=== PATIENT | male | born 1965 | race Hispanic/Latino ===

== ENCOUNTER 2018-07-17 14:37 | Emergency (ER) | payer BC ==
[2018-07-17 15:23] LABS: Absolute Lymphocytes (CBC) 1.3 K/uL (0.7-4.9); Absolute Monocytes 0.5 K/uL (0.1-1.3); Absolute Neutrophil 8.3 K/uL (1.8-8.0); Basophils % 0.8 % (0-1.3); Hematocrit 46.3 % (39.6-49.0); Lymphocytes % 13.2 % (15.3-44.8); MPV 8.2 fL (7.6-11.3); Monocytes % 4.5 % (3.3-12.3); RBC Red Blood Cell Count 5.25 M/uL (4.33-5.43)
[2018-07-17 15:40] LABS: Albumin 3.9 g/dL (3.4-5.0); Bilirubin Direct 0.1 mg/dL (0-0.2); Bilirubin Total 0.5 mg/dL (0.2-1.0); Potassium 3.6 mmol/L (3.5-5.1); Protein, Total 7.5 g/dL (6.4-8.2)
[2018-07-17] MEDS ORDERED: MORPHINE 4 MG/ML SYR ONE (15:53)
[2018-07-17] MEDS ORDERED: ONDANSETRON 4 MG/2 ML VIAL ONE (15:54)
[2018-07-17] MEDS ORDERED: DIAZEPAM 10 MG/2 ML INJ SYRINGE ONE (15:54)
--- NOTE | 2018-07-17 17:26 | ER ---
Nurse's Notes [facility] Name: Darrell Wiseman Age: 52 yrs Sex: Male : 1965 Arrival Date: 07/17/2018 Time: 14:41 Bed 30 Private MD: Diagnosis: Abdominal and pelvic pain;Hyperglycemia, unspecified Presentation: 07/17 14:51 Presenting complaint: Pt's states "we just left [place] ER and they did a CT scan aa5 but he got mad at the nurse and we left without the results". Pt c/o abd pain and low back pain that began Friday. pt also reports N/V/D. Transition of care: patient was not received from another setting of care. Onset of symptoms was June 2018. Risk Assessment: Do you want to hurt yourself or someone else? Patient reports no desire to harm self or others. Care prior to arrival: None. 14:51 Method Of Arrival: Ambulatory aa5 14:51 Acuity: ANGLE 3 aa5 16:15 Initial Sepsis Screen: Does the patient meet any 2 criteria? No. Patient's initial mg2 sepsis screen is negative. Does the patient have a suspected source of infection? No. Patient's initial sepsis screen is negative. Triage Assessment: 15:30 General: Behavior is agitated, restless. mg2 Historical: - Allergies: 14:52 No Known Allergies; aa5 - PMHx: 14:52 Chronic Pancreatitis; aa5 - PSHx: 14:52 None; aa5 - Immunization history:: Immunization history: Flu vaccine is not up to date. - Social history:: Smoking status: Patient uses tobacco products, smokes one-half pack cigarettes per day. - Ebola Screening: : No symptoms or risks identified at this time. Screenin:14 Abuse screen: Denies threats or abuse. Denies injuries from another. Nutritional mg2 screening: No deficits noted. Tuberculosis screening: No symptoms or risk factors identified. Fall Risk IV access (20 points). Assessment: 15:17 Reassessment: Request for Medical Record faxed to [facility]/ Phyllis. 15:30 General: Appears uncomfortable. Pain: Complains of pain in abdomen Pain does not mg2 radiate. Pain currently is 10 out of 10 on a pain scale. Quality of pain is described as aching, Pain began gradually, 2-3 days ago. Is intermittent. Neuro: Level of Consciousness is awake, alert, obeys commands, Oriented to person, place, time, situation. Cardiovascular: Capillary refill < 3 seconds Patient's skin is warm and dry. Respiratory: Airway is patent Respiratory effort is even, unlabored, Respiratory pattern is regular, symmetrical. GI: Bowel sounds present X 4 quads. Abd is soft and non tender. : No signs and/or symptoms were reported regarding the genitourinary system. EENT: No signs and/or symptoms were reported regarding the EENT system. Derm: Skin is intact, is healthy with good turgor, Skin is pink, warm \\T\\ dry. normal. Musculoskeletal: Circulation, motion, and sensation intact. Capillary refill < 3 seconds. 16:15 Reassessment: patient is sleeping. mg2 17:44 Reassessment: Patient denies pain at this time. Patient states feeling better. mg2 Vital Signs: 14:53 Pulse 106; Resp 20 S; Temp 98.5(O); Pulse Ox 97% on R/A; Weight 117.93 kg (R); Height 5 aa5 ft. 11 in. (180.34 cm) (R); Pain 10/10; 15:54 BP 136 / 79; Pulse 88; Resp 18; Pulse Ox 97% on 4 lpm NC; Pain 0/10; mg2 17:44 BP 115 / 78; Pulse 80; Resp 18; Pulse Ox 100% on R/A; Pain 0/10; mg2 14:53 Body Mass Index 36.26 (117.93 kg, 180.34 cm) aa5 14:53 Unable to obtain BP at this time, pt restless. aa5 ED Course: 14:41 Patient arrived in ED. as 14:51 Arm band placed on. aa5 14:52 Triage completed. aa5 14:55 César Ayala MD is Attending Physician. kdr 14:57 Raudel Flores RN is Primary Nurse. mg2 15:00 Initial lab(s) drawn, by me, sent to lab. Inserted saline lock: 20 gauge in right jp3 antecubital area, using aseptic technique. Blood collected. 15:10 Bed in low position. Call light in reach. Side rails up X 1. Pulse ox on. NIBP on. jp3 15:10 Basic Metabolic Panel Sent. jp3 15:10 CBC with Diff Sent. jp3 15:10 Creatinine for Radiology Sent. jp3 15:10 Hepatic Function Sent. jp3 15:10 Lipase Sent. jp3 16:15 No provider procedures requiring assistance completed. mg2 17:44 IV discontinued, intact, bleeding controlled, No redness/swelling at site. Pressure mg2 dressing applied. Administered Medications: 15:53 Drug: morphine 4 mg Route: IVP; Site: right antecubital; mg2 17:07 Follow up: Response: No adverse reaction; Marked relief of symptoms mg2 15:53 Drug: Zofran 4 mg Route: IVP; Site: right antecubital; mg2 17:07 Follow up: Response: No adverse reaction; Marked relief of symptoms mg2 15:53 Drug: Valium 5 mg Route: IVP; Site: right antecubital; mg2 17:07 Follow up: Response: No adverse reaction; Marked relief of symptoms mg2 Outcome: 17:25 Discharge ordered by . kdr 17:45 Discharged to home via wheelchair. mg2 17:45 Condition: stable 17:45 Discharge instructions given to patient, family, Instructed on discharge instructions, follow up and referral plans. medication usage, Demonstrated understanding of instructions, follow-up care, medications, Prescriptions given X 5 17:46 Patient left the ED. mg2 Signatures: César Ayala MD MD kdr Martinez, Amelia as Calderon, Audri RN RN aa5 Abigail Franco RN RN ss Raudel Flores RN RN mg2 Reagan Aguirre jp3
--- NOTE | 2018-07-17 17:26 | EDPHYS ---
Physician Documentation [facility] Name: Darrell Wiseman Age: 52 yrs Sex: Male : 1965 Arrival Date: 07/17/2018 Time: 14:41 Bed 30 Private MD: ED Physician César Ayala HPI: 07/17 17:28 This 52 yrs old Male presents to ER via Ambulatory with complaints of kdr Abdominal Pain, Back Pain. 17:28 This 52 yrs old Male presents to ER via Ambulatory with complaints of kdr Abdominal Pain, Back Pain. 17:28 The patient presents with abdominal pain Left flank. Onset: The symptoms/episode kdr began/occurred this morning. The symptoms do not radiate. Associated signs and symptoms: none. The symptoms are described as burning, constant, vague, Unrelenting. Modifying factors: The symptoms are alleviated by nothing, the symptoms are aggravated by nothing. Severity of pain: At its worst the pain was incapacitating in the emergency department the pain is unchanged. The patient has experienced similar episodes in the past, a few times. The patient has not recently seen a physician. Historical: - Allergies: 14:52 No Known Allergies; aa5 - PMHx: 14:52 Chronic Pancreatitis; aa5 - PSHx: 14:52 None; aa5 - Immunization history:: Immunization history: Flu vaccine is not up to date. - Social history:: Smoking status: Patient uses tobacco products, smokes one-half pack cigarettes per day. - Ebola Screening: : No symptoms or risks identified at this time. ROS: 17:28 Constitutional: Negative for fever, chills, and weight loss, Eyes: Negative for injury, kdr pain, redness, and discharge, Neck: Negative for injury, pain, and swelling, Cardiovascular: Negative for chest pain, palpitations, and edema, Respiratory: Negative for shortness of breath, cough, wheezing, and pleuritic chest pain, Back: Negative for injury and pain, : Negative for injury, bleeding, discharge, and swelling, MS/Extremity: Negative for injury and deformity, Skin: Negative for injury, rash, and discoloration, Neuro: Negative for headache, weakness, numbness, tingling, and seizure activity. Psych: Negative for depression, anxiety, suicide ideation, homicidal ideation, and hallucinations, Allergy/Immunology: Negative for hives, rash, and allergies, Endocrine: Negative for neck swelling, polydipsia, polyuria, polyphagia, and marked weight changes, Hematologic/Lymphatic: Negative for swollen nodes, abnormal bleeding, and unusual bruising. 17:28 Abdomen/GI: Positive for abdominal pain, nausea and vomiting, Negative for diarrhea, constipation, abdominal cramps, abdominal distension, anorexia, dysphagia, hematemesis, black/tarry stool, rectal pain, rectal bleeding. Exam: 17:28 Constitutional: This is a well developed, well nourished patient who is awake, alert, kdr and in severe distress. Writhing in bed Head/Face: Normocephalic, atraumatic. Eyes: Pupils equal round and reactive to light, extra-ocular motions intact. Lids and lashes normal. Conjunctiva and sclera are non-icteric and not injected. Cornea within normal limits. Periorbital areas with no swelling, redness, or edema. Neck: Trachea midline, no thyromegaly or masses palpated, and no cervical lymphadenopathy. Supple, full range of motion without nuchal rigidity, or vertebral point tenderness. No Meningismus. Chest/axilla: Normal chest wall appearance and motion. Nontender with no deformity. No lesions are appreciated. Cardiovascular: Regular rate and rhythm with a normal S1 and S2. No gallops, murmurs, or rubs. Normal PMI, no JVD. No pulse deficits. Respiratory: Lungs have equal breath sounds bilaterally, clear to auscultation and percussion. No rales, rhonchi or wheezes noted. No increased work of breathing, no retractions or nasal flaring. Back: No spinal tenderness. No costovertebral tenderness. Full range of motion. Skin: Warm, dry with normal turgor. Normal color with no rashes, no lesions, and no evidence of cellulitis. MS/ Extremity: Pulses equal, no cyanosis. Neurovascular intact. Full, normal range of motion. Neuro: Awake and alert, GCS 15, oriented to person, place, time, and situation. Cranial nerves II-XII grossly intact. Motor strength 5/5 in all extremities. Sensory grossly intact. Cerebellar exam normal. Normal gait. Psych: Awake, alert, with orientation to person, place and time. Behavior, mood, and affect are within normal limits. 17:28 Abdomen/GI: Inspection: obese Bowel sounds: active, Palpation: soft, mild abdominal tenderness, in all quadrants. Vital Signs: 14:53 Pulse 106; Resp 20 S; Temp 98.5(O); Pulse Ox 97% on R/A; Weight 117.93 kg (R); Height 5 aa5 ft. 11 in. (180.34 cm) (R); Pain 10/10; 15:54 BP 136 / 79; Pulse 88; Resp 18; Pulse Ox 97% on 4 lpm NC; Pain 0/10; mg2 17:44 BP 115 / 78; Pulse 80; Resp 18; Pulse Ox 100% on R/A; Pain 0/10; mg2 14:53 Body Mass Index 36.26 (117.93 kg, 180.34 cm) aa5 14:53 Unable to obtain BP at this time, pt restless. aa5 MDM: 17:25 Patient medically screened. kdr 17:28 Data reviewed: vital signs, nurses notes. Counseling: I had a detailed discussion with kdr the patient and/or guardian regarding: the historical points, exam findings, and any diagnostic results supporting the discharge/admit diagnosis, lab results, radiology results, the need for outpatient follow up. ED course: The patient felt much better with the interventions given,. I reviewed the labs obtained from [facility] with the patient and his spouse.. ED course: They were happy with the care provided and the plan for discharge and follow-uo. 07/17 14:55 Order name: Basic Metabolic Panel [facility] 07/17 14:55 Order name: CBC with Diff [facility] 07/17 14:55 Order name: Creatinine for Radiology [facility] 07/17 14:55 Order name: Hepatic Function [facility] 07/17 14:55 Order name: Lipase [facility] 07/17 15:24 Order name: CBC with Automated Diff; Complete Time: 15:39 [facility] 07/17 14:55 Order name: IV Saline Lock; Complete Time: 15:11 [facility] 07/17 15:38 Order name: Creatinine (Radiology Only); Complete Time: 15:39 [facility] 07/17 15:40 Order name: Basic Metabolic Panel [facility] 07/17 15:40 Order name: Liver (Hepatic) Function [facility] 07/17 15:41 Order name: Lipase [facility] 07/17 14:55 Order name: Labs collected and sent; Complete Time: 15:11 [facility] Administered Medications: 15:53 Drug: morphine 4 mg Route: IVP; Site: right antecubital; mg2 17:07 Follow up: Response: No adverse reaction; Marked relief of symptoms mg2 15:53 Drug: Zofran 4 mg Route: IVP; Site: right antecubital; mg2 17:07 Follow up: Response: No adverse reaction; Marked relief of symptoms mg2 15:53 Drug: Valium 5 mg Route: IVP; Site: right antecubital; mg2 17:07 Follow up: Response: No adverse reaction; Marked relief of symptoms mg2 Disposition: 07/17/18 17:25 Discharged to Home. Impression: Abdominal and pelvic pain, Hyperglycemia, unspecified. - Condition is Stable. - Discharge Instructions: Hyperglycemia, Abdominal Pain, Adult, [id number]. - Prescriptions for Bentyl 20 mg Oral Tablet - take 1 tablet by ORAL route every 6 hours As needed; 20 tablet. Pepcid 20 mg Oral Tablet - take 1 tablet by ORAL route every 12 hours for 5 days; 10 tablet. Valium 5 mg Oral Tablet - take 1 tablet by ORAL route every 8 hours As needed; 6 tablet. Zofran 4 mg Oral Tablet - take 1 tablet by ORAL route every 12 hours As needed; 6 tablet. Tramadol 50 mg Oral Tablet - take 1 tablet by ORAL route every 8 hours as needed; 12 tablet. - Medication Reconciliation Form, Thank You Letter, Antibiotic Education, Prescription Opioid Use form. - Follow up: Private Physician; When: 2 - 3 days; Reason: If symptoms return, Further diagnostic work-up, Recheck today's complaints, Continuance of care, Re-evaluation by your physician. - Problem is new. - Symptoms have improved. Signatures: Dispatcher [employer] EDME César Ayala MD MD [facility] Isabel Soto, CELINA RN aa5 Raudel Flores RN RN mg2 Corrections: (The following items were deleted from the chart) 17:46 17:25 07/17/2018 17:25 Discharged to Home. Impression: Abdominal and pelvic pain; mg2 Hyperglycemia, unspecified. Condition is Stable. Forms are Medication Reconciliation Form, Thank You Letter, Antibiotic Education, Prescription Opioid Use. Follow up: Private Physician; When: 2 - 3 days; Reason: If symptoms return, Further diagnostic work-up, Recheck today's complaints, Continuance of care, Re-evaluation by your physician. Problem is new. Symptoms have improved. kdr
[2018-07-17 18:48] VITALS: TEMP 98.5
[2018-07-17 18:51] VITALS: BP 115/78; O2SAT 100
== END 2018-07-17 17:46 | disposition home or self-care (01) ==
LOC: ER 14:37
DX: R73.9 Hyperglycemia, unspecified (principal); F17.210 Nicotine dependence, cigarettes, uncomplicated
CPT/HCPCS: 36415; 80048; 80076; 83690; 85025; 96374; 96375; 99284; J2405; J3360

== ENCOUNTER 2018-07-19 07:56 | Observation (INO) | payer BC ==
--- OUTSIDE RECORDS SUMMARY | 2018-07-19 07:58 | XMS REPORT ---
:1965 [facility] Address [address] [place]. [address] [place] [id number] Care Team Providers Name Role Phone Unavailable Unavailable Unavailable Problems This patient has no known problems. Allergies, Adverse Reactions, Alerts This patient has no known allergies or adverse reactions. Medications This patient has no known medications.
[2018-07-19 08:22] LABS: Absolute Lymphocytes (CBC) 1.4 K/uL (0.7-4.9); Absolute Monocytes 0.6 K/uL (0.1-1.3); Absolute Neutrophil 8.3 K/uL (1.8-8.0); Basophils % 0.8 % (0-1.3); Eosinophils % 0.2 % (0-4.4); Hematocrit 47.4 % (39.6-49.0); Lymphocytes % 13.6 % (15.3-44.8); MPV 8.3 fL (7.6-11.3); Monocytes % 5.4 % (3.3-12.3); RBC Red Blood Cell Count 5.35 M/uL (4.33-5.43)
[2018-07-19] MEDS ORDERED: MORPHINE 4 MG/ML SYR ONE ×3 (08:26→12:32)
[2018-07-19] MEDS ORDERED: ONDANSETRON 4 MG/2 ML VIAL ONE (08:26)
[2018-07-19] MEDS ORDERED: NA CHLORIDE 0.9% 1,000 ML ONE (08:26)
[2018-07-19 08:40] LABS: Albumin 3.9 g/dL (3.4-5.0); Bilirubin Direct 0.1 mg/dL (0-0.2); Bilirubin Total 0.6 mg/dL (0.2-1.0); Potassium 3.5 mmol/L (3.5-5.1); Protein, Total 7.6 g/dL (6.4-8.2)
[2018-07-19] MEDS ORDERED: KETOROLAC 30 MG/ML INJ ONE (09:17)
--- NOTE | 2018-07-19 09:44 | RAD REPORT ---
EXAM DESCRIPTION: CT - Abdomen Pelvis W Contrast - 07/19/2018 9:19 am CLINICAL HISTORY: Abdominal pain COMPARISON: none. TECHNIQUE: Computed axial tomography of the abdomen pelvis was obtained. 100 cc Isovue-300 was admin istered intravenously. Oral contrast was not requested which limits evaluation of bowel. All CT scans are performed using dose optimization technique as appropriate and may include automated exposure control or mA/KV adjustment according to patient size. FINDINGS: Some images degraded by patient motion artifact Fatty liver. Increased density within the gallbladder probably indicates vicarious excretion of contr ast Spleen, pancreas, adrenal and kidneys appear unremarkable. There is no evidence of diverticulitis. An abnormal appendix is not seen A small umbilical hernia IMPRESSION: No acute abnormality is displayed.
--- NOTE | 2018-07-19 10:07 | ER ---
Nurse's Notes [facility] Name: Darrell Wiseman Age: 52 yrs Sex: Male : 1965 Arrival Date: 07/19/2018 Time: 07:57 Bed 13 Private MD: None, None Diagnosis: Generalized abdominal pain-intractable Presentation: 07/19 08:05 Presenting complaint: Patient states: abdominal pain started fri, getting worse. was ch seen Friday at [facility], and Friday here and discharged. still having pain. Transition of care: patient was not received from another setting of care. Onset of symptoms was July 15, 2018. Risk Assessment: Do you want to hurt yourself or someone else? Patient reports no desire to harm self or others. Initial Sepsis Screen: Does the patient meet any 2 criteria? No. Patient's initial sepsis screen is negative. Does the patient have a suspected source of infection? No. Patient's initial sepsis screen is negative. Care prior to arrival: None. 08:05 Method Of Arrival: Ambulatory 08:05 Acuity: ANGLE 3 ch Triage Assessment: 08:08 General: Appears in no apparent distress. uncomfortable, Behavior is agitated, ch restless. Pain: Complains of pain in epigastric area, right upper quadrant and left upper quadrant. GI: Reports upper abdominal pain, nausea, vomiting. Historical: - Allergies: 08:08 No Known Allergies; ch - Home Meds: 08:08 Diazepam Oral [Active]; tramadol Oral [Active]; Zofran Oral [Active]; Dicyclomine Oral ch [Active]; Famotidine Oral [Active]; - PMHx: 08:08 Chronic Pancreatitis; "pin point hole in stomach"; ch - PSHx: 08:08 None; ch - Immunization history:: Adult Immunizations up to date. - Social history:: Smoking status: Patient uses tobacco products. - Ebola Screening: : Patient negative for fever greater than or equal to 101.5 degrees Fahrenheit, and additional compatible Ebola Virus Disease symptoms Patient denies exposure to infectious person Patient denies travel to an Ebola-affected area in the 21 days before illness onset No symptoms or risks identified at this time. Screenin:09 Abuse screen: Denies threats or abuse. Denies injuries from another. Nutritional ch screening: No deficits noted. Tuberculosis screening: No symptoms or risk factors identified. Fall Risk. Assessment: 08:05 General: Appears uncomfortable, Behavior is cooperative, restless, Denies fever. Pain: rb1 Complains of pain in abdomen Pain currently is 10 out of 10 on a pain scale. Pain began Friday. Neuro: Level of Consciousness is awake, alert, obeys commands, Oriented to person, place, time, situation. Cardiovascular: Capillary refill < 3 seconds is brisk in bilateral fingers. Respiratory: Airway is patent Respiratory effort is even, unlabored, Respiratory pattern is regular, symmetrical. GI: Bowel sounds present X 4 quads. Abdomen is tender to palpation X 4 quads. Reports diarrhea, nausea, vomiting. : No signs and/or symptoms were reported regarding the genitourinary system. Derm: Skin is dry, Skin is normal, Skin temperature is warm. 08:09 Reassessment: Patient appears in no apparent distress at this time. ch 08:25 Reassessment: Patient and/or family updated on plan of care and expected duration. Pain rb1 level reassessed. Patient is alert, oriented x 3, equal unlabored respirations, skin warm/dry/pink. Pain 03/04. 09:30 Reassessment: Patient appears in no apparent distress at this time. No changes from rb1 previously documented assessment. 10:30 Reassessment: Patient appears in no apparent distress at this time. Patient and/or rb1 family updated on plan of care and expected duration. Pain level reassessed. Patient is alert, oriented x 3, equal unlabored respirations, skin warm/dry/pink. is at bedside. 11:30 Reassessment: Patient appears in no apparent distress at this time. No changes from rb1 previously documented assessment. Pt. reports that none of the medication we have given him has worked. Arlen, provider, was notified. No orders received at this time. 12:30 Reassessment: Patient appears in no apparent distress at this time. Patient and/or rb1 family updated on plan of care and expected duration. Pain level reassessed. Patient is alert, oriented x 3, equal unlabored respirations, skin warm/dry/pink. 12:55 Reassessment: Tried to call report but there was no answer. rb1 13:00 Reassessment: Dr. Jorge is at bedside. rb1 13:02 Reassessment: Called to give report but the nurse told me that she would call me back rb1 because she was giving medications. I gave the nurse my direct extension to call for report. 13:30 Reassessment: Gave report to CELINA Lux. Information from [facility] was given. Informed that a rb1 Lactate was sent and should watch for the results. All questions asked and answered. 13:30 Reassessment: Patient appears in no apparent distress at this time. Patient and/or rb1 family updated on plan of care and expected duration. Pain level reassessed. Patient is alert, oriented x 3, equal unlabored respirations, skin warm/dry/pink. Waiting for someone to be available to take the pt. to the floor. 14:00 Reassessment: Patient appears in no apparent distress at this time. No changes from rb1 previously documented assessment. at bedside. Waiting for someone to transport the pt. to the floor. Vital Signs: 08:08 BP 157 / 97; Pulse 94; Resp 16; Temp 97.2; Pulse Ox 98% on R/A; Pain 10/10; ch 09:00 BP 169 / 136; Pulse 78; Resp 19; Pulse Ox 96% on R/A; rb1 10:00 BP 160 / 91; Pulse 80; Resp 20; Pulse Ox 96% ; rb1 10:14 Weight 116.57 kg (M); Height 5 ft. 11 in. (180.34 cm) (R); rb1 10:30 BP 148 / 94; Pulse 94; Resp 19; Pulse Ox 97% on R/A; Pain 10/10; rb1 10:32 Weight 116 kg (M); hb 11:30 BP 120 / 75; Pulse 82; Resp 17; Pulse Ox 97% on R/A; rb1 12:15 BP 114 / 88; Pulse 80; Resp 18; Pulse Ox 97% on R/A; Pain 10/10; rb1 13:15 BP 131 / 83; Pulse 82; Resp 17; Pulse Ox 96% on R/A; Pain 10/10; rb1 10:32 Body Mass Index 35.67 (116.00 kg, 180.34 cm) hb 09:00 pt. will not lay still during vital signs. rb1 ED Course: 07:57 Patient arrived in ED. mr 07:57 None, None is Private Physician. mr 07:58 Macarena Tejada, RN is Primary Nurse. rb1 07:58 Arlen Pang FNP-C [facility]. kb 07:58 Jacques Das MD is Attending Physician. kb 08:06 Triage completed. ch 08:08 Arm band placed on left wrist. Patient placed in an exam room, on a stretcher, on pulse ch oximetry. 08:09 Patient has correct armband on for positive identification. Bed in low position. Call light in reach. Side rails up X2. Adult w/ patient. 08:09 No provider procedures requiring assistance completed. ch 08:15 Pulse ox on. NIBP on. Warm blanket given. rb1 08:15 Inserted saline lock: 18 gauge in right forearm, using aseptic technique. ,using rb1 aseptic technique. IV inserted by CELINA Cox. Blood collected. 09:[address] kw1 09:17 CT completed. Patient moved back from CT. kw1 10:06 Kathia Jorge MD is Hospitalizing Provider. kb 14:12 Patient admitted, IV remains in place. rb1 Administered Medications: 08:19 Drug: morphine 4 mg Route: IVP; Site: right forearm; rb1 08:40 Follow up: Response: No adverse reaction; Pain is unchanged, physician notified rb1 08:19 Drug: Zofran 4 mg Route: IVP; Site: right forearm; rb1 08:40 Follow up: Response: No adverse reaction; Nausea is decreased rb1 08:19 Drug: NS 0.9% 1000 ml Route: IV; Rate: 1000 ml; Site: right forearm; rb1 08:42 Drug: morphine 4 mg Route: IVP; Site: right forearm; rb1 09:00 Follow up: Response: No adverse reaction; Pain is unchanged, physician notified rb1 09:06 Drug: TORadol 30 mg Route: IVP; Site: right forearm; rb1 09:30 Follow up: Response: No adverse reaction; Pain is unchanged, physician notified rb1 10:35 Drug: Ketamine 0.1 mg/kg {Note: Dosage was double checked by CN. Ellen} Route: IVP; rb1 Site: right forearm; 11:00 Follow up: Response: No adverse reaction rb1 12:22 Drug: morphine 4 mg Route: IVP; Site: right forearm; rb1 12:40 Follow up: Response: No adverse reaction; Pain is unchanged, physician notified rb1 Outcome: 10:06 Decision to Hospitalize by Provider. kb 14:12 Patient left the ED. rb1 14:12 Admitted to Med/surg accompanied by tech, family with patient, via stretcher, room 230, rb1 with chart, Report called to CELINA Lux 14:12 Condition: stable 14:12 Instructed on the need for admit. Signatures: Arlen Pang, PATTERN CHANGER-C PATTERN CHANGER-Ckb Brooke Arias RN RN Juli Romero mr Macarena Tejada RN RN rb1 Ellen Magdaleno RN RN Poppy Colindres [facility] Corrections: (The following items were deleted from the chart) 10:44 10:14 74.39 kg Reported; Height 5 ft. 11 in. Reported; BMI: 22.8; rb1 rb1
--- NOTE | 2018-07-19 10:07 | EDPHYS ---
Physician Documentation [facility] Name: Darrell Wiseman Age: 52 yrs Sex: Male : 1965 Arrival Date: 07/19/2018 Time: 07:57 Bed 13 Private MD: None, None ED Physician Jacques Das HPI: 07/19 08:07 This 52 yrs old Male presents to ER via Ambulatory with complaints of kb Abdominal Pain. 08:07 The patient presents with abdominal pain that is diffuse. Onset: The symptoms/episode kb began/occurred 5 day(s) ago. The symptoms do not radiate. Associated signs and symptoms: Pertinent positives: nausea, vomiting, and diarrhea, Pertinent negatives: anorexia, blood in stools, chest pain, constipation, dysuria, fever, headache, hematuria, palpitations, shortness of breath, testicular pain, vomiting blood. The symptoms are described as constant. Modifying factors: The symptoms are alleviated by nothing, the symptoms are aggravated by nothing. Severity of pain: At its worst the pain was moderate in the emergency department the pain is unchanged. The patient has experienced similar episodes in the past. The patient has been recently seen by a physician: the ER physician, out of Town, with similar presenting complaints, The patient has been recently seen at the [facility] Emergency Department, this week. Pt rolling around stretcher due to pain. . Historical: - Allergies: 08:08 No Known Allergies; ch - Home Meds: 08:08 Diazepam Oral [Active]; tramadol Oral [Active]; Zofran Oral [Active]; Dicyclomine Oral ch [Active]; Famotidine Oral [Active]; - PMHx: 08:08 Chronic Pancreatitis; "pin point hole in stomach"; ch - PSHx: 08:08 None; ch - Immunization history:: Adult Immunizations up to date. - Social history:: Smoking status: Patient uses tobacco products. - Ebola Screening: : Patient negative for fever greater than or equal to 101.5 degrees Fahrenheit, and additional compatible Ebola Virus Disease symptoms Patient denies exposure to infectious person Patient denies travel to an Ebola-affected area in the 21 days before illness onset No symptoms or risks identified at this time. ROS: 08:06 Constitutional: Negative for fever, chills, and weight loss, ENT: Negative for injury, kb pain, and discharge, Neck: Negative for injury, pain, and swelling, Cardiovascular: Negative for chest pain, palpitations, and edema, Respiratory: Negative for shortness of breath, cough, wheezing, and pleuritic chest pain, Back: Negative for injury and pain, : Negative for injury, bleeding, discharge, and swelling, MS/Extremity: Negative for injury and deformity, Skin: Negative for injury, rash, and discoloration, Neuro: Negative for headache, weakness, numbness, tingling, and seizure. 08:06 Abdomen/GI: Positive for abdominal pain, nausea, vomiting, and diarrhea, Negative for constipation, abdominal cramps, abdominal distension, anorexia. Exam: 08:06 Head/Face: Normocephalic, atraumatic. Chest/axilla: Normal chest wall appearance and kb motion. Nontender with no deformity. No lesions are appreciated. Cardiovascular: Regular rate and rhythm with a normal S1 and S2. No gallops, murmurs, or rubs. Normal PMI, no JVD. No pulse deficits. Respiratory: Lungs have equal breath sounds bilaterally, clear to auscultation and percussion. No rales, rhonchi or wheezes noted. No increased work of breathing, no retractions or nasal flaring. Back: No spinal tenderness. No costovertebral tenderness. Full range of motion. Skin: Warm, dry with normal turgor. Normal color with no rashes, no lesions, and no evidence of cellulitis. MS/ Extremity: Pulses equal, no cyanosis. Neurovascular intact. Full, normal range of motion. Neuro: Awake and alert, GCS 15, oriented to person, place, time, and situation. Cranial nerves II-XII grossly intact. Motor strength 5/5 in all extremities. Sensory grossly intact. Cerebellar exam normal. Normal gait. 08:06 Abdomen/GI: Inspection: obese Bowel sounds: normal, in all quadrants, Palpation: soft, in all quadrants, mild abdominal tenderness, in all quadrants. 08:07 Constitutional: The patient appears alert, awake, uncomfortable. Vital Signs: 08:08 BP 157 / 97; Pulse 94; Resp 16; Temp 97.2; Pulse Ox 98% on R/A; Pain 10/10; ch 09:00 BP 169 / 136; Pulse 78; Resp 19; Pulse Ox 96% on R/A; rb1 10:00 BP 160 / 91; Pulse 80; Resp 20; Pulse Ox 96% ; rb1 10:14 Weight 116.57 kg (M); Height 5 ft. 11 in. (180.34 cm) (R); rb1 10:30 BP 148 / 94; Pulse 94; Resp 19; Pulse Ox 97% on R/A; Pain 10/10; rb1 10:32 Weight 116 kg (M); hb 11:30 BP 120 / 75; Pulse 82; Resp 17; Pulse Ox 97% on R/A; rb1 12:15 BP 114 / 88; Pulse 80; Resp 18; Pulse Ox 97% on R/A; Pain 10/10; rb1 13:15 BP 131 / 83; Pulse 82; Resp 17; Pulse Ox 96% on R/A; Pain 10/10; rb1 10:32 Body Mass Index 35.67 (116.00 kg, 180.34 cm) hb 09:00 pt. will not lay still during vital signs. rb1 MDM: 07:58 Patient medically screened. kb 08:06 Data reviewed: vital signs, nurses notes. Data interpreted: Pulse oximetry: on room air kb is 98 %. Interpretation: normal. 10:02 Counseling: I had a detailed discussion with the patient and/or guardian regarding: the kb historical points, exam findings, and any diagnostic results supporting the discharge/admit diagnosis, lab results, radiology results, the need for further work-up and treatment in the hospital. Physician consultation: Kahtia Jorge MD was called at 10:02. 10:05 Physician consultation: Kathia Jorge MD was contacted at 10:05, regarding admission, to the medical/surgical unit. patient's condition, and will see patient in ED, shortly. 07/19 08:05 Order name: Basic Metabolic Panel 07/19 08:05 Order name: CBC with Diff 07/19 08:05 Order name: Hepatic Function 07/19 08:05 Order name: Lipase 07/19 08:26 Order name: CBC with Automated Diff; Complete Time: 08:26 EDMS 07/19 08:41 Order name: Basic Metabolic Panel; Complete Time: 08:43 EDMS 07/19 08:41 Order name: Liver (Hepatic) Function; Complete Time: 08:43 EDMS 07/19 08:41 Order name: Lipase; Complete Time: 08:43 EDMS 07/19 08:44 Order name: CT Abd/Pelvis - W/Contrast kb 07/19 09:45 Order name: CT EDMS 07/19 10:05 Order name: UDS; Complete Time: 13:08 kb 07/19 12:34 Order name: Urine Dipstick--Ancillary (enter results) ms 07/19 13:18 Order name: Lactate kb 07/19 14:00 Order name: Urine Dipstick-Ancillary; Complete Time: 14:02 EDMS 07/19 08:05 Order name: IV Saline Lock; Complete Time: 08:22 kb 07/19 08:05 Order name: Labs collected and sent; Complete Time: 08:22 kb Administered Medications: 08:19 Drug: morphine 4 mg Route: IVP; Site: right forearm; rb1 08:40 Follow up: Response: No adverse reaction; Pain is unchanged, physician notified rb1 08:19 Drug: Zofran 4 mg Route: IVP; Site: right forearm; rb1 08:40 Follow up: Response: No adverse reaction; Nausea is decreased rb1 08:19 Drug: NS 0.9% 1000 ml Route: IV; Rate: 1000 ml; Site: right forearm; rb1 08:42 Drug: morphine 4 mg Route: IVP; Site: right forearm; rb1 09:00 Follow up: Response: No adverse reaction; Pain is unchanged, physician notified rb1 09:06 Drug: TORadol 30 mg Route: IVP; Site: right forearm; rb1 09:30 Follow up: Response: No adverse reaction; Pain is unchanged, physician notified rb1 10:35 Drug: Ketamine 0.1 mg/kg {Note: Dosage was double checked by CN. Ellen} Route: IVP; rb1 Site: right forearm; 11:00 Follow up: Response: No adverse reaction rb1 12:22 Drug: morphine 4 mg Route: IVP; Site: right forearm; rb1 12:40 Follow up: Response: No adverse reaction; Pain is unchanged, physician notified rb1 Disposition: 07/20 07:53 Co-signature as Attending Physician, Jacques Das MD I agree with the assessment and roland plan of care. Disposition: 07/19/18 10:06 Hospitalization ordered by Kathia Jorge for Observation. Preliminary diagnosis is Generalized abdominal pain - intractable. - Bed requested for Telemetry/MedSurg (observation). - Status is Observation. rb1 - Condition is Stable. - Problem is new. - Symptoms are unchanged. UTI on Admission? No Signatures: Dispatcher [employer] EDMS Arlen Pang, Brooke Caballero, CELINA RN Jacques Ndiaye MD MD cha Solis, Maria ms Barber, CELINA Fiore RN rb1 Corrections: (The following items were deleted from the chart) 07/19 08:07 08:06 Constitutional: Negative for fever, chills, and weight loss, ENT: Negative for kb injury, pain, and discharge, Neck: Negative for injury, pain, and swelling, Cardiovascular: Negative for chest pain, palpitations, and edema, Respiratory: Negative for shortness of breath, cough, wheezing, and pleuritic chest pain, Back: Negative for injury and pain, : Negative for injury, bleeding, discharge, and swelling, MS/Extremity: Negative for injury and deformity, Skin: Negative for injury, rash, and discoloration, Neuro: Negative for headache, weakness, numbness, tingling, and seizure, kb 08:07 08:06 Constitutional: This is a well developed, well nourished patient who is awake, kb alert, and in no acute distress. Head/Face: Normocephalic, atraumatic. Chest/axilla: Normal chest wall appearance and motion. Nontender with no deformity. No lesions are appreciated. Cardiovascular: Regular rate and rhythm with a normal S1 and S2. No gallops, murmurs, or rubs. Normal PMI, no JVD. No pulse deficits. Respiratory: Lungs have equal breath sounds bilaterally, clear to auscultation and percussion. No rales, rhonchi or wheezes noted. No increased work of breathing, no retractions or nasal flaring. Back: No spinal tenderness. No costovertebral tenderness. Full range of motion. Skin: Warm, dry with normal turgor. Normal color with no rashes, no lesions, and no evidence of cellulitis. MS/ Extremity: Pulses equal, no cyanosis. Neurovascular intact. Full, normal range of motion. Neuro: Awake and alert, GCS 15, oriented to person, place, time, and situation. Cranial nerves II-XII grossly intact. Motor strength 5/5 in all extremities. Sensory grossly intact. Cerebellar exam normal. Normal gait. kb 12:31 10:06 Hospitalization Ordered by Kathia Jorge MD for Observation. Preliminary diagnosis ms is Generalized abdominal pain - intractable. Bed requested for Telemetry/MedSurg (observation). Status is Observation. Condition is Stable. Problem is new. Symptoms are unchanged. UTI on Admission? No. kb 14:12 12:31 07/19/2018 10:06 Hospitalization Ordered by Kathia Jorge MD for Observation. rb1 Preliminary diagnosis is Generalized abdominal pain - intractable. Bed requested for Telemetry/MedSurg (observation). Status is Observation. Condition is Stable. Problem is new. Symptoms are unchanged. UTI on Admission? No. ms
[2018-07-19] MEDS ORDERED: KETAMINE HCL 500 MG/5 ML VIAL ONE (10:32)
[2018-07-19 13:07] LABS: Barbiturates NEGATIVE (NEGATIVE); Benzodiazepines POSITIVE (NEGATIVE); Cocaine NEGATIVE (NEGATIVE); METHAMPHETAM NEGATIVE (NEGATIVE); Methadone NEGATIVE (NEGATIVE); Opiates POSITIVE (NEGATIVE); Phencyclidine NEGATIVE (NEGATIVE); THC Cannibis POSITIVE (NEGATIVE)
[2018-07-19 14:00] LABS: Urine Blood TRACE (NEG); Urine Glucose NEGATIVE (NEG); Urine Protein NEGATIVE (NEG); Urine Specific Gravity 1.015 (1.005-1.030)
[2018-07-19] MEDS ORDERED: ACETAMINOPHEN 650MG/RECT SUPP PR PRN (14:20)
[2018-07-19] MEDS: D5.45NS W/KCL 20MEQ 1,000 ML IV SCH ×2 (14:48→21:57)
[2018-07-19] MEDS: MORPHINE 2 MG/ML SYR IV PRN ×2 (15:02→20:09)
[2018-07-19 15:31] VITALS: BMI 35.5
[2018-07-19] MEDS: FAMOTIDINE 20 MG TAB PO SCH (19:26)
[2018-07-19] MEDS ORDERED: KCL 20 MEQ/100 mL IVPB 20 MEQ/100 ML BAG IV SCH (20:00)
[2018-07-19] MEDS: DICYCLOMINE HCL 10 MG CAP PO PRN (21:27)
[2018-07-19] MEDS: DIAZEPAM 5 MG TABLET PO PRN (21:55)
--- NOTE | 2018-07-20 02:02 | HP ---
Date of Admission: 07/19/2018 Chief Complaint: Intractable abdominal pain. Primary Care Physician: None. History Of Present Illness: The patient is a 52-year-old male with past medical history of chronic p ancreatitis, unclear abnormality stated as pinpoint hole in the stomach, who was previously been work ed up by Dr. Viveros several years ago, comes in with multiple visits to the ER here as well as [facility] , recently left AMA and came to our facility with intractable abdominal pain which began 5 days prior to admission, nonradiating; associated with nausea, vomiting, diarrhea. No blood in the stool. No fever. No chest pain or shortness of breath. No hematemesis. The patient's symptoms are constant, moderate, progressively worsening. The patient therefore came into the ER for further evaluation. H is workup revealed normal WBC count. Lipase level was normal. Tox screen was positive for benzodiaz epines, opiates and cannabinoids. CT scan of the abdomen and pelvis showed no acute abnormality. Th e patient was then referred for admission for intractable pain. Past Medical History: Chronic pancreatitis. Surgical History: None. Allergies: NO KNOWN DRUG ALLERGIES. Medications: List reviewed. Family History: Father has diabetes. Social History: The patient is . Smokes cigarettes half a pack per day for the past 20 years . Denies alcohol use. Does report using marijuana. Review of Systems: Eleven-point system reviewed, negative except as per HPI. Physical Examination: Vital Signs: Blood pressure 157/97, pulse 94, respirations 16, temperature 97.2, O2 98% on room air. General: Awake, alert, oriented x3, in moderate distress, ill-appearing male, obese. BMI greater th an 30. CV: S1, S2. Regular rate and rhythm. Peripheral pulses present. Respiratory: Moving air well bilaterally. No wheezing or stridor. No use of accessory muscles. HEENT: Normocephalic, atraumatic. PERRLA. EOMI. Dry mucous membranes. Oropharynx is clear. Poor dentition. Conjunctivae anicteric. Neck: Supple. No JVD. Trachea midline. Extremities: No clubbing, cyanosis, or edema. No calf tenderness. Neuro: Cranial nerves 2 through 12 intact. Grossly no focal neurological deficit. Speech is normal . Skin: No rashes. Normal skin turgor. Acute changes from skin graft on his left lower extremity. Psych: Mood is anxious. Affect is congruent with mood. Insight and judgment are poor. Labs: UDS is positive for opiates, benzodiazepines and THC. Urine is negative. Sodium 141, potassi um 3.5, chloride 108, CO2 25, BUN 9, creatinine 1.29, glucose 108, lactate 1.2, calcium 8.6. WBC 10. 3, H and H 16 and 47.4, platelets 287, neutrophils 80%. CT scan of the abdomen and pelvis shows no a cute abnormality. Does show fatty liver disease. Assessment: A 52-year-old male with: 1.Intractable generalized abdominal pain, unclear etiology, possible ischemic bowel syndrome. The p justin is a smoker. The patient did have some diarrhea. No bright red blood. Did state that the st ool was melenic. Consider GI consultation. Continue pain medications, n.p.o. Continue IV fluids. 2.Obesity. BMI greater than 30. 3.Nicotine dependence with cigarette smoking continuous. 4.Marijuana abuse. Counseled. 5.Fatty liver disease. Plan: Admit the patient to [facility] as observation. MADHURI Voice ID: [id number]
[2018-07-20] MEDS: MORPHINE 2 MG/ML SYR IV PRN ×3 (05:45→20:16)
[2018-07-20 06:20] LABS: Absolute Lymphocytes (CBC) 1.6 K/uL (0.7-4.9); Absolute Monocytes 0.6 K/uL (0.1-1.3); Absolute Neutrophil 5.2 K/uL (1.8-8.0); Basophils % 0.8 % (0-1.3); Eosinophils % 0.8 % (0-4.4); Hematocrit 42.3 % (39.6-49.0); MPV 8.4 fL (7.6-11.3); RBC Red Blood Cell Count 4.73 M/uL (4.33-5.43)
[2018-07-20 06:31] LABS: Albumin 3.3 g/dL (3.4-5.0); Bilirubin Total 0.6 mg/dL (0.2-1.0); Magnesium 2.3 mg/dL (1.8-2.4); Potassium 3.5 mmol/L (3.5-5.1); Protein, Total 6.5 g/dL (6.4-8.2)
[2018-07-20] MEDS: DIAZEPAM 5 MG TABLET PO PRN (06:56)
[2018-07-20] MEDS: FAMOTIDINE 20 MG TAB PO SCH ×2 (08:30→20:16)
[2018-07-20] MEDS: DICYCLOMINE HCL 10 MG CAP PO PRN (08:31)
[2018-07-20] MEDS: TRAMADOL HCL 50 MG TAB PO PRN (10:18)
[2018-07-20] MEDS: D5.45NS W/KCL 20MEQ 1,000 ML IV SCH ×3 (10:27→20:15)
[2018-07-20] MEDS: METRONIDAZOLE 500mg IVPB 500 MG/100 ML BAG IV SCH ×2 (12:05→16:57)
[2018-07-20] MEDS: CIPROFLOXACIN 400mg IV 400 MG/200 ML BAG IV SCH ×2 (12:06→20:16)
--- NOTE | 2018-07-20 17:44 | PN ---
Date of Progress Note: 07/20/2018 Subjective: Patient was seen and examined. Chart reviewed and case discussed with RN as well as Dr. Bueno. The patient is still seeming to have intractable abdominal pain. States he is hungry and wants to eat. at the bedside. Case was also discussed with Dr. Evans and CT scan imaging was reviewed with him. Medications: List reviewed. Physical Examination: Vital Signs: Temperature 97.5, heart rate 62, blood pressure 140/83, respirations 18, O2 98% on room air. General: Awake, alert, oriented x3. Morbidly obese male, seems to be in apparent pain. CV: S1, S2. Regular rate and rhythm. Peripheral pulses present. Respiratory: Moving air well bilaterally. No wheezing or stridor. Gastrointestinal: Abdomen is soft, not distended. Pain out of proportion to exam. Bowel sounds positive. Extremities: No clubbing, cyanosis, or edema. Neurologic: Nonfocal. Laboratory Data: Sodium 144, potassium 3.5, chloride 110, CO2 26, BUN 10, creatinine 1.03, glucose 109, calcium 7.8, magnesium 2.3. WBC 7.5, H and H 14.1 , 42.3, platelets 228, neutrophils 69%. Assessment And Plan: A 52-year-old male with, 1. Intractable abdominal pain, generalized, unclear etiology. I did discuss imaging studies with Dr. Evans. CT scan with the contrast did show acute arterial phase doubt ischemic bowel disease. The patient has not had any diarrhea. No bloody stool. Did report some melena at home, however, has not had any further stools. GI unavailable for consultation. We will continue with pain medications. Keep n.p.o. continue with IV fluids. General surgery consultation has been obtained. 2. Obesity, BMI greater than 30. Counseled. 3. Nicotine dependence with cigarette smoking, continuous. 4. Marijuana abuse, counseled. 5. Fatty liver disease. Plan: We will continue to monitor. There is a possibility that the patient has drug-seeking behavior as he has had multiple visits to the ER and left AMA from [facility] as well when he did not receive pain medications. /DENIS Voice ID: [id number] Report ID: [id number] HERLINDA
--- NOTE | 2018-07-20 19:29 | CON ---
Date of Consultation: 07/20/2018 Brief History Of Present Illness: The patient is a 52-year-old male, who presents with hist ory of chronic pancreatitis, who presents with worsening abdominal pain beginning 4-5 days ago. It g ot progressively worse over the past few days, associated with intractable nausea and vomiting and wa veronica diarrhea, which he states had a dark color at times. He states he has been under the care of Dr Mil Viveros several years ago and had an EGD many years ago and upwards of 10 years ago in which he noted a "pinpoint hole in his stomach, but did not have any surgical intervention at that time. He has had multiple ER visits here as well as [facility] and recently left by report AMA from [facility] our facili ty with the above-stated complaints of abdominal pain and intractable vomiting. He has had no fever, no chest pain, no shortness of breath, no hematemesis. His pain was constant, but it had a crescend o decrescendo type character. It was described as a grippy type gas pain primarily. Past Medical History: Significant for chronic pancreatitis. Past Surgical History: He has had skin grafts. Allergies: NO KNOWN DRUG ALLERGIES. Medications: Included Bentyl, Pepcid, Zofran, Ultram, and Valium. Family History: Father has diabetes. Social History: He is . Smokes half a pack cigarettes per day for 20 years. Denies alcohol. He does report using marijuana on occasion. Review of Systems: A 10-point review of systems negative other than HPI. Physical Examination: Vital Signs: At time of my examination, his BMI is 35.6, blood pressure 140/83, pulse is 60, respira tory rate 18, temperature 97.5. General: He is awake, alert, and oriented. Psychiatric: He is appropriate and conversive. HEENT: Normocephalic. His sclerae are anicteric. Mucous membranes moist. Oropharynx is clear. Neck: Supple. No JVD. Chest: Normal expansion and excursion. Cardiovascular: Regular rate and rhythm. Pulmonary: Clear to auscultation bilaterally. Abdomen: Soft, nontender, nondistended. No rebound. No guarding. No peritoneal signs. No hernias appreciated. Extremities: No clubbing, cyanosis, or edema. He has well-healed scars on bilateral ankle areas fro m obvious skin grafts or segundo. Otherwise remainder of physical examination is essentially normal. Laboratory Data: White blood cell count at the time of my exam is 7.5, hemoglobin is 14.1, hematocri t 42.3, platelet count is 228. His neutrophils are normal at 69%. Sodium 144, potassium 3.5, chlori de 110, carbon dioxide 26, BUN 10, creatinine 1.03, glucose is 109, lactic acid 1.2. AST is 45, ALT 41, alkaline phosphatase is 103. Lipase was 384 on admission. UA was essentially negative. Toxoid screen was positive for opioids, benzodiazepines, and THC. CT scan for the abdomen pelvis was offici ally read as negative acute abnormalities. Visceral arteries enhance normally on the arterial phase without evidence of significant flow abnormalities. No evidence of diverticulitis. Abnormal appendi x is not seen. Spleen, pancreas, and adrenal and kidneys appear normal. Fatty liver, increased dens ity within the gallbladder probably indicates vicarious excretion of contrast. Assessment And Plan: This is a 52-year-old male, who comes in with abdominal pain out of proportion to physical exam. There is no evidence of ischemic bowel or ischemic changes to his bowel, however. 1.I recommend continued IV fluid hydration. 2.Pain management. 3.Serial abdominal exams. 4.Stool guaiac. 5.Continue prophylactic antibiotic Kendy Bowman per Dr. Jorge. 6.I will follow along with you. Thank you for this interesting consult. JAGJIT/DENIS Voice ID: [id number] Report ID: [id number]
[2018-07-21] MEDS: METRONIDAZOLE 500mg IVPB 500 MG/100 ML BAG IV SCH ×3 (00:08→17:24)
[2018-07-21] MEDS: D5.45NS W/KCL 20MEQ 1,000 ML IV SCH ×3 (03:15→21:49)
[2018-07-21] MEDS: MORPHINE 2 MG/ML SYR IV PRN (04:36)
[2018-07-21] MEDS: DICYCLOMINE HCL 10 MG CAP PO PRN ×3 (05:53→22:02)
[2018-07-21] MEDS: ONDANSETRON 4 MG/2 ML VIAL IV PRN (06:16)
[2018-07-21 06:21] LABS: Potassium 3.4 mmol/L (3.5-5.1)
[2018-07-21] MEDS: TRAMADOL HCL 50 MG TAB PO PRN ×2 (08:03→17:28)
[2018-07-21] MEDS: FAMOTIDINE 20 MG TAB PO SCH ×2 (08:04→21:44)
[2018-07-21] MEDS: CIPROFLOXACIN 400mg IV 400 MG/200 ML BAG IV SCH ×2 (08:04→21:44)
--- NOTE | 2018-07-21 08:24 | P.PN ---
Subjective Date of Service: 07/21/18 Subjective: No new changes (Patient states pain is similar to yesterday, was able to sleep most of day, no BM, + nausea, + spit up, no emesis) Physical Examination - Vital Signs Temperature: 97.8 F Blood Pressure: 138/88 Pulse: 59 Respirations: 18 Pulse Ox (%): 98 - Physical Exam General: Alert, In no apparent distress, Mild distress HEENT: Atraumatic, Mucous membr. moist/pink Respiratory: Clear to auscultation bilaterally Gastrointestinal: Soft and benign, Non-distended, No ascites, No tenderness, No masses, No rebound, No guarding Neurological: Normal speech Assessment And Plan - Current Problems (Diagnosis) (1) Abdominal pain Current Visit: Yes Status: Acute Plan: -CBC, LFT, Lipase, CRP - upper GI with small bowel follow through - serial exams - obtain records from office - continue medical management Qualifiers: Abdominal location: generalized Qualified Code(s): R10.84 - Generalized abdominal pain
[2018-07-21 09:17] LABS: Absolute Lymphocytes (CBC) 1.2 K/uL (0.7-4.9); Absolute Monocytes 0.5 K/uL (0.1-1.3); Absolute Neutrophil 6.5 K/uL (1.8-8.0); Basophils % 0.7 % (0-1.3); Eosinophils % 0.5 % (0-4.4); Hematocrit 45.7 % (39.6-49.0); Lymphocytes % 14.5 % (15.3-44.8); MPV 8.2 fL (7.6-11.3); Monocytes % 5.8 % (3.3-12.3); RBC Red Blood Cell Count 5.16 M/uL (4.33-5.43)
[2018-07-21 09:24] LABS: Albumin 3.9 g/dL (3.4-5.0); Bilirubin Direct 0.2 mg/dL (0-0.2); Bilirubin Total 0.9 mg/dL (0.2-1.0); C-Reactive Protein 8.91 mg/L (<3.00); Protein, Total 7.5 g/dL (6.4-8.2)
[2018-07-21] MEDS: DOCUSATE NA 100 MG CAP PO SCH ×2 (10:41→21:00)
--- NOTE | 2018-07-21 15:14 | RAD REPORT ---
EXAM DESCRIPTION: RAD - Upper GI W/KUB - 07/21/2018 2:53 pm CLINICAL HISTORY: Abdominal pain COMPARISON: None FINDINGS: Fluoroscopy time 56 seconds. Sixteen fluoroscopic spot images obtained The esophagus and stomach appear unremarkable. Gastroesophageal reflux extends to the distal esophagus. Mucosal folds of the proximal duodenum appear thickened IMPRESSION: Mild gastroesophageal reflux Thickening of the mucosal folds of the proximal duodenum may indicate inflammation
--- NOTE | 2018-07-21 17:30 | P.PN ---
Subjective Date of Service: 07/21/18 Chief Complaint: Abdominal pain Patient seen and examined at bedside. at bedside. Chart reviewed and case discussed with nursing staff. Patient complaining of generalized abdominal pain. He is writhing in bed, states he has a lot of pain, unable to sit lay still. Last bowel movement prior to coming to the hospital. Review of Systems 10-point ROS is otherwise unremarkable Physical Examination - Vital Signs Temperature: 97.6 F Blood Pressure: 161/92 Pulse: 70 Respirations: 18 Pulse Ox (%): 97 - Physical Exam General: Alert, Oriented x3, Moderate distress HEENT: Atraumatic, PERRLA, EOMI Neck: Supple, JVD not distended Respiratory: Clear to auscultation bilaterally, Normal air movement Cardiovascular: Regular rate/rhythm, Normal S1 S2 Gastrointestinal: Normal bowel sounds, Soft and benign, Non-distended, No tenderness, Other (Very mild tenderness on very deep/hard palpation of the abdomen.) Musculoskeletal: No tenderness Integumentary: No rashes Neurological: Normal speech, Normal tone, Normal affect Lymphatics: No axilla or inguinal lymphadenopathy Assessment And Plan - Plan This is a 52-year-old male with: Intractable abdominal pain, generalized, unclear etiology. CT scan with the contrast did show acute arterial phase and there is very minimal possibility of ischemic bowel disease. Though patient has had no diarrhea, lactic acid remains normal, no bloody stool. Abdominal exam is fairly unremarkable at this time. The patient has not had any diarrhea. No bloody stool. GI unavailable for consultation. We will try to avoid IV pain medications, discussed with patient's this can also cause constipation, worsening abdominal pain. Keep n.p.o. continue with IV fluids. General surgery consultation, recommendations appreciated. Obesity, BMI greater than 30. Counseled. Nicotine dependence with cigarette smoking, continuous. Marijuana abuse, counseled. Fatty liver disease. DVT prophylaxis: None GI prophylaxis: Protonix Diet: NPO Disposition: We will continue to monitor. There is a possibility that the patient has drug-seeking behavior as he has had multiple visits to the ER and left AMA from [facility] as well when he did not receive pain medications.
[2018-07-22] MEDS: METRONIDAZOLE 500mg IVPB 500 MG/100 ML BAG IV SCH ×2 (01:05→10:39)
[2018-07-22] MEDS: TRAMADOL HCL 50 MG TAB PO PRN ×2 (05:14→17:18)
[2018-07-22] MEDS: ONDANSETRON 4 MG/2 ML VIAL IV PRN (05:14)
[2018-07-22] MEDS: D5.45NS W/KCL 20MEQ 1,000 ML IV SCH ×3 (05:17→21:19)
[2018-07-22 06:32] LABS: Potassium 3.4 mmol/L (3.5-5.1)
[2018-07-22] MEDS: FAMOTIDINE 20 MG TAB PO SCH (09:00)
[2018-07-22] MEDS: DOCUSATE NA 100 MG CAP PO SCH ×2 (09:00→21:00)
[2018-07-22] MEDS: CIPROFLOXACIN 400mg IV 400 MG/200 ML BAG IV SCH (10:39)
[2018-07-22] MEDS ORDERED: Ringers Lactate 1,000 ML IV ONE (11:25)
[2018-07-22] MEDS ORDERED: PROPOFOL 200 MG/20 ML VIAL IV ONE (12:36)
[2018-07-22] MEDS ORDERED: LIDOCAINE 1% MPF 5 ML VIAL ONE (12:36)
[2018-07-22] MEDS ORDERED: MIDAZOLAM HCL 2 MG/2 ML INJ ONE (12:36)
--- NOTE | 2018-07-22 12:50 | ENDO RPT ---
[address], [address] EGD PROCEDURE REPORT EXAM DATE: 07/22/2018 PATIENT NAME: Darrell Wiseman MR#: [id number] BIRTHDATE: 1965 ATTENDING: Tommy Bueno DR STATUS: inpatient - [facility] RATINGS ANALYST: Naomy Laureano RN, Andrez Gallego, and Carline Gallego INDICATIONS: The patient is a 52 yr old Male here for an EGD due to abdominal pain PROCEDURE PERFORMED: EGD with biopsy for H. pylori MEDICATIONS: Per Anesthesia. TOPICAL ANESTHETIC: none CONSENT: The patient understands the risks and benefits of the procedure and understands that these risks include, but are not limited to: sedation, allergic reaction, infection, perforation and/or bleeding. Alternative means of evaluation and treatment include, among others: physical exam, x-rays, and/or surgical intervention. The patient elects to proceed with this endoscopic procedure. DESCRIPTION OF PROCEDURE: During intra-op preparation period all mechanical medical equipment was checked for proper function. Hand hygiene and appropriate measures for infection prevention was taken. Procedure, possible complications, and alternatives including but not limited to the possibility of bleeding, perforation, tear, infection, sepsis, need for surgery, need for blood transfusion, and anesthesia related complications were explained to the patient. After the risks, benefits and alternatives of the procedure were thoroughly explained, Informed consent was verified, confirmed and timeout was successfully executed by the treatment team. The patient was placed in the left lateral position. The patient was anesthetized with topical anesthesia. Through the anesthetized oropharyngeal area, the scope was passed without any difficulty. The EG-[id number] ([id number]) endoscope was introduced through the mouth and advanced to the second portion of the duodenum. Retroflexed views revealed no abnormalities. The gastroscope was then slowly withdrawn and removed. Duodenitis was found in the first portion of the duodenum. Multiple biopsies were obtained and sent to pathology from flat polyps of the duodenal bulb and 1st portion of duodenum. There were multiple polyps of varying size, adenomatous in appearance, biopsies were taken from these edematous erosive erythematous firm hyperemic large nodular polyps. Monopolar cautery was performed. Multiple biopsies were obtained and sent to pathology. A biopsy for H. pylori was taken. ADVERSE EVENTS: There were no complications. IMPRESSIONS: 1. Duodenitis was found in the first portion of the duodenum 2. A pedunculated polyp was found in the bulb and descending duodenum RECOMMENDATIONS: 1. acid suppression therapy 2. anti-reflux regimen 3. await biopsy results 4. follow-up: office 2 week(s) 5. follow-up: GI clinic 5 day(s) 6. avoid NSAIDS 7. follow-up of helicobacter pylori status, treat if indicated 8. Will Refer to [employer] Associate - Dr. Viveros 9. Begin H.Pylori Treatment REPEAT EXAM: Return in 1 month(s) for Colonoscopy. Tommy Bueno DR eSigned: Tommy Bueno DR 07/22/2018 12:49 PM cc: CPT CODES: ICD9 CODES: PATIENT NAME: Darrell Wiseman MR#: [id number]
[2018-07-22] MEDS: PANTOPRAZOLE 40MG TABLET PO SCH (17:16)
--- NOTE | 2018-07-22 17:49 | P.PN ---
Subjective Date of Service: 07/22/18 Chief Complaint: Abdominal pain Subjective: Improving Patient seen and examined at bedside. at bedside. Chart reviewed and case discussed with nursing staff. Patient improved. He states that he has walked around and is feeling much better. Review of Systems 10-point ROS is otherwise unremarkable Physical Examination - Vital Signs Temperature: 98.6 F Blood Pressure: 181/100 Pulse: 66 Respirations: 20 Pulse Ox (%): 97 - Physical Exam General: Alert, In no apparent distress, Oriented x3 HEENT: Atraumatic, PERRLA, EOMI Neck: Supple, JVD not distended Respiratory: Clear to auscultation bilaterally, Normal air movement Cardiovascular: Regular rate/rhythm, Normal S1 S2 Gastrointestinal: Normal bowel sounds, No tenderness Musculoskeletal: No tenderness Integumentary: No rashes Neurological: Normal speech, Normal tone, Normal affect Lymphatics: No axilla or inguinal lymphadenopathy Assessment And Plan - Plan This is a 52-year-old male with: Intractable abdominal pain, generalized, unclear etiology. CT scan with the contrast did show acute arterial phase and there is very minimal possibility of ischemic bowel disease. Though patient has had no diarrhea, lactic acid remains normal, no bloody stool. Abdominal exam is fairly unremarkable at this time. The patient has not had any diarrhea. No bloody stool. GI unavailable for consultation. We will try to avoid IV pain medications, discussed with patient's this can also cause constipation, worsening abdominal pain. Patient is now status post EGD. Found to have a large area of duodenitis, large duodenal ulcers. Biopsy taken, sent to lab/pathology. Per General Surgery, will start patient on acid suppression as well as the H. pylori treatment while biopsies are pending. Obesity, BMI greater than 30. Counseled. Nicotine dependence with cigarette smoking, continuous. Marijuana abuse, counseled. Fatty liver disease. DVT prophylaxis: None GI prophylaxis: Protonix Diet: Clear liquid diet Disposition: We will see how medications help patient. Likely discharge home in the next month for 48 hr. He will need outpatient GI followup for possible colonoscopy in the near future.
[2018-07-22] MEDS: CLARITHROMYCIN 500 MG TABLET PO SCH (21:00)
[2018-07-22] MEDS: AMOX/K CLAV 500 MG TAB PO SCH (21:19)
[2018-07-23] MEDS: D5.45NS W/KCL 20MEQ 1,000 ML IV SCH (05:19)
[2018-07-23 05:35] LABS: Absolute Lymphocytes (CBC) 1.9 K/uL (0.7-4.9); Absolute Monocytes 0.6 K/uL (0.1-1.3); Absolute Neutrophil 4.1 K/uL (1.8-8.0); Basophils % 0.7 % (0-1.3); Hematocrit 44.2 % (39.6-49.0); Lymphocytes % 27.3 % (15.3-44.8); MPV 8.5 fL (7.6-11.3); Monocytes % 8.9 % (3.3-12.3)
[2018-07-23 05:47] LABS: Potassium 3.7 mmol/L (3.5-5.1)
[2018-07-23] MEDS: PANTOPRAZOLE 40MG TABLET PO SCH (08:03)
[2018-07-23] MEDS: AMOX/K CLAV 500 MG TAB PO SCH (08:03)
[2018-07-23] MEDS: POTASSIUM 25 MEQ EFFERV TAB PO ONE ×2 (08:04→09:00)
[2018-07-23] MEDS: TRAMADOL HCL 50 MG TAB PO PRN (08:04)
[2018-07-23] MEDS: DOCUSATE NA 100 MG CAP PO SCH (08:04)
[2018-07-23] MEDS: CLARITHROMYCIN 500 MG TABLET PO SCH (10:12)
[2018-07-23 10:36] VITALS: BP 171/84; TEMP 97.5
[2018-07-23 11:05] VITALS: O2SAT 97
--- NOTE | 2018-07-23 18:14 | P.SSS ---
Patient History Date of Service: 07/23/18 Reason for admission: Abdominal pain History of Present Illness: : The patient is a 52-year-old male with past medical history of chronic pancreatitis, unclear abnormality stated as pinpoint hole in the stomach, who was previously been worked up by Dr. Viveros several years ago, comes in with multiple visits to the ER here as well as [facility], recently left AMA and came to our facility with intractable abdominal pain which began 5 days prior to admission, nonradiating; associated with nausea, vomiting, diarrhea. No blood in the stool. No fever. No chest pain or shortness of breath. No hematemesis. The patient's symptoms are constant, moderate, progressively worsening. The patient therefore came into the ER for further evaluation. His workup revealed normal WBC count. Lipase level was normal. Tox screen was positive for benzodiazepines, opiates and cannabinoids. CT scan of the abdomen and pelvis showed no acute abnormality. The patient was then referred for admission for intractable pain. Allergies No Known Allergies Allergy (Verified 07/19/18 14:32) Home Medications: Dicyclomine [Bentyl*] 20 mg PO Q6H PRN 07/19/18 Famotidine [Pepcid*] 20 mg PO Q12H 07/19/18 Ondansetron HCl [Zofran] 4 mg PO Q12H PRN 07/19/18 diazePAM [Valium*] 5 mg PO Q8H PRN 07/19/18 Amox/Clavulanate [Augmentin 500-125 mg Tab*] 500 mg PO BID #28 tab 07/23/18 Clarithromycin [Biaxin] 500 mg PO BID #28 tablet 07/23/18 Pantoprazole [Protonix Tab*] 40 mg PO BIDAC #28 tab 07/23/18 Tramadol HCl [Ultram] 50 mg PO Q8H PRN #15 tablet 07/23/18 - Past Medical/Surgical History Has patient received pneumonia vaccine in the past: No Diabetic: No -: gastro enteritis -: dental implant -: skin graft on BLE - Family History Father -: Hypertension, Diabetes Brother -: Hypertension - Social History Smoking Status: Former smoker Alcohol use: No CD- Drugs: Yes Caffeine use: Yes Place of Residence: Home Review of Systems 10-point ROS is otherwise unremarkable Physical Examination - Vital Signs Temperature: 97.5 F Blood Pressure: 171/84 Pulse: 65 Respirations: 20 Pulse Ox (%): 97 - Physical Exam General: Alert, In no apparent distress, Oriented x3 HEENT: Atraumatic, PERRLA, Mucous membr. moist/pink, EOMI, Sclerae nonicteric Neck: Supple, 2+ carotid pulse no bruit, No LAD, Without JVD or thyroid abnormality Respiratory: Clear to auscultation bilaterally, Normal air movement Cardiovascular: Regular rate/rhythm, Normal S1 S2 Gastrointestinal: Normal bowel sounds, Tenderness Musculoskeletal: No tenderness Integumentary: No rashes Neurological: Normal gait, Normal speech, Normal strength at 5/5 x4 extr, Normal tone, Normal affect Lymphatics: No axilla or inguinal lymphadenopathy Treatment Summary: Intractable abdominal pain, generalized, unclear etiology. CT scan with the contrast did show acute arterial phase and there is very minimal possibility of ischemic bowel disease. Though patient has had no diarrhea, lactic acid remains normal, no bloody stool. Abdominal exam remained fairly unremarkable. The patient has not had any diarrhea. No bloody stool. GI was unavailable for consultation. Dr. Bueno, general surgery consulted for the school. EGD done, Found to have a large area of duodenitis, large duodenal ulcers. Biopsy taken, sent to lab/pathology. Per General Surgery, patient started on acid suppression as well as the H. pylori treatment while biopsies were pending. Patient was then referred for outpatient gastroenterology follow up. Our social work called Dr. Viveros's office to use help scheduled appointment. Patient received an appointment for today at 12:30 p.m.. Patient was discharged with instructions to follow up with today. He was also instructed to follow up with Dr. Bueno next week. Nicotine dependence with cigarette smoking, continuous. Counseled on cessation Marijuana abuse, counseled. Otherwise, patient remained stable throughout the stay. He was tolerating a full liquid diet prior to discharge. His pain was better controlled and he was hemodynamically stable. - Disposition Discharge Date: 07/23/18 Disposition: ROUTINE DISCHARGE Condition: FAIR Consultations: General surgery Dr. Bueno Patient Discharge Instructions: Please follow up with Dr. Viveros - appointment scheduled for 12:30 pm today. Please follow up with Dr. Bueno in 2-3 days. Please call his office to schedule fasting studies. Diet: soft, bland as tolerated Activity: Ad lourdes Time Spent Managing Pts Care (In Minutes): 55
== END 2018-07-23 11:27 | disposition home or self-care (01) ==
LOC: ER 07:56 → ERHOLD 11:16 → 2ND 13:36
PROVIDERS: ADMIT Nurse Practitioner; ATTEND Family Medicine
PROC: 0DB98ZX Excision of Duodenum, Via Natural or Artificial Opening Endoscopic, Diagnostic (ICD-10-PCS; principal; 2018-07-22 12:30)
DX: K29.80 Duodenitis without bleeding (principal); K26.9 Duodenal ulcer, unspecified as acute or chronic, without hemorrhage or perforation; E66.9 Obesity, unspecified; Z68.35 Body mass index [BMI] 35.0-35.9, adult; F17.210 Nicotine dependence, cigarettes, uncomplicated; F12.10 Cannabis abuse, uncomplicated; K76.0 Fatty (change of) liver, not elsewhere classified; K86.1 Other chronic pancreatitis
CPT/HCPCS: 36415; 74177; 74241; 80048; 80053; 80076; 80307; 81003; 82274; 83605; 83690; 83735; 85025; 86140; 88305; 88312; 94760; G0378; J0744; J2250; J2270; J2405; J2704; J7030; Q9967

== ENCOUNTER 2019-02-23 17:12 | Emergency (ER) | payer BC ==
[2019-02-23] MEDS ORDERED: ONDANSETRON 4 MG/2 ML VIAL ONE (17:31)
[2019-02-23] MEDS ORDERED: MORPHINE 4 MG/ML SYR ONE (17:31)
[2019-02-23] MEDS ORDERED: NA CHLORIDE 0.9% 1,000 ML ONE (17:31)
[2019-02-23] MEDS ORDERED: KETOROLAC 30 MG/ML INJ ONE (17:31)
[2019-02-23 17:43] LABS: Absolute Lymphocytes (CBC) 1.1 K/uL (0.7-4.9); Basophils % 0.4 % (0-1.3); Lymphocytes % 10.1 % (15.3-44.8); MPV 8.6 fL (7.6-11.3); RBC Red Blood Cell Count 5.37 M/uL (4.33-5.43)
[2019-02-23 17:58] LABS: Albumin 4.1 g/dL (3.4-5.0); Bilirubin Direct 0.2 mg/dL (0-0.2); Bilirubin Total 0.7 mg/dL (0.2-1.0); Potassium 3.8 mmol/L (3.5-5.1); Protein, Total 8.2 g/dL (6.4-8.2)
[2019-02-23] MEDS ORDERED: HYDROMORPHONE HCL 1 MG/ML INJ ONE ×2 (17:59→19:52)
--- NOTE | 2019-02-23 18:20 | RAD REPORT ---
EXAM DESCRIPTION: CT - Abdomen Pelvis Wo Contrast - 02/23/2019 6:02 pm CLINICAL HISTORY: Abdominal pain vomiting COMPARISON: Jun 2018 TECHNIQUE: Computed axial tomography of the abdomen and pelvis was obtained. IV and oral contrast we re not requested. All CT scans are performed using dose optimization technique as appropriate and may include automated exposure control or mA/KV adjustment according to patient size. FINDINGS: The evaluation of solid organs, vessels and bowel is limited secondary to the lack of con trast administration. Fatty liver Spleen, pancreas, adrenals and kidneys appear grossly normal. The appendix is normal. Diverticulosis without evidence of diverticulitis. Small umbilical hernia IMPRESSION: No acute abnormality is displayed.
[2019-02-23] MEDS ORDERED: FAMOTIDINE 20 MG/2 ML VIAL IV ONE (18:35)
--- NOTE | 2019-02-23 20:06 | ER ---
Nurse's Notes [facility] Name: Darrell Wiseman Age: 53 yrs Sex: Male : 1965 Arrival Date: 02/23/2019 Time: 17:13 Bed 8 Private MD: Dora Viveros M Diagnosis: Pain localized to upper abdomen Presentation: 02/23 17:17 Presenting complaint: Patient states: Vomiting, back pain, abdominal pain that started aj1 today. Denies fever. Transition of care: patient was not received from another setting of care. Onset of symptoms was February 23, 2019. Risk Assessment: Do you want to hurt yourself or someone else? Patient reports no desire to harm self or others. Care prior to arrival: None. 17:17 Method Of Arrival: Ambulatory aj1 17:17 Acuity: ANGLE 3 aj1 17:24 Initial Sepsis Screen: Does the patient meet any 2 criteria? RR > 20 per min. HR > 90 tw2 bpm. Yes. 19:08 Initial Sepsis Screen: Does the patient have a suspected source of infection? No. tw2 Patient's initial sepsis screen is negative. Triage Assessment: 17:18 General: Appears uncomfortable, Behavior is anxious, restless. Pain: Complains of pain aj1 in back and abdomen Pain currently is 10 out of 10 on a pain scale. Neuro: Level of Consciousness is awake, alert, obeys commands. Cardiovascular: Patient's skin is warm and dry. Respiratory: Airway is patent Respiratory effort is even, unlabored, Respiratory pattern is regular, agonal. GI: Reports vomiting. Historical: - Allergies: 17:18 No Known Allergies; aj1 - PMHx: 17:18 "pin point hole in stomach"; Chronic Pancreatitis; aj1 - Immunization history:: Adult Immunizations up to date. - Social history:: Smoking status: Patient uses tobacco products, smokes one pack cigarettes per day. - Ebola Screening: : Patient denies travel to an Ebola-affected area in the 21 days before illness onset. Screenin:23 Abuse screen: Denies threats or abuse. Nutritional screening: No deficits noted. tw2 Tuberculosis screening: No symptoms or risk factors identified. Fall Risk None identified. Assessment: 17:32 General: Appears uncomfortable, obese, Behavior is anxious, restless. Pain: Complains tw2 of pain in abdomen. Neuro: Level of Consciousness is awake, alert, obeys commands, Oriented to person, place, time, situation. Cardiovascular: Heart tones S1 S2 Patient's skin is warm and dry. Respiratory: Airway is patent Respiratory effort is even, unlabored, Respiratory pattern is regular, symmetrical, Breath sounds are clear bilaterally. GI: Bowel sounds present X 4 quads. Abd is soft X 4 quads Reports lower abdominal pain, upper abdominal pain, nausea, vomiting. : No signs and/or symptoms were reported regarding the genitourinary system. EENT: No signs and/or symptoms were reported regarding the EENT system. Derm: No signs and/or symptoms reported regarding the dermatologic system. Musculoskeletal: Range of motion: intact in all extremities. 18:29 Reassessment: No changes from previously documented assessment. Patient and/or family tw2 updated on plan of care and expected duration. Pain level reassessed. Patient is alert, oriented x 3, equal unlabored respirations, skin warm/dry/pink. 19:46 General: Appears in no apparent distress. uncomfortable, obese, Behavior is agitated, ak1 restless, pt denies pain, c/o being uncomfortable. pt restless on the stretcher. Dr. Walden notified with medication orders given. . 20:16 Reassessment: pt stated he was feeling much better. pt denied any pain, denied and N/V. ak1 Vital Signs: 17:18 BP 129 / 90; Pulse 104; Resp 24; Pulse Ox 97% ; Weight 117.93 kg (R); Height 5 ft. 10 aj1 in. (177.80 cm) (R); Pain 10/10; 17:33 BP 136 / 103; Pulse 99; Resp 24; Pulse Ox 96% ; tw2 18:28 BP 148 / 108; Pulse 87; Resp 17; Pulse Ox 97% on R/A; tw2 18:36 BP 150 / 99; Pulse 76; Resp 17; Pulse Ox 97% on R/A; tw2 20:17 BP 117 / 83; Pulse 68; Resp 16; Temp 97.8; Pulse Ox 97% on R/A; ak1 17:18 Body Mass Index 37.31 (117.93 kg, 177.80 cm) aj1 17:33 pt writhing in pain at this time, provider notified. tw2 ED Course: 17:13 Patient arrived in ED. rg4 17:14 Dora Viveros MD is Private Physician. rg4 17:17 Triage completed. aj1 17:18 Arm band placed on Patient placed in an exam room. aj1 17:20 Bed in low position. Call light in reach. Side rails up X2. chief operator synthesis on. Pulse tw2 ox on. NIBP on. 17:25 Edwardo Walden MD is Attending Physician. gs 17:32 Inserted saline lock: 20 gauge in right antecubital area, using aseptic technique. tw2 Blood collected. 17:44 Sanjuana Yeh RN is Primary Nurse. tw2 18:02 CT completed. Patient tolerated procedure well. Patient moved to CT. Patient moved back nj from CT. 18:03 CT Abd/Pelvis - Without Contrast In Process Unspecified. EDMS 19:07 Report given to CELINA Cox and TaniaRN - pending completion of 1L NS and provider tw2 consultation. 19:14 Primary Nurse role handed off by Sanjuana Yeh RN tw2 19:32 Tania Mart RN is Primary Nurse. ak1 19:47 No provider procedures requiring assistance completed. ak1 20:05 Dora Viveros MD is Referral Physician. gs 20:11 IV discontinued, intact, bleeding controlled, No redness/swelling at site. Pressure ak1 dressing applied. Administered Medications: 17:52 Drug: Dilaudid 1 mg Route: IVP; Site: right antecubital; sg 18:30 Follow up: Response: No adverse reaction; Pain is unchanged, physician notified; RASS: tw2 Restless (+1) 17:52 Drug: Zofran 4 mg Route: IVP; Site: right antecubital; tw2 18:30 Follow up: Response: No adverse reaction tw2 17:52 Drug: NS 0.9% 1000 ml Route: IV; Rate: 1 bolus; Site: right antecubital; sg 20:08 Follow up: IV Status: Completed infusion; IV Intake: 1000ml ak1 18:35 Drug: Pepcid 20 mg Route: IVP; Site: right antecubital; tw2 19:03 Follow up: Response: No adverse reaction tw2 19:55 Drug: Dilaudid 1 mg {Note: RASS 0.} Route: IM; Site: left gluteus; ak1 20:08 Follow up: Response: No adverse reaction; Pain is decreased; RASS: Alert and Calm (0) ak1 Intake: 20:08 IV: 1000ml; Total: 1000ml. ak1 Outcome: 20:05 Discharge ordered by . 20:09 Discharged to home via wheelchair, with family. ak1 20:09 Condition: good 20:09 Discharge instructions given to patient, family, Instructed on discharge instructions, follow up and referral plans. no drinking with medication, no driving heavy equipment, medication usage, Demonstrated understanding of instructions, follow-up care, medications, Prescriptions given X 1. 20:17 Patient left the ED. ak1 Signatures: Dispatcher [employer] EDMS Priscila Echavarria RN RN aj1 Jaylen Perry RN Tania Nicole RN RN ak1 Sanjuana Yeh RN RN tw2 Nasrin Bowie4 Vikas Garcia Gregory, MD MD gs
--- NOTE | 2019-02-23 20:06 | EDPHYS ---
Physician Documentation [facility] Name: Darrell Wiseman Age: 53 yrs Sex: Male : 1965 Arrival Date: 02/23/2019 Time: 17:13 Bed 8 Private MD: Dora Viveros M ED Physician Edwardo Walden HPI: 02/23 19:58 This 53 yrs old Male presents to ER via Ambulatory with complaints of gs Abdominal Pain. 19:58 The patient presents with pain that is acute. gs 20:00 The patient presents with abdominal pain in the upper abdomen. Onset: The gs symptoms/episode began/occurred yesterday. The symptoms do not radiate. Associated signs and symptoms: Pertinent positives: nausea and vomiting. The symptoms are described as burning, sharp. Modifying factors: The symptoms are alleviated by nothing, the symptoms are aggravated by food. Severity of pain: At its worst the pain was severe in the emergency department the pain is unchanged. The patient has experienced similar episodes in the past, a few times. Historical: - Allergies: 17:18 No Known Allergies; aj1 - PMHx: 17:18 "pin point hole in stomach"; Chronic Pancreatitis; aj1 - Immunization history:: Adult Immunizations up to date. - Social history:: Smoking status: Patient uses tobacco products, smokes one pack cigarettes per day. - Ebola Screening: : Patient denies travel to an Ebola-affected area in the 21 days before illness onset. ROS: 20:00 All other systems are negative. gs Exam: 20:00 Head/Face: Normocephalic, atraumatic. Eyes: Pupils equal round and reactive to light, gs extra-ocular motions intact. Lids and lashes normal. Conjunctiva and sclera are non-icteric and not injected. Cornea within normal limits. Periorbital areas with no swelling, redness, or edema. ENT: Nares patent. No nasal discharge, no septal abnormalities noted. Tympanic membranes are normal and external auditory canals are clear. Oropharynx with no redness, swelling, or masses, exudates, or evidence of obstruction, uvula midline. Mucous membranes moist. Neck: Trachea midline, no thyromegaly or masses palpated, and no cervical lymphadenopathy. Supple, full range of motion without nuchal rigidity, or vertebral point tenderness. No Meningismus. Chest/axilla: Normal chest wall appearance and motion. Nontender with no deformity. No lesions are appreciated. Cardiovascular: Regular rate and rhythm with a normal S1 and S2. No gallops, murmurs, or rubs. Normal PMI, no JVD. No pulse deficits. Respiratory: Lungs have equal breath sounds bilaterally, clear to auscultation and percussion. No rales, rhonchi or wheezes noted. No increased work of breathing, no retractions or nasal flaring. Back: No spinal tenderness. No costovertebral tenderness. Full range of motion. Skin: Warm, dry with normal turgor. Normal color with no rashes, no lesions, and no evidence of cellulitis. MS/ Extremity: Pulses equal, no cyanosis. Neurovascular intact. Full, normal range of motion. Neuro: Awake and alert, GCS 15, oriented to person, place, time, and situation. Cranial nerves II-XII grossly intact. Motor strength 5/5 in all extremities. Sensory grossly intact. Cerebellar exam normal. Normal gait. 20:00 Constitutional: The patient appears alert, awake, uncomfortable. 20:00 ECG was reviewed by the Attending Physician. 20:00 Abdomen/GI: Palpation: mild abdominal tenderness, in all quadrants, rebound tenderness, is not appreciated. Vital Signs: 17:18 BP 129 / 90; Pulse 104; Resp 24; Pulse Ox 97% ; Weight 117.93 kg (R); Height 5 ft. 10 aj1 in. (177.80 cm) (R); Pain 10/10; 17:33 BP 136 / 103; Pulse 99; Resp 24; Pulse Ox 96% ; tw2 18:28 BP 148 / 108; Pulse 87; Resp 17; Pulse Ox 97% on R/A; tw2 18:36 BP 150 / 99; Pulse 76; Resp 17; Pulse Ox 97% on R/A; tw2 20:17 BP 117 / 83; Pulse 68; Resp 16; Temp 97.8; Pulse Ox 97% on R/A; ak1 17:18 Body Mass Index 37.31 (117.93 kg, 177.80 cm) aj1 17:33 pt writhing in pain at this time, provider notified. tw2 MDM: 17:30 Patient medically screened. gs 20:00 Differential diagnosis: acute coronary syndrome, non-specific abd pain, pancreatitis, gs Peptic Ulcer Disease. Data reviewed: vital signs, nurses notes, lab test result(s), EKG, radiologic studies. Counseling: I had a detailed discussion with the patient and/or guardian regarding: the historical points, exam findings, and any diagnostic results supporting the discharge/admit diagnosis, lab results, radiology results, the need for outpatient follow up. Response to treatment: the patient's symptoms have markedly improved after treatment, the patient's condition has returned to base line, and as a result, I will discharge patient. 20:05 Counseling: I had a detailed discussion with the patient and/or guardian regarding: the gs presence of at least one elevated blood pressure reading (>120/80) during this emergency department visit. Special discussion: I have referred the patient to see his PCP for further evaluation of high blood pressure. 02/23 17:25 Order name: Basic Metabolic Panel; Complete Time: 18:10 gs 02/23 17:25 Order name: CBC with Diff; Complete Time: 17:48 gs 02/23 17:25 Order name: Hepatic Function; Complete Time: 18:10 gs 02/23 17:25 Order name: Lipase; Complete Time: 18:10 gs 02/23 17:48 Order name: CT Abd/Pelvis - Without Contrast; Complete Time: 18:29 gs 02/23 17:25 Order name: IV Saline Lock; Complete Time: 17:37 gs 02/23 17:25 Order name: Labs collected and sent; Complete Time: 17:37 gs EC:00 Rate is 69 beats/min. Rhythm is regular. [place] interval is normal. QRS interval is gs prolonged. T waves are Normal. No ST changes noted. Clinical impression: Abnormal EKG without significant change. Interpreted by me. Administered Medications: 17:52 Drug: Dilaudid 1 mg Route: IVP; Site: right antecubital; sg 18:30 Follow up: Response: No adverse reaction; Pain is unchanged, physician notified; RASS: tw2 Restless (+1) 17:52 Drug: Zofran 4 mg Route: IVP; Site: right antecubital; tw2 18:30 Follow up: Response: No adverse reaction tw2 17:52 Drug: NS 0.9% 1000 ml Route: IV; Rate: 1 bolus; Site: right antecubital; sg 20:08 Follow up: IV Status: Completed infusion; IV Intake: 1000ml ak1 18:35 Drug: Pepcid 20 mg Route: IVP; Site: right antecubital; tw2 19:03 Follow up: Response: No adverse reaction tw2 19:55 Drug: Dilaudid 1 mg {Note: RASS 0.} Route: IM; Site: left gluteus; ak1 20:08 Follow up: Response: No adverse reaction; Pain is decreased; RASS: Alert and Calm (0) ak1 Disposition: 02/23/19 20:05 Discharged to Home. Impression: Pain localized to upper abdomen. - Condition is Stable. - Discharge Instructions: Abdominal Pain, Adult, Managing Your Hypertension. - Prescriptions for Pepcid 20 mg Oral Tablet - take 1 tablet by ORAL route every 12 hours for 10 days; 60 tablet. - Work release form, Medication Reconciliation Form, Thank You Letter, Antibiotic Education, Prescription Opioid Use form. - Follow up: Private Physician; When: 2 - 3 days; Reason: Re-evaluation by your physician. Follow up: Dora Viveros MD; When: 2 - 3 days; Reason: Re-evaluation by your physician. Signatures: Dispatcher [employer] EDMS Priscila Echavarria RN RN aj1 Jaylen Perry RN RN sg Tania Mart RN RN ak1 Sanjuana Yeh RN RN tw2 Edwardo aWlden MD MD Corrections: (The following items were deleted from the chart) 20:17 20:05 02/23/2019 20:05 Discharged to Home. Impression: Pain localized to upper abdomen. ak1 Condition is Stable. Forms are Work release form, Medication Reconciliation Form, Thank You Letter, Antibiotic Education, Prescription Opioid Use. Follow up: Private Physician; When: 2 - 3 days; Reason: Re-evaluation by your physician. Follow up: Dora Viveros; When: 2 - 3 days; Reason: Re-evaluation by your physician.
[2019-02-23 21:43] VITALS: O2SAT 97
[2019-02-23 21:46] VITALS: BP 117/83; TEMP 97.8
--- NOTE | 2019-02-24 11:39 | EKG ---
Test Date: 2019-02-23 Test Time: 18:42:26 Sample Carrier: RAFAEL MEASUREMENT RESULTS: Intervals: Rate: 69 NH: 164 QRSD: 112 QT: 418 QTc: 447 [place]: P: 44 NH: 164 QRS: -67 T: 10 INTERPRETIVE STATEMENTS: Normal sinus rhythm Left axis deviation Abnormal ECG No previous ECG available for comparison Electronically Signed On 02-24-19 11:38:27 CDT by Rich Salinas
== END 2019-02-23 20:17 | disposition home or self-care (01) ==
LOC: ER 17:12
DX: R10.10 Upper abdominal pain, unspecified (principal); F17.210 Nicotine dependence, cigarettes, uncomplicated
CPT/HCPCS: 96361; 93005; 85025; 80048; 36415; 80076; 83690; 74176; 96375; 96372; 96374; 99285; J1170 ×2; J7030; J2405

== ENCOUNTER 2019-03-01 11:16 | Emergency (ER) | payer BC ==
[2019-03-01] MEDS ORDERED: HYDROMORPHONE HCL 1 MG/ML INJ ONE (12:11)
[2019-03-01] MEDS ORDERED: ONDANSETRON 4 MG/2 ML VIAL ONE (12:11)
[2019-03-01 12:13] LABS: Absolute Lymphocytes (CBC) 0.7 K/uL (0.7-4.9); Basophils % 0.5 % (0-1.3); Hematocrit 42.8 % (39.6-49.0); Lymphocytes % 7.8 % (15.3-44.8); MPV 8.2 fL (7.6-11.3); RBC Red Blood Cell Count 4.83 M/uL (4.33-5.43)
[2019-03-01 12:24] LABS: Albumin 3.8 g/dL (3.4-5.0); Bilirubin Direct 0.1 mg/dL (0-0.2); Bilirubin Total 0.4 mg/dL (0.2-1.0); Potassium 3.6 mmol/L (3.5-5.1)
--- NOTE | 2019-03-01 13:00 | RAD REPORT ---
EXAM DESCRIPTION: CTAbdomen Pelvis W Contrast - 03/01/2019 12:51 pm CLINICAL HISTORY: Abdominal pain. ABD PAIN COMPARISON: <Comparisons> TECHNIQUE: Biphasic CT imaging of the abdomen and pelvis was performed with 100 ml non-ionic IV cont rast. All CT scans are performed using dose optimization technique as appropriate and may include automated exposure control or mA/KV adjustment according to patient size. FINDINGS: The lung bases are clear. The liver demonstrates mild fatty infiltration. The spleen, pancreas, adrenal glands and kidneys are within normal limits. No bowel obstruction, free air, free fluid or abscess. Sigmoid diverticulosis without diverticulitis. The appendix is normal. No evidence of significant lymphadenopathy. No suspicious bony findings. IMPRESSION: No acute intra-abdominal or pelvic finding.
[2019-03-01 13:34] LABS: Blood Morphology Comment NOT SEEN (NOT SEEN); Platelet Estimate ADEQ; Urine White Blood Cell Casts OK
--- NOTE | 2019-03-01 13:37 | EDPHYS ---
Physician Documentation [facility] Name: Darrell Wiseman Age: 53 yrs Sex: Male : 1965 Arrival Date: 03/01/2019 Time: 11:19 Bed 14 Private MD: ED Physician César Ayala HPI: 03/01 12:49 This 53 yrs old Male presents to ER via Wheelchair with complaints of jr8 Abdominal Pain, Back Pain, Vomiting. 12:49 The patient presents with abdominal pain in the epigastric area. Onset: The jr8 symptoms/episode began/occurred this morning. The symptoms do not radiate. Associated signs and symptoms: Pertinent positives: nausea, vomiting, and diarrhea. The symptoms are described as sharp. Pt reports he had an EGD recently and tried to eat solid foods for the first time yesterday. Has had epigastric pain since then with vomiting. Historical: - Allergies: 11:25 No Known Allergies; sv - PMHx: 11:25 "pin point hole in stomach"; Chronic Pancreatitis; sv - Immunization history:: Adult Immunizations up to date. - Social history:: Smoking status: Patient/guardian denies using tobacco. - Ebola Screening: : No symptoms or risks identified at this time. ROS: 12:50 Constitutional: Negative for fever, chills, and weight loss, Eyes: Negative for injury, jr8 pain, redness, and discharge, ENT: Negative for injury, pain, and discharge, Neck: Negative for injury, pain, and swelling, Cardiovascular: Negative for chest pain, palpitations, and edema, Respiratory: Negative for shortness of breath, cough, wheezing, and pleuritic chest pain. 12:50 Abdomen/GI: Negative for abdominal pain, nausea, vomiting, diarrhea, and constipation, MS/Extremity: Negative for injury and deformity, Skin: Negative for injury, rash, and discoloration, Neuro: Negative for headache, weakness, numbness, tingling, and seizure. 12:50 Abdomen/GI: Positive for abdominal pain, nausea and vomiting. Exam: 12:50 Constitutional: This is a well developed, well nourished patient who is awake, alert, jr8 and in no acute distress. Head/Face: Normocephalic, atraumatic. Eyes: Pupils equal round and reactive to light, extra-ocular motions intact. Lids and lashes normal. Conjunctiva and sclera are non-icteric and not injected. Cornea within normal limits. Periorbital areas with no swelling, redness, or edema. ENT: Nares patent. No nasal discharge, no septal abnormalities noted. Tympanic membranes are normal and external auditory canals are clear. Oropharynx with no redness, swelling, or masses, exudates, or evidence of obstruction, uvula midline. Mucous membranes moist. Neck: Trachea midline, no thyromegaly or masses palpated, and no cervical lymphadenopathy. Supple, full range of motion without nuchal rigidity, or vertebral point tenderness. No Meningismus. Chest/axilla: Normal chest wall appearance and motion. Nontender with no deformity. No lesions are appreciated. Cardiovascular: Regular rate and rhythm with a normal S1 and S2. No gallops, murmurs, or rubs. Normal PMI, no JVD. No pulse deficits. Respiratory: Lungs have equal breath sounds bilaterally, clear to auscultation and percussion. No rales, rhonchi or wheezes noted. No increased work of breathing, no retractions or nasal flaring. Back: No spinal tenderness. No costovertebral tenderness. Full range of motion. Skin: Warm, dry with normal turgor. Normal color with no rashes, no lesions, and no evidence of cellulitis. 12:50 Abdomen/GI: Inspection: abdomen appears normal, obese Bowel sounds: normal, in all quadrants, Palpation: soft, in all quadrants, mild abdominal tenderness, in all quadrants, Indicators: McBurney's point is not tender, Gutierrez's sign is negative, Rovsing's sign is negative, Obturator sign is negative, Psoas sign is negative. Vital Signs: 11:24 BP 159 / 111; Pulse 89; Resp 26; Pulse Ox 100% ; sv 11:41 BP 124 / 96 LA (auto/lg); Pulse 66; Resp 18; Temp 97.6(TE); Pulse Ox 100% on R/A; Pain jp3 10/10; 13:00 BP 108 / 65; Pulse 55; Resp 17; Pulse Ox 95% ; bp 14:01 BP 105 / 69; Pulse 59; Resp 16; Temp 98; Pulse Ox 99% ; bp MDM: 11:40 Patient medically screened. 8 13:34 Data reviewed: vital signs, nurses notes, lab test result(s), radiologic studies, and jr8 as a result, I will discharge patient. Data interpreted: Pulse oximetry: on room air is 100 %. Interpretation: normal. 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 ED course: Pt pain is completely relieved, discussed returning to clear liquid diet for 48 hours and following up with GI, return precautions given. 03/01 11:40 Order name: Basic Metabolic Panel; Complete Time: 12:25 jr8 03/01 11:40 Order name: CBC with Diff; Complete Time: 13:46 jr8 03/01 11:40 Order name: Creatinine for Radiology; Complete Time: 12:24 jr8 03/01 11:40 Order name: Hepatic Function; Complete Time: 12:25 jr8 03/01 11:40 Order name: Lipase; Complete Time: 12:25 jr8 03/01 13:35 Order name: CBC Smear Scan; Complete Time: 13:46 EDMS 03/01 11:40 Order name: IV Saline Lock; Complete Time: 11:56 jr8 03/01 11:40 Order name: Labs collected and sent; Complete Time: 11:56 jr8 03/01 12:25 Order name: CT Abd/Pelvis - IV Contrast Only; Complete Time: 13:04 jr8 Administered Medications: 12:14 Drug: Dilaudid 1 mg Route: IVP; Site: right antecubital; bp 14:12 Follow up: Response: Pain is decreased bp 12:14 Drug: Zofran 4 mg Route: IVP; Site: right antecubital; bp 14:12 Follow up: Response: Pain is decreased bp Disposition: 16:22 Co-signature as Attending Physician, César Ayala MD I agree with the assessment and kdr plan of care. Disposition: 03/01/19 13:37 Discharged to Home. Impression: Other abdominal pain. - Condition is Stable. - Discharge Instructions: Abdominal Pain, Adult. - Medication Reconciliation Form, Thank You Letter form. - Follow up: Dora Viveros MD; When: 2 - 3 days; Reason: Recheck today's complaints, Re-evaluation by your physician. - Problem is new. - Symptoms are resolved. Signatures: Dispatcher [employer] Kika Flores, RN RN César Ayala MD MD [facility] Shayne Gomez PA PA jr8 Frederick Acevedo, RN RN bp Corrections: (The following items were deleted from the chart) 14:12 13:37 03/01/2019 13:37 Discharged to Home. Impression: Other abdominal pain. Condition bp is Stable. Forms are Medication Reconciliation Form, Thank You Letter, Antibiotic Education, Prescription Opioid Use. Follow up: Dora Viveros; When: 2 - 3 days; Reason: Recheck today's complaints, Re-evaluation by your physician. Problem is new. Symptoms are resolved. jr8
--- NOTE | 2019-03-01 13:37 | ER ---
Nurse's Notes [facility] Name: Darrell Wiseman Age: 53 yrs Sex: Male : 1965 Arrival Date: 03/01/2019 Time: 11:19 Bed 14 Private MD: Diagnosis: Other abdominal pain Presentation: 03/01 11:24 Presenting complaint: states: was seen here last week and d/c home with gastritis, sv had an EGD done Friday by Dr Viveros and was fine after with clear liquids, yesterday ate solid food and has been having abd pain and back pain. Transition of care: patient was not received from another setting of care. Onset of symptoms was February 28, 2019. Risk Assessment: Do you want to hurt yourself or someone else? Patient reports no desire to harm self or others. Care prior to arrival: None. 11:24 Method Of Arrival: Wheelchair sv 11:24 Acuity: ANGLE 2 sv 11:24 Initial Sepsis Screen: Does the patient meet any 2 criteria? RR > 20 per min. No. sv Patient's initial sepsis screen is negative. Does the patient have a suspected source of infection? Yes: Acute abdominal pain. Triage Assessment: 11:24 General: Appears uncomfortable, Behavior is cooperative, restless. Pain: Complains of sv pain in abdomen Pain currently is 10 out of 10 on a pain scale. Neuro: Level of Consciousness is awake, alert, obeys commands. GI: Reports upper abdominal pain. Historical: - Allergies: 11:25 No Known Allergies; sv - PMHx: 11:25 "pin point hole in stomach"; Chronic Pancreatitis; sv - Immunization history:: Adult Immunizations up to date. - Social history:: Smoking status: Patient/guardian denies using tobacco. - Ebola Screening: : No symptoms or risks identified at this time. Screenin:00 Abuse screen: Denies threats or abuse. Denies injuries from another. Nutritional bp screening: No deficits noted. Tuberculosis screening: No symptoms or risk factors identified. Fall Risk None identified. Assessment: 11:24 General: SEE TRIAGE NOTE. bp 12:44 Reassessment: PT TO CT. bp 12:44 Reassessment: Patient and/or family updated on plan of care and expected duration. Pain bp level reassessed. 14:09 Reassessment: PT D/C HOME AMBULATORY WITH FAMILY, DX WITH NONSPECIFIC ABDOMINAL PAIN. bp 14:11 GI: Bowel sounds present X 4 quads. Abd is soft X 4 quads. bp Vital Signs: 11:24 BP 159 / 111; Pulse 89; Resp 26; Pulse Ox 100% ; sv 11:41 BP 124 / 96 LA (auto/lg); Pulse 66; Resp 18; Temp 97.6(TE); Pulse Ox 100% on R/A; Pain jp3 10/10; 13:00 BP 108 / 65; Pulse 55; Resp 17; Pulse Ox 95% ; bp 14:01 BP 105 / 69; Pulse 59; Resp 16; Temp 98; Pulse Ox 99% ; bp ED Course: 11:19 Patient arrived in ED. mr 11:25 Triage completed. sv 11:25 Arm band placed on. sv 11:37 Frederick Acevedo, RN is Primary Nurse. bp 11:39 Shayne Gomez PA is PHCP. jr8 11:39 César Ayala MD is Attending Physician. jr8 11:41 Bed in low position. Call light in reach. Side rails up X 1. Warm blanket given. Pillow jp3 given. Verbal reassurance given. Pulse ox on. NIBP on. 11:42 Patient maintains SpO2 saturation greater than 95% on room air. jp3 11:52 Initial lab(s) drawn, by me, sent to lab. Inserted saline lock: 20 gauge in right jp3 antecubital area, using aseptic technique. Blood collected. 11:56 Basic Metabolic Panel Sent. jp3 11:56 CBC with Diff Sent. jp3 11:56 Creatinine for Radiology Sent. jp3 11:56 Hepatic Function Sent. jp3 11:56 Lipase Sent. jp3 12:51 CT Abd/Pelvis - IV Contrast Only In Process Unspecified. EDMS 13:36 Dora Viveros MD is Referral Physician. jr8 14:10 No provider procedures requiring assistance completed. IV discontinued, intact, bp bleeding controlled, No redness/swelling at site. Pressure dressing applied. Administered Medications: 12:14 Drug: Dilaudid 1 mg Route: IVP; Site: right antecubital; bp 14:12 Follow up: Response: Pain is decreased bp 12:14 Drug: Zofran 4 mg Route: IVP; Site: right antecubital; bp 14:12 Follow up: Response: Pain is decreased bp Outcome: 13:37 Discharge ordered by MD. archer 14:10 Discharged to home ambulatory, with family. bp 14:10 Condition: stable 14:10 Discharge instructions given to patient, Instructed on discharge instructions, follow up and referral plans. Demonstrated understanding of instructions, follow-up care. 14:12 Patient left the ED. bp Signatures: Dispatcher [employer] EDMS Kika Albright RN RN Juli Romero mr Shayne Gomez PA PA jr8 Peltier, Brian, Reagan Geller RN, jp3
[2019-03-01 14:26] VITALS: BP 105/69; TEMP 98; O2SAT 99
== END 2019-03-01 14:12 | disposition home or self-care (01) ==
LOC: ER 11:16
DX: R10.9 Unspecified abdominal pain (principal)
CPT/HCPCS: 85025; 80048; 36415; 80076; 83690; 74177; 96375; 96374; 99284; Q9967; J1170; J2405

== ENCOUNTER 2019-04-08 10:28 | Emergency (ER) | payer BC ==
--- OUTSIDE RECORDS SUMMARY | 2019-04-08 10:30 | XMS REPORT ---
:1965 [facility] Address [address] [place] [id number] Care Team Providers Name Role Phone Unavailable Unavailable Unavailable Problems This patient has no known problems. Allergies, Adverse Reactions, Alerts This patient has no known allergies or adverse reactions. Medications This patient has no known medications.
[2019-04-08] MEDS ORDERED: MAGNE/ALUM HYDROXD 30 ML UCUP ONE (10:36)
[2019-04-08] MEDS ORDERED: FAMOTIDINE 20 MG/2 ML VIAL IV ONE (10:37)
[2019-04-08] MEDS ORDERED: LIDOCAINE VISCOUS 2% SOLN 15 ML UDC ONE (10:37)
[2019-04-08] MEDS ORDERED: ONDANSETRON 4 MG/2 ML VIAL ONE (10:37)
[2019-04-08] MEDS ORDERED: HYDROMORPHONE HCL 1 MG/ML INJ ONE (10:37)
[2019-04-08] MEDS ORDERED: NA CHLORIDE 0.9% 1,000 ML ONE (10:37)
[2019-04-08 10:56] LABS: Absolute Lymphocytes (CBC) 0.9 K/uL (0.7-4.9); Basophils % 0.6 % (0-1.3); Hematocrit 46.1 % (39.6-49.0); Lymphocytes % 7.5 % (15.3-44.8); MPV 8.3 fL (7.6-11.3); RBC Red Blood Cell Count 5.25 M/uL (4.33-5.43)
[2019-04-08 11:18] LABS: Albumin 4.1 g/dL (3.4-5.0); Bilirubin Direct 0.1 mg/dL (0-0.2); Bilirubin Total 0.5 mg/dL (0.2-1.0); Potassium 3.7 mmol/L (3.5-5.1); Protein, Total 7.9 g/dL (6.4-8.2)
[2019-04-08] MEDS ORDERED: MORPHINE 4 MG/ML SYR ONE (12:20)
[2019-04-08] MEDS ORDERED: PROMETHAZINE 25 MG/ML VIAL ONE (12:20)
[2019-04-08 12:50] LABS: Blood Morphology Comment NOT SEEN (NOT SEEN); Platelet Estimate ADEQ; Urine White Blood Cell Casts OK
--- NOTE | 2019-04-08 13:11 | RAD REPORT ---
EXAM DESCRIPTION: CT - Abdomen Pelvis W Contrast - 04/08/2019 12:59 pm CLINICAL HISTORY: Abdominal pain COMPARISON: February 2019 TECHNIQUE: Computed axial tomography of the abdomen pelvis was obtained. 100 cc Isovue-300 was admin istered intravenously. Oral contrast was not requested which limits evaluation of bowel. All CT scans are performed using dose optimization technique as appropriate and may include automated exposure control or mA/KV adjustment according to patient size. FINDINGS: Fatty liver Spleen, pancreas, adrenal and kidneys appear unremarkable. There is no evidence of diverticulitis. Normal appendix Small umbilical hernia IMPRESSION: No acute abnormality is displayed.
--- NOTE | 2019-04-08 13:35 | EDPHYS ---
Physician Documentation [facility] Name: Darrell Wiseman Age: 53 yrs Sex: Male : 1965 Arrival Date: 04/08/2019 Time: 10:30 Bed 7 Private MD: Dora Viveros M ED Physician César Ayala HPI: 04/08 11:29 This 53 yrs old Male presents to ER via Ambulatory with complaints of pm1 Abdominal Pain. 11:29 The patient presents with abdominal pain in the upper abdomen. Onset: The pm1 symptoms/episode began/occurred this morning. The symptoms do not radiate. Associated signs and symptoms: none. The symptoms are described as burning, constant. Modifying factors: The symptoms are alleviated by nothing, the symptoms are aggravated by Lemon pound cake. The patient has experienced similar episodes in the past, several times. Patient with history of esophagitis and stomach ulcers. Patient has had issues with lemon pound cake in the past, causing abdominal pain. Has issues with citrus type food. Historical: - Allergies: 10:48 No Known Allergies; sv - PMHx: 10:34 Chronic Pancreatitis; PUD; ss - Immunization history:: Adult Immunizations up to date. - Social history:: Smoking status: Patient/guardian denies using tobacco. - Ebola Screening: : No symptoms or risks identified at this time. ROS: 11:29 Constitutional: Negative for fever, chills, and weight loss, Eyes: Negative for injury, pm1 pain, redness, and discharge, ENT: Negative for injury, pain, and discharge, Neck: Negative for injury, pain, and swelling, Cardiovascular: Negative for chest pain, palpitations, and edema, Respiratory: Negative for shortness of breath, cough, wheezing, and pleuritic chest pain. 11:29 Back: Negative for injury and pain, : Negative for injury, bleeding, discharge, and swelling, MS/Extremity: Negative for injury and deformity, Skin: Negative for injury, rash, and discoloration, Neuro: Negative for headache, weakness, numbness, tingling, and seizure. 11:29 Abdomen/GI: Positive for abdominal pain, Negative for nausea, vomiting, and diarrhea, constipation. Exam: 11:29 Constitutional: This is a well developed, well nourished patient who is awake, alert, pm1 and in no acute distress. Head/Face: Normocephalic, atraumatic. Neck: Trachea midline, no thyromegaly or masses palpated, and no cervical lymphadenopathy. Supple, full range of motion without nuchal rigidity, or vertebral point tenderness. No Meningismus. Chest/axilla: Normal chest wall appearance and motion. Nontender with no deformity. No lesions are appreciated. Cardiovascular: Regular rate and rhythm with a normal S1 and S2. No gallops, murmurs, or rubs. Normal PMI, no JVD. No pulse deficits. Respiratory: Lungs have equal breath sounds bilaterally, clear to auscultation and percussion. No rales, rhonchi or wheezes noted. No increased work of breathing, no retractions or nasal flaring. 11:29 Back: No spinal tenderness. No costovertebral tenderness. Full range of motion. Skin: Warm, dry with normal turgor. Normal color with no rashes, no lesions, and no evidence of cellulitis. MS/ Extremity: Pulses equal, no cyanosis. Neurovascular intact. Full, normal range of motion. 11:29 Abdomen/GI: Inspection: obese Bowel sounds: normal, Palpation: soft, mild abdominal tenderness, in the epigastric area, mass, is not appreciated, rebound tenderness, is not appreciated. 11:29 Neuro: Orientation: is normal, Motor: is normal, moves all fours, Sensation: is normal, no obvious gross deficits. Vital Signs: 10:36 BP 144 / 97; Pulse 84; Resp 20; Temp 98.2; Pulse Ox 100% ; Pain 10/10; hb 12:37 BP 146 / 68; Pulse 65; Resp 18; Pulse Ox 95% on R/A; hb 12:43 Pulse Ox 93% on R/A; sv 13:11 BP 111 / 83; Pulse 85; Resp 16; Pulse Ox 97% on 2 lpm NC; sv 12:43 Pt placed on O2 \T\ 2L per NC, O2 sat up to 97%. sv MDM: 10:31 Patient medically screened. pm1 13:33 Data reviewed: vital signs. Data interpreted: Pulse oximetry: on room air is 97 %. pm1 Interpretation: normal. Counseling: I had a detailed discussion with the patient and/or guardian regarding: the historical points, exam findings, and any diagnostic results supporting the discharge/admit diagnosis, lab results, radiology results, the need for outpatient follow up, for definitive care, a claim administrator, to return to the emergency department if symptoms worsen or persist or if there are any questions or concerns that arise at home. 14:08 ED course: Has EGD scheduled on Friday next week. pm1 04/08 10:38 Order name: Basic Metabolic Panel; Complete Time: 11:28 pm1 04/08 10:38 Order name: CBC with Diff; Complete Time: 13:11 pm1 04/08 10:38 Order name: Creatinine for Radiology; Complete Time: 11:28 pm1 04/08 10:38 Order name: Hepatic Function; Complete Time: 11:28 pm1 04/08 10:38 Order name: Lipase; Complete Time: 11:28 pm1 04/08 12:51 Order name: CBC Smear Scan; Complete Time: 13:11 EDMS 04/08 10:38 Order name: CT Abd/Pelvis - IV Contrast Only; Complete Time: 13:33 pm1 04/08 10:38 Order name: IV Saline Lock; Complete Time: 10:47 pm1 04/08 10:38 Order name: Labs collected and sent; Complete Time: 10:47 pm1 Administered Medications: 10:40 Drug: Zofran 4 mg Route: IVP; Site: right antecubital; sv 11:30 Follow up: Response: No adverse reaction; No change in condition sv 10:40 Drug: NS 0.9% 1000 ml Route: IV; Rate: 1000 ml; Site: right antecubital; sv 12:00 Follow up: Response: No adverse reaction; IV Status: Completed infusion; IV Intake: sv 1000ml 10:42 Drug: Pepcid 20 mg Route: IVP; Site: right antecubital; sv 11:30 Follow up: Response: No adverse reaction; No change in condition sv 10:44 Drug: Dilaudid 1 mg Route: IVP; Site: right antecubital; sv 11:30 Follow up: Response: No adverse reaction; No change in condition sv 11:05 Drug: GI Cocktail without - (Maalox Suspension 30 ml, Lidocaine Liquid 2 % 15 sv ml) Route: PO; 11:30 Follow up: Response: No adverse reaction sv 12:23 Drug: Phenergan 12.5 mg Route: IVP; Site: right antecubital; sv 13:02 Follow up: Response: No adverse reaction hb 12:25 Drug: morphine 4 mg {Note: RASS3.} Route: IVP; Site: right antecubital; sv 13:02 Follow up: Response: No adverse reaction hb Disposition: 04/09 07:28 Co-signature as Attending Physician, César Ayala MD I agree with the assessment and kdr plan of care. Disposition: 04/08/19 13:34 Discharged to Home. Impression: Unspecified abdominal pain. - Condition is Stable. - Discharge Instructions: Abdominal Pain, Adult. - Prescriptions for Tylenol- Codeine #3 300-30 mg Oral Tablet - take 2 tablets by ORAL route every 6 hours As needed; 20 tablet. - Medication Reconciliation Form, Thank You Letter, Antibiotic Education, Prescription Opioid Use form. - Follow up: Emergency Department; When: As needed; Reason: Worsening of condition. Follow up: Dora Viveros MD; When: 2 - 3 days; Reason: Recheck today's complaints, Continuance of care, Re-evaluation by your physician. - Problem is new. - Symptoms have improved. Signatures: Dispatcher [employer] Kika Flores RN RN César Bond MD MD [facility] Abigail Franco RN RN ss Sandeep Reddy NP ENVIRONMENTAL ISSUES INSTRUCTOR pm1 Ellen Magdaleno RN RN Corrections: (The following items were deleted from the chart) 04/08 14:36 13:34 04/08/2019 13:34 Discharged to Home. Impression: Unspecified abdominal pain. hb Condition is Stable. Forms are Medication Reconciliation Form, Thank You Letter, Antibiotic Education, Prescription Opioid Use. Follow up: Emergency Department; When: As needed; Reason: Worsening of condition. Follow up: Dora Viveros; When: 2 - 3 days; Reason: Recheck today's complaints, Continuance of care, Re-evaluation by your physician. Problem is new. Symptoms have improved. pm1
--- NOTE | 2019-04-08 13:35 | ER ---
Nurse's Notes [facility] Name: Darrell Wiseman Age: 53 yrs Sex: Male : 1965 Arrival Date: 04/08/2019 Time: 10:30 Bed 7 Private MD: Dora Viveros M Diagnosis: Unspecified abdominal pain Presentation: 04/08 10:33 Presenting complaint: Patient states: severe abd pain and nausea that began last night. ss reports that when patient eats something that doesn't agree with his stomach, this is what happens. Hx of PUD, pancreatitis. Transition of care: patient was not received from another setting of care. Onset of symptoms was April 07, 2019. Risk Assessment: Do you want to hurt yourself or someone else? Patient reports no desire to harm self or others. Initial Sepsis Screen: Does the patient have a suspected source of infection? No. Patient's initial sepsis screen is negative. Care prior to arrival: None. 10:33 Acuity: ANGLE 2 ss 10:33 Method Of Arrival: Ambulatory ss 10:49 Initial Sepsis Screen: Does the patient meet any 2 criteria? No. Patient's initial sv sepsis screen is negative. Historical: - Allergies: 10:48 No Known Allergies; sv - PMHx: 10:34 Chronic Pancreatitis; PUD; ss - Immunization history:: Adult Immunizations up to date. - Social history:: Smoking status: Patient/guardian denies using tobacco. - Ebola Screening: : No symptoms or risks identified at this time. Screenin:31 Abuse screen: Denies threats or abuse. Denies injuries from another. Nutritional hb screening: No deficits noted. Tuberculosis screening: No symptoms or risk factors identified. Fall Risk None identified. Assessment: 10:30 General: Appears distressed, uncomfortable, Behavior is cooperative, restless. Pain: sv Complains of pain in epigastric area, right upper quadrant and left upper quadrant Pain currently is 10 out of 10 on a pain scale. Pain began this morning Is continuous, Noted to be grimacing, guarding, moaning, restless, Also complains of nausea. Neuro: Level of Consciousness is awake, alert, obeys commands, Oriented to person, place, time, situation, Gait is steady. Respiratory: Respiratory effort is even, unlabored, Respiratory pattern is regular, symmetrical. GI: Abdomen is round Abd is soft and non tender X 4 quads. Reports upper abdominal pain, nausea. Derm: Skin is clammy, Skin is normal. 12:00 Reassessment: Patient appears in no apparent distress at this time. Patient and/or hb family updated on plan of care and expected duration. Pain level reassessed. Patient is alert, oriented x 3, equal unlabored respirations, skin warm/dry/pink. 13:00 Reassessment: Patient appears in no apparent distress at this time. Patient and/or hb family updated on plan of care and expected duration. Pain level reassessed. Patient is alert, oriented x 3, equal unlabored respirations, skin warm/dry/pink. 13:50 Reassessment: Waiting for Sandeep SOTO to speak with pt regarding discharge diagnosis. sv 14:20 Reassessment:. hb 14:30 Reassessment: Patient appears in no apparent distress at this time. Patient and/or hb family updated on plan of care and expected duration. Pain level reassessed. Patient is alert, oriented x 3, equal unlabored respirations, skin warm/dry/pink. Vital Signs: 10:36 BP 144 / 97; Pulse 84; Resp 20; Temp 98.2; Pulse Ox 100% ; Pain 10/10; hb 12:37 BP 146 / 68; Pulse 65; Resp 18; Pulse Ox 95% on R/A; hb 12:43 Pulse Ox 93% on R/A; sv 13:11 BP 111 / 83; Pulse 85; Resp 16; Pulse Ox 97% on 2 lpm NC; sv 12:43 Pt placed on O2 \T\ 2L per NC, O2 sat up to 97%. sv ED Course: 10:30 Patient arrived in ED. rg4 10:30 Dora Viveros MD is Private Physician. rg4 10:31 Sandeep Reddy NP is PHCP. pm1 10:31 César Ayala MD is Attending Physician. pm1 10:31 Arm band placed on. hb 10:34 Triage completed. ss 10:36 Ellen Magdaleno, CELINA is Primary Nurse. hb 10:36 Patient has correct armband on for positive identification. Placed in gown. Bed in low hb position. Call light in reach. Side rails up X 1. 10:36 Inserted saline lock: 20 gauge in right antecubital area, using aseptic technique. hb Blood collected. 10:43 Warm blanket given. Pulse ox on. NIBP on. mh5 11:05 Awaiting lab results, Awaiting CT Scan. sv 12:30 Radiology exam delayed due to delay, pt unstable for exam. will call when ready. jj2 12:59 CT Abd/Pelvis - IV Contrast Only In Process Unspecified. EDMS 13:34 Dora Viveros MD is Referral Physician. pm1 14:36 No provider procedures requiring assistance completed. IV discontinued, intact, hb bleeding controlled, No redness/swelling at site. Pressure dressing applied. Administered Medications: 10:40 Drug: Zofran 4 mg Route: IVP; Site: right antecubital; sv 11:30 Follow up: Response: No adverse reaction; No change in condition sv 10:40 Drug: NS 0.9% 1000 ml Route: IV; Rate: 1000 ml; Site: right antecubital; sv 12:00 Follow up: Response: No adverse reaction; IV Status: Completed infusion; IV Intake: sv 1000ml 10:42 Drug: Pepcid 20 mg Route: IVP; Site: right antecubital; sv 11:30 Follow up: Response: No adverse reaction; No change in condition sv 10:44 Drug: Dilaudid 1 mg Route: IVP; Site: right antecubital; sv 11:30 Follow up: Response: No adverse reaction; No change in condition sv 11:05 Drug: GI Cocktail without - (Maalox Suspension 30 ml, Lidocaine Liquid 2 % 15 sv ml) Route: PO; 11:30 Follow up: Response: No adverse reaction sv 12:23 Drug: Phenergan 12.5 mg Route: IVP; Site: right antecubital; sv 13:02 Follow up: Response: No adverse reaction hb 12:25 Drug: morphine 4 mg {Note: RASS3.} Route: IVP; Site: right antecubital; sv 13:02 Follow up: Response: No adverse reaction hb Intake: 12:00 IV: 1000ml; Total: 1000ml. sv Outcome: 13:34 Discharge ordered by . pm1 14:36 Discharged to home ambulatory, with significant other. hb 14:36 Condition: stable 14:36 Discharge instructions given to patient, significant other, Instructed on discharge instructions, follow up and referral plans. medication usage, Demonstrated understanding of instructions, follow-up care, medications, Prescriptions given X 1. 14:36 Patient left the ED. hb Signatures: Dispatcher [employer] Kika Flores, Moreno Boles RN jj2 Abigail Franco RN RN ss Sandeep Reddy, GOLF COURSE DESIGNER GOLF COURSE DESIGNER pm1 Ellen Magdaleno RN RN hb Garcia, Rubi [address] [facility]
[2019-04-08 16:14] VITALS: TEMP 98.2
[2019-04-08 16:17] VITALS: BP 111/83; O2SAT 97
== END 2019-04-08 14:36 | disposition home or self-care (01) ==
LOC: ER 10:28
DX: R10.10 Upper abdominal pain, unspecified (principal)
CPT/HCPCS: 96361; 85025; 80048; 36415; 80076; 83690; 74177; 96375; 96374; 99284; Q9967; J2550; J1170; J7030; J2405

== ENCOUNTER 2019-04-10 11:14 | Emergency (ER) | payer BC ==
--- OUTSIDE RECORDS SUMMARY | 2019-04-10 11:17 | XMS REPORT ---
:1965 [facility] [address] [place] [id number] Care Team Providers Name Role Phone Unavailable Unavailable Unavailable Problems This patient has no known problems. Allergies, Adverse Reactions, Alerts This patient has no known allergies or adverse reactions. Medications This patient has no known medications.
[2019-04-10] MEDS ORDERED: MAGNE/ALUM HYDROXD 30 ML UCUP ONE (11:47)
[2019-04-10] MEDS ORDERED: NA CHLORIDE 0.9% 1,000 ML ONE (11:48)
[2019-04-10] MEDS ORDERED: LIDOCAINE VISCOUS 2% SOLN 15 ML UDC ONE (11:48)
[2019-04-10] MEDS ORDERED: ONDANSETRON 4 MG/2 ML VIAL ONE (11:48)
[2019-04-10] MEDS ORDERED: FAMOTIDINE 20 MG/2 ML VIAL IV ONE (11:48)
[2019-04-10] MEDS ORDERED: MORPHINE 4 MG/ML SYR ONE ×2 (11:48→12:18)
[2019-04-10 12:13] LABS: Absolute Lymphocytes (CBC) 0.9 K/uL (0.7-4.9); Basophils % 0.4 % (0-1.3); Hematocrit 44.8 % (39.6-49.0); Lymphocytes % 8.2 % (15.3-44.8); MPV 8.3 fL (7.6-11.3); RBC Red Blood Cell Count 5.11 M/uL (4.33-5.43)
[2019-04-10 12:22] LABS: Bilirubin Direct 0.2 mg/dL (0-0.2); Bilirubin Total 0.7 mg/dL (0.2-1.0); Potassium 3.5 mmol/L (3.5-5.1); Protein, Total 7.6 g/dL (6.4-8.2)
[2019-04-10 12:33] LABS: Blood Morphology Comment NOT SEEN (NOT SEEN); Platelet Estimate ADEQ
[2019-04-10] MEDS ORDERED: DIAZEPAM 5 MG TABLET ONE (12:54)
--- NOTE | 2019-04-10 13:29 | RAD REPORT ---
EXAM DESCRIPTION: RAD - Abdomen Acute Series - 04/10/2019 1:21 pm CLINICAL HISTORY: Epigastric abdominal pain COMPARISON: Recent CT exam 04/08/2019 FINDINGS: Lungs are clear. Heart size and vessels are normal. No pleural effusion, pneumothorax or o ther acute cardiopulmonary process seen. Bowel gas pattern is nonspecific. No bowel obstruction, free air or other acute findings. No suspicio us calcifications. No other suspicious for significant findings. IMPRESSION: Negative acute abdomen series.
--- NOTE | 2019-04-10 14:07 | ER ---
Nurse's Notes [facility] Name: Darrell Wiseman Age: 53 yrs Sex: Male : 1965 Arrival Date: 04/10/2019 Time: 11:18 Bed 17 Private MD: Dora Viveros M Diagnosis: Unspecified abdominal pain Presentation: 04/10 11:31 Presenting complaint: states: Abd pain and vomiting since this morning. Pt was aj1 seen in this ER for the same complaint 2 days ago. Reports that he had a CT scan but it was normal. Pt reports that he is suppose to have an appointment with Dr. Greenwood for an endoscopy on 04/19/19. Pt reports history of ulcers, appears restless, agitated. Transition of care: patient was not received from another setting of care. Onset of symptoms was April 10, 2019. Risk Assessment: Do you want to hurt yourself or someone else? Patient reports no desire to harm self or others. Initial Sepsis Screen: Does the patient meet any 2 criteria? No. Patient's initial sepsis screen is negative. Does the patient have a suspected source of infection? Yes: Acute abdominal pain. Care prior to arrival: None. 11:31 Method Of Arrival: Wheelchair aj1 11:31 Acuity: ANGLE 3 aj1 Triage Assessment: 11:33 General: Appears uncomfortable, Behavior is agitated, restless. Pain: Complains of pain aj1 in abdomen Pain currently is 10 out of 10 on a pain scale. Neuro: Level of Consciousness is awake, alert, obeys commands. Cardiovascular: Patient's skin is warm and dry. Respiratory: Airway is patent Respiratory effort is even, unlabored, Respiratory pattern is regular, symmetrical. Musculoskeletal: Circulation, motion, and sensation intact. Historical: - Allergies: 11:33 No Known Allergies; aj1 - PMHx: 11:33 "pin point hole in stomach"; Chronic Pancreatitis; PUD; aj1 - Immunization history:: Adult Immunizations up to date. - Social history:: Smoking status: Patient/guardian denies using tobacco. - Ebola Screening: : Patient denies travel to an Ebola-affected area in the 21 days before illness onset. Screenin:30 Abuse screen: Denies threats or abuse. Nutritional screening: Has had N/V for 3 or more rb1 days. Tuberculosis screening: No symptoms or risk factors identified. Fall Risk None identified. Assessment: 11:30 General: Appears uncomfortable, Behavior is anxious, restless, Denies fever. Pain: rb1 Complains of pain in abdomen Pain radiates to back Pain currently is 10 out of 10 on a pain scale. Pain began . Neuro: Level of Consciousness is awake, alert, obeys commands, Oriented to person, place, time, situation. Cardiovascular: Capillary refill < 3 seconds is brisk in bilateral fingers. Respiratory: Airway is patent Respiratory effort is even, unlabored, Respiratory pattern is regular, symmetrical. GI: Reports nausea, vomiting, since . : No signs and/or symptoms were reported regarding the genitourinary system. Derm: Skin is pink, warm \\T\\ dry. Musculoskeletal: Range of motion: intact in all extremities. 12:16 Reassessment: Patient appears in no apparent distress at this time. Patient and/or rb1 family updated on plan of care and expected duration. Pain level reassessed. Patient is alert, oriented x 3, equal unlabored respirations, skin warm/dry/pink. Pain 10/10. Provider notified. 13:15 Reassessment: Patient appears in no apparent distress at this time. No changes from rb1 previously documented assessment. 14:14 Reassessment: Patient appears in no apparent distress at this time. Patient and/or rb1 family updated on plan of care and expected duration. Pain level reassessed. Patient is alert, oriented x 3, equal unlabored respirations, skin warm/dry/pink. at the bedside. Vital Signs: 11:33 BP 142 / 90; Pulse 90; Resp 18; Temp 97.1; Pulse Ox 97% on R/A; Weight 109.32 kg (R); aj1 Height 5 ft. 11 in. (180.34 cm) (R); Pain 10/10; 12:20 BP 158 / 100; Pulse 68; Resp 20; Pulse Ox 99% on R/A; Pain 10/10; rb1 13:20 BP 154 / 95; Pulse 61; Resp 19; Pulse Ox 98% on R/A; rb1 14:20 BP 136 / 72; Pulse 64; Resp 18; Pulse Ox 98% on R/A; Pain 6/10; rb1 11:33 Body Mass Index 33.61 (109.32 kg, 180.34 cm) aj1 ED Course: 11:18 Patient arrived in ED. ds1 11:18 Dora iVveros MD is Private Physician. ds1 11:26 [facility] Red[facility]. pm1 11:26 Jacques Das MD is Attending Physician. pm1 11:30 Patient has correct armband on for positive identification. Bed in low position. Call rb1 light in reach. Side rails up X 1. Pulse ox on. NIBP on. 11:33 Triage completed. aj1 11:33 Arm band placed on Patient placed in an exam room. aj1 11:42 Jimmie Webb, CELINA is Primary Nurse. ae4 11:53 Inserted saline lock: 22 gauge in right antecubital area, using aseptic technique. rb1 Blood collected. 13:20 X-ray completed. Patient tolerated procedure well. Patient moved to radiology via jf wheelchair. Patient moved back from radiology. 13:22 Abdomen Acute Series XRAY In Process Unspecified. EDMS 14:06 Dora Viveros MD is Referral Physician. pm1 14:46 No provider procedures requiring assistance completed. rb1 14:46 IV discontinued, intact, bleeding controlled, No redness/swelling at site. Pressure rb1 dressing applied. Administered Medications: 11:50 Drug: Zofran 4 mg Route: IVP; Site: right antecubital; ae4 12:10 Follow up: Response: No adverse reaction; Nausea is decreased rb1 11:50 Drug: NS 0.9% 1000 ml Route: IV; Rate: 1000 ml; Site: right antecubital; ae4 12:58 Follow up: IV Status: Completed infusion rb1 11:54 Drug: morphine 4 mg Route: IVP; Site: right antecubital; ae4 12:10 Follow up: Response: No adverse reaction; Pain is unchanged, physician notified rb1 11:56 Drug: Pepcid 20 mg Route: IVP; Site: right antecubital; ae4 12:30 Follow up: Response: No adverse reaction rb1 11:58 Drug: GI Cocktail without - (Maalox Suspension 30 ml, Lidocaine Liquid 2 % 15 ae4 ml) Route: PO; 12:30 Follow up: Response: No adverse reaction; Pain is unchanged, physician notified rb1 12:20 Drug: morphine 4 mg Route: IVP; Site: right antecubital; rb1 12:53 Follow up: Response: No adverse reaction; Pain is unchanged, physician notified rb1 12:57 Drug: Valium 5 mg Route: PO; rb1 13:30 Follow up: Response: No adverse reaction rb1 Outcome: 14:06 Discharge ordered by MD. pm1 14:46 Discharged to home ambulatory, with family. rb1 14:46 Condition: stable 14:46 Discharge instructions given to patient, Instructed on discharge instructions, follow up and referral plans. medication usage, Demonstrated understanding of instructions, follow-up care, medications, Prescriptions given X 1. 14:52 Patient left the ED. rb1 Signatures: Dispatcher [employer] EDMS Priscila Echavarria RN RN aj1 Nany Lopes ds1 Macarena Tejada RN RN rb1 Sandeep Reddy NP PRIVATE BRANCH EXCHANGE INSTALLER pm1 Moreno Dimas Andrea, RN RN ae4
--- NOTE | 2019-04-10 14:07 | EDPHYS ---
Physician Documentation [facility] Name: Darrell Wiseman Age: 53 yrs Sex: Male : 1965 Arrival Date: 04/10/2019 Time: 11:18 Bed 17 Private MD: Dora Viveros M ED Physician Jacques Das HPI: 04/10 13:10 This 53 yrs old Male presents to ER via Wheelchair with complaints of pm1 Abdominal Pain, Vomiting. 14:36 The patient presents with abdominal pain in the epigastric area. Onset: The pm1 symptoms/episode began/occurred this morning. 14:36 The symptoms do not radiate. Associated signs and symptoms: Pertinent positives: pm1 nausea, vomiting, and diarrhea, Pertinent negatives: chest pain, diarrhea, dysuria, fever, headache, shortness of breath. The symptoms are described as achy, burning. Modifying factors: The symptoms are alleviated by nothing, the symptoms are aggravated by food. Severity of pain: in the emergency department the pain is actually worse. The patient has experienced similar episodes in the past, multiple times, history of PUD. The patient has been recently seen at the [facility], this week, for similar complaints labs were performed, CT scan was performed, was given a prescription for pain medications. Historical: - Allergies: 11:33 No Known Allergies; aj1 - PMHx: 11:33 "pin point hole in stomach"; Chronic Pancreatitis; PUD; aj1 - Immunization history:: Adult Immunizations up to date. - Social history:: Smoking status: Patient/guardian denies using tobacco. - Ebola Screening: : Patient denies travel to an Ebola-affected area in the 21 days before illness onset. ROS: 14:36 Constitutional: Negative for fever, chills, and weight loss, Eyes: Negative for injury, pm1 pain, redness, and discharge, ENT: Negative for injury, pain, and discharge, Neck: Negative for injury, pain, and swelling, Cardiovascular: Negative for chest pain, palpitations, and edema, Respiratory: Negative for shortness of breath, cough, wheezing, and pleuritic chest pain. 14:36 Back: Negative for injury and pain, : Negative for injury, bleeding, discharge, and swelling, MS/Extremity: Negative for injury and deformity, Skin: Negative for injury, rash, and discoloration, Neuro: Negative for headache, weakness, numbness, tingling, and seizure. 14:36 Abdomen/GI: Positive for abdominal pain, nausea, vomiting, and diarrhea, Negative for constipation, black/tarry stool, rectal pain, rectal bleeding. 14:36 Psych: Positive for anxiety. Exam: 14:36 Constitutional: This is a well developed, well nourished patient who is awake, alert, pm1 and in no acute distress. Head/Face: Normocephalic, atraumatic. Eyes: Pupils equal round and reactive to light, extra-ocular motions intact. Lids and lashes normal. Conjunctiva and sclera are non-icteric and not injected. Cornea within normal limits. Periorbital areas with no swelling, redness, or edema. ENT: Nares patent. No nasal discharge, no septal abnormalities noted. Tympanic membranes are normal and external auditory canals are clear. Oropharynx with no redness, swelling, or masses, exudates, or evidence of obstruction, uvula midline. Mucous membranes moist. Neck: Trachea midline, no thyromegaly or masses palpated, and no cervical lymphadenopathy. Supple, full range of motion without nuchal rigidity, or vertebral point tenderness. No Meningismus. Chest/axilla: Normal chest wall appearance and motion. Nontender with no deformity. No lesions are appreciated. Cardiovascular: Regular rate and rhythm with a normal S1 and S2. No gallops, murmurs, or rubs. Normal PMI, no JVD. No pulse deficits. Respiratory: Lungs have equal breath sounds bilaterally, clear to auscultation and percussion. No rales, rhonchi or wheezes noted. No increased work of breathing, no retractions or nasal flaring. Abdomen/GI: Soft, non-tender, with normal bowel sounds. No distension or tympany. No guarding or rebound. No evidence of tenderness throughout. Back: No spinal tenderness. No costovertebral tenderness. Full range of motion. Skin: Warm, dry with normal turgor. Normal color with no rashes, no lesions, and no evidence of cellulitis. MS/ Extremity: Pulses equal, no cyanosis. Neurovascular intact. Full, normal range of motion. 14:36 Neuro: Orientation: is normal, Motor: is normal, moves all fours, Sensation: is normal, no obvious gross deficits. 14:36 Psych: Behavior/mood is anxious, Affect is animated, Oriented to person, place, time. Vital Signs: 11:33 BP 142 / 90; Pulse 90; Resp 18; Temp 97.1; Pulse Ox 97% on R/A; Weight 109.32 kg (R); aj1 Height 5 ft. 11 in. (180.34 cm) (R); Pain 10/10; 12:20 BP 158 / 100; Pulse 68; Resp 20; Pulse Ox 99% on R/A; Pain 10/10; rb1 13:20 BP 154 / 95; Pulse 61; Resp 19; Pulse Ox 98% on R/A; rb1 14:20 BP 136 / 72; Pulse 64; Resp 18; Pulse Ox 98% on R/A; Pain 6/10; rb1 11:33 Body Mass Index 33.61 (109.32 kg, 180.34 cm) aj1 MDM: 11:29 Patient medically screened. pm1 14:05 Data reviewed: vital signs. Data interpreted: Pulse oximetry: on room air is 99 %. pm1 Interpretation: normal. Counseling: I had a detailed discussion with the patient and/or guardian regarding: the historical points, exam findings, and any diagnostic results supporting the discharge/admit diagnosis, lab results, radiology results, the need for outpatient follow up, to return to the emergency department if symptoms worsen or persist or if there are any questions or concerns that arise at home. 04/10 11:38 Order name: Basic Metabolic Panel; Complete Time: 12:23 pm1 04/10 11:38 Order name: CBC with Diff; Complete Time: 12:34 pm1 04/10 11:38 Order name: Creatinine for Radiology; Complete Time: 12:19 pm1 04/10 11:38 Order name: Hepatic Function; Complete Time: 12:23 pm1 04/10 11:38 Order name: Lipase; Complete Time: 12:23 pm1 04/10 12:33 Order name: Manual Differential; Complete Time: 12:34 EDMS 04/10 12:20 Order name: Abdomen Acute Series XRAY; Complete Time: 13:35 pm1 04/10 11:38 Order name: IV Saline Lock; Complete Time: 11:56 pm1 04/10 11:38 Order name: Labs collected and sent; Complete Time: 11:56 pm1 Administered Medications: 11:50 Drug: Zofran 4 mg Route: IVP; Site: right antecubital; ae4 12:10 Follow up: Response: No adverse reaction; Nausea is decreased rb1 11:50 Drug: NS 0.9% 1000 ml Route: IV; Rate: 1000 ml; Site: right antecubital; ae4 12:58 Follow up: IV Status: Completed infusion rb1 11:54 Drug: morphine 4 mg Route: IVP; Site: right antecubital; ae4 12:10 Follow up: Response: No adverse reaction; Pain is unchanged, physician notified rb1 11:56 Drug: Pepcid 20 mg Route: IVP; Site: right antecubital; ae4 12:30 Follow up: Response: No adverse reaction rb1 11:58 Drug: GI Cocktail without - (Maalox Suspension 30 ml, Lidocaine Liquid 2 % 15 ae4 ml) Route: PO; 12:30 Follow up: Response: No adverse reaction; Pain is unchanged, physician notified rb1 12:20 Drug: morphine 4 mg Route: IVP; Site: right antecubital; rb1 12:53 Follow up: Response: No adverse reaction; Pain is unchanged, physician notified rb1 12:57 Drug: Valium 5 mg Route: PO; rb1 13:30 Follow up: Response: No adverse reaction rb1 Disposition: 04/10/19 14:06 Discharged to Home. Impression: Unspecified abdominal pain. - Condition is Stable. - Discharge Instructions: Abdominal Pain, Adult, Gastritis, Adult. - Prescriptions for Carafate 1 gram Oral Tablet - take 1 tablet by ORAL route 4 times per day take on an empty stomach, beginning on waking and last dose at bedtime; 100 tablet. - Medication Reconciliation Form, Thank You Letter, Antibiotic Education, Prescription Opioid Use form. - Follow up: Emergency Department; When: As needed; Reason: Worsening of condition. Follow up: Private Physician; When: 2 - 3 days; Reason: Recheck today's complaints, Continuance of care, Re-evaluation by your physician. Follow up: Dora Viveros MD; When: 2 - 3 days; Reason: Recheck today's complaints, Continuance of care, Re-evaluation by your physician. - Problem is new. - Symptoms have improved. Addendum: 04/13/2019 07:08 Co-signature as Attending Physician, Jacques Das MD I agree with the assessment and c cantu plan of care. Signatures: Dispatcher [employer] EDPriscila Pate RN RN aj1 Jacques Das MD MD cha Barber, Rebecca, RN RN rb1 Sandeep Reddy, DRAFTSPERSON DRAFTSPERSON pm1 Jimmie Webb RN RN ae4 Corrections: (The following items were deleted from the chart) 04/10 14:52 14:06 04/10/2019 14:06 Discharged to Home. Impression: Unspecified abdominal pain. rb1 Condition is Stable. Forms are Medication Reconciliation Form, Thank You Letter, Antibiotic Education, Prescription Opioid Use. Follow up: Emergency Department; When: As needed; Reason: Worsening of condition. Follow up: Private Physician; When: 2 - 3 days; Reason: Recheck today's complaints, Continuance of care, Re-evaluation by your physician. Follow up: [facility]; When: 2 - 3 days; Reason: Recheck today's complaints, Continuance of care, Re-evaluation by your physician. Problem is new. Symptoms have improved. pm1
[2019-04-10 16:40] VITALS: TEMP 97.1
[2019-04-10 16:43] VITALS: O2SAT 98
[2019-04-10 16:44] VITALS: BP 136/72
== END 2019-04-10 14:52 | disposition home or self-care (01) ==
LOC: ER 11:14
DX: R10.13 Epigastric pain (principal); R11.2 Nausea with vomiting, unspecified
CPT/HCPCS: 96361; 85025; 80048; 36415; 80076; 83690; 74022; 96375; 96374; 99284; J7030; J2405

== ENCOUNTER 2019-04-16 17:35 | Emergency (ER) | payer BC ==
--- OUTSIDE RECORDS SUMMARY | 2019-04-16 17:37 | XMS REPORT ---
:1965 [facility] Address [address] [place]. [address] [place] [id number] Care Team Providers Name Role Phone Unavailable Unavailable Unavailable Problems This patient has no known problems. Allergies, Adverse Reactions, Alerts This patient has no known allergies or adverse reactions. Medications This patient has no known medications.
[2019-04-16] MEDS ORDERED: MORPHINE 4 MG/ML SYR ONE (18:29)
[2019-04-16] MEDS ORDERED: NA CHLORIDE 0.9% 100 ML IV ONE (18:29)
[2019-04-16] MEDS ORDERED: NA CHLORIDE 0.9% 1,000 ML ONE (18:29)
[2019-04-16] MEDS ORDERED: METOCLOPRAMIDE 10 MG/2mL INJ ONE (18:29)
[2019-04-16 18:40] LABS: Absolute Lymphocytes (CBC) 0.9 K/uL (0.7-4.9); Basophils % 0.5 % (0-1.3); Hematocrit 47.2 % (39.6-49.0); Lymphocytes % 9.6 % (15.3-44.8); MPV 8.5 fL (7.6-11.3); RBC Red Blood Cell Count 5.32 M/uL (4.33-5.43)
[2019-04-16 18:55] LABS: Albumin 4.1 g/dL (3.4-5.0); Bilirubin Direct 0.2 mg/dL (0-0.2); Bilirubin Total 0.8 mg/dL (0.2-1.0); Potassium 3.6 mmol/L (3.5-5.1); Protein, Total 7.5 g/dL (6.4-8.2)
--- NOTE | 2019-04-16 19:46 | RAD REPORT ---
EXAM DESCRIPTION: CT - Abdomen Pelvis W Contrast - 04/16/2019 7:29 pm CLINICAL HISTORY: s/p upper GI today;Abd pain COMPARISON: CT study April 08 TECHNIQUE: Biphasic, helical CT imaging of the abdomen and pelvis was performed following 100 ml non -ionic IV contrast. No oral contrast administered. All CT scans are performed using dose optimization technique as appropriate and may include automated exposure control or mA/KV adjustment according to patient size. FINDINGS: No suspicious findings in the lung bases. Mild fatty infiltration pattern to the liver. No acute liver finding. Spleen and pancreas without ruben picious finding. Gallbladder and biliary tree are also without suspicious finding. Gallstones can be occult on CT imaging. Symmetric renal function is seen with no hydronephrosis or suspicious renal mass. No pyelonephritis o r acute parenchymal process. No bladder abnormalities. No adrenal abnormalities. No stomach or small bowel abnormality. Appendix is normal. No acute colon finding seen. Sigmoid diver ticulosis present without diverticulitis. No free air, free fluid or inflammatory stranding. No mas s or bulky lymphadenopathy. Small fat only periumbilical hernia is seen. No active process at this si te. Left testicle is in the inferior aspect of the left inguinal canal. This may be an undescended testic les possibly a testicle displaced within a patent inguinal canal. Prior imaging did not extend this l ow into the pelvis. No suspicious bony findings. IMPRESSION: Contrast enhanced CT abdomen and pelvis showing no acute finding. Fatty infiltration of the liver. Left testicle is in the lower left inguinal canal. This may be due to displacement from the scrotum i nto a patent inguinal canal. Undescended testicle would be possible. No mass component. Prior CT imag ing did not extend this low into the pelvis.
--- NOTE | 2019-04-16 20:00 | EDPHYS ---
Physician Documentation [facility] Name: Darrell Wiseman Age: 53 yrs Sex: Male : 1965 Arrival Date: 04/16/2019 Time: 17:38 Bed 3 Private MD: ED Physician César Ayala HPI: 04/16 19:00 This 53 yrs old Male presents to ER via Ambulatory with complaints of Back kdr Pain, Vomiting. 19:00 The patient presents with abdominal pain that is diffuse, Left flank. Onset: The kdr symptoms/episode began/occurred gradually, this morning, today. The symptoms radiate to the left flank. Associated signs and symptoms: Pertinent positives: nausea and vomiting. The symptoms are described as achy, crampy, vague, waxing/waning. Modifying factors: The symptoms are alleviated by nothing, the symptoms are aggravated by movement, pressure, touching the area. Severity of pain: At its worst the pain was severe incapacitating just prior to arrival. The patient has experienced similar episodes in the past, multiple times. The patient has been recently seen by a physician: The patient had an upper GI today with Dr. Viveros. Historical: - Allergies: 17:41 No Known Allergies; sv - PMHx: 17:41 "pin point hole in stomach"; Chronic Pancreatitis; PUD; hiatal hernia; esophagitis; sv gastritis; duodenitis; - Immunization history:: Adult Immunizations unknown. - Social history:: Smoking status: Patient/guardian denies using tobacco. - Ebola Screening: : No symptoms or risks identified at this time. ROS: 19:02 Constitutional: Negative for fever, chills, and weight loss, Eyes: Negative for injury, kdr pain, redness, and discharge, ENT: Negative for injury, pain, and discharge, Neck: Negative for injury, pain, and swelling, Cardiovascular: Negative for chest pain, palpitations, and edema, Respiratory: Negative for shortness of breath, cough, wheezing, and pleuritic chest pain, Back: Negative for injury and pain, : Negative for injury, bleeding, discharge, and swelling, MS/Extremity: Negative for injury and deformity, Skin: Negative for injury, rash, and discoloration, Neuro: Negative for headache, weakness, numbness, tingling, and seizure activity. Psych: Negative for depression, anxiety, suicide ideation, homicidal ideation, and hallucinations, Allergy/Immunology: Negative for hives, rash, and allergies, Endocrine: Negative for neck swelling, polydipsia, polyuria, polyphagia, and marked weight changes, Hematologic/Lymphatic: Negative for swollen nodes, abnormal bleeding, and unusual bruising. 19:02 Abdomen/GI: Positive for abdominal pain, nausea and vomiting, Negative for abdominal cramps, abdominal distension, anorexia, dysphagia, hematemesis, black/tarry stool, rectal pain, rectal bleeding, bowel incontinence. Exam: 19:02 Constitutional: This is a well developed, well nourished patient who is awake, alert, kdr and in momderate distress. Head/Face: Normocephalic, atraumatic. Eyes: Pupils equal round and reactive to light, extra-ocular motions intact. Lids and lashes normal. Conjunctiva and sclera are non-icteric and not injected. Cornea within normal limits. Periorbital areas with no swelling, redness, or edema. Neck: Trachea midline, no thyromegaly or masses palpated, and no cervical lymphadenopathy. Supple, full range of motion without nuchal rigidity, or vertebral point tenderness. No Meningismus. Chest/axilla: Normal chest wall appearance and motion. Nontender with no deformity. No lesions are appreciated. Cardiovascular: Regular rate and rhythm with a normal S1 and S2. No gallops, murmurs, or rubs. Normal PMI, no JVD. No pulse deficits. Respiratory: Lungs have equal breath sounds bilaterally, clear to auscultation and percussion. No rales, rhonchi or wheezes noted. No increased work of breathing, no retractions or nasal flaring. Back: No spinal tenderness. No costovertebral tenderness. Full range of motion. Skin: Warm, dry with normal turgor. Normal color with no rashes, no lesions, and no evidence of cellulitis. MS/ Extremity: Pulses equal, no cyanosis. Neurovascular intact. Full, normal range of motion. Neuro: Awake and alert, GCS 15, oriented to person, place, time, and situation. Cranial nerves II-XII grossly intact. Motor strength 5/5 in all extremities. Sensory grossly intact. Cerebellar exam normal. Normal gait. Psych: Awake, alert, with orientation to person, place and time. Behavior, mood, and affect are within normal limits. 19:02 Abdomen/GI: Inspection: abdomen appears normal, Bowel sounds: diminished, in all quadrants, Palpation: soft, mild abdominal tenderness, in the anterior aspect of left lateral abdomen, left upper quadrant, left lower quadrant and abdomen diffusely. Vital Signs: 17:41 BP 127 / 89; Pulse 104; Resp 22; Temp 97.6; Pulse Ox 100% ; Weight 106.14 kg; Height 5 sv ft. 11 in. (180.34 cm); Pain 9/10; 18:44 BP 145 / 107; Pulse 97; Resp 18; Pulse Ox 98% on R/A; ph 19:32 BP 113 / 74; Pulse 81; Resp 17 S; Temp 98.2(O); Pulse Ox 99% on R/A; jd3 17:41 Body Mass Index 32.64 (106.14 kg, 180.34 cm) sv MDM: 19:02 Data reviewed: vital signs, nurses notes, lab test result(s), radiologic studies. kdr Counseling: I had a detailed discussion with the patient and/or guardian regarding: the historical points, exam findings, and any diagnostic results supporting the discharge/admit diagnosis, lab results, radiology results. 19:48 Patient medically screened. kb 19:58 ED course: Pt reports they gave him 5mg of valium one time for these symptoms and it kb helped a lot. Requests that prior to discharge. 04/16 18:19 Order name: Basic Metabolic Panel; Complete Time: 18:59 kdr 04/16 18:19 Order name: CBC with Diff; Complete Time: 18:59 kdr 04/16 18:19 Order name: Creatinine for Radiology; Complete Time: 18:59 kdr 04/16 18:19 Order name: Hepatic Function; Complete Time: 18:59 kdr 04/16 18:19 Order name: Lipase; Complete Time: 18:59 kdr 04/16 18:59 Order name: CT Abd/Pelvis - IV Contrast Only; Complete Time: 19:54 kdr 04/16 18:19 Order name: IV Saline Lock; Complete Time: 18:31 kdr 04/16 18:19 Order name: Labs collected and sent; Complete Time: 18:31 kdr Administered Medications: 18:42 Drug: NS 0.9% 1000 ml Route: IV; Rate: 1 bolus; Site: right antecubital; ph 19:34 Follow up: Response: No adverse reaction; IV Status: Completed infusion; IV Intake: jd3 1000ml 18:43 Drug: morphine 4 mg Route: IVP; Site: right antecubital; ph 19:06 Follow up: Response: No adverse reaction; Pain is unchanged, physician notified ph 18:43 Drug: Reglan 20 mg {Note: mixed in 100mL NS.} Route: IVP; Site: right antecubital; ph 19:05 Follow up: Response: No adverse reaction ph 20:06 Drug: Valium 5 mg Route: PO; jd3 20:18 Follow up: Response: Medication administered at discharge. jd3 Disposition: 04/17 07:19 Co-signature as Attending Physician, César Ayala MD I agree with the assessment and kdr plan of care. Disposition: 04/16/19 19:59 Discharged to Home. Impression: Generalized abdominal pain. - Condition is Stable. - Discharge Instructions: Abdominal Pain, Adult, [id number]. - Prescriptions for Zofran 4 mg Oral Tablet - take 1 tablet by ORAL route every 6 hours As needed; 20 tablet. Tramadol 50 mg Oral Tablet - take 1 tablet by ORAL route every 8 hours as needed; 12 tablet. - Medication Reconciliation Form, Thank You Letter, Antibiotic Education, Prescription Opioid Use form. - Follow up: Private Physician; When: 2 - 3 days; Reason: Recheck today's complaints, Continuance of care, Re-evaluation by your physician. Follow up: Emergency Department; When: As needed; Reason: Worsening of condition. Signatures: Dispatcher [employer] EDWI Arlen Pang, GELACIO-C SENIOR RELIABILITY ENGINEER-Kika Johnston RN RN sv Rittger, Kevin, MD MD [facility] Brittany Harper ph D, RN RNavies, Jonathon, RN RN jd3 Corrections: (The following items were deleted from the chart) 04/16 20:19 19:59 04/16/2019 19:59 Discharged to Home. Impression: Generalized abdominal pain. jd3 Condition is Stable. Forms are Medication Reconciliation Form, Thank You Letter, Antibiotic Education, Prescription Opioid Use. Follow up: Private Physician; When: 2 - 3 days; Reason: Recheck today's complaints, Continuance of care, Re-evaluation by your physician. Follow up: Emergency Department; When: As needed; Reason: Worsening of condition. kb
--- NOTE | 2019-04-16 20:00 | ER ---
Nurse's Notes [facility] Name: Darrell Wiseman Age: 53 yrs Sex: Male : 1965 Arrival Date: 04/16/2019 Time: 17:38 Bed 3 Private MD: Diagnosis: Generalized abdominal pain Presentation: 04/16 17:39 Presenting complaint: Patient states: had an endoscopy done this morning, stated he was sv feeling bad before going into the procedure and went home and ate, c/o vomiting, back pain, left side pain. Transition of care: patient was not received from another setting of care. Onset of symptoms was April 16, 2019. Care prior to arrival: None. 17:39 Method Of Arrival: Ambulatory sv 17:39 Acuity: ANGLE 2 sv 18:07 Risk Assessment: Do you want to hurt yourself or someone else? Patient reports no ph desire to harm self or others. Initial Sepsis Screen: Does the patient meet any 2 criteria? No. Patient's initial sepsis screen is negative. Does the patient have a suspected source of infection? No. Patient's initial sepsis screen is negative. Historical: - Allergies: 17:41 No Known Allergies; sv - PMHx: 17:41 "pin point hole in stomach"; Chronic Pancreatitis; PUD; hiatal hernia; esophagitis; sv gastritis; duodenitis; - Immunization history:: Adult Immunizations unknown. - Social history:: Smoking status: Patient/guardian denies using tobacco. - Ebola Screening: : No symptoms or risks identified at this time. Screenin:07 Abuse screen: Denies threats or abuse. Denies injuries from another. Nutritional ph screening: No deficits noted. Tuberculosis screening: No symptoms or risk factors identified. Fall Risk None identified. Assessment: 18:00 General: Appears in no apparent distress. uncomfortable, well groomed, Behavior is ph cooperative, anxious, fussy, restless. Pain: Complains of pain in right upper quadrant and left upper quadrant and back. Neuro: Level of Consciousness is awake, alert, obeys commands, Oriented to person, place, time, situation. Cardiovascular: Capillary refill < 3 seconds in bilateral fingers Patient's skin is warm and dry. Respiratory: Airway is patent Respiratory effort is even, unlabored, Respiratory pattern is regular, symmetrical. GI: Reports upper abdominal pain, nausea. : Reports pain in lower back. Derm: Skin is intact, is healthy with good turgor, Skin is pink, warm \\T\\ dry. Musculoskeletal: Circulation, motion, and sensation intact. Range of motion: intact in all extremities. 19:35 General: Appears in no apparent distress. uncomfortable, Behavior is calm, cooperative, jd3 appropriate for age. Pain: Complains of pain in abdomen Quality of pain is described as aching, tender. Neuro: Level of Consciousness is awake, alert, obeys commands, Oriented to person, place, time, situation. Cardiovascular: Denies chest pain, Capillary refill < 3 seconds Patient's skin is warm and dry. Respiratory: Airway is patent Respiratory effort is even, unlabored, Respiratory pattern is regular, symmetrical, Denies cough, shortness of breath. GI: Abdomen is round non-distended, Abd is soft X 4 quads Abdomen is tender to palpation X 4 quads. Reports lower abdominal pain, upper abdominal pain, nausea. : Reports pain in lower back. EENT: No signs and/or symptoms were reported regarding the EENT system. Derm: Skin is intact, Skin is dry, Skin is normal, Skin temperature is warm. Musculoskeletal: Circulation, motion, and sensation intact. Range of motion: intact in all extremities. 20:18 Reassessment: Patient appears in no apparent distress at this time. No changes from jd3 previously documented assessment. Patient and/or family updated on plan of care and expected duration. Pain level reassessed. Patient is alert, oriented x 3, equal unlabored respirations, skin warm/dry/pink. reported understanding of discharge instructions. Vital Signs: 17:41 BP 127 / 89; Pulse 104; Resp 22; Temp 97.6; Pulse Ox 100% ; Weight 106.14 kg; Height 5 sv ft. 11 in. (180.34 cm); Pain 9/10; 18:44 BP 145 / 107; Pulse 97; Resp 18; Pulse Ox 98% on R/A; ph 19:32 BP 113 / 74; Pulse 81; Resp 17 S; Temp 98.2(O); Pulse Ox 99% on R/A; jd3 17:41 Body Mass Index 32.64 (106.14 kg, 180.34 cm) sv ED Course: 17:38 Patient arrived in ED. mr 17:40 Triage completed. sv 17:42 Arm band placed on. sv 17:43 César Ayala MD is Attending Physician. kdr 17:46 Brittany Harper, CELINA is Primary Nurse. ph 18:08 Patient has correct armband on for positive identification. Bed in low position. Call ph light in reach. Side rails up X 1. Pulse ox on. NIBP on. Door closed. Noise minimized. 18:31 Inserted saline lock: 20 gauge in right antecubital area, using aseptic technique. ss Blood collected. 19:30 CT Abd/Pelvis - IV Contrast Only In Process Unspecified. EDMS 19:33 Arlen Pang FNP-C [facility]. kb 20:18 No provider procedures requiring assistance completed. IV discontinued, intact, jd3 bleeding controlled, No redness/swelling at site. Pressure dressing applied. Administered Medications: 18:42 Drug: NS 0.9% 1000 ml Route: IV; Rate: 1 bolus; Site: right antecubital; ph 19:34 Follow up: Response: No adverse reaction; IV Status: Completed infusion; IV Intake: jd3 1000ml 18:43 Drug: morphine 4 mg Route: IVP; Site: right antecubital; ph 19:06 Follow up: Response: No adverse reaction; Pain is unchanged, physician notified ph 18:43 Drug: Reglan 20 mg {Note: mixed in 100mL NS.} Route: IVP; Site: right antecubital; ph 19:05 Follow up: Response: No adverse reaction ph 20:06 Drug: Valium 5 mg Route: PO; jd3 20:18 Follow up: Response: Medication administered at discharge. jd3 Intake: 19:34 IV: 1000ml; Total: 1000ml. jd3 Outcome: 19:59 Discharge ordered by . kb 20:18 Discharged to home via wheelchair, with family. jd3 20:18 Condition: stable 20:18 Discharge instructions given to patient, family, Instructed on discharge instructions, follow up and referral plans. medication usage, Demonstrated understanding of instructions, follow-up care, medications, Prescriptions given X 2. 20:19 Patient left the ED. jd3 Signatures: Dispatcher [employer] EDMS Arlen Pang FNP-C FNP-Ckb Verde, Stephanie, RN RN César Ayala MD MD kdr Rivera, Mary mr Smirch, Shelby, RN RN ss Brittany Harper RN RN Domingo Bunch RN RN jd3 Corrections: (The following items were deleted from the chart) 17:42 17:39 Acuity: ANGLE 3 sv sv 19:35 19:32 BP 113 / 74; Pulse 81bpm; Resp 17bpm; Spontaneous; Pulse Ox 99% RA; jd3 jd3
[2019-04-16] MEDS ORDERED: DIAZEPAM 5 MG TABLET ONE (20:03)
[2019-04-16 21:56] VITALS: BP 113/74; TEMP 98.2; O2SAT 99
== END 2019-04-16 20:19 | disposition home or self-care (01) ==
LOC: ER 17:35
DX: R10.84 Generalized abdominal pain (principal)
CPT/HCPCS: 96361; 85025; 80048; 36415; 80076; 83690; 74177; 96375; 96374; 99284; Q9967; J2765; J7030

== ENCOUNTER 2019-05-28 15:02 | Emergency (ER) | payer BC ==
--- OUTSIDE RECORDS SUMMARY | 2019-05-28 15:03 | XMS REPORT ---
:1965 [facility] [address] [place]. [address] [place] [id number] Care Team Providers Name Role Phone Unavailable Unavailable Unavailable Problems This patient has no known problems. Allergies, Adverse Reactions, Alerts This patient has no known allergies or adverse reactions. Medications This patient has no known medications.
[2019-05-28] MEDS ORDERED: NA CHLORIDE 0.9% 1,000 ML ONE ×2 (15:40→16:55)
[2019-05-28] MEDS ORDERED: MORPHINE 4 MG/ML SYR ONE (15:40)
[2019-05-28] MEDS ORDERED: PANTOPRAZOLE 40 MG INJ ONE (15:40)
[2019-05-28] MEDS ORDERED: ONDANSETRON 4 MG/2 ML VIAL ONE (15:40)
[2019-05-28 16:07] LABS: Absolute Lymphocytes (CBC) 0.9 K/uL (0.7-4.9); Hematocrit 44.2 % (39.6-49.0); Lymphocytes % 8.3 % (15.3-44.8); MPV 8.4 fL (7.6-11.3); RBC Red Blood Cell Count 4.94 M/uL (4.33-5.43)
[2019-05-28 16:15] LABS: Albumin 3.9 g/dL (3.4-5.0); Bilirubin Direct 0.1 mg/dL (0-0.2); Bilirubin Total 0.5 mg/dL (0.2-1.0); Potassium 3.8 mmol/L (3.5-5.1); Protein, Total 7.7 g/dL (6.4-8.2)
[2019-05-28 16:27] LABS: Blood Morphology Comment NOT SEEN (NOT SEEN); Platelet Estimate ADEQ; Urine White Blood Cell Casts OK
[2019-05-28] MEDS ORDERED: FENTANYL CITR 100 MCG/2 ML ONE (16:27)
--- NOTE | 2019-05-28 17:11 | RAD REPORT ---
EXAM DESCRIPTION: CT - Abdomen Pelvis W Contrast - 05/28/2019 4:52 pm CLINICAL HISTORY: Abdominal pain COMPARISON: March 2019 TECHNIQUE: Computed axial tomography of the abdomen pelvis was obtained. 100 cc Isovue-300 was admin istered intravenously. Oral contrast was not requested which limits evaluation of bowel. All CT scans are performed using dose optimization technique as appropriate and may include automated exposure control or mA/KV adjustment according to patient size. FINDINGS: Fatty liver Spleen, pancreas, adrenal and kidneys appear unremarkable. There is no evidence of diverticulitis. Normal appendix Small umbilical hernia IMPRESSION: No acute abnormality is displayed.
--- NOTE | 2019-05-28 17:32 | ER ---
Nurse's Notes [facility] Name: Darrell Wiseman Age: 53 yrs Sex: Male : 1965 Arrival Date: 05/28/2019 Time: 15:04 Bed 24 Private MD: Dora Viveros M Diagnosis: Abdominal and pelvic pain Presentation: 05/28 15:19 Presenting complaint: states: abd pain that started this morning. reports ss that they have to visit the ED frequently because of the same issue which seems to only occur when patient overeats and gets off his diet plan. "It was hard for him over the holidays because we had tamales, and he ate cookies last night.". Transition of care: patient was not received from another setting of care. Onset of symptoms was May 28, 2019. Risk Assessment: Do you want to hurt yourself or someone else? Patient reports no desire to harm self or others. Initial Sepsis Screen: Does the patient meet any 2 criteria? RR > 20 per min. Does the patient have a suspected source of infection? No. Patient's initial sepsis screen is negative. Care prior to arrival: None. 15:19 Method Of Arrival: Ambulatory ss 15:19 Acuity: ANGLE 3 ss Historical: - Allergies: 15:21 No Known Allergies; ss - PMHx: 15:21 Chronic Pancreatitis; duodenitis; Esophagitis; gastritis; hiatal hernia; PUD; "pin ss point hole in stomach"; - Immunization history:: Adult Immunizations up to date. - Social history:: Smoking status: Patient/guardian denies using tobacco. - Ebola Screening: : Patient denies exposure to infectious person Patient denies travel to an Ebola-affected area in the 21 days before illness onset. Screenin:54 Abuse screen: Denies threats or abuse. Nutritional screening: No deficits noted. iw Tuberculosis screening: No symptoms or risk factors identified. Fall Risk None identified. Assessment: 15:40 General: Appears in no apparent distress. uncomfortable, Behavior is calm, cooperative, em appropriate for age, Denies fever. Pain: Complains of pain in abdomen Pain currently is 10 out of 10 on a pain scale. Pain began this morning. Neuro: Level of Consciousness is awake, alert, obeys commands, Oriented to person, place, time, situation, Appropriate for age. Cardiovascular: Capillary refill < 3 seconds Patient's skin is warm and dry. Respiratory: Airway is patent Respiratory effort is even, unlabored, Respiratory pattern is regular, symmetrical. GI: Abdomen is round non-distended, Bowel sounds present X 4 quads. Abd is soft X 4 quads Abdomen is tender to palpation X 4 quads. Reports nausea, vomiting, Patient currently denies diarrhea. Derm: Skin is intact, is healthy with good turgor, Skin is pink, warm \\T\\ dry. Musculoskeletal: Capillary refill < 3 seconds, Range of motion: intact in all extremities. 16:20 Reassessment: reports pain is unchanged, rolling in bed, provider notified. em 17:20 Reassessment: rates pain 8/10, rolling in bed, provider notified. em 18:00 Reassessment: Patient appears in no apparent distress at this time. Patient and/or em family updated on plan of care and expected duration. Pain level reassessed. Patient is alert, oriented x 3, equal unlabored respirations, skin warm/dry/pink. Patient denies pain at this time. Patient states feeling better. Patient states symptoms have improved. Vital Signs: 15:21 BP 171 / 87; Pulse 83; Resp 25; Temp 97.0(TE); Pulse Ox 99% on R/A; Weight 108.86 kg; ss Height 5 ft. 11 in. (180.34 cm); Pain 10/10; 16:30 BP 136 / 90; Pulse 65; Resp 18; Pulse Ox 94% on R/A; Pain 10/10; em 17:28 BP 104 / 81; Pulse 85; Resp 17 S; Pulse Ox 100% on R/A; ca1 18:07 BP 115 / 63; Pulse 87; Resp 16; Pulse Ox 95% on R/A; Pain 0/10; em 15:21 Body Mass Index 33.47 (108.86 kg, 180.34 cm) ED Course: 15:04 Patient arrived in ED. rg4 15:04 Dora Viveros MD is Private Physician. rg4 15:05 Gonzalez Saenz FNP-C is [facility]. la1 15:05 César Ayala MD is Attending Physician. la1 15:15 Jairo Ferrari LVN is Primary Nurse. em 15:20 Triage completed. ss 15:21 Arm band placed on right wrist. ss 15:24 Patient maintains SpO2 saturation greater than 95% on room air. jp3 15:24 Initial lab(s) drawn, by me, held in ED. Inserted saline lock: 20 gauge in right jp3 antecubital area, using aseptic technique. Blood collected. 15:29 Safety checks: Family/friend present: yes. Call light in reach. Side rails up X 1. Side jp3 rails up X2. Verbal reassurance given. Pulse ox on. NIBP on. 15:44 Initial lab(s) drawn, by me, sent to lab. jp3 15:44 Lactate Sent. jp3 15:45 Lipase Sent. jp3 15:45 Hepatic Function Sent. jp3 15:45 Creatinine for Radiology Sent. jp3 15:45 CBC with Diff Sent. jp3 15:45 Basic Metabolic Panel Sent. jp3 16:53 CT completed. Patient tolerated procedure well. Patient moved to CT via wheelchair. ct Patient moved back from CT. 16:53 CT Abd/Pelvis - IV Contrast Only In Process Unspecified. EDMS 17:31 Dora Viveros MD is Referral Physician. la1 18:17 No provider procedures requiring assistance completed. IV discontinued, intact, em bleeding controlled, No redness/swelling at site. Pressure dressing applied. Administered Medications: 15:46 Drug: Zofran 4 mg Route: IVP; Site: right antecubital; iw 16:28 Follow up: Response: No adverse reaction; Nausea is decreased em 15:47 Drug: NS 0.9% 1000 ml Route: IV; Rate: 1000 ml; Site: right antecubital; em 16:48 Follow up: IV Status: Completed infusion; IV Intake: 1000ml em 15:48 Drug: morphine 4 mg Route: IVP; Site: right antecubital; iw 16:20 Follow up: Response: No adverse reaction; Pain is unchanged, physician notified; RASS: em Restless (+1) 15:51 Drug: ProTONIX 40 mg Route: IVP; Site: right antecubital; iw 16:48 Follow up: Response: No adverse reaction em 16:34 Drug: fentaNYL (PF) 50 mcg Route: IVP; Site: right antecubital; iw 17:20 Follow up: Response: No adverse reaction; Pain is unchanged, physician notified; RASS: iw Restless (+1) 17:18 Drug: NS 0.9% 1000 ml Route: IV; Rate: 1000 ml; Site: right antecubital; iw 18:15 Follow up: IV Status: Completed infusion; IV Intake: 1000ml em 17:41 Drug: Dilaudid 1 mg Route: IVP; Site: right antecubital; iw 18:08 Follow up: Response: No adverse reaction; Marked relief of symptoms; Pain is decreased; em RASS: Alert and Calm (0) Intake: 16:48 IV: 1000ml; Total: 1000ml. em 18:15 IV: 1000ml; Total: 2000ml. em Outcome: 17:31 Discharge ordered by MD. la1 18:17 Discharged to home via wheelchair, with family. em 18:17 Condition: good 18:17 Discharge instructions given to patient, family, Instructed on discharge instructions, follow up and referral plans. medication usage, Demonstrated understanding of instructions, follow-up care, medications, Prescriptions given X 1. 18:18 Patient left the ED. em Signatures: Dispatcher [employer] EDUT Jairo Ferrari, RUG WEAVER RUG WEAVER em Nikki Hernandez, RN CELINA iw Abigail Franco RN RN ss Gonzalez Saenz, LEATHER STRETCHER-C LEATHER STRETCHER-Cla1 Nasrin Bowie Nathan nj Pisarski, Jacob jp3 Chacha Roca RN RN ca1 Corrections: (The following items were deleted from the chart) 15:22 15:19 Initial Sepsis Screen: Does the patient meet any 2 criteria? No. Patient's ss initial sepsis screen is negative. Does the patient have a suspected source of infection? No. Patient's initial sepsis screen is negative. ss
--- NOTE | 2019-05-28 17:32 | EDPHYS ---
Physician Documentation [facility] [place], [place] Name: Darrell Wiseman Age: 53 yrs Sex: Male : 1965 Arrival Date: 05/28/2019 Time: 15:04 Bed 24 Private MD: Dora Viveros M ED Physician César Ayala HPI: 05/28 15:47 This 53 yrs old Male presents to ER via Ambulatory with complaints of la1 Abdominal Pain. 15:47 The patient presents with abdominal pain that is diffuse. Onset: The symptoms/episode la1 began/occurred this morning. The symptoms radiate to back. Associated signs and symptoms: Pertinent positives: nausea. The symptoms are described as sharp. Modifying factors: The symptoms are alleviated by nothing, the symptoms are aggravated by alcohol. Severity of pain: At its worst the pain was severe. The patient has experienced similar episodes in the past. Historical: - Allergies: 15:21 No Known Allergies; ss - PMHx: 15:21 Chronic Pancreatitis; duodenitis; Esophagitis; gastritis; hiatal hernia; PUD; "pin ss point hole in stomach"; - Immunization history:: Adult Immunizations up to date. - Social history:: Smoking status: Patient/guardian denies using tobacco. - Ebola Screening: : Patient denies exposure to infectious person Patient denies travel to an Ebola-affected area in the 21 days before illness onset. ROS: 15:48 Constitutional: Negative for fever, chills, and weight loss, Eyes: Negative for injury, la1 pain, redness, and discharge, ENT: Negative for injury, pain, and discharge, Neck: Negative for injury, pain, and swelling, Cardiovascular: Negative for chest pain, palpitations, and edema, Respiratory: Negative for shortness of breath, cough, wheezing, and pleuritic chest pain, Back: Negative for injury and pain, : Negative for injury, bleeding, discharge, and swelling, MS/Extremity: Negative for injury and deformity, Neuro: Negative for headache, weakness, numbness, tingling, and seizure. 15:48 Abdomen/GI: Positive for abdominal pain. Exam: 15:48 Constitutional: This is a well developed, well nourished patient who is awake, alert, la1 and in no acute distress. Head/Face: Normocephalic, atraumatic. Eyes: Pupils equal round and reactive to light, extra-ocular motions intact. Periorbital areas with no swelling, redness, or edema. ENT: Mucous membranes moist. Neck: Trachea midline, no thyromegaly or masses palpated, and no cervical lymphadenopathy. Supple, full range of motion without nuchal rigidity, or vertebral point tenderness. No Meningismus. Chest/axilla: Normal chest wall appearance and motion. Nontender with no deformity. No lesions are appreciated. Cardiovascular: Regular rate and rhythm with a normal S1 and S2. No gallops, murmurs, or rubs. Normal PMI, no JVD. No pulse deficits. Respiratory: Lungs have equal breath sounds bilaterally, clear to auscultation No rales, rhonchi or wheezes noted. No increased work of breathing, no retractions or nasal flaring. Abdomen/GI: Soft, non-tender, with normal bowel sounds. . No guarding or rebound. No evidence of tenderness throughout. MS/ Extremity: Pulses equal, no cyanosis. Neurovascular intact. Full, normal range of motion. Vital Signs: 15:21 BP 171 / 87; Pulse 83; Resp 25; Temp 97.0(TE); Pulse Ox 99% on R/A; Weight 108.86 kg; ss Height 5 ft. 11 in. (180.34 cm); Pain 10/10; 16:30 BP 136 / 90; Pulse 65; Resp 18; Pulse Ox 94% on R/A; Pain 10/10; em 17:28 BP 104 / 81; Pulse 85; Resp 17 S; Pulse Ox 100% on R/A; ca1 18:07 BP 115 / 63; Pulse 87; Resp 16; Pulse Ox 95% on R/A; Pain 0/10; em 15:21 Body Mass Index 33.47 (108.86 kg, 180.34 cm) ss MDM: 15:42 Patient medically screened. la1 17:28 Differential diagnosis: AAA, appendicitis, bowel obstruction, cholecystitis, la1 Cholelithiasis, diverticulitis, gastritis, gastroesophageal reflux disease, GI Bleed, pancreatitis, Peptic Ulcer Disease, Perf. Duodenal Ulcer, Perf. Gastric Ulcer. Data reviewed: vital signs, nurses notes, old medical records, lab test result(s), radiologic studies, I have discussed the patient's presentation/case with the attending Emergency Department Physician; and as a result, I will discharge patient. Data interpreted: Pulse oximetry: on room air is 94 %. Interpretation: acceptable. Counseling: I had a detailed discussion with the patient and/or guardian regarding: the historical points, exam findings, and any diagnostic results supporting the discharge/admit diagnosis, the presence of at least one elevated blood pressure reading (>120/80) during this emergency department visit, radiology results, the need for outpatient follow up, a family and marriage counsellor, to return to the emergency department if symptoms worsen or persist or if there are any questions or concerns that arise at home. Response to treatment: the patient's symptoms have mildly improved after treatment. ED course: Pt states he has had sx like this intermittently since high school, has had about 8 episodes like this in the last year. Is seeing Dr. Viveros outpatient and being worked up, is due to have a lower GI series done now that the holidays are over. Pt SO states he has been eating foods that he knows he should not be eating over the holidays. Pt instructed to FU with GI or report immediately to the ED with any new or worsening symptoms. . 05/28 15:36 Order name: Basic Metabolic Panel; Complete Time: 16:25 05/28 15:36 Order name: CBC with Diff; Complete Time: 16:33 05/28 15:36 Order name: Creatinine for Radiology; Complete Time: 16:05/28 15:36 Order name: Hepatic Function; Complete Time: 16:25 05/28 15:36 Order name: Lipase; Complete Time: 16:25 05/28 15:36 Order name: Lactate; Complete Time: 16:25 05/28 16:26 Order name: CT Abd/Pelvis - IV Contrast Only; Complete Time: 17:19 05/28 16:28 Order name: CBC Smear Scan; Complete Time: 16:33 EDHI 05/28 15:36 Order name: IV Saline Lock; Complete Time: 15:45 05/28 15:36 Order name: Labs collected and sent; Complete Time: 15:45 la Administered Medications: 15:46 Drug: Zofran 4 mg Route: IVP; Site: right antecubital; iw 16:28 Follow up: Response: No adverse reaction; Nausea is decreased em 15:47 Drug: NS 0.9% 1000 ml Route: IV; Rate: 1000 ml; Site: right antecubital; em 16:48 Follow up: IV Status: Completed infusion; IV Intake: 1000ml em 15:48 Drug: morphine 4 mg Route: IVP; Site: right antecubital; iw 16:20 Follow up: Response: No adverse reaction; Pain is unchanged, physician notified; RASS: em Restless (+1) 15:51 Drug: ProTONIX 40 mg Route: IVP; Site: right antecubital; iw 16:48 Follow up: Response: No adverse reaction em 16:34 Drug: fentaNYL (PF) 50 mcg Route: IVP; Site: right antecubital; iw 17:20 Follow up: Response: No adverse reaction; Pain is unchanged, physician notified; RASS: iw Restless (+1) 17:18 Drug: NS 0.9% 1000 ml Route: IV; Rate: 1000 ml; Site: right antecubital; iw 18:15 Follow up: IV Status: Completed infusion; IV Intake: 1000ml em 17:41 Drug: Dilaudid 1 mg Route: IVP; Site: right antecubital; iw 18:08 Follow up: Response: No adverse reaction; Marked relief of symptoms; Pain is decreased; em RASS: Alert and Calm (0) Disposition: 05/28/19 17:31 Discharged to Home. Impression: Abdominal and pelvic pain. - Condition is Stable. - Discharge Instructions: Abdominal Pain, Adult, Abdominal Pain, Adult, [id number]. - Prescriptions for Bentyl 20 mg Oral Tablet - take 2 tablet by ORAL route every 6 hours As needed; 40 tablet. Zofran 4 mg Oral Tablet - take 1 tablet by ORAL route every 12 hours As needed; 6 tablet. - Medication Reconciliation Form, Thank You Letter form. - Follow up: Dora Viveros MD; When: 2 - 3 days; Reason: Recheck today's complaints, Re-evaluation by your physician. Follow up: Emergency Department; When: As needed; Reason: Worsening of condition. Addendum: 05/31/2019 06:53 Co-signature as Attending Physician, César Ayala MD I agree with the assessment and k dr plan of care. Signatures: Dispatcher [employer] EDCésar Welsh MD MD kdr Munoz, Edgar, FLAT SURFACER JEWEL FLAT SURFACER JEWEL em Nikki Hernandez, RN RN iw Abigail Franco, CELINA RN ss Gonzalez Saenz, REDEVELOPMENT SPECIALIST-C REDEVELOPMENT SPECIALIST-Cla1 Corrections: (The following items were deleted from the chart) 05/28 18:18 17:31 05/28/2019 17:31 Discharged to Home. Impression: Abdominal and pelvic pain. em Condition is Stable. Forms are Medication Reconciliation Form, Thank You Letter, Antibiotic Education, Prescription Opioid Use. Follow up: Dora Viveros; When: 2 - 3 days; Reason: Recheck today's complaints, Re-evaluation by your physician. Follow up: Emergency Department; When: As needed; Reason: Worsening of condition. la1
[2019-05-28] MEDS ORDERED: HYDROMORPHONE HCL 1 MG/ML INJ ONE (17:36)
[2019-05-28 19:20] VITALS: TEMP 97
[2019-05-28 19:24] VITALS: BP 115/63; O2SAT 95
== END 2019-05-28 18:18 | disposition home or self-care (01) ==
LOC: ER 15:02
DX: R10.2 Pelvic and perineal pain (principal)
CPT/HCPCS: 96361; 85025; 80048; 36415; 80076; 83605; 83690; 74177; 96375; 96374; 99285; Q9967; C9113; J3010; J1170; J7030 ×2; J2405

== ENCOUNTER 2019-06-10 12:26 | Emergency (ER) | payer BC ==
--- OUTSIDE RECORDS SUMMARY | 2019-06-10 12:38 | XMS REPORT ---
:1965 [facility] Address [address] [place]. [address] [place] [id number] Care Team Providers Name Role Phone Unavailable Unavailable Unavailable Problems This patient has no known problems. Allergies, Adverse Reactions, Alerts This patient has no known allergies or adverse reactions. Medications This patient has no known medications.
[2019-06-10] MEDS ORDERED: NA CHLORIDE 0.9% 500 ML ONE (12:54)
[2019-06-10] MEDS ORDERED: ONDANSETRON 4 MG/2 ML VIAL ONE (12:54)
[2019-06-10 13:00] LABS: Absolute Lymphocytes (CBC) 1.6 K/uL (0.7-4.9); Basophils % 0.6 % (0-1.3); Hematocrit 46.1 % (39.6-49.0); Lymphocytes % 13.5 % (15.3-44.8); MPV 8.1 fL (7.6-11.3)
[2019-06-10 13:18] LABS: Bilirubin Direct 0.2 mg/dL (0-0.2); Bilirubin Total 0.7 mg/dL (0.2-1.0); Potassium 3.7 mmol/L (3.5-5.1); Protein, Total 7.7 g/dL (6.4-8.2)
[2019-06-10] MEDS ORDERED: DICYCLOMINE HCL 10 MG CAP ONE (13:22)
[2019-06-10] MEDS ORDERED: MEPERIDINE HCL 50 MG/ML ONE (13:25)
[2019-06-10] MEDS ORDERED: LORazepam 2 MG/ML VIAL ONE (14:00)
[2019-06-10] MEDS ORDERED: HYDROMORPHONE HCL 1 MG/ML INJ ONE (15:10)
--- NOTE | 2019-06-10 15:31 | EDPHYS ---
Physician Documentation [facility] Name: Darrell Wiseman Age: 53 yrs Sex: Male : 1965 Arrival Date: 06/10/2019 Time: 12:27 Bed 6 Private MD: ED Physician Anil Condon HPI: 06/10 13:26 This 53 yrs old Male presents to ER via Wheelchair with complaints of la1 Abdominal Pain. 13:26 The patient presents with abdominal pain in the upper abdomen. Onset: The la1 symptoms/episode began/occurred this morning. The symptoms do not radiate. Associated signs and symptoms: Pertinent positives: nausea and vomiting. The symptoms are described as sharp. Modifying factors: The symptoms are alleviated by nothing, the symptoms are aggravated by food, root beer last night. Severity of pain: At its worst the pain was severe in the emergency department the pain has improved. The patient has experienced similar episodes in the past, chronically, with the last episode occurring last week, and the symptoms today are exactly the same. Historical: - Allergies: 12:47 No Known Allergies; ph - PMHx: 12:47 "pin point hole in stomach"; Chronic Pancreatitis; duodenitis; Esophagitis; gastritis; ph hiatal hernia; PUD; ROS: 13:27 Eyes: Negative for injury, pain, redness, and discharge, ENT: Negative for injury, la1 pain, and discharge, Neck: Negative for injury, pain, and swelling, Cardiovascular: Negative for chest pain, palpitations, and edema, Respiratory: Negative for shortness of breath, cough, wheezing, and pleuritic chest pain. 13:27 Back: Negative for injury and pain, MS/Extremity: Negative for injury and deformity, Skin: Negative for injury, rash, and discoloration, Neuro: Negative for headache, weakness, numbness, tingling, and seizure. 13:27 Constitutional: Negative for body aches, chills, fever. 13:27 Abdomen/GI: Positive for abdominal pain, nausea and vomiting. Exam: 13:28 Head/Face: Normocephalic, atraumatic. Eyes: Periorbital areas with no swelling, la1 redness, or edema. ENT: . Mucous membranes moist. Neck: Trachea midline, . No Meningismus. Chest/axilla: Normal chest wall appearance and motion. Nontender with no deformity. No lesions are appreciated. Cardiovascular: Regular rate and rhythm with a normal S1 and S2. Respiratory: Lungs have equal breath sounds bilaterally, clear to auscultation No rales, rhonchi or wheezes noted. No increased work of breathing, no retractions or nasal flaring. 13:28 Back: No spinal tenderness. No costovertebral tenderness. Full range of motion. Skin: Warm, dry with normal turgor. Normal color with no rashes, no lesions, and no evidence of cellulitis. Neuro: Awake and alert, GCS 15, oriented to person, place, time, and situation. . Normal gait. 13:28 Constitutional: The patient appears alert, awake, agitated, obese, uncomfortable. 13:28 Abdomen/GI: Inspection: abdomen appears normal, obese Bowel sounds: normal, in all quadrants, Palpation: soft, in all quadrants, moderate abdominal tenderness, in the epigastric area, right upper quadrant and left upper quadrant. Vital Signs: 12:46 BP 126 / 98; Pulse 80; Resp 26; Temp 97.7; Pulse Ox 100% on R/A; Weight 108.86 kg; ph Height 5 ft. 9 in. (175.26 cm); Pain 10/10; 14:56 BP 109 / 68; Pulse 58; Resp 16; Pulse Ox 95% ; sv 12:46 Body Mass Index 35.44 (108.86 kg, 175.26 cm) ph MDM: 13:04 Patient medically screened. la1 15:03 Data reviewed: vital signs, nurses notes, old medical records, CT from visit one week la1 prior lab test result(s), I have discussed the patient's presentation/case with the attending Emergency Department Physician; and as a result, I will discharge patient. Data interpreted: Pulse oximetry: on room air is 95 %. Interpretation: acceptable. 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 Medication response: ativan. Response to treatment: the patient's symptoms have markedly improved after treatment, and as a result, I will discharge patient. Special discussion: Based on the patient's Hx, exam, and Dx evaluation, there is no indication for emergent surgery or inpatient Tx. It is understood by the patient/guardian that if the Sx's persist or worsen they need to return immediately for re-evaluation. Based on the history and exam findings, there is no indication for further emergent testing or inpatient evaluation. I discussed with the patient/guardian the need to see the radio board operator for further evaluation of the symptoms. I discussed with the patient/guardian that the patient's current presentation does not indicate dosing of antibiotics. They should follow-up with their primary care provider and return if the symptoms persist or progress. ED course: pt now resting in the stretcher comfortable, eyes closed, respirations even and unlabored.. 06/10 12:48 Order name: Basic Metabolic Panel; Complete Time: 13:21 ph 06/10 12:48 Order name: CBC with Diff; Complete Time: 13:04 ph 06/10 12:48 Order name: Creatinine for Radiology; Complete Time: 13:21 ph 06/10 12:48 Order name: Hepatic Function; Complete Time: 13:21 ph 06/10 12:48 Order name: Lipase; Complete Time: 13:21 ph 06/10 12:48 Order name: IV Saline Lock; Complete Time: 12:56 ph 06/10 12:48 Order name: Labs collected and sent; Complete Time: 12:57 ph Administered Medications: 12:52 Drug: Dilaudid 1 mg Route: IVP; Site: right forearm; sg 13:20 Follow up: Response: No adverse reaction; Pain is decreased; pt family asking for more sg pain medication because the pain is not all the way gone 12:52 Drug: Zofran 4 mg Route: IVP; Site: right forearm; sg 12:52 Drug: NS 0.9% 500 ml Route: IV; Rate: bolus; Site: right forearm; sg 13:22 Drug: Bentyl 20 mg Route: PO; sg 13:22 Drug: Demerol 50 mg Route: IVP; Site: right forearm; sg 14:20 Drug: Ativan 1 mg Route: IVP; Site: left upper arm; sg Disposition: 18:30 Co-signature as Attending Physician, Anil Condon MD. rn Disposition: 06/10/19 15:29 Discharged to Home. Impression: Unspecified abdominal pain, Vomiting. - Condition is Stable. - Discharge Instructions: Abdominal Pain, Adult, Nausea and Vomiting, Adult, Abdominal Pain, Adult, [id number]. - Prescriptions for Tramadol 50 mg Oral Tablet - take 1 tablet by ORAL route every 8 hours as needed; 12 tablet. - Work release form, Medication Reconciliation Form, Thank You Letter form. - Follow up: Private Physician; When: 2 - 3 days; Reason: Recheck today's complaints, Re-evaluation by your physician. - Problem is an acute exacerbation. - Symptoms have improved. Signatures: Dispatcher [employer] EDKika Munguia RN RN sv Gay, Steven, RN RN sg Anil Condon MD MD rn Attema, Lee, [employer]-Cla1 Brittany Harper RN RN ph Corrections: (The following items were deleted from the chart) 15:56 15:29 06/10/2019 15:29 Discharged to Home. Impression: Unspecified abdominal pain; sv Vomiting. Condition is Stable. Discharge Instructions: Abdominal Pain, Adult, Nausea and Vomiting, Adult, Abdominal Pain, Adult, [id number]. Forms are Medication Reconciliation Form, Thank You Letter, Antibiotic Education, Prescription Opioid Use. Follow up: Private Physician; When: 2 - 3 days; Reason: Recheck today's complaints, Re-evaluation by your physician. Problem is an acute exacerbation. Symptoms have improved. la1
--- NOTE | 2019-06-10 15:31 | ER ---
Nurse's Notes [facility] Name: Darrell Wiseman Age: 53 yrs Sex: Male : 1965 Arrival Date: 06/10/2019 Time: 12:27 Bed 6 Private MD: Diagnosis: Unspecified abdominal pain;Vomiting Presentation: 06/10 12:43 Presenting complaint: states: Severe abdominal pain and vomiting that began this ph morning, hx of gastritis and other GI issues, seen in ED on 05/28, prescribed Bentyl and Zofran but was unable to take d/t vomiting, has not had GI follow up. Transition of care: patient was not received from another setting of care. Onset of symptoms was June 10, 2019. Risk Assessment: Do you want to hurt yourself or someone else? Patient reports no desire to harm self or others. Initial Sepsis Screen: Does the patient meet any 2 criteria? No. Patient's initial sepsis screen is negative. Does the patient have a suspected source of infection? No. Patient's initial sepsis screen is negative. Care prior to arrival: None. 12:43 Method Of Arrival: Wheelchair ph 12:43 Acuity: ANGLE 3 ph Historical: - Allergies: 12:47 No Known Allergies; ph - PMHx: 12:47 "pin point hole in stomach"; Chronic Pancreatitis; duodenitis; Esophagitis; gastritis; ph hiatal hernia; PUD; Assessment: 12:50 General: Behavior is agitated, fussy, inappropriate for age, restless. Pain: Complains sg of pain in abdomen Quality of pain is described as aching. Neuro: Level of Consciousness is awake, alert, obeys commands, Oriented to person, place, time, situation, Moves all extremities. Facial symmetry appears normal. Cardiovascular: Patient's skin is warm and dry. Respiratory: Airway is patent Respiratory effort is even, unlabored, Respiratory pattern is regular, symmetrical. GI: Bowel sounds present X 4 quads. Abd is soft X 4 quads Reports lower abdominal pain, upper abdominal pain, nausea. : No signs and/or symptoms were reported regarding the genitourinary system. EENT: No signs and/or symptoms were reported regarding the EENT system. Derm: Skin is intact, Skin is diaphoretic, Skin is normal, Skin temperature is warm. Musculoskeletal: No signs and/or symptoms reported regarding the musculoskeletal system. 13:02 Reassessment: Patient appears in no apparent distress at this time. pt appears more sg calm after the IV dilaudid, is no longer thrashing back and forward in bed, pt or family friend remains at bedside at this time. 14:30 Reassessment: Patient appears in no apparent distress at this time. Patient and/or sg family updated on plan of care and expected duration. Pain level reassessed. Patient is alert, oriented x 3, equal unlabored respirations, skin warm/dry/pink. Patient states symptoms have not improved. 15:30 Reassessment: Patient appears in no apparent distress at this time. Patient and/or sg family updated on plan of care and expected duration. Pain level reassessed. Patient is alert, oriented x 3, equal unlabored respirations, skin warm/dry/pink. pt resting at this time, eyes closed, pt family at bedside at this time, pt awaiting to be dispo to home. Vital Signs: 12:46 BP 126 / 98; Pulse 80; Resp 26; Temp 97.7; Pulse Ox 100% on R/A; Weight 108.86 kg; ph Height 5 ft. 9 in. (175.26 cm); Pain 10/10; 14:56 BP 109 / 68; Pulse 58; Resp 16; Pulse Ox 95% ; sv 12:46 Body Mass Index 35.44 (108.86 kg, 175.26 cm) ph ED Course: 12:27 Patient arrived in ED. as 12:32 Gonzalez Saenz FNP-C [facility]. la1 12:32 Anil Condon MD is Attending Physician. la1 12:46 Triage completed. ph 12:47 Arm band placed on Patient placed in an exam room, on a stretcher. ph 12:51 Initial lab(s) drawn, by in, sent to lab. Inserted saline lock: 22 gauge in left kj1 antecubital area, using aseptic technique. Blood collected. 12:55 Jaylen Perry, CELINA is Primary Nurse. sg 12:55 Patient has correct armband on for positive identification. Bed in low position. Call sg light in reach. Pulse ox on. NIBP on. 14:20 Inserted saline lock: 22 gauge in left upper arm, using aseptic technique. sg 15:55 No provider procedures requiring assistance completed. IV discontinued, intact, sv bleeding controlled, No redness/swelling at site. Pressure dressing applied. Administered Medications: 12:52 Drug: Dilaudid 1 mg Route: IVP; Site: right forearm; sg 13:20 Follow up: Response: No adverse reaction; Pain is decreased; pt family asking for more sg pain medication because the pain is not all the way gone 12:52 Drug: Zofran 4 mg Route: IVP; Site: right forearm; sg 12:52 Drug: NS 0.9% 500 ml Route: IV; Rate: bolus; Site: right forearm; sg 13:22 Drug: Bentyl 20 mg Route: PO; sg 13:22 Drug: Demerol 50 mg Route: IVP; Site: right forearm; sg 14:20 Drug: Ativan 1 mg Route: IVP; Site: left upper arm; sg Intake: Outcome: 15:29 Discharge ordered by MD. morris 15:55 Discharged to home ambulatory, with family. sv 15:55 Condition: stable 15:55 Discharge instructions given to patient, family, Instructed on discharge instructions, follow up and referral plans. avoid citrus foods or acidic foods or drinks Demonstrated understanding of instructions, follow-up care. 15:56 Patient left the ED. sv Signatures: Kika Albright RN RN sv Gay, Steven, RN RN sg Martinez, Amelia as Attema, Lee, [employer] [employer] Brittany Harper RN RN ph Jackson, Cathryn kj1
[2019-06-10 16:04] VITALS: TEMP 97.7
[2019-06-10 16:05] VITALS: BP 109/68; O2SAT 95
== END 2019-06-10 15:56 | disposition home or self-care (01) ==
LOC: ER 12:26
DX: R10.9 Unspecified abdominal pain (principal); R11.10 Vomiting, unspecified
CPT/HCPCS: 85025; 80048; 36415; 80076; 83690; 96375; 96374; 99284; J2175; J1170; J7040; J2405

== ENCOUNTER 2019-06-17 12:02 | Emergency (ER) | payer BC ==
--- OUTSIDE RECORDS SUMMARY | 2019-06-17 12:08 | XMS REPORT ---
:1965 [facility] [address] [place]. [address] [place] [id number] Care Team Providers Name Role Phone Unavailable Unavailable Unavailable Problems This patient has no known problems. Allergies, Adverse Reactions, Alerts This patient has no known allergies or adverse reactions. Medications This patient has no known medications.
[2019-06-17] MEDS ORDERED: PROMETHAZINE INJ 25 MG/ML AMP ONE (13:06)
[2019-06-17 13:07] LABS: Absolute Lymphocytes (CBC) 0.9 K/uL (0.7-4.9); Basophils % 0.6 % (0-1.3); Hematocrit 46.5 % (39.6-49.0); Lymphocytes % 7.2 % (15.3-44.8); MPV 8.7 fL (7.6-11.3); RBC Red Blood Cell Count 5.19 M/uL (4.33-5.43)
[2019-06-17] MEDS ORDERED: MORPHINE 4 MG/ML SYR ONE (13:08)
[2019-06-17] MEDS ORDERED: NA CHLORIDE 0.9% 1,000 ML ONE (13:08)
[2019-06-17] MEDS ORDERED: PANTOPRAZOLE 40 MG INJ ONE (13:08)
[2019-06-17] MEDS ORDERED: ONDANSETRON 4 MG/2 ML VIAL ONE (13:08)
[2019-06-17] MEDS ORDERED: NA CHLORIDE 0.9% 100 ML IV ONE (13:08)
[2019-06-17 13:24] LABS: Albumin 4.2 g/dL (3.4-5.0); Bilirubin Direct 0.2 mg/dL (0-0.2); Bilirubin Total 0.5 mg/dL (0.2-1.0); Potassium 3.7 mmol/L (3.5-5.1); Protein, Total 8.2 g/dL (6.4-8.2)
--- NOTE | 2019-06-17 14:45 | RAD REPORT ---
EXAM DESCRIPTION: CT - Abdomen Pelvis W Contrast - 06/17/2019 2:31 pm CLINICAL HISTORY: ABD PAIN COMPARISON: Abdomen Pelvis W Contrast dated 05/28/2019; Abdomen Pelvis W Contrast dated 04/16/2019 TECHNIQUE: Biphasic, helical CT imaging of the abdomen and pelvis was performed following 100 ml non -ionic IV contrast. No oral contrast. All CT scans are performed using dose optimization technique as appropriate and may include automated exposure control or mA/KV adjustment according to patient size. FINDINGS: No suspicious findings in the lung bases. The liver, spleen, and pancreas show no suspicious findings. Gallbladder and biliary tree are also wi thout suspicious finding. Symmetric renal function is seen with no hydronephrosis or suspicious renal mass. No pyelonephritis o r acute parenchymal process. No bladder abnormalities. No adrenal abnormalities. No gastric dilatation or gastric wall thickening. No dilated large or small bowel loops. The appendix is normal. Patient has mild sigmoid diverticulosis. No free air, free fluid or inflammatory strandi ng. No mass or bulky lymphadenopathy. A very small fat only umbilical hernia is seen. No suspicious bony findings. Exam has motion degradation limitations. IMPRESSION: Contrast CT abdomen and pelvis imaging shows no acute finding. No pancreatitis or acute upper abdominal finding.
[2019-06-17] MEDS ORDERED: HALOPERIDOL LACT 5 MG/ML INJ ONE (15:56)
--- NOTE | 2019-06-17 16:17 | ER ---
Nurse's Notes [facility] Name: Darrell Wiseman Age: 53 yrs Sex: Male : 1965 Arrival Date: 06/17/2019 Time: 12:03 Bed 7 Private MD: Dora Viveros M Diagnosis: Nausea and vomiting;Unspecified abdominal pain Presentation: 06/17 12:13 Presenting complaint: Patient states: abd pain vomiting , hx of ulcers but have iw resolved, was recently seen in ER for abd pain. pt screaming, will not stay in wheelchair, sliding down to ground, pt pulled off his BP cuff and will not allow me to do vital signs at this time. Transition of care: patient was not received from another setting of care. Onset of symptoms was June 17, 2019. Risk Assessment: Do you want to hurt yourself or someone else? Patient reports no desire to harm self or others. Initial Sepsis Screen: Does the patient meet any 2 criteria? No. Patient's initial sepsis screen is negative. Does the patient have a suspected source of infection? No. Patient's initial sepsis screen is negative. 12:13 Method Of Arrival: Wheelchair iw 12:13 Acuity: ANGLE 2 iw 12:26 Care prior to arrival: None. iw Triage Assessment: 12:55 General: Appears uncomfortable, Behavior is fussy, writhing and moaning in pain. GI: tw2 Parent/caregiver reports the patient having abdominal pain. Historical: - Allergies: 12:55 No Known Allergies; iw - PMHx: 12:25 "pin point hole in stomach"; Chronic Pancreatitis; duodenitis; Esophagitis; gastritis; iw hiatal hernia; PUD; - Immunization history:: Adult Immunizations. - Ebola Screening: : Patient negative for fever greater than or equal to 101.5 degrees Fahrenheit, and additional compatible Ebola Virus Disease symptoms Patient denies exposure to infectious person Patient denies travel to an Ebola-affected area in the 21 days before illness onset No symptoms or risks identified at this time. - Social history:: Smoking status: . Screenin:17 Abuse screen: Denies threats or abuse. Nutritional screening: No deficits noted. tw2 Tuberculosis screening: No symptoms or risk factors identified. Fall Risk None identified. Assessment: 12:45 Reassessment: pt refusing vs at this time, cannot remain still, writhing in pain. tw2 12:45 General: Appears uncomfortable, Behavior is fussy, moaning and writhing in pain. Pain: tw2 Complains of pain in abdomen. Neuro: Level of Consciousness is awake, alert, Oriented to person, place, situation. Cardiovascular: Heart tones S1 S2 Patient's skin is warm and dry. Respiratory: Airway is patent Respiratory effort is even, unlabored, Respiratory pattern is regular, symmetrical, Breath sounds are clear bilaterally. GI: Bowel sounds present X 4 quads. Abd is soft X 4 quads Parent/caregiver reports the patient having abdominal pain. : No signs and/or symptoms were reported regarding the genitourinary system. EENT: No signs and/or symptoms were reported regarding the EENT system. Derm: No signs and/or symptoms reported regarding the dermatologic system. Musculoskeletal: No signs and/or symptoms reported regarding the musculoskeletal system. Musculoskeletal: Range of motion: intact in all extremities. 13:24 Reassessment: Patient and/or family updated on plan of care and expected duration. Pain tw2 level reassessed. Patient is alert, oriented x 3, equal unlabored respirations, skin warm/dry/pink. pt is not writhing in pain at this time and is quiet. 15:32 Reassessment: Patient appears in no apparent distress at this time. Patient and/or tw2 family updated on plan of care and expected duration. Pain level reassessed. Patient is alert, oriented x 3, equal unlabored respirations, skin warm/dry/pink. 15:45 Reassessment: pts at bedside "olga aspirus [facility] just send him home in pain, i will just tw2 have to bring him right back up here", provider at bedside during this conversation. pt started writhing in pain at this time. provider ordered medication. 16:28 Reassessment: discharge ordered at this time, discharge instructions given to pt, pt tw2 states "i am not signing your discharge papers, do i look ready to leave at this time", pt was quiet upon entering the exam room at this time. provider notified and medicated as ordered. 16:42 Reassessment: Patient and/or family updated on plan of care and expected duration. Pain tw2 level reassessed. Patient is alert, oriented x 3, equal unlabored respirations, skin warm/dry/pink. pts at pts side at this time. Vital Signs: 13:16 BP 148 / 98; Pulse 93; Resp 19; Temp 97.9(TE); Pulse Ox 98% on R/A; Pain 10/10; tw2 14:50 BP 115 / 73; Pulse 65; Resp 17; Pulse Ox 95% on R/A; tw2 16:03 BP 125 / 82; Pulse 87; Resp 17; Pulse Ox 99% on R/A; tw2 16:40 BP 136 / 87; Pulse 77; Resp 19; Pulse Ox 95% on R/A; tw2 ED Course: 12:03 Patient arrived in ED. rg4 12:03 Dora Viveros MD is Private Physician. rg4 12:14 Triage completed. iw 12:17 Anil Condon MD is Attending Physician. rn 12:25 Jacques Dunne PA is PHCP. cp 12:25 Anil Condon MD is Attending Physician. cp 12:27 Initial lab(s) drawn, by me, held in ED. Inserted saline lock: 20 gauge in right 3 antecubital area, using aseptic technique. Blood collected. 12:42 Arm band placed on. hb 12:58 Initial lab(s) drawn, by ia, sent to lab. [facility] 13:03 Sanjuana Yeh, RN is Primary Nurse. tw2 13:17 pt in exam bed when i arrived on ER floor today. tw2 14:32 CT Abd/Pelvis - IV Contrast Only In Process Unspecified. EDMS 16:16 Dora Viveros MD is Referral Physician. cp 16:43 No provider procedures requiring assistance completed. IV discontinued, intact, tw2 bleeding controlled, No redness/swelling at site. Pressure dressing applied. Administered Medications: 13:10 Drug: Zofran 4 mg Route: IVP; Site: right antecubital; tw2 13:28 Follow up: Response: No adverse reaction tw2 13:14 Drug: morphine 4 mg Route: IVP; Site: right antecubital; tw2 13:29 Follow up: Response: No adverse reaction; Pain is decreased; RASS: Drowsy (-1) tw2 13:16 Drug: ProTONIX 40 mg Route: IVP; Site: right antecubital; tw2 13:29 Follow up: Response: No adverse reaction tw2 13:20 Drug: Phenergan 25 mg Route: IVP; Site: right antecubital; tw2 13:28 Follow up: Response: No adverse reaction; Nausea is decreased tw2 13:20 Drug: NS 0.9% 1000 ml Route: IV; Rate: 1 bolus; Site: right antecubital; tw2 15:00 Follow up: Response: No adverse reaction; IV Status: Completed infusion; IV Intake: tw2 1000ml 13:20 Drug: NS 0.9% 100 ml {Note: for phenergan administration.} Route: IV; Rate: calculated tw2 rate; Site: right antecubital; 14:20 Follow up: Response: No adverse reaction; IV Status: Completed infusion; IV Intake: tw2 100ml 15:58 Drug: HALdol (as decanoate) 5 mg Route: IM; Site: right deltoid; tw2 16:00 Follow up: Response: No adverse reaction tw2 16:28 Drug: Demerol 50 mg Route: IVP; Site: right antecubital; tw2 16:40 Follow up: Response: No adverse reaction; Pain is decreased; RASS: Drowsy (-1) tw2 Intake: 14:20 IV: 100ml; Total: 100ml. tw2 15:00 IV: 1000ml; Total: 1100ml. tw2 Outcome: 16:17 Discharge ordered by . cp 16:43 Discharged to home via wheelchair, with significant other. tw2 16:43 Condition: stable 16:43 Discharge instructions given to patient, significant other, Instructed on discharge instructions, follow up and referral plans. no drinking with medication, no driving heavy equipment, medication usage, Demonstrated understanding of instructions, follow-up care, medications, Prescriptions given X 3. 16:44 Patient left the ED. tw2 Signatures: Dispatcher [employer] EDMS Nikki Hernandez RN RN iw Anil Condon MD MD rn Page, Corey, PA PA cp Baxter, Heather, RN RN hb Wise, Tara, RN RN 2 Nasrin [facility] Kym Rosales 3 Corrections: (The following items were deleted from the chart) 13:15 12:13 Presenting complaint: Patient states: abd pain vomiting , hx of ulcers but have iw resolved, was recently seen in ER for abd pain iw 13:18 13:03 Reassessment: pt refusing vs at this time, cannot remain still, writhing in pain. tw2 tw2
--- NOTE | 2019-06-17 16:17 | EDPHYS ---
Physician Documentation [facility] Name: Darrell Wiseman Age: 53 yrs Sex: Male : 1965 Arrival Date: 06/17/2019 Time: 12:03 Bed 7 Private MD: Dora Viveros M ED Physician Anil Condon HPI: 06/17 12:55 This 53 yrs old Male presents to ER via Wheelchair with complaints of cp Abdominal Pain, Nausea/Vomiting. 12:55 The patient presents with abdominal pain that is diffuse. cp 12:55 Onset: The symptoms/episode began/occurred this morning. The symptoms do not radiate. cp Associated signs and symptoms: Pertinent positives: nausea and vomiting, anorexia, Pertinent negatives: blood in stools, chest pain, constipation, diarrhea, fever, testicular pain, vomiting blood. 12:55 The patient has been recently seen at the [facility] Emergency cp Department, last week, for similar complaints labs were performed. Historical: - Allergies: 12:55 No Known Allergies; iw - PMHx: 12:25 "pin point hole in stomach"; Chronic Pancreatitis; duodenitis; Esophagitis; gastritis; iw hiatal hernia; PUD; - Immunization history:: Adult Immunizations. - Ebola Screening: : Patient negative for fever greater than or equal to 101.5 degrees Fahrenheit, and additional compatible Ebola Virus Disease symptoms Patient denies exposure to infectious person Patient denies travel to an Ebola-affected area in the 21 days before illness onset No symptoms or risks identified at this time. - Social history:: Smoking status: . ROS: 13:05 Constitutional: Negative for body aches, chills, fever, poor PO intake. cp 13:05 Eyes: Negative for injury, pain, redness, and discharge. cp 13:05 ENT: Negative for drainage from ear(s), ear pain, sore throat, difficulty swallowing, difficulty handling secretions. 13:05 Cardiovascular: Negative for chest pain. 13:05 Respiratory: Negative for cough, shortness of breath, wheezing. 13:05 Abdomen/GI: Positive for abdominal pain, nausea and vomiting, Negative for diarrhea, constipation. 13:05 Back: Negative for pain at rest, pain with movement. 13:05 : Negative for urinary symptoms. 13:05 Skin: Negative for rash. 13:05 Neuro: Negative for altered mental status, headache, weakness. 13:05 All other systems are negative. Exam: 13:10 Constitutional: The patient appears in no acute distress, alert, awake, cp non-diaphoretic, non-toxic, well developed, well nourished, agitated. 13:10 Head/Face: Normocephalic, atraumatic. cp 13:10 Eyes: Periorbital structures: appear normal, Conjunctiva: normal, no exudate, no injection, Sclera: no appreciated abnormality, Lids and lashes: appear normal, bilaterally. 13:10 ENT: External ear(s): are unremarkable, Nose: is normal, Mouth: Lips: moist, Oral mucosa: pink and intact, moist, Posterior pharynx: is normal, airway is patent, no erythema, no exudate. 13:10 Chest/axilla: Inspection: normal, Palpation: is normal, no crepitus, no tenderness. 13:10 Cardiovascular: Rate: normal, Rhythm: regular, Edema: is not appreciated, JVD: is not appreciated. 13:10 Respiratory: the patient does not display signs of respiratory distress, Respirations: normal, no use of accessory muscles, no retractions, no splinting, no tachypnea, labored breathing, is not present, Breath sounds: are clear throughout, no decreased breath sounds, no stridor, no wheezing. 13:10 Abdomen/GI: Inspection: abdomen appears normal, Bowel sounds: active, all quadrants, Palpation: soft, in all quadrants, severe abdominal tenderness, in all quadrants, rebound tenderness, is not appreciated, voluntary guarding, is elicited in all quadrants. 13:10 Back: pain, is absent, ROM is normal. 13:10 Skin: no rash present. 13:10 Neuro: Orientation: to person, place \\T\\ time. Mentation: is normal, Motor: moves all fours, strength is normal, Sensation: no obvious gross deficits. Vital Signs: 13:16 BP 148 / 98; Pulse 93; Resp 19; Temp 97.9(TE); Pulse Ox 98% on R/A; Pain 10/10; tw2 14:50 BP 115 / 73; Pulse 65; Resp 17; Pulse Ox 95% on R/A; tw2 16:03 BP 125 / 82; Pulse 87; Resp 17; Pulse Ox 99% on R/A; tw2 16:40 BP 136 / 87; Pulse 77; Resp 19; Pulse Ox 95% on R/A; tw2 MDM: 12:31 Patient medically screened. cp 13:00 Differential diagnosis: appendicitis, bowel obstruction, gastritis, pancreatitis, cp Peptic Ulcer Disease, Perf. Duodenal Ulcer, Perf. Gastric Ulcer. 16:16 Data reviewed: vital signs, nurses notes, lab test result(s), radiologic studies, CT cp scan, I have discussed the patient's presentation/case with the attending Emergency Department Physician; and as a result, I will discharge patient. 16:17 Response to treatment: the patient's symptoms have mildly improved after treatment, cp patient is well hydrated. 16:17 ED course: VSS. Nausea improved and vomiting resolved. CT abdomen negative for acute cp findings. Will discharge to home and refer back to primary GI for follow-up. 06/17 12:49 Order name: Basic Metabolic Panel; Complete Time: 13:46 06/17 13:46 Interpretation: Normal except: GLUC 110; CRE 1.31; GFR 58. 06/17 12:49 Order name: CBC with Diff; Complete Time: 13:46 06/17 12:49 Order name: Creatinine for Radiology; Complete Time: 13:46 06/17 12:49 Order name: Hepatic Function; Complete Time: 13:46 06/17 12:49 Order name: Lipase; Complete Time: 13:46 cp 06/17 12:49 Order name: UDS; Complete Time: 10:15 cp 06/18 10:16 Interpretation: Normal except: THC POSITIVE. 06/17 12:49 Order name: ETOH Level; Complete Time: 13:46 06/17 13:46 Order name: CT Abd/Pelvis - IV Contrast Only; Complete Time: 14:52 cp 06/17 14:52 Interpretation: Report reviewed. 06/17 16:04 Order name: Urine Dipstick--Ancillary (enter results); Complete Time: 16:25 em1 06/17 12:49 Order name: IV Saline Lock; Complete Time: 12:58 cp 06/17 12:49 Order name: Labs collected and sent; Complete Time: 12:58 cp 06/17 12:49 Order name: Urine Dipstick-Ancillary (obtain specimen); Complete Time: 16:02 06/17 15:02 Order name: PO challenge; Complete Time: 15:32 cp Administered Medications: 13:10 Drug: Zofran 4 mg Route: IVP; Site: right antecubital; tw2 13:28 Follow up: Response: No adverse reaction tw2 13:14 Drug: morphine 4 mg Route: IVP; Site: right antecubital; tw2 13:29 Follow up: Response: No adverse reaction; Pain is decreased; RASS: Drowsy (-1) tw2 13:16 Drug: ProTONIX 40 mg Route: IVP; Site: right antecubital; tw2 13:29 Follow up: Response: No adverse reaction tw2 13:20 Drug: Phenergan 25 mg Route: IVP; Site: right antecubital; tw2 13:28 Follow up: Response: No adverse reaction; Nausea is decreased tw2 13:20 Drug: NS 0.9% 1000 ml Route: IV; Rate: 1 bolus; Site: right antecubital; tw2 15:00 Follow up: Response: No adverse reaction; IV Status: Completed infusion; IV Intake: tw2 1000ml 13:20 Drug: NS 0.9% 100 ml {Note: for phenergan administration.} Route: IV; Rate: calculated tw2 rate; Site: right antecubital; 14:20 Follow up: Response: No adverse reaction; IV Status: Completed infusion; IV Intake: tw2 100ml 15:58 Drug: HALdol (as decanoate) 5 mg Route: IM; Site: right deltoid; tw2 16:00 Follow up: Response: No adverse reaction tw2 16:28 Drug: Demerol 50 mg Route: IVP; Site: right antecubital; tw2 16:40 Follow up: Response: No adverse reaction; Pain is decreased; RASS: Drowsy (-1) tw2 Disposition: 18:39 Co-signature as Attending Physician, Anil Condon MD. rn Disposition: 06/17/19 16:17 Discharged to Home. Impression: Nausea and vomiting, Unspecified abdominal pain. - Condition is Stable. - Discharge Instructions: Abdominal Pain, Adult, Nausea and Vomiting, Adult. - Prescriptions for Bentyl 20 mg Oral Tablet - take 2 tablets by ORAL route every 6 hours As needed; 30 tablet. Protonix 40 mg Oral Tablet - take 1 tablet by ORAL route once daily; 30 tablet. promethazine 25 mg Oral Tablet - take 1 tablet by ORAL route every 6 hours As needed; 20 tablet. - Medication Reconciliation Form, Thank You Letter, Antibiotic Education, Prescription Opioid Use form. - Follow up: Dora Viveros MD; When: 1 - 2 days; Reason: Recheck today's complaints. - Problem is an ongoing problem. - Symptoms have improved. Signatures: Dispatcher [employer] EDNikki Garcia RN RN Anil Condon MD MD rn Page, Corey, PA PA cp Sanjuana Yeh RN RN tw2 Corrections: (The following items were deleted from the chart) 16:44 16:17 06/17/2019 16:17 Discharged to Home. Impression: Nausea and vomiting; Unspecified tw2 abdominal pain. Condition is Stable. Forms are Medication Reconciliation Form, Thank You Letter, Antibiotic Education, Prescription Opioid Use. Follow up: Dora Viveros; When: 1 - 2 days; Reason: Recheck today's complaints. Problem is an ongoing problem. Symptoms have improved. cp
[2019-06-17 16:19] LABS: Urine Blood TRACE (NEG); Urine Glucose NEGATIVE (NEG); Urine Protein NEGATIVE (NEG); Urine Specific Gravity 1.015 (1.005-1.030)
[2019-06-17] MEDS ORDERED: MEPERIDINE HCL 50 MG/ML ONE (16:34)
[2019-06-17 16:39] LABS: Barbiturates NEGATIVE (NEGATIVE); Benzodiazepines NEGATIVE (NEGATIVE); Cocaine NEGATIVE (NEGATIVE); METHAMPHETAM NEGATIVE (NEGATIVE); Methadone NEGATIVE (NEGATIVE); Opiates NEGATIVE (NEGATIVE); Phencyclidine NEGATIVE (NEGATIVE); THC Cannibis POSITIVE (NEGATIVE)
[2019-06-17 16:51] VITALS: TEMP 97.9
[2019-06-17 16:54] VITALS: BP 125/82; O2SAT 99
== END 2019-06-17 16:44 | disposition home or self-care (01) ==
LOC: ER 12:02
DX: R10.9 Unspecified abdominal pain (principal)
CPT/HCPCS: 96365; 96361; 85025; 80048; 36415; 80320; 80076; 80307 ×8; 81003; 83690; 74177; 96375; 96372; 99284; Q9967; J1630; J2550; C9113; J2175; J7030; J2405

== ENCOUNTER 2019-08-05 13:06 | Emergency (ER) | payer BC ==
--- OUTSIDE RECORDS SUMMARY | 2019-08-05 13:08 | XMS REPORT ---
:1965 [facility] Address [address] Yee [address] [place] [id number] Care Team Providers Name Role Phone Unavailable Unavailable Unavailable Problems This patient has no known problems. Allergies, Adverse Reactions, Alerts This patient has no known allergies or adverse reactions. Medications This patient has no known medications.
[2019-08-05] MEDS ORDERED: HYDROMORPHONE HCL 2 MG/ML inj ONE (13:47)
[2019-08-05] MEDS ORDERED: ONDANSETRON 4 MG/2 ML VIAL ONE (13:47)
[2019-08-05] MEDS ORDERED: NA CHLORIDE 0.9% 100 ML IV ONE (13:47)
[2019-08-05 14:17] LABS: Albumin 3.9 g/dL (3.4-5.0); Bilirubin Direct 0.1 mg/dL (0-0.2); Bilirubin Total 0.4 mg/dL (0.2-1.0); Potassium 3.6 mmol/L (3.5-5.1); Protein, Total 7.9 g/dL (6.4-8.2)
[2019-08-05 14:19] LABS: Basophils % 0.6 % (0-1.3); Hematocrit 46.9 % (39.6-49.0); MPV 8.7 fL (7.6-11.3); RBC Red Blood Cell Count 5.28 M/uL (4.33-5.43)
--- NOTE | 2019-08-05 14:55 | EDPHYS ---
Physician Documentation [facility] Name: Darrell Wiseman Age: 54 yrs Sex: Male : 1965 Arrival Date: 08/05/2019 Time: 13:09 Bed 26 Private MD: ED Physician César Ayala HPI: 08/04 14:05 This 54 yrs old Male presents to ER via Ambulatory with complaints of jr8 Abdominal Pain, Vomiting. 14:05 The patient presents with abdominal pain that is diffuse. Onset: The symptoms/episode jr8 began/occurred acutely, today. The symptoms do not radiate. Associated signs and symptoms: Pertinent positives: nausea and vomiting. The symptoms are described as stabbing. Modifying factors: The symptoms are alleviated by nothing, the symptoms are aggravated by food. Severity of pain: At its worst the pain was moderate in the emergency department the pain is unchanged. The patient has experienced similar episodes in the past, multiple times. The patient has been recently seen by a physician:. Patient with history of abdominal pain requiring multiple visits to ED and GI with no acute findings as of yet. Family stated that they just completed pill cam but does not have the results yet. Stated that he ate something more bo than he normally does. Now having diffuse abdominal pain . Historical: - Allergies: 13:40 No Known Allergies; aj1 - PMHx: 13:40 "pin point hole in stomach"; Chronic Pancreatitis; duodenitis; Esophagitis; gastritis; aj1 hiatal hernia; PUD; - Immunization history:: Adult Immunizations up to date. - Social history:: Smoking status: unknown. ROS: 14:05 Eyes: Negative for injury, pain, redness, and discharge, ENT: Negative for injury, jr8 pain, and discharge, Neck: Negative for injury, pain, and swelling, Cardiovascular: Negative for chest pain, palpitations, and edema, Respiratory: Negative for shortness of breath, cough, wheezing, and pleuritic chest pain, Back: Negative for injury and pain, MS/Extremity: Negative for injury and deformity, Skin: Negative for injury, rash, and discoloration, Neuro: Negative for headache, weakness, numbness, tingling, and seizure. 14:05 Abdomen/GI: Positive for abdominal pain, nausea and vomiting, Negative for diarrhea, constipation, abdominal cramps, abdominal distension, anorexia, dysphagia, hematemesis, black/tarry stool, rectal pain, rectal bleeding, bowel incontinence, flatulence. Exam: 14:05 Eyes: Pupils equal round and reactive to light, extra-ocular motions intact. Lids and jr8 lashes normal. Conjunctiva and sclera are non-icteric and not injected. Cornea within normal limits. Periorbital areas with no swelling, redness, or edema. ENT: Nares patent. No nasal discharge, no septal abnormalities noted. Tympanic membranes are normal and external auditory canals are clear. Oropharynx with no redness, swelling, or masses, exudates, or evidence of obstruction, uvula midline. Mucous membranes moist. Neck: Trachea midline, no thyromegaly or masses palpated, and no cervical lymphadenopathy. Supple, full range of motion without nuchal rigidity, or vertebral point tenderness. No Meningismus. Cardiovascular: Regular rate and rhythm with a normal S1 and S2. No gallops, murmurs, or rubs. Normal PMI, no JVD. No pulse deficits. Respiratory: Lungs have equal breath sounds bilaterally, clear to auscultation and percussion. No rales, rhonchi or wheezes noted. No increased work of breathing, no retractions or nasal flaring. Back: No spinal tenderness. No costovertebral tenderness. Full range of motion. Skin: Warm, dry with normal turgor. Normal color with no rashes, no lesions, and no evidence of cellulitis. MS/ Extremity: Pulses equal, no cyanosis. Neurovascular intact. Full, normal range of motion. Neuro: Awake and alert, GCS 15, oriented to person, place, time, and situation. Cranial nerves II-XII grossly intact. Motor strength 5/5 in all extremities. Sensory grossly intact. Cerebellar exam normal. Normal gait. 14:05 Abdomen/GI: Inspection: obese Bowel sounds: active, all quadrants, Palpation: soft, in all quadrants, mild abdominal tenderness, in the abdomen diffusely, mass, is not appreciated, rebound tenderness, is not appreciated, voluntary guarding, is not appreciated, involuntary guarding, is not appreciated, no appreciated organomegaly, Indicators: McBurney's point is not tender, Gutierrez's sign is negative, Rovsing's sign is negative, Liver: tenderness, is not appreciated. Vital Signs: 13:19 BP 161 / 107; Pulse 93; Resp 22; Temp 98.6(O); Pulse Ox 100% on R/A; Weight 104.33 kg dm5 (R); Height 5 ft. 11 in. (180.34 cm); Pain 10/10; 14:27 BP 113 / 65; Pulse 59; Resp 18; Pulse Ox 96% on R/A; aj1 15:00 BP 149 / 80; Pulse 82; Resp 19; Pulse Ox 95% on R/A; vc 13:19 Body Mass Index 32.08 (104.33 kg, 180.34 cm) dm5 MDM: 13:21 Patient medically screened. jr8 14:51 Data reviewed: vital signs, nurses notes, lab test result(s), and as a result, I will jr8 discharge patient. Data interpreted: Pulse oximetry: on room air is 96 %. Interpretation: normal. 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 Response to treatment: the patient's symptoms have markedly improved after treatment. Special discussion: Based on the patient's Hx, exam, and Dx evaluation, there is no indication for emergent surgery or inpatient Tx. It is understood by the patient/guardian that if the Sx's persist or worsen they need to return immediately for re-evaluation. ED course: Patient reexamined. Doing much better. Abdomen soft and without guarding upon palpation. Labs without acute finding. Comparable to what we have seen in past with him. Seeing GI for f/u this week. Will d/c home to f/u. If worse knows to come back . 08/04 13:21 Order name: Basic Metabolic Panel [facility] 08/04 13:21 Order name: CBC with Diff [facility] 08/04 13:21 Order name: Creatinine for Radiology [facility] 08/04 13:21 Order name: Hepatic Function [facility] 08/04 13:21 Order name: Lipase [facility] 08/04 14:11 Order name: Creatinine (Radiology Only); Complete Time: 14:27 EDMS 08/04 13:21 Order name: IV Saline Lock; Complete Time: 13:47 8 08/04 13:21 Order name: Labs collected and sent; Complete Time: 13:47 [facility] 08/04 14:22 Order name: Basic Metabolic Panel; Complete Time: 14:27 EDKS 08/04 14:22 Order name: Liver (Hepatic) Function; Complete Time: 14:27 EDMS 08/04 14:22 Order name: Lipase; Complete Time: 14:27 EDKS 08/04 14:31 Order name: CBC with Automated Diff; Complete Time: 14:43 EDMS Administered Medications: 13:48 Drug: Dilaudid 2 mg Route: IVP; Site: right antecubital; aj1 15:09 Follow up: Response: No adverse reaction; Pain is decreased vc 13:48 Drug: Zofran (Ondansetron) 4 mg Route: IVP; Site: right antecubital; aj1 15:09 Follow up: Response: No adverse reaction; Nausea is decreased vc Disposition: 17:19 Co-signature as Attending Physician, César Ayala MD I agree with the assessment and kdr plan of care. Disposition: 08/05/19 14:52 Discharged to Home. Impression: Generalized abdominal pain. - Condition is Stable. - Discharge Instructions: Abdominal Pain, Adult. - Medication Reconciliation Form, Thank You Letter, Antibiotic Education, Prescription Opioid Use form. - Follow up: Dora Viveros MD; When: 2 - 3 days; Reason: Recheck today's complaints, Continuance of care, Re-evaluation by your physician. - Problem is new. - Symptoms have improved. Signatures: Dispatcher [employer] [facility] Priscila Echavarria RN RN aj1 César Ayala MD MD [facility] Shayne Gomez PA PA jr8 Marie Walsh RN RN vc Corrections: (The following items were deleted from the chart) 15:28 14:52 08/05/2019 14:52 Discharged to Home. Impression: Generalized abdominal pain. aj1 Condition is Stable. Forms are Medication Reconciliation Form, Thank You Letter, Antibiotic Education, Prescription Opioid Use. Follow up: Dora Viveros; When: 2 - 3 days; Reason: Recheck today's complaints, Continuance of care, Re-evaluation by your physician. Problem is new. Symptoms have improved. jr8
--- NOTE | 2019-08-05 14:55 | ER ---
Nurse's Notes [facility] Name: Darrell Wiseman Age: 54 yrs Sex: Male : 1965 Arrival Date: 08/05/2019 Time: 13:09 Bed 26 Private MD: Diagnosis: Generalized abdominal pain Presentation: 08/04 13:19 Chief complaint: Patient states: today's episode started around lunch today at work. Pt dm5 sees Dr. Viveros and has known "stomach problems" pain rated at 10/10. Coronavirus screen: The patient has NOT traveled to a country currently being monitored by the [facility] within the last 14 days. Proceed with normal triage procedures. The patient has NOT had contact with any known and/or suspected case of coronavirus. Proceed with normal triage procedures. Ebola Screen: Patient negative for fever greater than or equal to 101.5 degrees Fahrenheit, and additional compatible Ebola Virus Disease symptoms Patient denies exposure to infectious person. Patient denies travel to an Ebola-affected area in the 21 days before illness onset. No symptoms or risks identified at this time. Initial Sepsis Screen: Does the patient meet any 2 criteria? No. Patient's initial sepsis screen is negative. Does the patient have a suspected source of infection? Yes: Acute abdominal pain. Risk Assessment: Do you want to hurt yourself or someone else? Patient reports no desire to harm self or others. 13:19 Method Of Arrival: Ambulatory dm5 13:19 Acuity: ANGLE 3 dm5 15:08 Onset of symptoms is unknown. vc Historical: - Allergies: 13:40 No Known Allergies; aj1 - PMHx: 13:40 "pin point hole in stomach"; Chronic Pancreatitis; duodenitis; Esophagitis; gastritis; aj1 hiatal hernia; PUD; - Immunization history:: Adult Immunizations up to date. - Social history:: Smoking status: unknown. Screenin:40 Abuse screen: Denies threats or abuse. Denies injuries from another. Nutritional aj1 screening: No deficits noted. Tuberculosis screening: No symptoms or risk factors identified. 15:08 Fall Risk None identified. vc Assessment: 13:38 General: Appears uncomfortable, Behavior is agitated, restless. Pain: Complains of pain aj1 in abdomen Pain currently is 10 out of 10 on a pain scale. Quality of pain is described as sharp. Neuro: Level of Consciousness is awake, alert, obeys commands, Oriented to person, place, time, situation. Cardiovascular: Patient's skin is warm and dry. Respiratory: Airway is patent Respiratory effort is even, unlabored, Respiratory pattern is regular, symmetrical. GI: Abdomen is non-distended, Bowel sounds present X 4 quads. Abdomen is tender to palpation X 4 quads. Reports lower abdominal pain, upper abdominal pain, nausea, vomiting. : No signs and/or symptoms were reported regarding the genitourinary system. EENT: No signs and/or symptoms were reported regarding the EENT system. Derm: No signs and/or symptoms reported regarding the dermatologic system. Skin is normal. Musculoskeletal: Circulation, motion, and sensation intact. 14:22 Reassessment: Patient appears in no apparent distress at this time. No changes from aj1 previously documented assessment. Patient and/or family updated on plan of care and expected duration. Pain level reassessed. Patient is alert, oriented x 3, equal unlabored respirations, skin warm/dry/pink. 15:06 Reassessment: Patient and/or family updated on plan of care and expected duration. Pain vc level reassessed. Patient is alert, oriented x 3, equal unlabored respirations, skin warm/dry/pink. Patient states symptoms have improved. 15:18 Reassessment: Patient discharge pending transportation, called , will try again. vc Vital Signs: 13:19 BP 161 / 107; Pulse 93; Resp 22; Temp 98.6(O); Pulse Ox 100% on R/A; Weight 104.33 kg 5 (R); Height 5 ft. 11 in. (180.34 cm); Pain 10/10; 14:27 BP 113 / 65; Pulse 59; Resp 18; Pulse Ox 96% on R/A; aj1 15:00 BP 149 / 80; Pulse 82; Resp 19; Pulse Ox 95% on R/A; vc 13:19 Body Mass Index 32.08 (104.33 kg, 180.34 cm) 5 ED Course: 13:09 Patient arrived in ED. ag5 13:21 Triage completed. 5 13:21 Shayne Gomez PA is PHCP. jr8 13:21 César Ayala MD is Attending Physician. jr8 13:26 Jericho, Priscila, RN is Primary Nurse. aj1 13:40 Patient has correct armband on for positive identification. Bed in low position. Call aj1 light in reach. Side rails up X 1. 13:40 Patient placed in an exam room, on pulse oximetry, Emesis basin given. vc 13:40 No provider procedures requiring assistance completed. aj1 14:52 Dora Viveros MD is Referral Physician. jr8 15:28 IV discontinued, intact, bleeding controlled, No redness/swelling at site. Pressure aj1 dressing applied. Administered Medications: 13:48 Drug: Dilaudid 2 mg Route: IVP; Site: right antecubital; aj1 15:09 Follow up: Response: No adverse reaction; Pain is decreased vc 13:48 Drug: Zofran (Ondansetron) 4 mg Route: IVP; Site: right antecubital; aj1 15:09 Follow up: Response: No adverse reaction; Nausea is decreased vc Outcome: 14:52 Discharge ordered by MD. jr8 15:28 Discharged to home ambulatory, with significant other. aj1 15:28 Condition: improved 15:28 Discharge instructions given to patient, significant other, Instructed on discharge instructions, follow up and referral plans. Demonstrated understanding of instructions, follow-up care. 15:28 Patient left the ED. aj1 Signatures: Priscila Echavarria, RN RN aj1 Delmi Ruiz RN RN fermin5 Shayne Gomez PA PA jr8 Abraham Charles 5 Marie Walsh RN RN vc
[2019-08-05 16:23] VITALS: TEMP 98.6
[2019-08-05 16:26] VITALS: BP 149/80; O2SAT 95
== END 2019-08-05 15:28 | disposition home or self-care (01) ==
LOC: ER 13:06
DX: R10.84 Generalized abdominal pain (principal); R11.2 Nausea with vomiting, unspecified
CPT/HCPCS: 85025; 80048; 36415; 80076; 83690; 96375; 96374; 99283; J1170; J2405

== ENCOUNTER 2019-08-15 11:43 | Emergency (ER) | payer BC ==
--- OUTSIDE RECORDS SUMMARY | 2019-08-15 11:46 | XMS REPORT ---
:1965 [facility] Address [address] Yee [address] [place] [id number] Care Team Providers Name Role Phone Unavailable Unavailable Unavailable Problems This patient has no known problems. Allergies, Adverse Reactions, Alerts This patient has no known allergies or adverse reactions. Medications This patient has no known medications.
[2019-08-15] MEDS ORDERED: HYDROMORPHONE HCL 1 MG/ML INJ ONE ×2 (12:22→13:50)
[2019-08-15] MEDS ORDERED: PROMETHAZINE INJ 25 MG/ML AMP ONE (12:22)
[2019-08-15] MEDS ORDERED: NA CHLORIDE 0.9% 500 ML ONE (12:22)
[2019-08-15 12:23] LABS: Basophils % 0.5 % (0-1.3); Hematocrit 46.7 % (39.6-49.0); Lymphocytes % 9.2 % (15.3-44.8); MPV 8.5 fL (7.6-11.3); RBC Red Blood Cell Count 5.27 M/uL (4.33-5.43)
[2019-08-15 12:39] LABS: Albumin 3.7 g/dL (3.4-5.0); Bilirubin Direct 0.1 mg/dL (0-0.2); Bilirubin Total 0.4 mg/dL (0.2-1.0); Potassium 3.6 mmol/L (3.5-5.1); Protein, Total 7.9 g/dL (6.4-8.2)
[2019-08-15 12:47] LABS: Blood Morphology Comment NOT SEEN (NOT SEEN); Platelet Estimate ADEQ; Urine White Blood Cell Casts OK
[2019-08-15] MEDS ORDERED: DIPHENHYDRAMINE 50 MG/ML VIAL ONE (13:14)
[2019-08-15] MEDS ORDERED: NA CHLORIDE 0.9% 100 ML IV ONE (13:14)
[2019-08-15] MEDS ORDERED: METOCLOPRAMIDE 10 MG/2mL INJ ONE (13:14)
--- NOTE | 2019-08-15 14:17 | EDPHYS ---
Physician Documentation [facility] Name: Darrell Wiseman Age: 54 yrs Sex: Male : 1965 Arrival Date: 08/15/2019 Time: 11:46 Bed 16 Private MD: ED Physician César Ayala HPI: 08/14 12:13 This 54 yrs old Male presents to ER via Ambulatory with complaints of Vomiting la1 and abdominal pain. 12:13 The patient presents to the emergency department with nausea, vomiting. Onset: The la1 symptoms/episode began/occurred just prior to arrival. Possible causes: unknown. The symptoms are aggravated by nothing. The symptoms are alleviated by nothing. Associated signs and symptoms: Pertinent positives: nausea, vomiting. Severity of symptoms: At their worst the symptoms were moderate. The patient has experienced similar episodes in the past, multiple times, chronically, and the symptoms today are exactly the same. The patient has been recently seen by a physician: Dr. larios in the office, pt had pill cam on Friday and is awaiting results. pt has had these sx many times, sx exactly the same, has had multiple CT scans, xrays, and an MRI that do not demonstrate a cause for the pain, pt has followed up with Dr. Larios and is performing more diagnostics on an outpatient basis. Pt is diaphoretic and writhing around upon presentation to ED which is the same he has looked during previous presentations. . Historical: - Allergies: 12:07 No Known Allergies; iw - PMHx: 12:02 "pin point hole in stomach"; Chronic Pancreatitis; duodenitis; Esophagitis; gastritis; iw hiatal hernia; PUD; - Immunization history:: Adult Immunizations up to date, Flu vaccine is not up to date. - Social history:: Smoking status: Patient reports the use of cigarette tobacco products, smokes one-half pack cigarettes per day. ROS: 12:16 ENT: Negative for injury, pain, and discharge, Cardiovascular: Negative for chest pain, la1 palpitations, and edema, Respiratory: Negative for shortness of breath, cough, wheezing, and pleuritic chest pain. 12:16 Back: Negative for injury and pain, : Negative for injury, bleeding, discharge, and swelling, MS/Extremity: Negative for injury and deformity, Neuro: Negative for headache, weakness, numbness, tingling, and seizure. 12:16 Constitutional: Negative for body aches, chills, fatigue, fever, malaise. 12:16 Abdomen/GI: Positive for abdominal pain, nausea and vomiting. Exam: 12:17 Head/Face: Normocephalic, atraumatic. Chest/axilla: Normal chest wall appearance and la1 motion. Nontender with no deformity. No lesions are appreciated. Cardiovascular: Regular rate and rhythm with a normal S1 and S2. No gallops, murmurs, or rubs. Normal PMI, no JVD. No pulse deficits. Respiratory: Lungs have equal breath sounds bilaterally, clear to auscultation 12:17 Back: No spinal tenderness. No costovertebral tenderness. Full range of motion. Skin: Warm, dry with normal turgor. Normal color with no rashes, no lesions, and no evidence of cellulitis. 12:17 Constitutional: The patient appears alert, awake, diaphoretic, in obvious pain. 12:17 Abdomen/GI: Inspection: obese Bowel sounds: normal, in all quadrants, Palpation: nontender, in all quadrants, moderate abdominal tenderness, in all quadrants, Indicators: McBurney's point is not tender, Gutierrez's sign is negative, Rovsing's sign is negative, Obturator sign is negative, Psoas sign is negative. 12:52 ECG was reviewed by the Attending Physician. la1 Vital Signs: 11:57 BP 160 / 93; Pulse 92; Resp 17 S; Pulse Ox 98% on R/A; Pain 10/10; ca1 13:21 BP 128 / 97; Pulse 86; Resp 17; Temp 98.1(O); Pulse Ox 100% on R/A; ca1 13:22 Weight 104.33 kg (R); Height 5 ft. 11 in. (180.34 cm) (R); ca1 14:27 BP 162 / 90; Pulse 76; Resp 17 S; Pulse Ox 100% on R/A; ca1 13:22 Body Mass Index 32.08 (104.33 kg, 180.34 cm) ca1 MDM: 12:10 Patient medically screened. la1 14:14 Data reviewed: vital signs, nurses notes, lab test result(s), and as a result, I will la1 discharge patient. Data interpreted: Pulse oximetry: on room air is 100 %. Interpretation: normal. Counseling: I had a detailed discussion with the patient and/or guardian regarding: the historical points, exam findings, and any diagnostic results supporting the discharge/admit diagnosis, lab results, the need for outpatient follow up, a per diem clerk, to return to the emergency department if symptoms worsen or persist or if there are any questions or concerns that arise at home. ED course: pt now resting in stretcher, eyes closed, resp even and unlabored. Pt back at baseline, this episode is exactly like the previous episodes, will have pt FU with GI. Strict return precautions given. 08/14 12:11 Order name: Basic Metabolic Panel; Complete Time: 12:44 la1 08/14 12:11 Order name: CBC with Diff la1 08/14 12:11 Order name: Hepatic Function; Complete Time: 12:44 la1 08/14 12:11 Order name: Lipase; Complete Time: 12:44 la1 08/14 12:47 Order name: CBC Smear Scan EDMS 08/14 12:11 Order name: IV Saline Lock; Complete Time: 12:23 la1 08/14 12:11 Order name: Labs collected and sent; Complete Time: 12:23 la1 08/14 12:11 Order name: EKG; Complete Time: 12:11 la1 08/14 12:11 Order name: EKG - Nurse/Tech; Complete Time: 12:50 la1 EC:52 Rate is 51 beats/min. Rhythm is regular, Sinus bradycardia. Left axis deviation noted. la1 QRS is negative in lead aVF. OH interval is normal at 156 msec. QRS interval is normal. QT interval is normal. No ST changes noted. Clinical impression: Sinus bradycardia and LAD. Interpreted by me. Reviewed by me. Administered Medications: 12:17 Drug: NS 0.9% 500 ml Route: IV; Rate: bolus; Site: right antecubital; ca1 13:00 Follow up: Response: No adverse reaction; IV Status: Completed infusion ca1 12:18 Drug: Phenergan 12.5 mg Route: IVP; Site: right antecubital; ca1 13:44 Follow up: Response: No adverse reaction; Vomiting decreased ca1 12:22 Drug: Dilaudid 1 mg {Note: RASS - 1.} Route: IVP; Site: right antecubital; ca1 13:44 Follow up: Response: No adverse reaction; Pain is unchanged, physician notified; RASS: ca1 Restless (+1) 13:10 Drug: Benadryl 12.5 mg Route: IVP; Site: right antecubital; ca1 13:51 Follow up: Response: No adverse reaction ca1 13:12 Drug: Reglan 10 mg Route: IVP; Site: right antecubital; ca1 13:50 Follow up: Response: No adverse reaction; Nausea is decreased ca1 13:50 Drug: Dilaudid 1 mg {Note: RASS 1.} Route: IVP; Site: right antecubital; ca1 14:25 Follow up: Response: No adverse reaction; Pain is decreased; RASS: Alert and Calm (0) ca1 Disposition: 18:11 Co-signature as Attending Physician, César Ayala MD I agree with the assessment and kdr plan of care. Disposition: 08/15/19 14:15 Discharged to Home. Impression: Upper abdominal pain, unspecified, Nausea and vomiting. - Condition is Stable. - Discharge Instructions: Abdominal Pain, Adult, Nausea and Vomiting, Adult, Rehydration, Adult. - Prescriptions for Bentyl 20 mg Oral Tablet - take 1 tablet by ORAL route every 6 hours As needed; 20 tablet. Tylenol- Codeine #3 300-30 mg Oral Tablet - take 2 tablets by ORAL route every 6 hours As needed; 20 tablet. - Medication Reconciliation Form, Thank You Letter form. - Follow up: Private Physician; When: 2 - 3 days; Reason: Recheck today's complaints, Re-evaluation by your physician. - Problem is new. - Symptoms have improved. Signatures: Dispatcher [employer] EDMO César Ayala MD MD [facility] Nikki Hernandez, RN RN iw Gonzalez Saenz, LEGAL ANALYST-C LEGAL ANALYST-Cla1 Chacha Roca RN RN ca1 Corrections: (The following items were deleted from the chart) 15:00 14:15 08/15/2019 14:15 Discharged to Home. Impression: Upper abdominal pain, ca1 unspecified; Nausea and vomiting. Condition is Stable. Forms are Medication Reconciliation Form, Thank You Letter, Antibiotic Education, Prescription Opioid Use. Follow up: Private Physician; When: 2 - 3 days; Reason: Recheck today's complaints, Re-evaluation by your physician. Problem is new. Symptoms have improved. la1
--- NOTE | 2019-08-15 14:17 | ER ---
Nurse's Notes [facility] Name: Darrell Wiseman Age: 54 yrs Sex: Male : 1965 Arrival Date: 08/15/2019 Time: 11:46 Bed 16 Private MD: Diagnosis: Upper abdominal pain, unspecified;Nausea and vomiting Presentation: 08/14 12:01 Chief complaint: Patient states: upper abd pain, vomiting this morning, denies iw diarrhea, Dr. Viveros is his GI doctor. Coronavirus screen: Patient denies fever greater than 100.4F, cough, shortness of breath, or difficulty breathing. Proceed with normal triage process. Ebola Screen: Patient negative for fever greater than or equal to 101.5 degrees Fahrenheit, and additional compatible Ebola Virus Disease symptoms Patient denies exposure to infectious person. Patient denies travel to an Ebola-affected area in the 21 days before illness onset. No symptoms or risks identified at this time. Initial Sepsis Screen: Does the patient meet any 2 criteria? No. Patient's initial sepsis screen is negative. Does the patient have a suspected source of infection? No. Patient's initial sepsis screen is negative. Risk Assessment: Do you want to hurt yourself or someone else? Patient reports no desire to harm self or others. 12:01 Method Of Arrival: Ambulatory iw 12:01 Acuity: ANGLE 3 iw 13:21 Onset of symptoms was August 15, 2019. ca1 Triage Assessment: 14:43 GI: Reports. ca1 Historical: - Allergies: 12:07 No Known Allergies; iw - PMHx: 12:02 "pin point hole in stomach"; Chronic Pancreatitis; duodenitis; Esophagitis; gastritis; iw hiatal hernia; PUD; - Immunization history:: Adult Immunizations up to date, Flu vaccine is not up to date. - Social history:: Smoking status: Patient reports the use of cigarette tobacco products, smokes one-half pack cigarettes per day. Screenin:15 Abuse screen: Denies threats or abuse. Denies injuries from another. Nutritional ca1 screening: No deficits noted. Tuberculosis screening: No symptoms or risk factors identified. Fall Risk IV access (20 points). Assessment: 12:15 General: Appears in no apparent distress. uncomfortable, Behavior is cooperative, ca1 restless. Pain: Complains of pain in abdomen Pain currently is 10 out of 10 on a pain scale. Neuro: Level of Consciousness is awake, alert, obeys commands, Oriented to person, place, time, situation, Appropriate for age. Cardiovascular: Heart tones S1 S2 present Capillary refill < 3 seconds Patient's skin is warm and dry. Respiratory: Airway is patent Respiratory effort is even, unlabored, Respiratory pattern is regular, symmetrical, Breath sounds are clear bilaterally. GI: Abdomen is round non-distended, Pt is actively vomiting clear fluid, Bowel sounds present X 4 quads. Abd is soft and non tender X 4 quads. : No signs and/or symptoms were reported regarding the genitourinary system. EENT: No signs and/or symptoms were reported regarding the EENT system. Derm: Skin is intact, is healthy with good turgor, Skin is moist, Skin is pale. Musculoskeletal: Circulation, motion, and sensation intact. Capillary refill < 3 seconds, Range of motion: intact in all extremities. 13:30 Reassessment: Patient appears in no apparent distress at this time. No changes from ca1 previously documented assessment. Patient and/or family updated on plan of care and expected duration. Pain level reassessed. 14:26 Reassessment: Patient appears in no apparent distress at this time. Patient is alert, ca1 oriented x 3, equal unlabored respirations, skin warm/dry/pink. General: Appears in no apparent distress. comfortable, Behavior is calm, cooperative, appropriate for age. 14:44 Reassessment: Pt requests pain prescription, "I don't have pain prescriptions, I just ca1 have acid blockers prescribed to me". Notified provider. Vital Signs: 11:57 BP 160 / 93; Pulse 92; Resp 17 S; Pulse Ox 98% on R/A; Pain 10/10; ca1 13:21 BP 128 / 97; Pulse 86; Resp 17; Temp 98.1(O); Pulse Ox 100% on R/A; ca1 13:22 Weight 104.33 kg (R); Height 5 ft. 11 in. (180.34 cm) (R); ca1 14:27 BP 162 / 90; Pulse 76; Resp 17 S; Pulse Ox 100% on R/A; ca1 13:22 Body Mass Index 32.08 (104.33 kg, 180.34 cm) ca1 ED Course: 11:46 Patient arrived in ED. as 11:48 Gonzalez Saenz [facility]-C [facility]. la1 11:48 César Ayala MD is Attending Physician. la1 12:02 Triage completed. iw 12:02 Chacha Roca, CELINA is Primary Nurse. ca1 12:15 No provider procedures requiring assistance completed. Initial lab(s) drawn, by me, ca1 sent to lab. Inserted saline lock: 20 gauge in right antecubital area, using aseptic technique. Blood collected. 12:15 Patient has correct armband on for positive identification. Placed in gown. Bed in low ca1 position. Call light in reach. Side rails up X2. Pulse ox on. NIBP on. Warm blanket given. 12:15 Arm band placed on. ca1 12:54 EKG done, by ED staff, reviewed by César Ayala MD. ms 14:43 IV discontinued, intact, bleeding controlled, No redness/swelling at site. Pressure ca1 dressing applied. Administered Medications: 12:17 Drug: NS 0.9% 500 ml Route: IV; Rate: bolus; Site: right antecubital; ca1 13:00 Follow up: Response: No adverse reaction; IV Status: Completed infusion ca1 12:18 Drug: Phenergan 12.5 mg Route: IVP; Site: right antecubital; ca1 13:44 Follow up: Response: No adverse reaction; Vomiting decreased ca1 12:22 Drug: Dilaudid 1 mg {Note: RASS - 1.} Route: IVP; Site: right antecubital; ca1 13:44 Follow up: Response: No adverse reaction; Pain is unchanged, physician notified; RASS: ca1 Restless (+1) 13:10 Drug: Benadryl 12.5 mg Route: IVP; Site: right antecubital; ca1 13:51 Follow up: Response: No adverse reaction ca1 13:12 Drug: Reglan 10 mg Route: IVP; Site: right antecubital; ca1 13:50 Follow up: Response: No adverse reaction; Nausea is decreased ca1 13:50 Drug: Dilaudid 1 mg {Note: RASS 1.} Route: IVP; Site: right antecubital; ca1 14:25 Follow up: Response: No adverse reaction; Pain is decreased; RASS: Alert and Calm (0) ca1 Outcome: 14:15 Discharge ordered by . la1 14:59 Discharged to home ambulatory, with significant other. ca1 14:59 Condition: stable 14:59 Discharge instructions given to patient, Significant other waiting at the lobby Instructed on discharge instructions, follow up and referral plans. no drinking with medication, no driving heavy equipment, medication usage, Demonstrated understanding of instructions, follow-up care, medications, Prescriptions given X 2. 15:00 Patient left the ED. ca1 Signatures: Nirali Augustine Irene, Bhargavi Hall RN, ms, Lee, GRADUATE STUDENT-C GRADUATE STUDENT-Cla1 Chacha Roca RN RN ca1
[2019-08-15 15:18] VITALS: TEMP 98.1; O2SAT 100
[2019-08-15 15:21] VITALS: BP 162/90
--- NOTE | 2019-08-16 07:26 | EKG ---
Test Date: 2019-08-15 Test Time: 12:39:02 Civil Clerk: ALBERT MEASUREMENT RESULTS: Intervals: Rate: 51 VT: 156 QRSD: 122 QT: 422 QTc: 388 [place]: P: 21 VT: 156 QRS: -66 T: 38 INTERPRETIVE STATEMENTS: Sinus bradycardia Left axis deviation Nonspecific intraventricular conduction delay Abnormal ECG Compared to ECG 02/23/2019 18:42:26 Intraventricular conduction delay now present Sinus rhythm no longer present Electronically Signed On 08-16-19 07:24:44 CDT by Amilcar Potter
== END 2019-08-15 15:00 | disposition home or self-care (01) ==
LOC: ER 11:43
DX: R11.2 Nausea with vomiting, unspecified (principal); R10.10 Upper abdominal pain, unspecified; F17.210 Nicotine dependence, cigarettes, uncomplicated
CPT/HCPCS: 96361; 93005; 85025; 80048; 36415; 80076; 83690; 96375; 96374; 99284; J2765; J2550; J1200; J1170 ×2; J7040

== ENCOUNTER 2019-09-20 | Emergency (ER) | payer BC | END 2019-09-20 13:22 | disposition home or self-care (01) | CPT/HCPCS: 36415; 71045; 80048; 80076; 83690; 85025; 96374; 96375; 99284; J2550 ==

== ENCOUNTER 2019-09-20 | Emergency (ER) | payer BC | END 2019-09-20 20:32 | disposition home or self-care (01) | CPT/HCPCS: 96372; 99283; J2550 ==

== ENCOUNTER 2019-10-05 12:25 | Emergency (ER) | payer BC ==
--- OUTSIDE RECORDS SUMMARY | 2019-10-05 12:30 | XMS REPORT ---
:1965 [address] [facility] t Address [address] [place] [id number] Care Team Providers Name Role Phone Unavailable Unavailable Unavailable Problems This patient has no known problems. Allergies, Adverse Reactions, Alerts This patient has no known allergies or adverse reactions. Medications This patient has no known medications.
[2019-10-05] MEDS ORDERED: MORPHINE 4 MG/ML SYR ONE (13:46)
[2019-10-05] MEDS ORDERED: PROMETHAZINE INJ 25 MG/ML AMP ONE ×2 (13:46→16:48)
[2019-10-05] MEDS ORDERED: NA CHLORIDE 0.9% 500 ML ONE (13:47)
[2019-10-05] MEDS ORDERED: NA CHLORIDE 0.9% 1,000 ML ONE (13:47)
[2019-10-05 13:54] LABS: Protime INR 1.03
[2019-10-05] MEDS ORDERED: FAMOTIDINE 20 MG/2 ML VIAL IV ONE (13:55)
[2019-10-05 14:13] LABS: Absolute Lymphocytes (CBC) 0.8 K/uL (0.7-4.9); Basophils % 0.5 % (0-1.3); Hematocrit 45.8 % (39.6-49.0); Lymphocytes % 6.9 % (15.3-44.8); MPV 8.8 fL (7.6-11.3); RBC Red Blood Cell Count 5.13 M/uL (4.33-5.43)
[2019-10-05 14:16] LABS: ALT/SGPT 24 U/L (12-78); AST/SGOT 18 U/L (15-37); Albumin 4.1 g/dL (3.4-5.0); Alkaline Phosphatase 134 U/L (45-117); BUN Blood Urea Nitrogen 8 mg/dL (7-18); Bicarbonate 25 mmol/L (21-32); Bilirubin Direct 0.1 mg/dL (0-0.2); Bilirubin Total 0.4 mg/dL (0.2-1.0); Glucose Level 147 mg/dL (74-106); Lipase 39 U/L (73-393); NT PRO-BNP 27 pg/mL (<125); Potassium 3.5 mmol/L (3.5-5.1); Protein, Total 8.1 g/dL (6.4-8.2); Sodium Level 142 mmol/L (136-145); Troponin (Emerg Dept Use Only) < 0.02 ng/mL (0.0-0.045)
[2019-10-05 14:31] LABS: Blood Morphology Comment NOT SEEN (NOT SEEN); Platelet Estimate ADEQ; Urine White Blood Cell Casts OK
[2019-10-05] MEDS ORDERED: MEPERIDINE HCL 50 MG/ML ONE ×2 (14:44→16:48)
--- NOTE | 2019-10-05 16:08 | RAD REPORT ---
EXAM DESCRIPTION: RAD - Abdomen Acute Series - 10/05/2019 4:02 pm CLINICAL HISTORY: ABD PAIN COMPARISON: Chest Single View dated 09/20/2019; Abdomen Acute Series dated 04/10/2019 FINDINGS: No new mass or consolidation. Interstitial pattern accentuated by low lung volumes. Promin ent lung pattern is not substantially different. Minimal lung base edema or infiltrate could possibly be masked. Heart size and pulmonary vasculature are normal. No pleural effusion, pneumothorax or oth er acute cardiopulmonary process seen. Bowel gas pattern is nonspecific. No bowel obstruction, free air or other acute findings. No suspicio us calcifications. No other suspicious for significant findings. IMPRESSION: Negative acute abdomen series.
--- NOTE | 2019-10-05 16:24 | EDPHYS ---
Physician Documentation [facility] Name: Darrell Wiseman Age: 54 yrs Sex: Male : 1965 Arrival Date: 10/05/2019 Time: 12:26 Bed 8 Private MD: ED Physician Jacques Das HPI: 10/04 13:39 This 54 yrs old Male presents to ER via Wheelchair with complaints of Vomiting.roland 13:39 The patient presents to the emergency department with nausea, vomiting, abdominal pain, roland of the right upper quadrant, left upper quadrant, right lower quadrant and left lower quadrant. Onset: The symptoms/episode began/occurred 2 day(s) ago. Possible causes: unknown. The symptoms are aggravated by movement, pressure, food , The symptoms are alleviated by nothing. remaining still, antacids. Associated signs and symptoms: The patient has no apparent associated signs or symptoms. Severity of symptoms: At their worst the symptoms were moderate in the emergency department the symptoms are unchanged. The patient has experienced similar episodes in the past, multiple times. Historical: - Allergies: 12:48 No Known Allergies; ca1 - PMHx: 12:48 "pin point hole in stomach"; Chronic Pancreatitis; duodenitis; Esophagitis; gastritis; ca1 hiatal hernia; PUD; - Immunization history:: Adult Immunizations up to date. - Social history:: Smoking status: Patient reports the use of cigarette tobacco products, smokes one-half pack cigarettes per day. - Family history:: not pertinent. ROS: 13:39 Eyes: Negative for injury, pain, redness, and discharge, ENT: Negative for injury, roland pain, and discharge, Neck: Negative for injury, pain, and swelling, Cardiovascular: Negative for chest pain, palpitations, and edema, Respiratory: Negative for shortness of breath, cough, wheezing, and pleuritic chest pain, Back: Negative for injury and pain, : Negative for injury, bleeding, discharge, and swelling, MS/Extremity: Negative for injury and deformity, Skin: Negative for injury, rash, and discoloration, Neuro: Negative for headache, weakness, numbness, tingling, and seizure. 13:39 Constitutional: Positive for fatigue, malaise. 13:39 Abdomen/GI: Positive for abdominal pain, nausea and vomiting, nausea, vomiting, abdominal cramps, abdominal distension. Exam: 13:39 Constitutional: This is a well developed, well nourished patient who is awake, alert, roland and in no acute distress. Head/Face: Normocephalic, atraumatic. Eyes: Pupils equal round and reactive to light, extra-ocular motions intact. Lids and lashes normal. Conjunctiva and sclera are non-icteric and not injected. Cornea within normal limits. Periorbital areas with no swelling, redness, or edema. ENT: Nares patent. No nasal discharge, no septal abnormalities noted. Tympanic membranes are normal and external auditory canals are clear. Oropharynx with no redness, swelling, or masses, exudates, or evidence of obstruction, uvula midline. Mucous membranes moist. Neck: Trachea midline, no thyromegaly or masses palpated, and no cervical lymphadenopathy. Supple, full range of motion without nuchal rigidity, or vertebral point tenderness. No Meningismus. Chest/axilla: Normal chest wall appearance and motion. Nontender with no deformity. No lesions are appreciated. Cardiovascular: Regular rate and rhythm with a normal S1 and S2. No gallops, murmurs, or rubs. Normal PMI, no JVD. No pulse deficits. Respiratory: Lungs have equal breath sounds bilaterally, clear to auscultation and percussion. No rales, rhonchi or wheezes noted. No increased work of breathing, no retractions or nasal flaring. Back: No spinal tenderness. No costovertebral tenderness. Full range of motion. Male : Normal genitalia with no discharge or lesions. Skin: Warm, dry with normal turgor. Normal color with no rashes, no lesions, and no evidence of cellulitis. MS/ Extremity: Pulses equal, no cyanosis. Neurovascular intact. Full, normal range of motion. Neuro: Awake and alert, GCS 15, oriented to person, place, time, and situation. Cranial nerves II-XII grossly intact. Motor strength 5/5 in all extremities. Sensory grossly intact. Cerebellar exam normal. Normal gait. Psych: Awake, alert, with orientation to person, place and time. Behavior, mood, and affect are within normal limits. 13:39 Abdomen/GI: Inspection: distension, Bowel sounds: normal, Palpation: mild abdominal tenderness, in all quadrants, Liver: no appreciated palpable abnormalities, Hernia: not appreciated. 15:33 ECG was reviewed by the Attending Physician. roland Vital Signs: 12:47 BP 159 / 101; Pulse 84; Resp 16; Temp 97.1(TE); Pulse Ox 100% ; Weight 96.62 kg (R); ca1 Height 5 ft. 11 in. (180.34 cm) (R); 16:30 BP 165 / 99; Pulse 80; Resp 18 S; Pulse Ox 98% on R/A; aa5 12:47 Body Mass Index 29.71 (96.62 kg, 180.34 cm) ca1 MDM: 13:21 Patient medically screened. roland 13:42 Differential diagnosis: Nonspecific abd pain, gastritis, cholecystitis, pancreatitis, roland diverticulitis. Data reviewed: vital signs, nurses notes, EMS record, lab test result(s), EKG, radiologic studies, plain films. Data interpreted: vehicle monitor technician: rhythm is Pulse oximetry: on room air is 100 %. Test interpretation: by ED physician or midlevel provider: ECG, plain radiologic studies. 13:43 Counseling: I had a detailed discussion with the patient and/or guardian regarding: the roland historical points, exam findings, and any diagnostic results supporting the discharge/admit diagnosis, lab results, radiology results, the need for outpatient follow up. 15:34 Medication response: Zofran markedly relieved the patient's nausea. ED course: pt roland improved, will fu, will follow up dr larios/china. pt understands. 16:21 ED course: pt explained plan, will follow up, no work until cleared by gi, dr larios. [facility] 10/04 13:22 Order name: Basic Metabolic Panel; Complete Time: 15:32 [facility] 10/04 13:22 Order name: CBC with Diff; Complete Time: 15:32 [facility] 10/04 13:22 Order name: LFT's; Complete Time: 15:32 [facility] 10/04 13:22 Order name: Magnesium; Complete Time: 15:32 [facility] 10/04 13:22 Order name: NT PRO-BNP; Complete Time: 15:32 [facility] 10/04 13:22 Order name: PT-INR; Complete Time: 15:32 [facility] 10/04 13:22 Order name: Troponin (emerg Dept Use Only); Complete Time: 15:32 [facility] 10/04 13:22 Order name: Lipase; Complete Time: 15:32 [facility] 10/04 13:38 Order name: Abdomen Acute Series XRAY; Complete Time: 16:15 [facility] 10/04 14:31 Order name: CBC Smear Scan; Complete Time: 15:32 EDMS 10/04 13:22 Order name: EKG; Complete Time: 13:23 [facility] 10/04 13:22 Order name: Cardiac monitoring; Complete Time: 13:45 [facility] 10/04 13:22 Order name: EKG - Nurse/Tech; Complete Time: 14:17 [facility] 10/04 13:22 Order name: IV Saline Lock; Complete Time: 13:45 [facility] 10/04 13:22 Order name: Labs collected and sent; Complete Time: 13:45 [facility] 10/04 13:22 Order name: O2 Per Protocol; Complete Time: 13:45 [facility] 10/04 13:22 Order name: O2 Sat Monitoring; Complete Time: 13:46 [facility] EC:33 Rate is 63 beats/min. Rhythm is regular. QRS [place] is Normal. SC interval is normal. QRS roland interval is normal. QT interval is normal. No Q waves. T waves are Normal. No ST changes noted. Clinical impression: NSR w/ Non-specific ST/T Changes and No evidence of ischemia. Interpreted by me. Reviewed by me. Administered Medications: 13:34 Drug: NS 0.9% 500 ml Route: IV; Rate: bolus; Site: right antecubital; aa5 14:00 Follow up: IV Status: Completed infusion; IV Intake: 500ml aa5 13:34 Drug: NS 0.9% 1000 ml Route: IV; Rate: 125 ml/hr; Site: right antecubital; aa5 13:34 Drug: morphine 4 mg Route: IVP; Site: right antecubital; aa5 14:00 Follow up: Response: No adverse reaction; Marked relief of symptoms; Pain is decreased aa5 13:38 Not Given (Duplicate Order): Zofran (Ondansetron) 4 mg IVP once; over 2 minutes [facility] 13:38 Drug: Phenergan 12.5 mg Route: IVP; Site: right antecubital; aa5 14:00 Follow up: Response: No adverse reaction aa5 14:00 Drug: Pepcid 20 mg Route: IVP; Site: right antecubital; aa5 14:10 Follow up: Response: No adverse reaction aa5 14:37 Drug: Demerol 50 mg Route: IVP; Site: right antecubital; aa5 14:50 Follow up: Response: No adverse reaction; Pain is decreased aa5 16:45 Drug: Demerol 50 mg Route: IVP; Site: right antecubital; aa5 17:00 Follow up: Response: No adverse reaction; Pain is decreased aa5 16:45 Drug: Phenergan 12.5 mg Route: IVP; Site: right antecubital; aa5 17:00 Follow up: Response: No adverse reaction aa5 Disposition: 10/05/19 16:22 Discharged to Home. Impression: Abdominal tenderness, Vomiting, Chronic pain, not elsewhere classified. - Condition is Stable. - Discharge Instructions: Abdominal Pain, Adult, Nausea and Vomiting, Adult, Abdominal Pain, Adult, [id number]. - Prescriptions for Bentyl 20 mg Oral Tablet - take 1 tablet by ORAL route every 6 hours As needed; 20 tablet. Protonix 40 mg Oral Tablet - take 1 tablet by ORAL route once daily; 30 tablet. promethazine 25 mg Oral Tablet - take 1 tablet by ORAL route every 6 hours As needed; 20 tablet. - Work release form, Medication Reconciliation Form, Thank You Letter, Antibiotic Education, Prescription Opioid Use form. - Follow up: Private Physician; When: 2 - 3 days; Reason: Recheck today's complaints, Continuance of care, Re-evaluation by your physician. Follow up: Dora Larios; When: 2 - 3 days; Reason: Recheck today's complaints, Continuance of care, Re-evaluation by your physician. - Problem is new. - Symptoms have improved. Signatures: Dispatcher [employer] [facility] Jacques Das MD MD cha Calderon, Audri, RN RN aa5 Chacha Roca RN RN ca1 Corrections: (The following items were deleted from the chart) 14:30 13:23 Chest Single View+RAD.RAD.BRZ ordered. [facility] 16:44 13:22 Urine Dipstick-Ancillary ordered. roland [place] 17:09 16:22 10/05/2019 16:22 Discharged to Home. Impression: Abdominal tenderness; Vomiting; aa5 Chronic pain, not elsewhere classified. Condition is Stable. Discharge Instructions: Abdominal Pain, Adult, Nausea and Vomiting, Adult, Abdominal Pain, Adult, [id number]. Prescriptions for Bentyl 20 mg Oral Tablet - take 1 tablet by ORAL route every 6 hours As needed; 20 tablet, Protonix 40 mg Oral Tablet - take 1 tablet by ORAL route once daily; 30 tablet, promethazine 25 mg Oral Tablet - take 1 tablet by ORAL route every 6 hours As needed; 20 tablet. and Forms are Medication Reconciliation Form, Thank You Letter, Antibiotic Education, Prescription Opioid Use. Follow up: Private Physician; When: 2 - 3 days; Reason: Recheck today's complaints, Continuance of care, Re-evaluation by your physician. Follow up: Dora Larios; When: 2 - 3 days; Reason: Recheck today's complaints, Continuance of care, Re-evaluation by your physician. Problem is new. Symptoms have improved. roland
--- NOTE | 2019-10-05 16:24 | ER ---
Nurse's Notes [facility] Name: Darrell Wiseman Age: 54 yrs Sex: Male : 1965 Arrival Date: 10/05/2019 Time: 12:26 Bed 8 Private MD: Diagnosis: Abdominal tenderness;Vomiting;Chronic pain, not elsewhere classified Presentation: 10/04 12:47 Chief complaint: Patient states: abdominal pain, N/V since this morning. Coronavirus ca1 screen: Proceed with normal triage. Patient denies a cough. Patient denies shortness of breath or difficulty breathing. Patient denies measured and/or subjective temperature greater than 100.4F prior to today's visit. Patient denies travel on a cruise ship or to a country the [facility] currently lists as an affected area. Patient denies contact with known and/or suspected case of COVID-19. Ebola Screen: Patient negative for fever greater than or equal to 101.5 degrees Fahrenheit, and additional compatible Ebola Virus Disease symptoms Patient denies exposure to infectious person. Patient denies travel to an Ebola-affected area in the 21 days before illness onset. No symptoms or risks identified at this time. Initial Sepsis Screen: Does the patient meet any 2 criteria? No. Patient's initial sepsis screen is negative. Does the patient have a suspected source of infection? No. Patient's initial sepsis screen is negative. Risk Assessment: Do you want to hurt yourself or someone else? Patient reports no desire to harm self or others. Onset of symptoms was October 05, 2019. 12:47 Method Of Arrival: Wheelchair ca1 12:47 Acuity: ANGLE 3 ca1 Historical: - Allergies: 12:48 No Known Allergies; ca1 - PMHx: 12:48 "pin point hole in stomach"; Chronic Pancreatitis; duodenitis; Esophagitis; gastritis; ca1 hiatal hernia; PUD; - Immunization history:: Adult Immunizations up to date. - Social history:: Smoking status: Patient reports the use of cigarette tobacco products, smokes one-half pack cigarettes per day. - Family history:: not pertinent. Screenin:20 Abuse screen: Denies threats or abuse. Nutritional screening: No deficits noted. aa5 Tuberculosis screening: No symptoms or risk factors identified. Fall Risk None identified. Assessment: 13:20 General: Appears uncomfortable, Behavior is restless. Pain: Complains of pain in right aa5 upper quadrant, left upper quadrant, right lower quadrant and left lower quadrant Pain currently is 10 out of 10 on a pain scale. Quality of pain is described as sharp, Pain began today Is continuous, Noted to be guarding, moaning, restless, Pt reports pain is chronic and has seen GI for approximately 10 years. Neuro: Level of Consciousness is awake, alert, obeys commands, Oriented to person, place, time, situation. Cardiovascular: Patient's skin is warm and dry. Respiratory: Airway is patent Respiratory effort is even, unlabored, Respiratory pattern is regular, symmetrical. GI: Abdomen is round non-distended, Bowel sounds present X 4 quads. Abd is soft X 4 quads Abdomen is tender to palpation in right upper quadrant, left upper quadrant, right lower quadrant and left lower quadrant Reports nausea, vomiting. : No signs and/or symptoms were reported regarding the genitourinary system. EENT: No signs and/or symptoms were reported regarding the EENT system. Derm: Skin is pink, warm \\T\\ dry. Musculoskeletal: Range of motion: intact in all extremities. 14:00 Reassessment: Patient is alert, oriented x 3, equal unlabored respirations, skin aa5 warm/dry/pink. Patient states feeling better. General: Appears comfortable. 14:35 Reassessment: Patient is alert, oriented x 3, equal unlabored respirations, skin aa5 warm/dry/pink. Pt c/o increased pain. MD was notified . General: Appears uncomfortable, Behavior is restless. 14:55 Reassessment: Patient states feeling better. Resting in bed with eyes closed. . aa5 16:45 Reassessment: Patient is alert, oriented x 3, equal unlabored respirations, skin aa5 warm/dry/pink. 17:00 Reassessment: Patient is alert, oriented x 3, equal unlabored respirations, skin aa5 warm/dry/pink. Patient states feeling better. Patient states symptoms have improved. Vital Signs: 12:47 BP 159 / 101; Pulse 84; Resp 16; Temp 97.1(TE); Pulse Ox 100% ; Weight 96.62 kg (R); ca1 Height 5 ft. 11 in. (180.34 cm) (R); 16:30 BP 165 / 99; Pulse 80; Resp 18 S; Pulse Ox 98% on R/A; aa5 12:47 Body Mass Index 29.71 (96.62 kg, 180.34 cm) ca1 ED Course: 12:26 Patient arrived in ED. as 12:48 Triage completed. ca1 12:48 Arm band placed on right wrist. ca1 13:20 Patient has correct armband on for positive identification. Bed in low position. Call aa5 light in reach. Side rails up X2. 13:21 Jacques Das MD is Attending Physician. roland 13:27 Macarena Tejada, CELINA is Primary Nurse. rb1 13:30 Initial lab(s) drawn, by me, sent to lab. Inserted saline lock: 18 gauge in right aa5 antecubital area, using aseptic technique. Blood collected. 16:02 Abdomen Acute Series XRAY In Process Unspecified. EDMS 16:22 Dora Viveros MD is Referral Physician. roland 17:00 No provider procedures requiring assistance completed. IV discontinued, intact, aa5 bleeding controlled, No redness/swelling at site. Pressure dressing applied. Administered Medications: 13:34 Drug: NS 0.9% 500 ml Route: IV; Rate: bolus; Site: right antecubital; aa5 14:00 Follow up: IV Status: Completed infusion; IV Intake: 500ml aa5 13:34 Drug: NS 0.9% 1000 ml Route: IV; Rate: 125 ml/hr; Site: right antecubital; aa5 13:34 Drug: morphine 4 mg Route: IVP; Site: right antecubital; aa5 14:00 Follow up: Response: No adverse reaction; Marked relief of symptoms; Pain is decreased aa5 13:38 Not Given (Duplicate Order): Zofran (Ondansetron) 4 mg IVP once; over 2 minutes roland 13:38 Drug: Phenergan 12.5 mg Route: IVP; Site: right antecubital; aa5 14:00 Follow up: Response: No adverse reaction aa5 14:00 Drug: Pepcid 20 mg Route: IVP; Site: right antecubital; aa5 14:10 Follow up: Response: No adverse reaction aa5 14:37 Drug: Demerol 50 mg Route: IVP; Site: right antecubital; aa5 14:50 Follow up: Response: No adverse reaction; Pain is decreased aa5 16:45 Drug: Demerol 50 mg Route: IVP; Site: right antecubital; aa5 17:00 Follow up: Response: No adverse reaction; Pain is decreased aa5 16:45 Drug: Phenergan 12.5 mg Route: IVP; Site: right antecubital; aa5 17:00 Follow up: Response: No adverse reaction aa5 Intake: 14:00 IV: 500ml; Total: 500ml. aa5 Outcome: 16:22 Discharge ordered by . roland 17:05 Discharged to home via wheelchair, with family. aa5 17:05 Condition: improved 17:05 Discharge instructions given to patient, Instructed on discharge instructions, follow up and referral plans. medication usage, Demonstrated understanding of instructions, follow-up care, medications, Prescriptions given X 3. 17:09 Patient left the ED. aa5 Signatures: Dispatcher [employer] EDMS Jacques Dsa MD MD cha Martinez, Amelia as Calderon, Audri, RN RN aa5 Macarena Tejada, CELINA PATRICK rb1 Chacha Roca RN RN ca1 Corrections: (The following items were deleted from the chart) 12:49 12:47 Pulse 84bpm; Resp 16bpm; Pulse Ox 100%; Temp 97.1F Temporal; 96.62 kg Reported; ca1 Height 5 ft. 11 in. Reported; BMI: 29.7; ca1
[2019-10-05 17:20] VITALS: BP 159/101; TEMP 97.1; O2SAT 100
--- NOTE | 2019-10-06 07:24 | EKG ---
Test Date: 2019-10-05 Test Time: 14:14:10 Contingents Supervisor: LEOPOLDO MEASUREMENT RESULTS: Intervals: Rate: 63 MS: 150 QRSD: 96 QT: 418 QTc: 427 Dunbar: P: 32 MS: 150 QRS: -68 T: 15 INTERPRETIVE STATEMENTS: Normal sinus rhythm with sinus arrhythmia Left axis deviation Abnormal ECG Compared to ECG 08/15/2019 12:39:02 Sinus bradycardia no longer present Intraventricular conduction delay no longer present Electronically Signed On 10-06-19 07:22:58 CDT by Amilcar Potter
== END 2019-10-05 17:09 | disposition home or self-care (01) ==
LOC: ER 12:25
DX: R10.819 Abdominal tenderness, unspecified site (principal); G89.29 Other chronic pain; F17.210 Nicotine dependence, cigarettes, uncomplicated
CPT/HCPCS: 93005; 85025; 80048; 36415; 83735; 85610; 80076; 84484; 83690; 83880; 74022; 96375; 96374; 99284; J2550 ×2; J2175 ×2; J7040; J7030

== ENCOUNTER 2019-10-13 12:43 | Emergency (ER) | payer BC ==
--- OUTSIDE RECORDS SUMMARY | 2019-10-13 13:10 | XMS REPORT ---
:1965 Author Organization [facility] t Address [address] Yee [address] [place] [id number] Care Team Providers Name Role Phone Unavailable Unavailable Unavailable Problems This patient has no known problems. Allergies, Adverse Reactions, Alerts This patient has no known allergies or adverse reactions. Medications This patient has no known medications. Procedures This patient has no known procedures. Results This patient has no known results.
[2019-10-13] MEDS ORDERED: PROMETHAZINE INJ 25 MG/ML AMP ONE (13:50)
[2019-10-13] MEDS ORDERED: FAMOTIDINE 20 MG/2 ML VIAL IV ONE (13:51)
[2019-10-13] MEDS ORDERED: NA CHLORIDE 0.9% 1,000 ML ONE (13:51)
[2019-10-13] MEDS ORDERED: NA CHLORIDE 0.9% 50 ML IV ONE (14:11)
[2019-10-13] MEDS ORDERED: MORPHINE 4 MG/ML SYR ONE (14:11)
[2019-10-13 14:55] LABS: Basophils % 0.3 % (0-1.3); Hematocrit 44.4 % (39.6-49.0); Lymphocytes % 5.6 % (15.3-44.8); MPV 8.8 fL (7.6-11.3)
[2019-10-13 15:32] LABS: Blood Morphology Comment NOT SEEN (NOT SEEN); Platelet Estimate ADEQ; Urine White Blood Cell Casts OK
[2019-10-13 15:35] LABS: Albumin 3.7 g/dL (3.4-5.0); Bilirubin Direct 0.1 mg/dL (0-0.2); Bilirubin Total 0.5 mg/dL (0.2-1.0); Protein, Total 7.4 g/dL (6.4-8.2)
[2019-10-13 15:38] LABS: Potassium 3.6 mmol/L (3.5-5.1)
--- NOTE | 2019-10-13 15:55 | ER ---
Nurse's Notes [facility] Name: Darrell Wiseman Age: 54 yrs Sex: Male : 1965 Arrival Date: 10/13/2019 Time: 12:45 Bed 14 Private MD: Diagnosis: Generalized abdominal pain-chronic;Elevated white blood cell count Presentation: 10/12 12:46 Chief complaint: Patient states: abd pain, back pain, vomiting started this morning sv after eating a kolache. Coronavirus screen: Proceed with normal triage. Patient denies a cough. Patient denies shortness of breath or difficulty breathing. Patient denies measured and/or subjective temperature greater than 100.4F prior to today's visit. Patient denies travel on a cruise ship or to a country the [facility] currently lists as an affected area. Patient denies contact with known and/or suspected case of COVID-19. Ebola Screen: No symptoms or risks identified at this time. Risk Assessment: Do you want to hurt yourself or someone else? Patient reports no desire to harm self or others. Onset of symptoms was October 13, 2019. 12:46 Method Of Arrival: Wheelchair sv 12:46 Acuity: ANGLE 2 sv 12:48 Initial Sepsis Screen: Does the patient meet any 2 criteria? HR > 90 bpm. No. Patient's sv initial sepsis screen is negative. Does the patient have a suspected source of infection? No. Patient's initial sepsis screen is negative. Triage Assessment: 12:51 General: Appears in no apparent distress. uncomfortable, Behavior is cooperative, sv appropriate for age. Pain: Complains of pain in back and abdomen. Neuro: Level of Consciousness is awake, alert, obeys commands. Respiratory: Respiratory effort is even, unlabored. Historical: - Allergies: 12:47 No Known Allergies; sv - PMHx: 12:47 "pin point hole in stomach"; Chronic Pancreatitis; duodenitis; Esophagitis; gastritis; sv hiatal hernia; PUD; - Social history:: Smoking status: Patient denies any tobacco usage or history of. Screenin:00 Abuse screen: Denies threats or abuse. Denies injuries from another. Nutritional bp screening: No deficits noted. Tuberculosis screening: No symptoms or risk factors identified. Fall Risk None identified. Assessment: 13:00 General: SEE TRIAGE NOTE. GI: Reports lower abdominal pain, nausea, vomiting. bp 14:00 Reassessment: PT STATES "I'M GOING TO KEEP SCREAMING UNTIL I GET PAIN MEDICINE. IT'S bp LIKE I'M POSSESSED.". 15:02 Reassessment: VS STABLE. NO FURTHER OUTBURSTS AT THIS TIME. bp 15:46 Reassessment: Patient appears in no apparent distress at this time. WHILE THIS NURSE ls4 WAS LISTENING IN ON CONVERSATION Pt stated to SHMUEL BRIZUELA "IF YOU DON'T GIVE ME WHAT I WANT ILL BE BACK LATER" WHILE SHMUEL WAS TRYING TO GIVE HIM RESULTS AND DISCUSS OPTIONS. Vital Signs: 12:48 BP 158 / 97; Pulse 110; Resp 20; Temp 97; Pulse Ox 98% ; sv 15:00 BP 114 / 95; Pulse 111; Resp 17; Pulse Ox 98% ; bp ED Course: 12:45 Patient arrived in ED. ag5 12:47 Triage completed. sv 12:47 Arm band placed on. sv 13:00 Patient has correct armband on for positive identification. Bed in low position. Call bp light in reach. Side rails up X2. 13:14 Arlen Pang F[facility]-C [facility]. kb 13:14 César Ayala MD is Attending Physician. kb 13:29 Frederick Acevedo, CELINA is Primary Nurse. bp 13:58 Inserted saline lock: 20 gauge in right forearm, using aseptic technique. Blood bp collected. 16:20 No provider procedures requiring assistance completed. IV discontinued, intact, ls4 bleeding controlled, No redness/swelling at site. Pressure dressing applied. Administered Medications: 14:00 Drug: NS 0.9% 1000 ml Route: IV; Rate: 1000 ml; Site: right forearm; bp 14:00 Drug: Phenergan 12.5 mg Route: IVP; Site: right forearm; bp 15:01 Follow up: Response: Nausea is decreased bp 14:00 Drug: Pepcid 20 mg Route: IVP; Site: right forearm; bp 15:01 Follow up: Response: No adverse reaction bp 14:00 Drug: morphine 4 mg Route: IVP; Site: right forearm; bp 15:01 Follow up: Response: Pain is decreased bp 16:19 Drug: GI Cocktail without - (Maalox Suspension 30 ml, Lidocaine Liquid 2 % 15 ls4 ml) Route: PO; 16:19 Drug: Bentyl 20 mg Route: PO; ls4 Outcome: 15:55 Discharge ordered by MD. merritt 16:20 Discharged to home ambulatory. ls4 16:20 Condition: good 16:20 Discharge instructions given to patient, Instructed on discharge instructions, follow up and referral plans. medication usage, safety practices, Demonstrated understanding of instructions, follow-up care, medications, Prescriptions given X 2. 16:21 Patient left the ED. ls4 Signatures: Arlen Pang, GELACIO-Toni BRIZUELA-Kika Johnston, RN RN sv Frederick Acevedo RN RN Eleanor Alejandre RN RN ls4 Abraham Charles ag5 Corrections: (The following items were deleted from the chart) 12:53 12:46 Acuity: ANGLE 3 sv sv 14:01 14:00 Reassessment: PT STATES "I'M GOING TO KEEP SCREAMING UNTIL I GET PAIN MEDICINE." bp bp
--- NOTE | 2019-10-13 15:55 | EDPHYS ---
Physician Documentation [facility] Name: Darrell Wiseman Age: 54 yrs Sex: Male : 1965 Arrival Date: 10/13/2019 Time: 12:45 Bed 14 Private MD: ED Physician César Ayala HPI: 10/12 13:46 This 54 yrs old Male presents to ER via Wheelchair with complaints of kb Vomiting, Abdominal Pain, Back Pain. 13:46 The patient presents to the emergency department with nausea, vomiting, abdominal pain. kb Onset: The symptoms/episode began/occurred this morning. Possible causes: chronic abd pain, gastritis. The symptoms are aggravated by nothing. The symptoms are alleviated by nothing. Associated signs and symptoms: Pertinent positives: abdominal pain, nausea, vomiting, Pertinent negatives: anorexia, belching, constipation, diarrhea, dysuria, fever, flatulence, GI bleeding, hematuria. Severity of symptoms: At their worst the symptoms were moderate in the emergency department the symptoms are unchanged. The patient has experienced similar episodes in the past. The patient has been recently seen at the [facility] Emergency Department, last week. Pt reports he ate a kolache with sausage this morning and started having abd pain, n/v after that. Pt has been seen multiple times for this same pain after eating. Pt states "I knew half way through that hot dog that I was done for. The pain started right after that.". Historical: - Allergies: 12:47 No Known Allergies; sv - PMHx: 12:47 "pin point hole in stomach"; Chronic Pancreatitis; duodenitis; Esophagitis; gastritis; sv hiatal hernia; PUD; - Social history:: Smoking status: Patient denies any tobacco usage or history of. ROS: 13:39 Constitutional: Negative for fever, chills, and weight loss, Neck: Negative for injury, kb pain, and swelling, Cardiovascular: Negative for chest pain, palpitations, and edema, Respiratory: Negative for shortness of breath, cough, wheezing, and pleuritic chest pain, Back: Negative for injury and pain, MS/Extremity: Negative for injury and deformity, Skin: Negative for injury, rash, and discoloration, Neuro: Negative for headache, weakness, numbness, tingling, and seizure. 13:39 Abdomen/GI: Positive for abdominal pain, nausea and vomiting, Negative for diarrhea, constipation. Exam: 13:39 Constitutional: This is a well developed, well nourished patient who is awake, alert, kb and in no acute distress. Head/Face: Normocephalic, atraumatic. Chest/axilla: Normal chest wall appearance and motion. Nontender with no deformity. No lesions are appreciated. Cardiovascular: Regular rate and rhythm with a normal S1 and S2. No gallops, murmurs, or rubs. Normal PMI, no JVD. No pulse deficits. Respiratory: Lungs have equal breath sounds bilaterally, clear to auscultation and percussion. No rales, rhonchi or wheezes noted. No increased work of breathing, no retractions or nasal flaring. Back: No spinal tenderness. No costovertebral tenderness. Full range of motion. Skin: Warm, dry with normal turgor. Normal color with no rashes, no lesions, and no evidence of cellulitis. MS/ Extremity: Pulses equal, no cyanosis. Neurovascular intact. Full, normal range of motion. Neuro: Awake and alert, GCS 15, oriented to person, place, time, and situation. Cranial nerves II-XII grossly intact. Motor strength 5/5 in all extremities. Sensory grossly intact. Cerebellar exam normal. Normal gait. 13:39 Abdomen/GI: Inspection: abdomen appears normal, Bowel sounds: normal, in all quadrants, Palpation: moderate abdominal tenderness, in all quadrants. Vital Signs: 12:48 BP 158 / 97; Pulse 110; Resp 20; Temp 97; Pulse Ox 98% ; sv 15:00 BP 114 / 95; Pulse 111; Resp 17; Pulse Ox 98% ; bp MDM: 13:23 Patient medically screened. kb 13:39 Data reviewed: vital signs, nurses notes. Data interpreted: Pulse oximetry: on room air kb is 98 %. Interpretation: normal. 15:09 ED course: Pt refuses and radiology studies. States "I've had too many and I don't want kb any more radiation exposure.". 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 ED course: Pt educated on diagnostic results, including elevated WBC. Pt still refuses CT scan/x-rays stating he just had x-rays last week and they didn't show anything. Offered pt GI cocktail to help with pain. Pt states "I don't really need that right now, I'd rather another shot of pain medicine." Pt educated that we will try non-narcotic pain management. Pt became upset, saying "if you don't give me what I want I will just come back later." Discussed with ERP. . 10/12 13:24 Order name: Basic Metabolic Panel; Complete Time: 15:39 kb 10/12 13:24 Order name: CBC with Diff; Complete Time: 15:37 kb 10/12 13:24 Order name: Hepatic Function; Complete Time: 15:39 kb 10/12 13:24 Order name: Lipase; Complete Time: 15:39 kb 10/12 15:32 Order name: CBC Smear Scan; Complete Time: 15:37 EDMS 10/12 13:24 Order name: IV Saline Lock; Complete Time: 14:08 kb 10/12 13:24 Order name: Labs collected and sent; Complete Time: 14:08 kb Administered Medications: 14:00 Drug: NS 0.9% 1000 ml Route: IV; Rate: 1000 ml; Site: right forearm; bp 14:00 Drug: Phenergan 12.5 mg Route: IVP; Site: right forearm; bp 15:01 Follow up: Response: Nausea is decreased bp 14:00 Drug: Pepcid 20 mg Route: IVP; Site: right forearm; bp 15:01 Follow up: Response: No adverse reaction bp 14:00 Drug: morphine 4 mg Route: IVP; Site: right forearm; bp 15:01 Follow up: Response: Pain is decreased bp 16:19 Drug: GI Cocktail without - (Maalox Suspension 30 ml, Lidocaine Liquid 2 % 15 ls4 ml) Route: PO; 16:19 Drug: Bentyl 20 mg Route: PO; ls4 Disposition: 10/13 09:16 Co-signature as Attending Physician, César Ayala MD I agree with the assessment and kdr plan of care. Disposition: 10/13/19 15:55 Discharged to Home. Impression: Generalized abdominal pain - chronic, Elevated white blood cell count. - Condition is Stable. - Discharge Instructions: Abdominal Pain, Adult, [id number]. - Prescriptions for Bentyl 20 mg Oral Tablet - take 1 tablet by ORAL route every 6 hours As needed; 20 tablet. Zofran 4 mg Oral Tablet - take 1 tablet by ORAL route every 6 hours As needed; 20 tablet. - Medication Reconciliation Form, Thank You Letter, Antibiotic Education, Prescription Opioid Use, Work release form form. - Follow up: Emergency Department; When: As needed; Reason: Worsening of condition. Follow up: Private Physician; When: 2 - 3 days; Reason: Recheck today's complaints, Continuance of care, Re-evaluation by your physician. Signatures: Dispatcher [employer] EDArlen Erazo, GELACIO-Toni BRIZUELA-Kika Johnston, RN RN César Bond MD MD kdr Peltier, Brian, RN RN bp Eleanor Gomez RN RN ls4 Corrections: (The following items were deleted from the chart) 10/12 15:55 15:55 10/13/2019 15:55 Discharged to Home. Impression: Generalized abdominal pain - kb chronic. Condition is Stable. Forms are Medication Reconciliation Form, Thank You Letter, Antibiotic Education, Prescription Opioid Use. Follow up: Emergency Department; When: As needed; Reason: Worsening of condition. Follow up: Private Physician; When: 2 - 3 days; Reason: Recheck today's complaints, Continuance of care, Re-evaluation by your physician. kb 16:21 15:55 10/13/2019 15:55 Discharged to Home. Impression: Generalized abdominal pain - ls4 chronic; Elevated white blood cell count. Condition is Stable. Forms are Medication Reconciliation Form, Thank You Letter, Antibiotic Education, Prescription Opioid Use. Follow up: Emergency Department; When: As needed; Reason: Worsening of condition. Follow up: Private Physician; When: 2 - 3 days; Reason: Recheck today's complaints, Continuance of care, Re-evaluation by your physician. kb
[2019-10-13] MEDS ORDERED: MAGNE/ALUM HYDROXD 30 ML UCUP ONE (16:09)
[2019-10-13] MEDS ORDERED: DICYCLOMINE HCL 10 MG CAP ONE (16:10)
[2019-10-13] MEDS ORDERED: LIDOCAINE VISCOUS 2% SOLN 15 ML UDC ONE (16:10)
[2019-10-13] MEDS ORDERED: LIDOCAINE 1% MPF 30 ML VIAL ONE (16:10)
[2019-10-13 16:40] VITALS: TEMP 97; O2SAT 98
[2019-10-13 16:41] VITALS: BP 114/95
== END 2019-10-13 16:21 | disposition home or self-care (01) ==
LOC: ER 12:43
DX: D72.829 Elevated white blood cell count, unspecified (principal)
CPT/HCPCS: 85025; 80048; 36415; 80076; 83690; 96375; 96374; 99284; J2550; J7030

== ENCOUNTER 2019-11-23 12:40 | Emergency (ER) | payer BC ==
[2019-11-23] MEDS ORDERED: NA CHLORIDE 0.9% 1,000 ML ONE (13:08)
[2019-11-23] MEDS ORDERED: PROMETHAZINE INJ 25 MG/ML AMP ONE (13:08)
[2019-11-23] MEDS ORDERED: MORPHINE 4 MG/ML SYR ONE ×2 (13:23→15:37)
[2019-11-23 13:38] LABS: Basophils % 0.8 % (0-1.3); Bilirubin Direct 0.1 mg/dL (0-0.2); Bilirubin Total 0.3 mg/dL (0.2-1.0); Hematocrit 47.3 % (39.6-49.0); Lymphocytes % 8.4 % (15.3-44.8); MPV 8.4 fL (7.6-11.3); Potassium 3.6 mmol/L (3.5-5.1); Protein, Total 8.1 g/dL (6.4-8.2); RBC Red Blood Cell Count 5.28 M/uL (4.33-5.43)
--- NOTE | 2019-11-23 13:58 | RAD REPORT ---
EXAM DESCRIPTION: CTAbdomen Pelvis W Contrast - 11/23/2019 1:48 pm CLINICAL HISTORY: Abdominal pain. ABD PAIN COMPARISON: Abdomen Pelvis W Contrast dated 06/17/2019; Abdomen Pelvis W Contrast dated 05/28/2019; Abdomen Pelvis W Contrast dated 04/16/2019; Abdomen Pelvis W Contrast dated 04/08/2019 TECHNIQUE: Biphasic CT imaging of the abdomen and pelvis was performed with 100 ml non-ionic IV cont rast. All CT scans are performed using dose optimization technique as appropriate and may include automated exposure control or mA/KV adjustment according to patient size. FINDINGS: The lung bases are clear. The liver, spleen, pancreas, adrenal glands and kidneys are within normal limits. No bowel obstruction, free air, free fluid or abscess. Sigmoid diverticulosis without diverticulitis. The appendix is normal. No evidence of significant lymphadenopathy. No suspicious bony findings. IMPRESSION: No acute intra-abdominal or pelvic finding.
[2019-11-23] MEDS ORDERED: NA CHLORIDE 0.9% 100 ML IV ONE (14:14)
[2019-11-23] MEDS ORDERED: MEPERIDINE HCL 25 MG/ML SYR ONE (14:17)
[2019-11-23 14:46] LABS: Blood Morphology Comment NOT SEEN (NOT SEEN); Platelet Estimate ADEQ; Urine White Blood Cell Casts OK
--- NOTE | 2019-11-23 15:34 | ER ---
Nurse's Notes [facility] Name: Darrell iWseman Age: 54 yrs Sex: Male : 1965 Arrival Date: 11/23/2019 Time: 12:44 Bed 2 Private MD: Diagnosis: Abdominal and pelvic pain Presentation: 11/22 12:58 Chief complaint: Patient states: abd pain, N/V that began this morning. Pt reports he ss is supposed to have his gall bladder out tomorrow. Hx of gastritis and pancreatitis. Coronavirus screen: Proceed with normal triage. Patient denies a cough. Patient reports shortness of breath or difficulty breathing. Patient denies measured and/or subjective temperature greater than 100.4F prior to today's visit. Patient denies travel on a cruise ship or to a country the [facility] currently lists as an affected area. Patient denies contact with known and/or suspected case of COVID-19. Ebola Screen: Patient denies exposure to infectious person. Patient denies travel to an Ebola-affected area in the 21 days before illness onset. Initial Sepsis Screen: Does the patient meet any 2 criteria? No. Patient's initial sepsis screen is negative. Does the patient have a suspected source of infection? No. Patient's initial sepsis screen is negative. Risk Assessment: Do you want to hurt yourself or someone else? Patient reports no desire to harm self or others. Onset of symptoms was November 23, 2019. 12:58 Method Of Arrival: Ambulatory 12:58 Acuity: ANGLE 3 ss Historical: - Allergies: 13:00 No Known Allergies; ss - PMHx: 13:00 "pin point hole in stomach"; Chronic Pancreatitis; duodenitis; Esophagitis; gastritis; ss hiatal hernia; PUD; - Immunization history:: Adult Immunizations up to date. - Social history:: Smoking status: Patient reports the use of cigarette tobacco products, smokes one-half pack cigarettes per day. Screenin:55 Abuse screen: Denies threats or abuse. Nutritional screening: No deficits noted. em Tuberculosis screening: No symptoms or risk factors identified. Fall Risk None identified. Assessment: 13:00 General: Appears uncomfortable, Behavior is restless. Pain: Complains of pain in em abdomen Pain currently is 10 out of 10 on a pain scale. Neuro: Level of Consciousness is awake, alert, obeys commands, Oriented to person, place, time, situation, Appropriate for age. Respiratory: Airway is patent Respiratory effort is even, unlabored, Respiratory pattern is regular, symmetrical. GI: Abdomen is round non-distended, Bowel sounds present X 4 quads. Abd is soft X 4 quads Abdomen is tender to palpation X 4 quads. Derm: Skin is intact, Skin is diaphoretic, Skin is pink, Skin temperature is cool. Musculoskeletal: Capillary refill < 3 seconds, Range of motion: intact in all extremities. 13:25 Reassessment: Patient appears in no apparent distress at this time. No changes from sv previously documented assessment. Patient and/or family updated on plan of care and expected duration. Pain level reassessed. Patient is alert, oriented x 3, equal unlabored respirations, skin warm/dry/pink. 14:14 Reassessment: Patient appears in no apparent distress at this time. No changes from sv previously documented assessment. Patient and/or family updated on plan of care and expected duration. Pain level reassessed. Patient is alert, oriented x 3, equal unlabored respirations, skin warm/dry/pink. 15:10 Reassessment: Went to get the pt's vitals, pt noted to be sleeping with no sign of pain sv or distress noted. Pt woke up and started moving around and moaning. 15:16 Reassessment: Dr Ayala at the bedside. sv 16:00 Reassessment: Patient appears in no apparent distress at this time. Patient and/or em family updated on plan of care and expected duration. Pain level reassessed. Patient is alert, oriented x 3, equal unlabored respirations, skin warm/dry/pink. Vital Signs: 12:58 BP 154 / 97; Pulse 100; Resp 22; Pulse Ox 100% on R/A; Weight 95.25 kg; Height 5 ft. 11 ss in. (180.34 cm); Pain 7/10; 15:10 BP 162 / 93; Pulse 85; Resp 18; Pulse Ox 98% ; sv 16:00 BP 158 / 87; Pulse 79; Resp 18; Pulse Ox 98% on R/A; Pain 10/10; em 12:58 Body Mass Index 29.29 (95.25 kg, 180.34 cm) ED Course: 12:44 Patient arrived in ED. mr 12:48 César Ayala MD is Attending Physician. kdr 12:55 Patient has correct armband on for positive identification. Placed in gown. Bed in low em position. Call light in reach. Side rails up X2. Pulse ox on. NIBP on. 12:57 Jairo Ferrari, RN is Primary Nurse. em 13:00 Triage completed. ss 13:00 Arm band placed on right wrist. ss 13:00 Initial lab(s) drawn, by me, sent to lab. Inserted saline lock: 20 gauge in right em antecubital area, using aseptic technique. Blood collected. 13:48 CT Abd/Pelvis - IV Contrast Only In Process Unspecified. EDMS 15:33 Tommy Bueno MD is Referral Physician. kdr 16:28 No provider procedures requiring assistance completed. IV discontinued, intact, em bleeding controlled, No redness/swelling at site. Pressure dressing applied. Administered Medications: 13:07 Drug: NS 0.9% 1000 ml Route: IV; Rate: 1 bolus; Site: right antecubital; em 14:00 Follow up: Response: No adverse reaction; IV Status: Completed infusion; IV Intake: sv 1000ml 13:11 Drug: Phenergan 25 mg Route: IVP; Site: right antecubital; em 13:26 Follow up: Response: No adverse reaction sv 13:25 Drug: morphine 4 mg {Note: rass3.} Route: IVP; Site: right antecubital; sv 14:14 Follow up: Response: No adverse reaction; No change in condition; RASS: Very agitated sv (+3) 14:14 Drug: Demerol 50 mg {Note: rass3.} Route: IVP; Infused Over: 30 mins; Site: right sv antecubital; 14:45 Follow up: Response: No adverse reaction; Marked relief of symptoms; RASS: Light sv sedation (-2) 14:14 Drug: NS 0.9% 100 ml Route: IV; Rate: calculated rate; Site: right antecubital; sv 14:45 Follow up: Response: No adverse reaction; IV Status: Completed infusion; IV Intake: sv 100ml 16:18 Drug: morphine 4 mg Route: IM; Site: left gluteus; em 16:30 Follow up: Response: No adverse reaction; RASS: Restless (+1) sv 16:28 Not Given (Physician Discretion; pt pulled out IV prior to giving ): morphine 4 mg IVP em once; RASS on ADMIN: Combtv4, Very Agttd3, Agttd2, Rstlss1, AlertClm0, Drwsy-1, Lt Sdtn-2, Mod Sdtn-3, Dp Sdtn-4, UnArsble-5 Intake: 14:00 IV: 1000ml; Total: 1000ml. sv 14:45 IV: 100ml; Total: 1100ml. sv Outcome: 15:33 Discharge ordered by . kdr 16:30 Discharged to home ambulatory. em 16:30 Condition: good 16:30 Discharge instructions given to patient, Instructed on discharge instructions, follow up and referral plans. Demonstrated understanding of instructions, follow-up care. 16:38 Patient left the ED. em Signatures: Dispatcher [employer] Kika Flores RN RN sv Rittger, Kevin, MD MD kdr Rivera, Mary mr Munoz, Edgar, RN RN Abigail Franco RN RN
--- NOTE | 2019-11-23 15:34 | EDPHYS ---
Physician Documentation [facility] Name: Darrell Wiseman Age: 54 yrs Sex: Male : 1965 Arrival Date: 11/23/2019 Time: 12:44 Bed 2 Private MD: ED Physician César Ayala HPI: 11/23 10:23 This 54 yrs old Male presents to ER via Ambulatory with complaints of kdr Abdominal Pain, Vomiting. 10:23 The patient presents to the emergency department with nausea, that is moderate, kdr vomiting, that is intermittent, diarrhea, Very minor, abdominal pain, of the epigastric area, right upper quadrant and left upper quadrant. Onset: The symptoms/episode began/occurred gradually, yesterday. Possible causes: The patient has had many episodes of this issues and is scheduled to have his GB out tomorrow. The symptoms are aggravated by nothing. The symptoms are alleviated by nothing. Associated signs and symptoms: Pertinent positives: abdominal pain, nausea, vomiting, Pertinent negatives: anorexia, constipation, diarrhea, dysuria, fever, GI bleeding, hematuria, nausea, vomiting. Severity of symptoms: At their worst the symptoms were incapacitating in the emergency department the symptoms are unchanged. The patient has experienced similar episodes in the past, multiple times, chronically. The patient has been recently seen by a physician: The patient has been recently seen at the [facility] Emergency Department, a couple of weeks ago. Historical: - Allergies: 11/22 13:00 No Known Allergies; ss - PMHx: 13:00 "pin point hole in stomach"; Chronic Pancreatitis; duodenitis; Esophagitis; gastritis; ss hiatal hernia; PUD; - Immunization history:: Adult Immunizations up to date. - Social history:: Smoking status: Patient reports the use of cigarette tobacco products, smokes one-half pack cigarettes per day. ROS: 11/23 10:23 Constitutional: Negative for fever, chills, and weight loss, Eyes: Negative for injury, kdr pain, redness, and discharge, Neck: Negative for injury, pain, and swelling, Cardiovascular: Negative for chest pain, palpitations, and edema, Respiratory: Negative for shortness of breath, cough, wheezing, and pleuritic chest pain, Back: Negative for injury and pain, MS/Extremity: Negative for injury and deformity, Skin: Negative for injury, rash, and discoloration, Neuro: Negative for headache, weakness, numbness, tingling, and seizure activity. Psych: Negative for depression, anxiety, suicide ideation, homicidal ideation, and hallucinations, Allergy/Immunology: Negative for hives, rash, and allergies, Endocrine: Negative for neck swelling, polydipsia, polyuria, polyphagia, and marked weight changes, Hematologic/Lymphatic: Negative for swollen nodes, abnormal bleeding, and unusual bruising. Abdomen/GI: Positive for abdominal pain, nausea and vomiting, abdominal cramps, Negative for black/tarry stool, rectal pain, rectal bleeding, bowel incontinence, flatulence, acute changes. Exam: 10:28 Constitutional: This is a well developed, well nourished patient who is awake, alert, kdr and in no moderate to sever distress. Vital Signs: 11/22 12:58 BP 154 / 97; Pulse 100; Resp 22; Pulse Ox 100% on R/A; Weight 95.25 kg; Height 5 ft. 11 ss in. (180.34 cm); Pain 7/10; 15:10 BP 162 / 93; Pulse 85; Resp 18; Pulse Ox 98% ; sv 16:00 BP 158 / 87; Pulse 79; Resp 18; Pulse Ox 98% on R/A; Pain 10/10; em 12:58 Body Mass Index 29.29 (95.25 kg, 180.34 cm) ss MDM: 15:33 Patient medically screened. kdr 11/23 10:23 Data reviewed: vital signs, nurses notes, lab test result(s), radiologic studies. kdr Counseling: I had a detailed discussion with the patient and/or guardian regarding: the historical points, exam findings, and any diagnostic results supporting the discharge/admit diagnosis, lab results, radiology results, the need for outpatient follow up. Physician consultation: Tommy Bueno MD regarding consult, patient's condition, need to evaluate the patient as soon as possible, outpatient follow-up, tomorrow, and will see patient in office, tomorrow. 11/22 12:56 Order name: Basic Metabolic Panel; Complete Time: 14:30 kdr 11/22 12:56 Order name: CBC with Diff kdr 11/22 12:56 Order name: Hepatic Function; Complete Time: 14:30 kdr 11/22 12:56 Order name: Lipase; Complete Time: 14:30 kdr 11/22 13:13 Order name: CT Abd/Pelvis - IV Contrast Only; Complete Time: 14:30 kdr 11/22 14:46 Order name: CBC Smear Scan EDMS 11/22 12:56 Order name: IV Saline Lock; Complete Time: 13:11 kdr 11/22 12:56 Order name: Labs collected and sent; Complete Time: 13:11 kdr Administered Medications: 11/22 13:07 Drug: NS 0.9% 1000 ml Route: IV; Rate: 1 bolus; Site: right antecubital; em 14:00 Follow up: Response: No adverse reaction; IV Status: Completed infusion; IV Intake: sv 1000ml 13:11 Drug: Phenergan 25 mg Route: IVP; Site: right antecubital; em 13:26 Follow up: Response: No adverse reaction sv 13:25 Drug: morphine 4 mg {Note: rass3.} Route: IVP; Site: right antecubital; sv 14:14 Follow up: Response: No adverse reaction; No change in condition; RASS: Very agitated sv (+3) 14:14 Drug: Demerol 50 mg {Note: rass3.} Route: IVP; Infused Over: 30 mins; Site: right sv antecubital; 14:45 Follow up: Response: No adverse reaction; Marked relief of symptoms; RASS: Light sv sedation (-2) 14:14 Drug: NS 0.9% 100 ml Route: IV; Rate: calculated rate; Site: right antecubital; sv 14:45 Follow up: Response: No adverse reaction; IV Status: Completed infusion; IV Intake: sv 100ml 16:18 Drug: morphine 4 mg Route: IM; Site: left gluteus; em 16:30 Follow up: Response: No adverse reaction; RASS: Restless (+1) sv 16:28 Not Given (Physician Discretion; pt pulled out IV prior to giving ): morphine 4 mg IVP em once; RASS on ADMIN: Combtv4, Very Agttd3, Agttd2, Rstlss1, AlertClm0, Drwsy-1, Lt Sdtn-2, Mod Sdtn-3, Dp Sdtn-4, UnArsble-5 Disposition: 11/23/19 15:33 Discharged to Home. Impression: Abdominal and pelvic pain. - Condition is Stable. - Medication Reconciliation Form, Thank You Letter, Antibiotic Education, Prescription Opioid Use form. - Follow up: Private Physician; When: 2 - 3 days; Reason: If symptoms return, Further diagnostic work-up, Recheck today's complaints, Continuance of care, Re-evaluation by your physician. Follow up: Tommy Bueno MD; When: Tomorrow; Reason: If symptoms return, Further diagnostic work-up, Recheck today's complaints, Continuance of care, Re-evaluation by your physician. - Problem is an acute exacerbation. - Symptoms have improved. Signatures: Dispatcher [employer] EDKika Munguia RN RN sv César Ayala MD MD [facility] Jairo Ferrari RN RN em Abigail Franco RN RN ss Corrections: (The following items were deleted from the chart) 16:38 15:33 11/23/2019 15:33 Discharged to Home. Impression: Abdominal and pelvic pain. em Condition is Stable. Forms are Medication Reconciliation Form, Thank You Letter, Antibiotic Education, Prescription Opioid Use. Follow up: Private Physician; When: 2 - 3 days; Reason: If symptoms return, Further diagnostic work-up, Recheck today's complaints, Continuance of care, Re-evaluation by your physician. Follow up: Tommy Bueno; When: Tomorrow; Reason: If symptoms return, Further diagnostic work-up, Recheck today's complaints, Continuance of care, Re-evaluation by your physician. Problem is an acute exacerbation. Symptoms have improved. kdr
--- OUTSIDE RECORDS SUMMARY | 2019-11-23 16:36 | XMS REPORT | Continuity of Care Document ---
:1965 Author Organization [facility] t Address [facility] [address] [place] [id number] Care Team Providers Name Role Phone Unavailable Unavailable Unavailable Problems This patient has no known problems. Allergies, Adverse Reactions, Alerts This patient has no known allergies or adverse reactions. Medications This patient has no known medications. Procedures This patient has no known procedures. Results This patient has no known results.
[2019-11-23 17:16] VITALS: BP 158/87; O2SAT 98
== END 2019-11-23 16:38 | disposition home or self-care (01) ==
LOC: ER 12:40
DX: R10.2 Pelvic and perineal pain (principal); F17.210 Nicotine dependence, cigarettes, uncomplicated
CPT/HCPCS: 96365; 96361; 85025; 80048; 36415; 80076; 83690; 74177; 96375; 96372; 99284; Q9967; J2550; J2175; J7030

== ENCOUNTER 2019-11-24 08:27 | Day surgery (SDC) | payer BC ==
[2019-11-24] MEDS ORDERED: CEFOXITIN/SWI 1gm 0 GM/0 ML SYR ONE (09:03)
[2019-11-24] MEDS ORDERED: Ringers Lactate 1,000 ML IV ONE (09:03)
--- OUTSIDE RECORDS SUMMARY | 2019-11-24 09:34 | XMS REPORT | Continuity of Care Document ---
:1965 Author Organization [facility] t Address [address] [place] [id number] Care Team Providers Name Role Phone Unavailable Unavailable Unavailable Problems This patient has no known problems. Allergies, Adverse Reactions, Alerts This patient has no known allergies or adverse reactions. Medications This patient has no known medications. Procedures This patient has no known procedures. Results This patient has no known results.
[2019-11-24 10:12] VITALS: BP 120/72; TEMP 98.5; O2SAT 97
== END 2019-11-24 09:10 | disposition home health service (06) ==
LOC: OR 08:27
PROVIDERS: ATTEND Surgery
DX: K81.1 Chronic cholecystitis (principal); K82.8 Other specified diseases of gallbladder; R11.2 Nausea with vomiting, unspecified; R10.84 Generalized abdominal pain; Z53.8 Procedure and treatment not carried out for other reasons
CPT/HCPCS: U0002; J7120

== ENCOUNTER 2019-11-26 07:43 | Day surgery (SDC) | payer BC ==
--- OUTSIDE RECORDS SUMMARY | 2019-11-26 08:17 | XMS REPORT | Continuity of Care Document ---
:1965 Author Organization [facility] t Address [address] [place] [id number] Care Team Providers Name Role Phone Unavailable Unavailable Unavailable Problems This patient has no known problems. Allergies, Adverse Reactions, Alerts This patient has no known allergies or adverse reactions. Medications This patient has no known medications. Procedures This patient has no known procedures. Results This patient has no known results.
[2019-11-26] MEDS ORDERED: CEFOXITIN/SWI 1gm 1 GM/10 ML SYR ONE (08:42)
[2019-11-26] MEDS ORDERED: Ringers Lactate 1,000 ML IV ONE ×2 (08:42→11:23)
[2019-11-26] MEDS ORDERED: FENTANYL CITR 100 MCG/2 ML ONE ×2 (09:59→10:43)
[2019-11-26] MEDS ORDERED: propofoL 200 MG/20 ML VIAL IV ONE (09:59)
[2019-11-26] MEDS ORDERED: ROCURONIUM 50 MG/5 ML VIAL IV ONE (09:59)
[2019-11-26] MEDS ORDERED: LIDOCAINE 1% MPF 5 ML VIAL ONE (09:59)
[2019-11-26] MEDS ORDERED: MIDAZOLAM HCL 2 MG/2 ML INJ ONE (10:00)
[2019-11-26] MEDS ORDERED: BUPIVACA 0.25%/EPI 0.0005%/PF 30 ML VIAL IJ ONE ×2 (10:26)
[2019-11-26] MEDS ORDERED: dexAMETHasone 10 MG/ML VIAL ONE (10:35)
[2019-11-26] MEDS ORDERED: KETOROLAC 30 MG/ML INJ ONE (10:35)
[2019-11-26] MEDS ORDERED: ONDANSETRON 4 MG/2 ML VIAL ONE (10:43)
[2019-11-26] MEDS ORDERED: GLYCOPYRROLATE 0.2 MG/ML SYR ONE ×3 (11:03→11:12)
--- NOTE | 2019-11-26 11:03 | P.OP ---
Preoperative diagnosis: Bilary Dyskinesia, Chronic Cholecystitis Postoperative diagnosis: Bilary Dyskinesia, Chronic Cholecystitis Primary procedure: Laparoscopic Cholecystectomy Anesthesia: GETA + Local Estimated blood loss: <10cc Specimen: Gallbladder Findings: Distended Gallbladder Complications: None Transferred to: Recovery Room Condition: Good
[2019-11-26] MEDS ORDERED: NEOSTIGMINE 1 MG/ML -5 ML ONE (11:11)
[2019-11-26] MEDS: HYDROMORPHONE HCL 2 MG/ML inj ONE ×4 (11:26→11:45)
--- NOTE | 2019-11-26 11:54 | OP ---
Date of Procedure: 11/26/2019 Surgeon: Tommy Bueno MD, Postoperative Diagnosis: Biliary dyskinesia/chronic cholecystitis. Postoperative Diagnosis: Biliary dyskinesia/chronic cholecystitis. Procedure Performed: Laparoscopic cholecystectomy. Anesthesia: General endotracheal plus local with 0.25% Marcaine with epinephrine. Estimated Blood Loss: Less than 10 mL. Specimen: Gallbladder. Findings: Distended gallbladder. Complications: None. Disposition: Transferred to the recovery room in good condition. Procedure In Detail: After informed was obtained, patient was brought to the operating room, prepped and draped in usual sterile fashion. After adequate anesthesia was achieved, a supraumbilical area was anesthetized with 0.25% Marcaine, sharply incised and a 5 mm trocar was introduced in the abdomen without evidence of complication. Insufflation was obtained to 15 mmHg at this time. There was no injury to vital structures upon entry into the abdomen. Two additional trocars were chosen, 1 in the epigastrium, 1 in the right upper quadrant. This was similarly anesthetized, sharply incised. A 5 mm trocar was introduced in the abdomen without evidence of complication. Patient was positioned in head up right-side up position. The umbilical trocar was upsized to a 12 mm under direct visualizati on without evidence of complication and ratcheted grasper used to grasp the patient's gallbladder, pl aced towards the patient's right shoulder, dissection continued down to identify the cystic duct and cystic artery, which were both identified and a critical view of safety of it was obtained at this po int. The 2 structures identified as the cystic duct and cystic artery were both skeletonized, doubly ligated on the proximal side and singly on the distal side with titanium clips using the clip applie r. Then the 2 structures were ligated using Endo René without evidence of complication. There was no leakage, no bleeding from the entire procedure. The gallbladder was removed from the hepatic fos sa without evidence of complication using electrocautery with minimal hemostatic maneuvers required. The gallbladder was then placed in an EndoCatch bag, removed the umbilical trocar, sent off for path ologic examination. The abdomen was then completely re-insufflated and irrigated copiously multiple times until completely clear and suctioned out at this point. The patient was positioned in neutral position. The remainder of the effluent was suctioned out. All clips were found to be in good anato adis position. The umbilical trocar was removed. The umbilical trocar site was closed using a Freeman -Manny suture passer with an 0 Vicryl interrupted fashion. Good approximation of tissues. The ab domen was then completely desufflated under direct visualization without evidence of complication. A ll trocars were removed. All skin incisions were copiously irrigated and closed with a 4-0 Monocryl in a running fashion. Dermabond placed over top. The patient tolerated the procedure well without e vidence of complication, transferred to PACU in good condition. All counts were correct at the end o f the case. TK/MODL Voice ID: [id number] Report ID: [id number]
[2019-11-26 12:23] VITALS: O2SAT 99
[2019-11-26] MEDS ORDERED: HYDROCODONE/APAP 5/325 MG TAB ONE (13:07)
[2019-11-26 14:39] VITALS: BP 120/78; TEMP 97.7
== END 2019-11-26 13:30 | disposition home or self-care (01) ==
LOC: OR 07:43
PROVIDERS: ATTEND Surgery
PROC: 0FT44ZZ Resection of Gallbladder, Percutaneous Endoscopic Approach (ICD-10-PCS; principal; 2019-11-26 10:45)
DX: K80.10 Calculus of gallbladder with chronic cholecystitis without obstruction (principal); K82.8 Other specified diseases of gallbladder; Z11.59 Encounter for screening for other viral diseases; K21.9 Gastro-esophageal reflux disease without esophagitis; R06.83 Snoring; M19.90 Unspecified osteoarthritis, unspecified site; F17.200 Nicotine dependence, unspecified, uncomplicated
CPT/HCPCS: 88304; 47562; J2704; J2250; J1170; J3010 ×2; J1100; J2710; J7120 ×2; J2405

== ENCOUNTER 2022-07-24 05:54 | Emergency (ER) | payer BC ==
--- OUTSIDE RECORDS SUMMARY | 2022-07-24 05:57 | XMS REPORT | Continuity of Care Document ---
:1965 Author Organization [facility] t Address [address] [facility] [address] [place] [address] Care Team Providers Name Role Phone ZAINAB GONZALEZ Attending Clinician Unavailable Payers Payer Name Policy Type Policy Number Effective Date Expiration Date S nestor [facility] [id number] 00:00:00 Problems This patient has no known problems. Allergies, Adverse Reactions, Alerts Allergy Allergy Status Severity Reaction(s) Onset Inactive Treating Comm ents Source Name Type Date Date Clinician NO KNOWN Drug Active [facility] ALLERGIE Class [facility] Medications This patient has no known medications. Procedures This patient has no known procedures. Encounters Start End Encounter Admission Attending Care Care Encounter Source Date/Time Date/Time Type Type Clinicians Facility Department ID 2020-06-16 2020-06-16 Outpatient Rani GONZALEZ [facility] [id number] Univers 08:50:00 08:50:00 ZAINAB [id number] [facility] 2020-06-16 2020-06-16 Outpatient Rani GONZALEZ [facility] [id number] Univers 08:50:00 08:50:00 ZAINAB [facility] 2020-05-25 2020-05-25 Outpatient Rani GONZALEZ [facility] [id number] Univers 11:40:00 11:40:00 ZAINAB [facility] Results This patient has no known results.
[2022-07-24] MEDS ORDERED: ONDANSETRON 4 MG/2 ML VIAL ONE (06:28)
[2022-07-24] MEDS ORDERED: MORPHINE 4 MG/ML SYR ONE (06:28)
[2022-07-24 06:57] LABS: Absolute Lymphocytes (CBC) 1.3 K/uL (0.7-4.9); Lymphocytes % 13.8 % (15.3-44.8); MCV 90.2 fL (80-100); MPV 7.7 fL (7.6-11.3); RBC Red Blood Cell Count 5.21 M/uL (4.33-5.43)
[2022-07-24 07:24] LABS: Albumin 3.7 g/dL (3.4-5.0); Bilirubin Total 0.5 mg/dL (0.2-1.0); Potassium 3.9 mmol/L (3.5-5.1); Protein, Total 7.8 g/dL (6.4-8.2); Troponin High Sensitivity 3.7 pg/mL (<58.9)
[2022-07-24] MEDS ORDERED: LORazepam 2 MG/ML VIAL ONE (07:51)
--- NOTE | 2022-07-24 08:07 | RAD REPORT ---
EXAM DESCRIPTION: Candi Single View3 6:52 am CLINICAL HISTORY: Shortness of breath COMPARISON: 2019 FINDINGS: The lungs appear clear of acute infiltrate. The heart is upper limits normal size IMPRESSION: No acute abnormalities displayed
--- NOTE | 2022-07-24 08:29 | RAD REPORT ---
EXAM DESCRIPTION: CT - Chest For Pe Angio - 07/24/2022 8:00 am CLINICAL HISTORY: Shortness of breath COMPARISON: None. TECHNIQUE: Dynamically enhanced axial 3 mm thick images of the chest were obtained during administra tion of 100 mL Isovue 370 IV contrast. Coronal and oblique reconstruction images were generated and r eviewed. Exam utilizes a protocol for optimal evaluation of pulmonary arterial tree. Maximum intensity projections 3D imaging was utilized All CT scans are performed using dose optimization technique as appropriate and may include automated exposure control or mA/KV adjustment according to patient size. FINDINGS: A pulmonary embolus is not seen. A thoracic aortic aneurysm is not noted. A pleural effusion is not seen. A pericardial effusion is not seen. A lung consolidation is not present. IMPRESSION: Negative for a pulmonary embolism.
--- NOTE | 2022-07-24 08:32 | RAD REPORT ---
EXAM DESCRIPTION: CT - Abdomen Pelvis W Contrast - 07/24/2022 8:00 am CLINICAL HISTORY: Abdominal pain COMPARISON: 2019 TECHNIQUE: Computed axial tomography of the abdomen pelvis was obtained. 100 cc Isovue-300 was admin istered intravenously. Oral contrast was not requested which limits evaluation of bowel and appendix All CT scans are performed using dose optimization technique as appropriate and may include automated exposure control or mA/KV adjustment according to patient size. FINDINGS: Fatty liver. Cholecystectomy Spleen, pancreas, adrenal and kidneys appear unremarkable. There is no evidence of diverticulitis. Normal appendix Small umbilical hernia IMPRESSION: No acute abnormality is displayed.
[2022-07-24] MEDS ORDERED: PANTOPRAZOLE 40 MG INJ ONE (08:37)
[2022-07-24] MEDS ORDERED: NA CHLORIDE 0.9% 1,000 ML ONE (08:37)
--- NOTE | 2022-07-24 08:51 | EDPHYS ---
Physician Documentation [facility] Name: Darrell Wiseman Age: 57 yrs Sex: Male : 1965 Arrival Date: 07/24/2022 Time: 05:56 Bed 16 Private MD: ED Physician Jacques Das HPI: 07/24 06:30 This 57 yrs old Male presents to ER via Ambulatory with complaints of rt Breathing Difficulty, Abdominal Pain. 06:30 Patient with prior history of abdominal pain presents to the ED with about 24 hours of rt diffuse abdominal pain associated with bloating. Patient has associated cough, shortness of breath. He reports nausea without vomiting. Patient denies other acute complaints at this time. He states that this is not similar to prior episodes of abdominal pain. Symptoms are moderate severity, no other aggravating or elevating factors.. Historical: - Allergies: 06:09 No Known Allergies; aa9 - Home Meds: 06:09 None [Active]; aa9 - PMHx: 06:09 "pin point hole in stomach"; Chronic Pancreatitis; duodenitis; Esophagitis; gastritis; aa9 hiatal hernia; PUD; - PSHx: 06:09 Cholecystectomy; aa9 - Immunization history:: Client reports receiving the 2nd dose of the Covid vaccine. - Social history:: Smoking status: Patient reports the use of cigarette tobacco products, 1 pack per week. - Family history:: not pertinent. ROS: 06:30 Constitutional: Negative for fever, chills, and weight loss, Eyes: Negative for injury, rt pain, redness, and discharge, Cardiovascular: Negative for chest pain, palpitations, and edema, MS/Extremity: Negative for injury and deformity, Skin: Negative for injury, rash, and discoloration, Neuro: Negative for headache, weakness, numbness, tingling, and seizure, Psych: Negative for depression, anxiety, suicide ideation, homicidal ideation, and hallucinations. 06:30 Respiratory: Positive for cough, shortness of breath. 06:30 Abdomen/GI: Positive for abdominal pain, nausea. Exam: 06:30 Constitutional: This is a well developed, well nourished patient who is awake, alert, rt and in no acute distress. Head/Face: Normocephalic, atraumatic. Chest/axilla: Normal chest wall appearance and motion. Nontender with no deformity. No lesions are appreciated. Cardiovascular: Regular rate and rhythm with a normal S1 and S2. No gallops, murmurs, or rubs. Normal PMI, no JVD. No pulse deficits. Respiratory: Lungs have equal breath sounds bilaterally, clear to auscultation and percussion. No rales, rhonchi or wheezes noted. No increased work of breathing, no retractions or nasal flaring. Skin: Warm, dry with normal turgor. Normal color with no rashes, no lesions, and no evidence of cellulitis. MS/ Extremity: Pulses equal, no cyanosis. Neurovascular intact. Full, normal range of motion. Neuro: Awake and alert, GCS 15, oriented to person, place, time, and situation. Cranial nerves II-XII grossly intact. Motor strength 5/5 in all extremities. Sensory grossly intact. Cerebellar exam normal. Normal gait. Psych: Awake, alert, with orientation to person, place and time. Behavior, mood, and affect are within normal limits. 06:30 ECG was reviewed by the Attending Physician. 06:30 Abdomen/GI: Tenderness with moderate distention diffusely, no rebound, guarding. Vital Signs: 06:07 BP 125 / 89; Pulse 62; Resp 13 S; Temp 98.1(O); Pulse Ox 98% on R/A; Weight 111.13 kg aa9 (R); Height 5 ft. 9 in. (175.26 cm) (R); Pain 9/10; 06:45 BP 136 / 91; Pulse 62; Resp 16 S; Pulse Ox 97% on R/A; aa9 06:07 Body Mass Index 36.18 (111.13 kg, 175.26 cm) aa9 MDM: 06:10 Patient medically screened. rt 08:24 Differential diagnosis: CHF exacerbation, Chronic Obstructive Pulmonary Disease roland Myocardial Infarction pneumonia, Pneumothorax pulmonary edema, Pulmonary Embolism reactive airway disease. Antibiotic administration: Not indicated. Immunization status: Influenza vaccine: within last 5 years. Data reviewed: vital signs, EMS record, lab test result(s), EKG, radiologic studies, CT scan. Consideration of Admission/Observation Escalation of care including admission/observation considered. I considered the following discharge prescriptions or medication management in the emergency department Medications were administered in the Emergency Department. See MAR. Independent interpretation of the following test(s) in the Emergency Department EKG: See my EKG interpretation above X-Ray: My interpretation is cxr neg. Test considered but Not performed: MRI: mri thorax, abd. Historians other than the Patient: Spouse/Significant Other: . 07/24 06:18 Order name: CBC with Diff rt 07/24 06:18 Order name: CMP rt 07/24 06:18 Order name: Lipase rt 07/24 06:18 Order name: Troponin High Sensitivity rt 07/24 06:18 Order name: BNP rt 07/24 06:18 Order name: EKG; Complete Time: 06:19 rt 07/24 06:18 Order name: EKG - Nurse/Tech; Complete Time: 06:31 rt 07/24 06:18 Order name: CT Abd/Pelvis - IV Contrast Only rt 07/24 06:18 Order name: Chest Single View XRAY rt 07/24 07:03 Order name: CBC with Automated Diff; Complete Time: 07:10 EDMS 07/24 07:24 Order name: Comprehensive Metabolic Panel; Complete Time: 07:25 EDMS 07/24 07:24 Order name: Troponin High Sensitivity; Complete Time: 07:25 EDMS 07/24 07:24 Order name: NT PRO-BNP; Complete Time: 07:25 EDMS 07/24 07:24 Order name: Lipase; Complete Time: 07:25 EDMS 07/24 07:28 Order name: CT Chest For PE Angio roland 07/24 08:08 Order name: RAD; Complete Time: 08:12 EDMS 07/24 08:29 Order name: CT; Complete Time: 08:50 EDMS 07/24 08:33 Order name: CT; Complete Time: 08:50 EDMS EC:30 Rate is 57 beats/min. Rhythm is regular, Sinus bradycardia with No ectopy. Left axis rt deviation noted. AK interval is normal. QRS interval is normal. QT interval is normal. No Q waves. T waves are Normal. No ST changes noted. Administered Medications: 06:38 Drug: morphine 4 mg Route: IVP; Infused Over: 4 mins; Site: left antecubital; kd3 09:17 Follow up: Response: No adverse reaction; Pain is decreased ap3 06:38 Drug: Zofran (Ondansetron) 4 mg Route: IVP; Site: left antecubital; kd3 09:17 Follow up: Response: No adverse reaction; Nausea is decreased ap3 07:28 CANCELLED (Duplicate Order): Pepcid (famotidine) 20 mg IVP once; dilute with 10 mL 0.9% roland NaCl; give over 2 minutes 07:53 Drug: Ativan (LORazepam) 1 mg Route: IVP; Site: left antecubital; ap3 09:17 Follow up: Response: No adverse reaction; Anxiety decreased ap3 09:17 Drug: NS 0.9% 1000 ml Route: IV; Rate: 1 bolus; Site: left antecubital; ap3 09:26 Follow up: IV Status: Order to discontinue infusion; IV Intake: 200ml ap3 09:17 Drug: ProTONIX (pantoprazole) 40 mg Route: IVP; Site: left antecubital; ap3 09:26 Follow up: Response: No adverse reaction ap3 09:17 Not Given (Other Intervention Used): Ativan (LORazepam) 1 mg IVP once ap3 Disposition Summary: 07/24/22 08:50 Discharge Ordered Location: Home roland Problem: new roland Symptoms: have improved roland Condition: Stable roland Diagnosis - Abdominal tenderness roland - Dyspnea roland - Functional dyspepsia roland Followup: roland - With: Private Physician - When: 2 - 3 days - Reason: Recheck today's complaints, Continuance of care, Re-evaluation by your physician Followup: roland - With: - When: 2 - 3 days - Reason: Recheck today's complaints, Continuance of care, Re-evaluation by your physician Discharge Instructions: - Discharge Summary Sheet roland - Abdominal Pain, Adult roland - Shortness of Breath, Adult roland - Shortness of Breath, Adult, [id number] roland - Abdominal Pain, Adult, [id number] roland - Chronic Pancreatitis roland - Pancreatitis Eating Plan roland Forms: - Medication Reconciliation Form roland - Thank You Letter roland - Antibiotic Education roland - Prescription Opioid Use roland Prescriptions: - Protonix 40 mg Oral Tablet - take 1 tablet by ORAL route once daily; 30 tablet; Refills: 0, Product roland Selection Permitted - Zofran 4 mg Oral Tablet - take 1 tablet by ORAL route every 12 hours As needed; 20 tablet; Refills: 0, roland Product Selection Permitted - dicyclomine 20 mg Oral Tablet - take 1 tablet by ORAL route 4 times per day; 28 tablet; Refills: 0, Product roland Selection Permitted Signatures: Dispatcher [employer] EDJacques Acevedo MD MD cha Prokisch, Amanda, RN RN ap3 Zoë Arnold RN RN kd3 Lisa Wylie RN RN aa9 Roberto Garner MD MD rt Corrections: (The following items were deleted from the chart) 07:28 07:27 Pepcid (famotidine) 20 mg IVP once; dilute with 10 mL 0.9% NaCl; give over 2 roland minutes ordered. roland
--- NOTE | 2022-07-24 08:51 | ER ---
Nurse's Notes [facility] Name: Darrell Wiseman Age: 57 yrs Sex: Male : 1965 Arrival Date: 07/24/2022 Time: 05:56 Bed 16 Private MD: Diagnosis: Abdominal tenderness;Dyspnea;Functional dyspepsia Presentation: 07/24 06:07 Chief complaint: Patient states: I am having upper abdominal pain and like I feel aa9 bloated, viri been dealing with this for years now, I woke up at 3 AM and I couldn't breath very well, but right now my abdomen just feels like a lot of pressure. Coronavirus screen: Vaccine status: Patient reports receiving the 2nd dose of the covid vaccine. Ebola Screen: No symptoms or risks identified at this time. Initial Sepsis Screen: Does the patient meet any 2 criteria? No. Patient's initial sepsis screen is negative. Does the patient have a suspected source of infection? No. Patient's initial sepsis screen is negative. Risk Assessment: Do you want to hurt yourself or someone else? Patient reports no desire to harm self or others. Onset of symptoms was July 24, 2022. 06:07 Method Of Arrival: Ambulatory aa9 06:07 Acuity: ANGLE 3 aa9 Triage Assessment: 06:10 General: Appears uncomfortable, obese, Behavior is cooperative, anxious. Pain: aa9 Complains of pain in right upper quadrant and left upper quadrant Pain currently is 9 out of 10 on a pain scale. Noted to be grimacing, guarding, moaning. Neuro: Level of Consciousness is awake, alert, obeys commands, Oriented to person, place, time, situation, Gm Video are equal bilaterally. Cardiovascular: Patient's skin is warm and dry. Respiratory: Reports shortness of breath Onset: The symptoms/episode began/occurred suddenly, the patient has mild shortness of breath. GI: Abdomen is obese, Abd is soft X 4 quads Abd is non tender X 4 quads Reports upper abdominal pain, Patient currently denies diarrhea, nausea, vomiting. : No signs and/or symptoms were reported regarding the genitourinary system. Derm: Skin is intact, is healthy with good turgor. Musculoskeletal: No signs and/or symptoms reported regarding the musculoskeletal system. Historical: - Allergies: 06:09 No Known Allergies; aa9 - Home Meds: 06:09 None [Active]; aa9 - PMHx: 06:09 "pin point hole in stomach"; Chronic Pancreatitis; duodenitis; Esophagitis; gastritis; aa9 hiatal hernia; PUD; - PSHx: 06:09 Cholecystectomy; aa9 - Immunization history:: Client reports receiving the 2nd dose of the Covid vaccine. - Social history:: Smoking status: Patient reports the use of cigarette tobacco products, 1 pack per week. - Family history:: not pertinent. Screenin:11 Abuse screen: Denies threats or abuse. Denies injuries from another. Nutritional aa9 screening: No deficits noted. Tuberculosis screening: No symptoms or risk factors identified. 09:25 [facility] ED Fall Risk Assessment (Adult) History of falling in the last 3 months, ap3 including since admission No falls in past 3 months (0 pts). Assessment: 06:11 Respiratory: Airway is patent Respiratory effort is even, unlabored. aa9 06:45 Reassessment: Patient appears in no apparent distress at this time. Reassessment: aa9 Patient is alert, oriented x 3, equal unlabored respirations, skin warm/dry/pink. Cardiovascular: Rhythm is regular. Respiratory: Airway is patent Respiratory effort is even, unlabored. 09:25 Respiratory: Breath sounds are clear. ap3 Vital Signs: 06:07 BP 125 / 89; Pulse 62; Resp 13 S; Temp 98.1(O); Pulse Ox 98% on R/A; Weight 111.13 kg aa9 (R); Height 5 ft. 9 in. (175.26 cm) (R); Pain 9/10; 06:45 BP 136 / 91; Pulse 62; Resp 16 S; Pulse Ox 97% on R/A; aa9 06:07 Body Mass Index 36.18 (111.13 kg, 175.26 cm) aa9 ED Course: 05:56 Patient arrived in ED. ja2 06:09 Roberto Garner MD is Attending Physician. rt 06:09 Triage completed. aa9 06:11 Arm band placed on. aa9 06:11 Patient has correct armband on for positive identification. Placed in gown. Bed in low aa9 position. Call light in reach. Side rails up X2. Pulse ox on. NIBP on. 06:30 Missed attempt(s): 20 gauge in left antecubital area. Bleeding controlled, band aid aa9 applied, catheter tip intact. 06:38 Inserted saline lock: 20 gauge in left antecubital area, using aseptic technique. Blood kd3 collected. 06:41 BNP Sent. aa9 06:41 Lipase Sent. aa9 06:41 Troponin High Sensitivity Sent. aa9 06:41 CMP Sent. aa9 06:41 CBC with Diff Sent. aa9 07:10 Attending Physician role handed off by Roberto Garner MD roland 07:10 Jacques Das MD is Attending Physician. roland 08:26 Uyen Salgado RN is Primary Nurse. ap3 08:50 Dora Viveros MD is Referral Physician. roland 09:25 No provider procedures requiring assistance completed. IV discontinued, intact, ap3 bleeding controlled, No redness/swelling at site. Pressure dressing applied. Administered Medications: 06:38 Drug: morphine 4 mg Route: IVP; Infused Over: 4 mins; Site: left antecubital; kd3 09:17 Follow up: Response: No adverse reaction; Pain is decreased ap3 06:38 Drug: Zofran (Ondansetron) 4 mg Route: IVP; Site: left antecubital; kd3 09:17 Follow up: Response: No adverse reaction; Nausea is decreased ap3 07:28 CANCELLED (Duplicate Order): Pepcid (famotidine) 20 mg IVP once; dilute with 10 mL 0.9% roland NaCl; give over 2 minutes 07:53 Drug: Ativan (LORazepam) 1 mg Route: IVP; Site: left antecubital; ap3 09:17 Follow up: Response: No adverse reaction; Anxiety decreased ap3 09:17 Drug: NS 0.9% 1000 ml Route: IV; Rate: 1 bolus; Site: left antecubital; ap3 09:26 Follow up: IV Status: Order to discontinue infusion; IV Intake: 200ml ap3 09:17 Drug: ProTONIX (pantoprazole) 40 mg Route: IVP; Site: left antecubital; ap3 09:26 Follow up: Response: No adverse reaction ap3 09:17 Not Given (Other Intervention Used): Ativan (LORazepam) 1 mg IVP once ap3 Medication: :26 VIS not applicable for this client. ap3 Intake: 09:26 IV: 200ml; Total: 200ml. ap3 Outcome: 08:50 Discharge ordered by . roland :25 Discharged to home ambulatory, with family. ap3 :25 Condition: good :25 Discharge instructions given to patient, family, Instructed on discharge instructions, follow up and referral plans. medication usage, Demonstrated understanding of instructions, follow-up care, medications, Prescriptions given X 3. 09:28 Patient left the ED. ap3 Signatures: Jacques Das MD MD cha Prokisch, Amanda RN RN ap3 Marah Rodriguez Kyli, RN RN kd3 Lisa Wylie RN RN aa9 Roberto Garner MD MD rt
[2022-07-24 10:01] VITALS: TEMP 98.1
[2022-07-24 10:02] VITALS: BP 136/91; O2SAT 97
--- NOTE | 2022-07-24 11:14 | EKG ---
Test Date: 2022-07-24 Test Time: 06:29:50 Rand Maker: ANAYA MEASUREMENT RESULTS: Intervals: Rate: 57 OK: 164 QRSD: 108 QT: 416 QTc: 404 Oxford: P: 20 OK: 164 QRS: -56 T: 49 INTERPRETIVE STATEMENTS: Sinus bradycardia Left axis deviation Pulmonary disease pattern Abnormal ECG Compared to ECG 10/05/2019 14:14:10 Sinus rhythm no longer present Sinus arrhythmia no longer present Electronically Signed On 07-24-22 11:13:30 FIXED INCOME PORTF[employer] MANAGER by Alexander Solorzano
== END 2022-07-24 09:28 | disposition home or self-care (01) ==
LOC: ER 05:54
DX: K30 Functional dyspepsia (principal); R06.00 Dyspnea, unspecified; F17.210 Nicotine dependence, cigarettes, uncomplicated
CPT/HCPCS: 93005; 85025; 36415; 84484; 83690; 80053; 83880; 71275; 74177; 71045; Q9967; C9113; J7030; J2405

== ENCOUNTER 2022-07-29 05:13 | Emergency (ER) | payer BC ==
--- OUTSIDE RECORDS SUMMARY | 2022-07-29 05:16 | XMS REPORT | Continuity of Care Document ---
:1965 Author Organization [facility] t Address [address] [place] [address] Care Team Providers Name Role Phone ZAINAB GONZALEZ Attending Clinician Unavailable Payers Payer Name Policy Type Policy Number Effective Date Expiration Date S nestor [facility] [id number] 2018 00:00:00 Problems This patient has no known problems. Allergies, Adverse Reactions, Alerts Allergy Allergy Status Severity Reaction(s) Onset Inactive Treating Comm ents Source Name Type Date Date Clinician NO KNOWN Drug Active Univers ALLERGIE Class [facility] [place] [place] Medications This patient has no known medications. Procedures This patient has no known procedures. Encounters Start End Encounter Admission Attending Care Care Encounter Source Date/Time Date/Time Type Type Clinicians Facility Department ID 2020-06-16 2020-06-16 Outpatient Rani GONZALEZ [facility] [place] [id number] Univers 08:50:00 08:50:[id number] [facility] 2020-06-16 2020-06-16 Outpatient Rani GONZALEZ [facility] [place] [id number] Univers 08:50:00 08:50:[address] [facility] 2020-05-25 2020-05-25 Outpatient Rani GONZALEZ [facility] [place] [id number] Univers 11:40:00 11:40:[address] [facility] Results This patient has no known results.
[2022-07-29] MEDS ORDERED: LORAZEPAM 1 MG TABLET ONE (05:50)
[2022-07-29] MEDS ORDERED: ZIPRASIDONE MESYLA 20 MG/VIAL IM ONE (05:59)
[2022-07-29] MEDS ORDERED: WATER FOR INJ,STERILE 10 ML ONE (05:59)
[2022-07-29 06:13] LABS: Absolute Lymphocytes (CBC) 1.6 K/uL (0.7-4.9); Hematocrit 48.9 % (39.6-49.0); MCV 89.6 fL (80-100); MPV 7.8 fL (7.6-11.3); RBC Red Blood Cell Count 5.46 M/uL (4.33-5.43)
[2022-07-29] MEDS ORDERED: METOCLOPRAMIDE 10 MG/2mL INJ ONE (06:28)
[2022-07-29] MEDS ORDERED: KETOROLAC 30 MG/ML INJ ONE (06:29)
[2022-07-29 06:31] LABS: Albumin 3.9 g/dL (3.4-5.0); Bilirubin Total 0.8 mg/dL (0.2-1.0); Potassium 3.7 mmol/L (3.5-5.1); Protein, Total 7.9 g/dL (6.4-8.2)
[2022-07-29 06:59] LABS: Urine Blood 1+ (Negative); Urine Glucose Negative (Negative); Urine Protein 1+ (Negative); Urine Specific Gravity >=1.030 (1.005-1.030); Urine pH 5.5 (5.0-7.0)
[2022-07-29 07:07] LABS: Urine Bacteria None Seen /HPF (<20); Urine Mucus 4+ /HPF (None Seen); Urine RBC <5 /HPF (None Seen)
--- NOTE | 2022-07-29 07:20 | ER ---
Nurse's Notes [facility] Name: Darrell Wiseman Age: 57 yrs Sex: Male : 1965 Arrival Date: 07/29/2022 Time: 05:19 Bed 6 Private MD: Diagnosis: Panic disorder [episodic paroxysmal anxiety] without agoraphobia;Anxiety disorder, unspecified;Acute anxiety attack, acute stress response, generalized pain Presentation: 07/29 05:28 Chief complaint: Spouse and/or significant other states: "he is having shortness of as6 breath from a panic attack". Coronavirus screen: At this time, the client does not indicate any symptoms associated with coronavirus-19. Ebola Screen: No symptoms or risks identified at this time. Initial Sepsis Screen: Does the patient meet any 2 criteria? No. Patient's initial sepsis screen is negative. Does the patient have a suspected source of infection? No. Patient's initial sepsis screen is negative. Risk Assessment: Do you want to hurt yourself or someone else? Patient reports no desire to harm self or others. Onset of symptoms was July 24, 2022. 05:28 Acuity: ANGLE 3 as6 05:28 Method Of Arrival: Ambulatory as6 Historical: - Allergies: 05:27 No Known Allergies; as6 - PMHx: 05:27 "pin point hole in stomach"; Chronic Pancreatitis; duodenitis; Esophagitis; gastritis; as6 hiatal hernia; PUD; - PSHx: 05:27 Cholecystectomy; as6 - Immunization history:: Client reports receiving the 2nd dose of the Covid vaccine, pfizer. - Social history:: Smoking status: Patient/guardian denies using tobacco. - Family history:: not pertinent. Screenin:34 [facility] ED Fall Risk Assessment (Adult) Score/Fall Risk Level 0 - 2 = Low Risk. Abuse as6 screen: Denies threats or abuse. Denies injuries from another. Nutritional screening: No deficits noted. Tuberculosis screening: No symptoms or risk factors identified. Assessment: 05:33 General: Appears uncomfortable, Behavior is anxious, restless. Pain: Complains of pain as6 in abdomen Noted to be moaning, restless. Respiratory: Reports shortness of breath. GI: Reports lower abdominal pain, upper abdominal pain. 07:00 Reassessment: 57YO P/W ANXIETY, FREQUENT H/O SAME. RESULTS AND DISPO PENDING. REPORT bp FROM ZOË PATRICK. Vital Signs: 05:28 BP 152 / 105; Pulse 92; Resp 19 S; Temp 98.1(O); Pulse Ox 97% on R/A; Weight 108.86 kg as6 (R); Height 5 ft. 9 in. (175.26 cm) (R); Pain 10/10; 06:38 BP 120 / 82; Pulse 62; Resp 16; Pulse Ox 99% on R/A; kd3 05:28 Body Mass Index 35.44 (108.86 kg, 175.26 cm) as6 ED Course: 05:19 Patient arrived in ED. as6 05:27 Arm band placed on. as6 05:30 Zoë Arnold, RN is Primary Nurse. kd3 05:30 Triage completed. as6 05:30 Placed in gown. Bed in low position. Call light in reach. Side rails up X2. Client as6 placed on continuous cardiac and pulse oximetry monitoring. NIBP monitoring applied. 05:39 Jonny Stein MD is Attending Physician. sp4 06:06 CBC with Diff Sent. kd3 06:06 CMP Sent. kd3 06:06 Lipase Sent. kd3 06:56 Urine Microscopic Only Sent. kd3 07:07 Primary Nurse role handed off by Zoë Arnold, CELINA bp 07:07 Frederick Acevedo, CELINA is Primary Nurse. bp 07:47 No provider procedures requiring assistance completed. IV discontinued, intact, bp bleeding controlled, No redness/swelling at site. Pressure dressing applied. Administered Medications: 05:48 Drug: Ativan (LORazepam) 2 mg Route: PO; kd3 07:48 Follow up: Response: No adverse reaction bp 06:00 Drug: Geodon (ziprasidone) 20 mg Route: IM; Site: left deltoid; as6 07:47 Follow up: Response: No adverse reaction bp 06:30 Drug: Ketorolac 30 mg Route: IVP; Site: right antecubital; kd3 07:47 Follow up: Response: No adverse reaction bp 06:30 Drug: Reglan (metoCLOPramide) 10 mg Route: IVP; Site: right antecubital; kd3 07:47 Follow up: Response: No adverse reaction bp Medication: 05:34 VIS not applicable for this client. as6 Outcome: 07:19 Discharge ordered by . sp4 07:47 Discharged to home ambulatory, with family. bp 07:47 Condition: stable 07:47 Discharge instructions given to patient, Instructed on discharge instructions, follow up and referral plans. medication usage, Demonstrated understanding of instructions, follow-up care, medications, Prescriptions given X 1. 07:48 Patient left the ED. bp Signatures: Frederick Acevedo RN RN bp Izaiah Blandon, RN RN as6 Zoë Arnold RN RN kd3 Jonny Stein MD MD sp4
--- NOTE | 2022-07-29 07:20 | EDPHYS ---
Physician Documentation [facility] Name: Darrell Wiseman Age: 57 yrs Sex: Male : 1965 Arrival Date: 07/29/2022 Time: 05:19 Bed 6 Private MD: ED Physician Jonny Stein HPI: 07/29 05:39 This 57 yrs old Male presents to ER via Ambulatory with complaints of Anxiety. sp4 06:07 57-year-old male with history of chronic pancreatitis and duodenitis and esophagitis sp4 presents with complaint all generalized pain reported this pain all over his body also abdominal pain and anxiety associated with acute agitation. On arrival patient is screaming and writhing around the bed. History is limited on arrival secondary to acute agitation. 06:19 Patient was apparently here on 07/24/2022 and had a full work-up including chest x-ray, sp4 chest x-ray revealed no acute abnormality, CT chest for PE protocol revealed no pulmonary embolus and no lung abnormalities CT abdomen and pelvis revealed no acute intra-abdominal abnormality revealed fatty liver, cholecystectomy, no diverticulitis, normal appendix, small umbilical hernia , patient was discharged with Protonix Zofran and Bentyl prescriptions. Historical: - Allergies: 05:27 No Known Allergies; as6 - PMHx: 05:27 "pin point hole in stomach"; Chronic Pancreatitis; duodenitis; Esophagitis; gastritis; as6 hiatal hernia; PUD; - PSHx: 05:27 Cholecystectomy; as6 - Immunization history:: Client reports receiving the 2nd dose of the Covid vaccine, pfizer. - Social history:: Smoking status: Patient/guardian denies using tobacco. - Family history:: not pertinent. ROS: 06:19 Constitutional: Negative for fever, chills, and weight loss, positive for generalized sp4 body pain Eyes: Negative for injury, pain, redness, and discharge, ENT: Negative for injury, pain, and discharge, Neck: Negative for injury, pain, and swelling, Cardiovascular: Negative for chest pain, palpitations, and edema, Respiratory: Negative for shortness of breath, cough, wheezing, and pleuritic chest pain, Abdomen/GI: Negative for nausea, vomiting, diarrhea, and constipation, positive for diffuse abdominal pain Back: Negative for injury and pain, : Negative for injury, bleeding, discharge, and swelling, MS/Extremity: Negative for injury and deformity, Skin: Negative for injury, rash, and discoloration, Neuro: Negative for headache, weakness, numbness, tingling, and seizure, Psych: Negative for depression, suicide ideation, homicidal ideation, and hallucinations, positive for anxiety and agitation Allergy/Immunology: Negative for hives, rash, and allergies, Endocrine: Negative for neck swelling, polydipsia, polyuria, polyphagia, and marked weight changes, Hematologic/Lymphatic: Negative for swollen nodes, abnormal bleeding, and unusual bruising. Exam: 06:23 Constitutional: This is a well developed, well nourished patient who is awake, patient sp4 is in moderate distress he is screaming and writhing on the stretcher and rocking back and forth. Patient has moderate agitation and appears anxious on exam Head/Face: Normocephalic, atraumatic. Eyes: Pupils equal round and reactive to light, extra-ocular motions intact. Lids and lashes normal. Conjunctiva and sclera are non-icteric and not injected. Cornea within normal limits. Periorbital areas with no swelling, redness, or edema. ENT: Nares patent. No nasal discharge, no septal abnormalities noted. Tympanic membranes are normal and external auditory canals are clear. Oropharynx with no redness, swelling, or masses, exudates, or evidence of obstruction, uvula midline. Mucous membranes moist. Neck: Trachea midline, no thyromegaly or masses palpated, and no cervical lymphadenopathy. Supple, full range of motion without nuchal rigidity, or vertebral point tenderness. No Meningismus. Chest/axilla: Normal chest wall appearance and motion. Nontender with no deformity. No lesions are appreciated. Cardiovascular: Regular rate and rhythm with a normal S1 and S2. No gallops, murmurs, or rubs. Normal PMI, no JVD. No pulse deficits. Respiratory: Lungs have equal breath sounds bilaterally, clear to auscultation and percussion. No rales, rhonchi or wheezes noted. No increased work of breathing, no retractions or nasal flaring. Abdomen/GI: Soft, with normal bowel sounds. No distension or tympany. No guarding or rebound. No evidence of tenderness throughout. Diffusely tender Back: No spinal tenderness. No costovertebral tenderness. Full range of motion. Male : Normal genitalia with no discharge or lesions. Skin: Warm, dry with normal turgor. Normal color with no rashes, no lesions, and no evidence of cellulitis. MS/ Extremity: Pulses equal, no cyanosis. Neurovascular intact. Full, normal range of motion. Neuro: Awake and alert, GCS 15, oriented to person, place, time, and situation. Cranial nerves II-XII grossly intact. Motor strength 5/5 in all extremities. Sensory grossly intact. Cerebellar exam normal. Normal gait. Psych: Awake, alert, Behavior, positive for agitation and anxiety 06:41 ECG was reviewed by the Attending Physician. EKG done at 533, normal sinus rhythm at sp4 the rate of 72, left axis deviation, no ST elevation or depression, no ectopy no signs of acute ischemia, normal intervals Vital Signs: 05:28 BP 152 / 105; Pulse 92; Resp 19 S; Temp 98.1(O); Pulse Ox 97% on R/A; Weight 108.86 kg as6 (R); Height 5 ft. 9 in. (175.26 cm) (R); Pain 10/10; 06:38 BP 120 / 82; Pulse 62; Resp 16; Pulse Ox 99% on R/A; kd3 05:28 Body Mass Index 35.44 (108.86 kg, 175.26 cm) as6 MDM: 05:53 Patient medically screened. sp4 07:15 Differential Diagnosis altered mental status, Acute anxiety, acute abdominal pain, sp4 acute panic attack, acute coronary disease and ACS, esophagitis, duodenitis. Data reviewed: vital signs, old medical records, lab test result(s), EKG. ED course: Patient was given medications for anxiety and he has improved significantly after medication, on review of the prior record from July 24, 2022 patient had a full abdominal work-up including CT abdomen and chest which were negative for any acute abnormality, at the this time repeat CTs not indicate. Patient will be prescribed as needed medication for anxiety to take at home for acute panic attacks and he was advised to seek his primary care doctor for daily anxiety medications. 07/29 05:44 Order name: EKG; Complete Time: 05:45 sp4 07/29 05:44 Order name: EKG - Nurse/Tech; Complete Time: 05:46 sp4 07/29 05:54 Order name: CBC with Diff sp4 07/29 05:54 Order name: CMP sp4 07/29 05:54 Order name: Lipase sp4 07/29 05:54 Order name: Urine Microscopic Only sp4 07/29 05:54 Order name: IV Saline Lock; Complete Time: 06:06 sp4 07/29 05:54 Order name: Labs collected and sent; Complete Time: 06:06 sp4 07/29 06:16 Order name: CBC with Automated Diff; Complete Time: 07:11 EDMS 07/29 06:31 Order name: Comprehensive Metabolic Panel; Complete Time: 07:11 EDMS 07/29 06:31 Order name: Lipase; Complete Time: 07:11 EDMS 07/29 06:59 Order name: Urine Dipstick-Ancillary; Complete Time: 07:11 EDMS 07/29 07:08 Order name: Urine Microscopic Only; Complete Time: 07:11 EDMS EC:41 Rate is 72 beats/min. Rhythm is regular. SC interval is normal. QRS interval is normal. sp4 QT interval is normal. No ST changes noted. Clinical impression: No evidence of ischemia. Interpreted by me. Administered Medications: 05:48 Drug: Ativan (LORazepam) 2 mg Route: PO; kd3 07:48 Follow up: Response: No adverse reaction bp 06:00 Drug: Geodon (ziprasidone) 20 mg Route: IM; Site: left deltoid; as6 07:47 Follow up: Response: No adverse reaction bp 06:30 Drug: Ketorolac 30 mg Route: IVP; Site: right antecubital; kd3 07:47 Follow up: Response: No adverse reaction bp 06:30 Drug: Reglan (metoCLOPramide) 10 mg Route: IVP; Site: right antecubital; kd3 07:47 Follow up: Response: No adverse reaction bp Disposition Summary: 07/29/22 07:19 Discharge Ordered Location: Home sp4 Problem: new sp4 Symptoms: have improved sp4 Condition: Stable sp4 Diagnosis - Panic disorder [episodic paroxysmal anxiety] without agoraphobia sp4 - Anxiety disorder, unspecified sp4 - Acute anxiety attack, acute stress response, generalized pain sp4 Followup: sp4 - With: Private Physician - When: 7 - 10 days - Reason: Re-evaluation by your physician Discharge Instructions: - Discharge Summary Sheet sp4 - Panic Attack sp4 Forms: - Thank You Letter sp4 Prescriptions: - Ativan 2 mg Oral Tablet - take 1 tablet by ORAL route every 8-12 hours As needed PRN anxiety; 12 tablet; sp4 Refills: 0, Product Selection Permitted Signatures: Dispatcher [employer] Izaiah Barnes RN RN as6 Zoë Arnold RN RN kd3 Jonny Stein MD MD sp4 Frederick Acevedo RN bp
[2022-07-29 07:52] VITALS: TEMP 98.1
[2022-07-29 07:54] VITALS: BP 120/82; O2SAT 99
--- NOTE | 2022-07-29 16:37 | EKG ---
Test Date: 2022-07-29 Test Time: 05:33:04 Glass Grinder: HUMZA MEASUREMENT RESULTS: Intervals: Rate: 72 ND: 146 QRSD: 120 QT: 412 QTc: 451 [place]: P: 20 ND: 146 QRS: -64 T: 53 INTERPRETIVE STATEMENTS: Normal sinus rhythm Left axis deviation Pulmonary disease pattern Nonspecific intraventricular conduction delay Nonspecific T wave abnormality Abnormal ECG Compared to ECG 07/24/2022 06:29:50 Intraventricular conduction delay now present T-wave abnormality now present Sinus bradycardia no longer present Electronically Signed On 07-29-22 16:35:36 HIV NURSE by Alexander Solorzano
== END 2022-07-29 07:48 | disposition home or self-care (01) ==
LOC: ER 05:13
DX: F41.0 Panic disorder [episodic paroxysmal anxiety] (principal); F41.1 Generalized anxiety disorder; F43.0 Acute stress reaction; R52 Pain, unspecified
CPT/HCPCS: 93005; 85025; 36415; 83690; 80053; 96375; 96372; 96374; 99283; J3486; J2765; 81003; 81015

== ENCOUNTER 2022-08-07 08:45 | Emergency (ER) | payer BC ==
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
[2022-08-07] MEDS ORDERED: METOCLOPRAMIDE 10 MG/2mL INJ ONE (09:31)
[2022-08-07] MEDS ORDERED: LORazepam 2 MG/ML VIAL ONE (09:31)
[2022-08-07] MEDS ORDERED: DIPHENHYDRAMINE 50 MG/ML VIAL ONE (09:31)
[2022-08-07] MEDS ORDERED: NA CHLORIDE 0.9% 1,000 ML ONE (09:32)
[2022-08-07] MEDS ORDERED: MORPHINE 4 MG/ML SYR ONE (09:32)
[2022-08-07] MEDS ORDERED: FAMOTIDINE 20 MG/2 ML VIAL IV ONE (09:32)
[2022-08-07 10:02] LABS: Absolute Lymphocytes (CBC) 1.3 K/uL (0.7-4.9); Bilirubin Total 0.6 mg/dL (0.2-1.0); Hematocrit 48.5 % (39.6-49.0); Lymphocytes % 18.4 % (15.3-44.8); MCV 89.8 fL (80-100); MPV 8.1 fL (7.6-11.3); Potassium 3.8 mmol/L (3.5-5.1); Protein, Total 7.7 g/dL (6.4-8.2)
--- NOTE | 2022-08-07 13:19 | ER ---
Nurse's Notes [facility] Name: Darrell Wiseman Age: 57 yrs Sex: Male : 1965 Arrival Date: 08/07/2022 Time: 08:49 Bed 8 Private MD: Diagnosis: Abdominal pain, Generalized Presentation: 08/07 09:15 Chief complaint: Diffuse abdominal pain and nausea z 2 weeks. Coronavirus screen: At hb this time, the client does not indicate any symptoms associated with coronavirus-19. Ebola Screen: No symptoms or risks identified at this time. Initial Sepsis Screen: Does the patient meet any 2 criteria? No. Patient's initial sepsis screen is negative. Does the patient have a suspected source of infection? No. Patient's initial sepsis screen is negative. Risk Assessment: Do you want to hurt yourself or someone else? Patient reports no desire to harm self or others. Onset of symptoms was July 24, 2022. 09:15 Method Of Arrival: Ambulatory hb 09:15 Acuity: ANGLE 3 hb Triage Assessment: 09:16 General: Appears in no apparent distress. Behavior is calm, cooperative. Pain: Pain hb currently is 10 out of 10 on a pain scale. Quality of pain is described as burning. Neuro: Level of Consciousness is awake, alert, obeys commands, Oriented to person, place, time, situation. Cardiovascular: Patient's skin is warm and dry. Respiratory: Respiratory effort is even, unlabored, Respiratory pattern is regular, symmetrical. GI: Reports lower abdominal pain, upper abdominal pain, nausea. Historical: - Allergies: 09:16 No Known Allergies; hb - PMHx: 09:16 "pin point hole in stomach"; Chronic Pancreatitis; duodenitis; Esophagitis; gastritis; hb hiatal hernia; PUD; - PSHx: 09:16 Cholecystectomy; hb - Immunization history:: Adult Immunizations up to date. - Social history:: Smoking status: Patient denies any tobacco usage or history of. Screenin:18 [facility] ED Fall Risk Assessment (Adult) Score/Fall Risk Level 0 - 2 = Low Risk hb Oriented to surroundings, Maintained a safe environment. Abuse screen: Denies threats or abuse. Denies injuries from another. Nutritional screening: No deficits noted. Tuberculosis screening: No symptoms or risk factors identified. Assessment: 09:18 General: SEE TRIAGE ASSESSMENT. hb 10:46 Reassessment: Patient appears in no apparent distress at this time. Patient and/or hb family updated on plan of care and expected duration. Pain level reassessed. Patient is alert, oriented x 3, equal unlabored respirations, skin warm/dry/pink. 12:02 Reassessment: Patient appears in no apparent distress at this time. Patient and/or hb family updated on plan of care and expected duration. Pain level reassessed. Patient is alert, oriented x 3, equal unlabored respirations, skin warm/dry/pink. Vital Signs: 09:15 BP 148 / 105; Pulse 90; Resp 18; Temp 97.2; Pulse Ox 97% on R/A; Weight 109.32 kg; hb Height 5 ft. 7 in. ; Pain 10/10; 10:46 BP 123 / 76; Pulse 61; Resp 15; Pulse Ox 93% on R/A; hb 12:02 BP 117 / 93; Pulse 67; Resp 16; Pulse Ox 99% on R/A; hb 09:15 Body Mass Index 37.75 (109.32 kg, 170.18 cm) hb 09:15 Pain Scale: Adult hb ED Course: 08:49 Patient arrived in ED. rg4 08:53 Mayito Whitt PA is [facility] 08:53 César Ayala MD is Attending Physician. [facility] 09:15 Ellen Magdaleno, RN is Primary Nurse. hb 09:16 Triage completed. hb 09:18 Arm band placed on. hb 09:18 Patient has correct armband on for positive identification. hb 09:39 Inserted saline lock: 20 gauge in right antecubital area, using aseptic technique. hb Blood collected. 09:41 CMP Sent. hb 09:41 Lipase Sent. hb Administered Medications: 09:40 Drug: diphenhydrAMINE IVP 12.5 mg Route: IVP; Site: right antecubital; hb 09:40 Drug: Ativan IVP 1 mg Route: IVP; Site: right antecubital; hb 09:40 Drug: morphine IVP or IV 4 mg Route: IVP; Infused Over: 4 mins; Site: right antecubital;hb 09:40 Drug: Famotidine IVP 20 mg Route: IVP; Site: right antecubital; hb 09:41 Drug: NS 0.9% IV 1000 ml Route: IV; Rate: 1 bolus; Site: right antecubital; hb 09:41 Drug: metoCLOPramide IVP 10 mg Route: IVP; Site: right antecubital; hb Outcome: 13:19 Discharge ordered by MD. francisco Signatures: Mayito Whitt PA PA jmm Baxter, Heather, RN RN Nasrin Bowie rg4
--- NOTE | 2022-08-07 13:19 | EDPHYS ---
Physician Documentation [facility] Name: Darrell Wiseman Age: 57 yrs Sex: Male : 1965 Arrival Date: 08/07/2022 Time: 08:49 Bed 8 Private MD: ED Physician César Ayala HPI: 08/07 09:08 This 57 yrs old Male presents to ER via Ambulatory with complaints of m Abdominal Pain, Nausea. 09:08 The patient presents with abdominal pain. Onset: The symptoms/episode began/occurred. maryam Is a 57-year-old male with a history of chronic abdominal pain the presents emerged part with complaints of generalized abdominal pain which she states is consistent with previous episodes. This episode began approximately [address] negative [address] imaging. Patient was seen again diagnosed with anxiety. Patient called her PCP who prescribed propranolol and escitalopram with no relief.. Historical: - Allergies: 09:16 No Known Allergies; hb - PMHx: 09:16 "pin point hole in stomach"; Chronic Pancreatitis; duodenitis; Esophagitis; gastritis; hb hiatal hernia; PUD; - PSHx: 09:16 Cholecystectomy; hb - Immunization history:: Adult Immunizations up to date. - Social history:: Smoking status: Patient denies any tobacco usage or history of. ROS: 09:08 Constitutional: Negative for fever, chills, and weight loss, Cardiovascular: Negative jmm for chest pain, palpitations, and edema, Respiratory: Negative for shortness of breath, cough, wheezing, and pleuritic chest pain. 09:08 Abdomen/GI: Positive for abdominal pain. 09:08 All other systems are negative. Exam: 09:08 Head/Face: atraumatic. Eyes: EOMI, no conjunctival erythema appreciated ENT: Moist jmm Mucus Membranes Neck: Trachea midline, Supple Chest/axilla: Normal chest wall appearance and motion. Cardiovascular: Regular rate and rhythm. No edema appreciated Respiratory: Normal respirations, no respiratory distress appreciated Abdomen/GI: Non distended Back: Normal ROM Skin: General appearance color normal 09:08 Neuro: Awake and alert Psych: Behavior is normal, Mood is normal, Patient is cooperative and pleasant 09:08 Constitutional: The patient appears alert, awake, anxious, uncomfortable. 09:08 Musculoskeletal/extremity: ROM: intact in all extremities. Vital Signs: 09:15 BP 148 / 105; Pulse 90; Resp 18; Temp 97.2; Pulse Ox 97% on R/A; Weight 109.32 kg; hb Height 5 ft. 7 in. ; Pain 10/10; 10:46 BP 123 / 76; Pulse 61; Resp 15; Pulse Ox 93% on R/A; hb 12:02 BP 117 / 93; Pulse 67; Resp 16; Pulse Ox 99% on R/A; hb 09:15 Body Mass Index 37.75 (109.32 kg, 170.18 cm) hb 09:15 Pain Scale: Adult hb MDM: 09:08 Patient medically screened. [facility] 12:52 Differential diagnosis: Hepatitis, Mesenteric ischemia or infarction, non-specific abd [facility] pain, pancreatitis, Perf. Duodenal Ulcer, Perf. Gastric Ulcer. Data reviewed: vital signs, nurses notes. I considered the following discharge prescriptions or medication management in the emergency department Medications were administered in the Emergency Department. See MAR. Counseling: I had a detailed discussion with the patient and/or guardian regarding: the historical points, exam findings, and any diagnostic results supporting the discharge/admit diagnosis, lab results, radiology results, the need for outpatient follow up, to return to the emergency department if symptoms worsen or persist or if there are any questions or concerns that arise at home. 08/07 09:13 Order name: CBC with Diff; Complete Time: 10:08 [facility] 08/07 09:13 Order name: CMP; Complete Time: 10:04 [facility] 08/07 09:13 Order name: Lipase; Complete Time: 10:04 [facility] 08/07 09:13 Order name: IV Saline Lock; Complete Time: 09:41 [facility] 08/07 09:13 Order name: Labs collected and sent; Complete Time: 09:41 [facility] Administered Medications: 09:40 Drug: diphenhydrAMINE IVP 12.5 mg Route: IVP; Site: right antecubital; hb 09:40 Drug: Ativan IVP 1 mg Route: IVP; Site: right antecubital; hb 09:40 Drug: morphine IVP or IV 4 mg Route: IVP; Infused Over: 4 mins; Site: right antecubital;hb 09:40 Drug: Famotidine IVP 20 mg Route: IVP; Site: right antecubital; hb 09:41 Drug: NS 0.9% IV 1000 ml Route: IV; Rate: 1 bolus; Site: right antecubital; hb 09:41 Drug: metoCLOPramide IVP 10 mg Route: IVP; Site: right antecubital; hb Disposition Summary: 08/07/22 13:19 Discharge Ordered Location: Home [facility] Condition: Stable jmm Diagnosis - Abdominal pain, Generalized jmm Followup: [facility] - With: Private Physician - When: 1 - 2 days - Reason: Recheck today's complaints, Continuance of care, Re-evaluation by your physician Forms: - Medication Reconciliation Form [facility] - Thank You Letter [facility] - Antibiotic Education [facility] - Prescription Opioid Use [facility] Signatures: Dispatcher [employer] Mayito Regan PA PA jmm Baxter, Heather, RN RN
[2022-08-07 17:17] VITALS: TEMP 97.2
[2022-08-07 17:19] VITALS: BP 117/93; O2SAT 99
== END 2022-08-07 13:46 | disposition home or self-care (01) ==
LOC: ER 08:45
DX: R10.84 Generalized abdominal pain (principal); F41.9 Anxiety disorder, unspecified
CPT/HCPCS: 85025; 36415; 83690; 80053; J2765; J1200; J7030

== ENCOUNTER 2023-03-25 18:18 | Observation (INO) | payer BC ==
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
[2023-03-25 19:01] LABS: Hematocrit 49.1 % (39.6-49.0); Lymphocytes % 10.3 % (15.3-44.8); MCV 90.1 fL (80-100); MPV 7.4 fL (7.6-11.3); Platelets 264 thou/uL (152-406); RBC Red Blood Cell Count 5.44 M/uL (4.33-5.43)
[2023-03-25 19:02] LABS: Absolute Lymphocytes (CBC) 1.5 K/uL (0.7-4.9)
[2023-03-25] MEDS ORDERED: HYDROMORPHONE HCL 1 MG/ML INJ ONE ×2 (19:03→20:01)
[2023-03-25] MEDS ORDERED: ONDANSETRON 4 MG/2 ML VIAL ONE (19:03)
[2023-03-25] MEDS ORDERED: NA CHLORIDE 0.9% 1,000 ML ONE ×3 (19:03→21:32)
[2023-03-25] MEDS ORDERED: PANTOPRAZOLE 40 MG INJ ONE ×2 (19:14→21:32)
[2023-03-25 19:17] LABS: Albumin 4.3 g/dL (3.4-5.0); Bilirubin Total 0.5 mg/dL (0.2-1.0); Potassium 3.7 mEq/L (3.5-5.1); Protein, Total 8.4 g/dL (6.4-8.2)
[2023-03-25] MEDS ORDERED: NA CHLORIDE 0.9% 100 ML ONE (19:54)
[2023-03-25] MEDS ORDERED: PIPERACIL/TAZO 3.375 GM VIAL IV ONE (19:54)
--- NOTE | 2023-03-25 20:47 | RAD REPORT ---
EXAM DESCRIPTION: CT - Abdomen Pelvis W Contrast - 03/25/2023 7:38 pm CLINICAL HISTORY: ABD PAIN COMPARISON: Abdomen Pelvis W Contrast dated 07/24/2022; Abdomen Pelvis W Contrast dated 11/23/2019; Abdomen Pelvis W Contrast dated 06/17/2019; Abdomen Pelvis W Contrast dated 05/28/2019 TECHNIQUE: Thin cut axial CT imaging of the abdomen and pelvis was performed following intravenous a dministration of 100 mL Isovue 300. Multiplanar reformats were generated and reviewed. All CT scans are performed using dose optimization technique as appropriate and may include automated exposure control or mA/KV adjustment according to patient size. FINDINGS: No suspicious findings in the lung bases. The liver again shows regional hypoattenuation, with areas of sparing in the caudate and posterior ri ght liver lobes. Spleen, adrenal glands, and pancreas show no suspicious findings. Gallbladder was rodriguez rgically removed. Symmetric renal function is seen with no hydronephrosis or suspicious renal mass. No dilated bowel loops or bowel wall thickening. No free air, free fluid or inflammatory stranding. N o hernia, mass or bulky lymphadenopathy. The urinary bladder is without significant finding. No suspicious bony findings. IMPRESSION: No acute intra-abdominal process. Stable regional hepatic steatosis.
--- NOTE | 2023-03-25 20:54 | ER ---
Nurse's Notes [facility] Name: Darrell Wiseman Age: 57 yrs Sex: Male : 1965 Arrival Date: 03/25/2023 Time: 18:18 Bed 6 Private MD: Diagnosis: Epigastric abdominal tenderness;Vomiting;Elevated white blood cell count;Personal history of peptic ulcer disease Presentation: 03/25 18:35 Chief complaint: Worsening abdominal pain that started this morning. Coronavirus hb screen: At this time, the client does not indicate any symptoms associated with coronavirus-19. Ebola Screen: No symptoms or risks identified at this time. Initial Sepsis Screen: Does the patient meet any 2 criteria? No. Patient's initial sepsis screen is negative. Does the patient have a suspected source of infection? No. Patient's initial sepsis screen is negative. Risk Assessment: Do you want to hurt yourself or someone else? Patient reports no desire to harm self or others. Onset of symptoms was March 25, 2023. 18:35 Method Of Arrival: Ambulatory hb 18:35 Acuity: ANGLE 2 hb Historical: - Allergies: 18:36 No Known Allergies; hb - PMHx: 18:36 Chronic Pancreatitis; duodenitis; Esophagitis; gastritis; hiatal hernia; PUD; hb - PSHx: 18:36 Cholecystectomy; hb - Social history:: Smoking status: unknown. Screenin:[address] [facility] ED Fall Risk Assessment (Adult) History of falling in the last 3 months, ha1 including since admission No falls in past 3 months (0 pts) Confusion or Disorientation No (0 pts) Intoxicated or Sedated No (0 pts) Impaired Gait No (0 pts) Mobility Assist Device Used No (0 pt) Altered Elimination No (0 pt) Score/Fall Risk Level 0 - 2 = Low Risk Oriented to surroundings, Maintained a safe environment, Educated pt \T\ family on fall prevention, incl call for assistance when getting out of bed. Abuse screen: Denies threats or abuse. Denies injuries from another. Nutritional screening: No deficits noted. Tuberculosis screening: No symptoms or risk factors identified. Assessment: 19:30 General: Appears uncomfortable, Behavior is cooperative. Pain: Complains of pain in ha1 abdomen Pain does not radiate. Pain currently is 10 out of 10 on a pain scale. Quality of pain is described as crampy, throbbing. Pain: Pain. Neuro: Level of Consciousness is awake, alert, obeys commands, Oriented to person, place, time, situation. Cardiovascular: Capillary refill < 3 seconds Patient's skin is warm and dry. Respiratory: Airway is patent Respiratory effort is even, unlabored, Respiratory pattern is regular, symmetrical. GI: Abdomen is round non-distended, Bowel sounds present X 4 quads. Abd is soft X 4 quads Reports upper abdominal pain, nausea, vomiting. : No signs and/or symptoms were reported regarding the genitourinary system. Derm: Skin is pink, warm \T\ dry. Musculoskeletal: Circulation, motion, and sensation intact. Range of motion: intact in all extremities. 20:30 Reassessment: Patient appears in no apparent distress at this time. Patient and/or pf1 family updated on plan of care and expected duration. Pain level reassessed. Patient is alert, oriented x 3, equal unlabored respirations, skin warm/dry/pink. 21:30 Reassessment: Patient appears in no apparent distress at this time. Patient and/or pf1 family updated on plan of care and expected duration. Pain level reassessed. Patient is alert, oriented x 3, equal unlabored respirations, skin warm/dry/pink. Patient states feeling better. Patient states symptoms have improved. 22:30 Reassessment: Patient appears in no apparent distress at this time. Patient and/or pf1 family updated on plan of care and expected duration. Pain level reassessed. Patient is alert, oriented x 3, equal unlabored respirations, skin warm/dry/pink. Patient states feeling better. Patient states symptoms have improved. 22:40 Reassessment: attempted patient report, nurse to call back. pf1 Vital Signs: 18:35 BP 157 / 131; Pulse 108; Resp 20; Temp 97.7(TE); Pulse Ox 98% on R/A; Weight 113.4 kg; hb Height 5 ft. 4 in. ; Pain 10/10; 19:35 BP 164 / 88; Pulse 62; Resp 17 S; Pulse Ox 98% on R/A; ha1 20:00 BP 119 / 69; Pulse 67; Resp 18; Pulse Ox 96% on R/A; pf1 21:00 BP 124 / 78; Pulse 66; Resp 18; Pulse Ox 98% on R/A; Pain 5/10; pf1 22:00 BP 112 / 70; Pulse 64; Resp 16; Temp 98; Pulse Ox 98% on R/A; Pain 5/10; pf1 23:00 BP 119 / 69; Pulse 78; Resp 16; Pulse Ox 96% on R/A; pf1 18:35 Body Mass Index 42.91 (113.40 kg, 162.56 cm) hb 18:35 Pain Scale: Adult hb 21:00 Pain Scale: Adult pf1 22:00 Pain Scale: Adult pf1 ED Course: 18:20 Patient arrived in ED. mg5 18:28 Jacques Das MD is Attending Physician. roland 18:36 Triage completed. hb 18:55 Initial lab(s) drawn, by me, sent to lab. Inserted saline lock: 20 gauge in right iw antecubital area, using aseptic technique. Blood collected. 18:58 Nikki Hernandez, RN is Primary Nurse. iw 19:00 Patient has correct armband on for positive identification. Placed in gown. Bed in low ha1 position. Call light in reach. Side rails up X 1. Adult w/ patient. 19:00 Arm band placed on right wrist. ha1 19:39 CT Abd/Pelvis - IV Contrast Only In Process Unspecified. EDMS 20:23 Lactate w/ 2H reflex if indic. Sent. pf1 20:46 Megan Juares MD is Hospitalizing Provider. [facility] 20:58 Urinalysis w/ reflexes Sent. pf1 22:47 No provider procedures requiring assistance completed. pf1 22:47 Patient admitted, IV remains in place. pf1 23:13 Provided Education on: need for admission. pf1 Administered Medications: 18:55 Drug: NS 0.9% IV 1000 ml IV at 1 bolus Per protocol; 1000 mL bolus Route: IV; Rate: 1 iw bolus; Site: right antecubital; 20:00 Follow up: Response: No adverse reaction; Marked relief of symptoms; IV Status: pf1 Completed infusion; IV Intake: 1000ml 18:55 Drug: Ondansetron IVP 4 mg IVP once; over 2 minutes Route: IVP; Site: right antecubital;iw 19:50 Follow up: Response: No adverse reaction; Marked relief of symptoms; Nausea is decreasedpf1 18:55 Drug: Ondansetron IVP 4 mg IVP once; over 2 minutes Route: IVP; Site: right antecubital;iw 19:50 Follow up: Response: No adverse reaction; Marked relief of symptoms; Nausea is decreasedpf1 18:55 Drug: HYDROmorphone IVP 1 mg IVP once Route: IVP; Site: right antecubital; iw 19:50 Follow up: Response: No adverse reaction; Marked relief of symptoms; Pain is decreased pf1 19:03 Drug: Pantoprazole IVP 40 mg IVP once Route: IVP; Site: right antecubital; iw 20:00 Follow up: Response: No adverse reaction; Marked relief of symptoms pf1 19:53 Drug: Piperacillin-Tazobactam IVPB 3.375 grams IVPB once over 60 mins; (mix in NS 100 pf1 mL) Route: IVPB; Infused Over: 60 mins; Site: right antecubital; 20:53 Follow up: Response: No adverse reaction; IV Status: Completed infusion; IV Intake: pf1 100ml 19:53 Drug: NS 0.9% IV 1000 ml IV at 1 bolus Per protocol; 1000 mL bolus Route: IV; Rate: 1 pf1 bolus; Site: right antecubital; 21:00 Follow up: Response: No adverse reaction; Marked relief of symptoms; IV Status: pf1 Completed infusion; IV Intake: 1000ml 19:53 Drug: HYDROmorphone IVP 1 mg IVP once Route: IVP; Site: right antecubital; pf1 20:50 Follow up: Response: No adverse reaction; Marked relief of symptoms; Pain is decreased pf1 21:20 Drug: Pantoprazole IVP 40 mg IVP once Route: IVP; Site: right antecubital; pf1 21:45 Follow up: Response: No adverse reaction; Marked relief of symptoms pf1 21:25 Drug: NS 0.9% IV 1000 ml IV at 125 ml/hr continuous Route: IV; Rate: 125 ml/hr; Site: pf1 right antecubital; 21:28 Follow up: IV Status: Infusion continued upon admission pf1 Medication: 20:04 VIS not applicable for this client. ha1 Intake: 20:00 IV: 1000ml; Total: 1000ml. pf1 20:53 IV: 100ml; Total: 1100ml. pf1 21:00 IV: 1000ml; Total: 2100ml. pf1 Outcome: 20:54 Decision to Hospitalize by Provider. roland 23:13 Admitted to Med/surg accompanied by nurse, via wheelchair, room 211, pf1 23:13 Condition: improved 23:13 Instructed on the need for admit, Demonstrated understanding of instructions, 23:14 Patient left the ED. pf1 Signatures: Dispatcher [employer] EDJacques Acevedo MD MD cha Williams, Irene, RN RN iw Baxter, Heather, RN RN hb Ayala, Heidy, RN RN ha1 Finley, Pamala, RN RN pf1 [facility]
--- NOTE | 2023-03-25 20:54 | EDPHYS ---
Physician Documentation [facility] Name: Darrell Wiseman Age: 57 yrs Sex: Male : 1965 Arrival Date: 03/25/2023 Time: 18:18 Bed 6 Private MD: ED Physician Jacques Das HPI: 03/25 19:03 This 57 yrs old Male presents to ER via Ambulatory with complaints of roland Abdominal Pain, Vomiting. 19:03 The patient presents to the emergency department with nausea, vomiting, that is roland intermittent, described as clear fluid. Onset: The symptoms/episode began/occurred today. Possible causes: bad food exposure. The symptoms are aggravated by movement, pressure, food . Associated signs and symptoms: Pertinent positives: abdominal pain, nausea, vomiting. Severity of symptoms: At their worst the symptoms were mild moderate in the emergency department the symptoms are unchanged. The patient has not experienced similar symptoms in the past. Historical: - Allergies: 18:36 No Known Allergies; hb - PMHx: 18:36 Chronic Pancreatitis; duodenitis; Esophagitis; gastritis; hiatal hernia; PUD; hb - PSHx: 18:36 Cholecystectomy; hb - Social history:: Smoking status: unknown. ROS: 19:04 Constitutional: Negative for fever, chills, and weight loss, Eyes: Negative for injury, roland pain, redness, and discharge, ENT: Negative for injury, pain, and discharge, Neck: Negative for injury, pain, and swelling, Cardiovascular: Negative for chest pain, palpitations, and edema, Respiratory: Negative for shortness of breath, cough, wheezing, and pleuritic chest pain, Back: Negative for injury and pain, : Negative for injury, bleeding, discharge, and swelling, MS/Extremity: Negative for injury and deformity, Skin: Negative for injury, rash, and discoloration, Neuro: Negative for headache, weakness, numbness, tingling, and seizure, Psych: Negative for depression, anxiety, suicide ideation, homicidal ideation, and hallucinations, Allergy/Immunology: Negative for hives, rash, and allergies, Endocrine: Negative for neck swelling, polydipsia, polyuria, polyphagia, and marked weight changes, Hematologic/Lymphatic: Negative for swollen nodes, abnormal bleeding, and unusual bruising, 19:04 Abdomen/GI: Positive for abdominal pain, nausea and vomiting, of the epigastric area, right upper quadrant and left upper quadrant, Exam: 19:04 Constitutional: This is a well developed, well nourished patient who is awake, alert, roland and in no acute distress. Head/Face: Normocephalic, atraumatic. Eyes: Pupils equal round and reactive to light, extra-ocular motions intact. Lids and lashes normal. Conjunctiva and sclera are non-icteric and not injected. Cornea within normal limits. Periorbital areas with no swelling, redness, or edema. ENT: Nares patent. No nasal discharge, no septal abnormalities noted. Tympanic membranes are normal and external auditory canals are clear. Oropharynx with no redness, swelling, or masses, exudates, or evidence of obstruction, uvula midline. Mucous membranes moist. Neck: Trachea midline, no thyromegaly or masses palpated, and no cervical lymphadenopathy. Supple, full range of motion without nuchal rigidity, or vertebral point tenderness. No Meningismus. Chest/axilla: Normal chest wall appearance and motion. Nontender with no deformity. No lesions are appreciated. Cardiovascular: Regular rate and rhythm with a normal S1 and S2. No gallops, murmurs, or rubs. Normal PMI, no JVD. No pulse deficits. Respiratory: Lungs have equal breath sounds bilaterally, clear to auscultation and percussion. No rales, rhonchi or wheezes noted. No increased work of breathing, no retractions or nasal flaring. Back: No spinal tenderness. No costovertebral tenderness. Full range of motion. Male : Normal genitalia with no discharge or lesions. Skin: Warm, dry with normal turgor. Normal color with no rashes, no lesions, and no evidence of cellulitis. MS/ Extremity: Pulses equal, no cyanosis. Neurovascular intact. Full, normal range of motion. Neuro: Awake and alert, GCS 15, oriented to person, place, time, and situation. Cranial nerves II-XII grossly intact. Motor strength 5/5 in all extremities. Sensory grossly intact. Cerebellar exam normal. Normal gait. Psych: Awake, alert, with orientation to person, place and time. Behavior, mood, and affect are within normal limits. 19:04 ECG was reviewed by the Attending Physician. 19:04 Abdomen/GI: Inspection: distension, Bowel sounds: normal, Palpation: moderate abdominal tenderness, in the epigastric area, right upper quadrant and left upper quadrant, Liver: no appreciated palpable abnormalities, Hernia: not appreciated, Vital Signs: 18:35 BP 157 / 131; Pulse 108; Resp 20; Temp 97.7(TE); Pulse Ox 98% on R/A; Weight 113.4 kg; hb Height 5 ft. 4 in. ; Pain 10/10; 19:35 BP 164 / 88; Pulse 62; Resp 17 S; Pulse Ox 98% on R/A; ha1 20:00 BP 119 / 69; Pulse 67; Resp 18; Pulse Ox 96% on R/A; pf1 21:00 BP 124 / 78; Pulse 66; Resp 18; Pulse Ox 98% on R/A; Pain 5/10; pf1 22:00 BP 112 / 70; Pulse 64; Resp 16; Temp 98; Pulse Ox 98% on R/A; Pain 5/10; pf1 23:00 BP 119 / 69; Pulse 78; Resp 16; Pulse Ox 96% on R/A; pf1 18:35 Body Mass Index 42.91 (113.40 kg, 162.56 cm) hb 18:35 Pain Scale: Adult hb 21:00 Pain Scale: Adult pf1 22:00 Pain Scale: Adult pf1 MDM: 18:28 Patient medically screened. roland 19:05 Differential diagnosis: Nonspecific abd pain, gastritis, cholecystitis, pancreatitis, roland appendicitis, viral gastroenteritis, gastroenteritis, AAA, none. appendicitis, bowel obstruction. Data reviewed: vital signs, nurses notes, lab test result(s), EKG, radiologic studies, CT scan, plain films. Consideration of Admission/Observation Patient was admitted/placed on observation. Escalation of care including admission/observation considered. I considered the following discharge prescriptions or medication management in the emergency department Medications were administered in the Emergency Department. See MAR. Independent interpretation of the following test(s) in the Emergency Department EKG: See my EKG interpretation above. Test considered but Not performed: Ultrasound NO ABD USG. Care significantly affected by the following chronic conditions: Obesity, PUD, DUODENITIS, CHRONIC PANCREATITIS, GASTRITIS. Counseling: I had a detailed discussion with the patient and/or guardian regarding the historical points, exam findings, and any diagnostic results supporting the discharge/admit diagnosis, the presence of at least one elevated blood pressure reading (>120/80) during this emergency department visit, lab results, radiology results, the need for further work-up and treatment in the hospital. 03/25 18:29 Order name: CBC with Diff; Complete Time: 19:31 [facility] 03/25 18:29 Order name: CMP; Complete Time: 19:31 [facility] 03/25 18:29 Order name: Lipase; Complete Time: 19:31 [facility] 03/25 18:29 Order name: Urinalysis w/ reflexes [facility] 03/25 18:42 Order name: Troponin HS; Complete Time: 19:31 [facility] 03/25 19:03 Order name: Magnesium; Complete Time: 20:45 [facility] 03/25 19:46 Order name: Lactate w/ 2H reflex if indic. [facility] 03/25 21:33 Order name: Basic Metabolic Panel [facility]UT 03/25 21:33 Order name: Basic Metabolic Panel EDUT 03/25 21:33 Order name: Magnesium EDMS 03/25 21:33 Order name: Magnesium EDMS 03/25 21:33 Order name: Phosphorus EDMS 03/25 21:33 Order name: Phosphorus EDUT 03/25 18:29 Order name: CT Abd/Pelvis - IV Contrast Only [facility] 03/25 18:42 Order name: EKG; Complete Time: 18:42 [facility] 03/25 18:29 Order name: IV Saline Lock; Complete Time: 18:55 [facility] 03/25 18:29 Order name: Labs collected and sent; Complete Time: 18:55 [facility] 03/25 18:42 Order name: EKG - Nurse/Tech; Complete Time: 19:05 roland EC:04 Rate is 94 beats/min. Rhythm is regular. QRS Stamps is Normal. AL interval is normal. QRS roland interval is normal. QT interval is normal. No Q waves. T waves are Normal. No ST changes noted. Clinical impression: NSR w/ Non-specific ST/T Changes and No evidence of ischemia. Interpreted by me. Reviewed by me. Administered Medications: 18:55 Drug: NS 0.9% IV 1000 ml IV at 1 bolus Per protocol; 1000 mL bolus Route: IV; Rate: 1 iw bolus; Site: right antecubital; 20:00 Follow up: Response: No adverse reaction; Marked relief of symptoms; IV Status: pf1 Completed infusion; IV Intake: 1000ml 18:55 Drug: Ondansetron IVP 4 mg IVP once; over 2 minutes Route: IVP; Site: right antecubital;iw 19:50 Follow up: Response: No adverse reaction; Marked relief of symptoms; Nausea is decreasedpf1 18:55 Drug: Ondansetron IVP 4 mg IVP once; over 2 minutes Route: IVP; Site: right antecubital;iw 19:50 Follow up: Response: No adverse reaction; Marked relief of symptoms; Nausea is decreasedpf1 18:55 Drug: HYDROmorphone IVP 1 mg IVP once Route: IVP; Site: right antecubital; iw 19:50 Follow up: Response: No adverse reaction; Marked relief of symptoms; Pain is decreased pf1 19:03 Drug: Pantoprazole IVP 40 mg IVP once Route: IVP; Site: right antecubital; iw 20:00 Follow up: Response: No adverse reaction; Marked relief of symptoms pf1 19:53 Drug: Piperacillin-Tazobactam IVPB 3.375 grams IVPB once over 60 mins; (mix in NS 100 pf1 mL) Route: IVPB; Infused Over: 60 mins; Site: right antecubital; 20:53 Follow up: Response: No adverse reaction; IV Status: Completed infusion; IV Intake: pf1 100ml 19:53 Drug: NS 0.9% IV 1000 ml IV at 1 bolus Per protocol; 1000 mL bolus Route: IV; Rate: 1 pf1 bolus; Site: right antecubital; 21:00 Follow up: Response: No adverse reaction; Marked relief of symptoms; IV Status: pf1 Completed infusion; IV Intake: 1000ml 19:53 Drug: HYDROmorphone IVP 1 mg IVP once Route: IVP; Site: right antecubital; pf1 20:50 Follow up: Response: No adverse reaction; Marked relief of symptoms; Pain is decreased pf1 21:20 Drug: Pantoprazole IVP 40 mg IVP once Route: IVP; Site: right antecubital; pf1 21:45 Follow up: Response: No adverse reaction; Marked relief of symptoms pf1 21:25 Drug: NS 0.9% IV 1000 ml IV at 125 ml/hr continuous Route: IV; Rate: 125 ml/hr; Site: pf1 right antecubital; 21:28 Follow up: IV Status: Infusion continued upon admission pf1 Disposition Summary: 03/25/23 20:54 Hospitalization Ordered Notes: Hospitalization Status: Observation roland Provider: Megan Juares cha Location: Telemetry/MedSurg (observation) roland Condition: Stable roland Problem: new roland Symptoms: have improved roland Bed/Room Type: Standard roland Room Assignment: 211(03/25/23 22:16) eb1 Diagnosis - Epigastric abdominal tenderness roland - Vomiting roland - Elevated white blood cell count roland - Personal history of peptic ulcer disease roland Forms: - Medication Reconciliation Form roland - SBAR form roland - Leadership Thank You Letter roland Signatures: Dispatcher [employer] EDJacques Acevedo MD MD cha Williams, Irene RN RN iw Ellen Magdaleno RN RN hb Anai Bey RN RN eb1 Daphney Moreau RN RN ha1 Charla Castillo RN RN pf1 Corrections: (The following items were deleted from the chart) 22:16 20:54 roland eb1
[2023-03-25 21:15] LABS: Urine Bacteria None Seen /HPF (<20); Urine Bilirubin NEGATIVE (Negative); Urine Blood Negative (Negative); Urine Clarity Clear (Clear); Urine Color Light-Yellow (Yellow); Urine Glucose NEGATIVE (Negative); Urine Mucus 1+ /HPF (None Seen); Urine Protein TRACE (Negative); Urine RBC <5 /HPF (None Seen); Urine Urobilinogen Normal (Normal); Urine pH 5.5 (5.0-7.0)
--- NOTE | 2023-03-25 21:20 | P.HP ---
Certification for Inpatient Patient admitted to: Observation With expected LOS: <2 Midnights Patient will require the following post-hospital care: None Practitioner: I am a practitioner with admitting privileges, knowledge of patient current condition, hospital course, and medical plan of care. Services: Services provided to patient in accordance with Admission requirements found in Title 42 Section 412.3 of the Code of Federal Regulations Patient History Date of Service: 03/26/23 Reason for admission: Abdominal pain, nausea/vomiting, history of peptic ulcer disease. History of Present Illness: 57-year-old male patient who has medical history significant for peptic ulcer disease and history of duodenitis who came to the emergency with complaint of nausea with vomiting and abdominal pain. He had complained of nausea/vomiting, abdominal discomfort. Onset usually is after food intake and relieved after episode of vomiting. Vomitus is clear liquid with no blood. He denies overt episode of diarrhea, fever, chills. He was thought to be having a flareup of his peptic ulcer disease/gastritis secondary to exacerbation by intake of some food. He was started IV hydration and antacid medications. Allergies No Known Allergies Allergy (Verified 11/18/19 17:15) Home Medications: NK [No Home Meds] 03/26/23 - Past Medical/Surgical History Diabetic: No -: gastro enteritis -: dental implant -: skin graft on BLE - Family History Father -: Hypertension, Diabetes Brother -: Hypertension Mother Notes: no known medical condition - Social History Alcohol use: No CD- Drugs: Yes Caffeine use: Yes Review of Systems General: Unremarkable Eyes: Unremarkable ENT: Unremarkable Respiratory: Unremarkable Cardiovascular: Unremarkable Gastrointestinal: Nausea, Vomiting, Abdominal Pain Genitourinary: Unremarkable Musculoskeletal: Unremarkable Neurological: Unremarkable Physical Examination - Physical Exam General: Alert, Oriented x3 HEENT: Atraumatic, Normocephalic Neck: Supple Respiratory: Clear to auscultation bilaterally Cardiovascular: Regular rate/rhythm, Normal S1 S2 Gastrointestinal: Tenderness Musculoskeletal: No swelling Neurological: Normal speech - Studies Laboratory Data (last 24 hrs) 03/25/23 03/25/23 03/25/23 18:52 18:52 18:52 WBC 14.50 H Hgb 16.3 Hct 49.1 H Plt Count 264 Sodium 137 Potassium 3.7 BUN 11 Creatinine 1.33 H Glucose 121 H Magnesium 2.0 Total Bilirubin 0.5 AST 31 ALT 36 Alkaline Phosphatase 144 H Lipase 48 Assessment and Plan - Plan Abdominal pain: Deemed secondary to PUD exacerbation Empiric therapy with PPI and sucralfate started. We will follow symptomatology closely. We will continue Zofran for vomiting. Prophylaxis: Lovenox and SCD for DVT prophylaxis: CODE STATUS: Full code Disposition: We will treat his peptic ulcer disease and discharge when he is clinically stable Discharge Plan: Home - Advance Directives Does patient have a Living Will: No Does patient have a Durable POA for Healthcare: No
[2023-03-25 21:22] LABS: Specific Gravity > 1.030 (1.005-1.030)
[2023-03-25] MEDS ORDERED: ACETAMINOPHEN 325 MG TABLET PO PRN (21:24)
[2023-03-25] MEDS ORDERED: ONDANSETRON 4 MG/2 ML VIAL IV PRN (21:24)
[2023-03-25] MEDS ORDERED: SODIUM CHLORIDE 0.9% 10ML INJ IV PRN (21:35)
[2023-03-25 23:29] VITALS: BMI 39.0
[2023-03-25 23:30] VITALS: O2SAT 96
[2023-03-25] MEDS: NA CHLORIDE 0.9% 1,000 ML IV SCH (23:47)
[2023-03-26] MEDS: NA CHLORIDE 0.9% 1,000 ML IV SCH (07:24)
[2023-03-26 07:40] LABS: Phosphorus 2.5 mg/dL (2.5-4.9); Potassium 3.7 mEq/L (3.5-5.1)
[2023-03-26] MEDS ORDERED: ENOXAPARIN 40 MG/0.4 ML SQ SCH (09:00)
[2023-03-26] MEDS ORDERED: PANTOPRAZOLE 40 MG INJ IVP SCH (09:00)
[2023-03-26] MEDS: SUCRALFATE 1 GM TABLET PO SCH ×2 (12:03→16:28)
[2023-03-26 16:05] VITALS: BP 142/89; TEMP 97.6
--- NOTE | 2023-03-26 18:04 | EKG ---
Test Date: 2023-03-25 Test Time: 19:03:44 Face And Fill Packer: SILKE MEASUREMENT RESULTS: Intervals: Rate: 94 MT: 174 QRSD: 118 QT: 372 QTc: 465 Corrigan: P: 67 MT: 174 QRS: -88 T: 52 INTERPRETIVE STATEMENTS: Normal sinus rhythm Left axis deviation Abnormal ECG Compared to ECG 07/29/2022 05:33:04 Intraventricular conduction delay no longer present T-wave abnormality no longer present Electronically Signed On 03-26-23 18:03:05 CDT by Alexander Solorzano
== END 2023-03-26 17:50 | disposition home or self-care (01) ==
LOC: ER 18:18 → ERHOLD 21:24 → 2ND 22:19
PROVIDERS: ADMIT Internal Medicine Nephrology; ATTEND Hospitalist
DX: R10.9 Unspecified abdominal pain (principal); R11.2 Nausea with vomiting, unspecified; D72.829 Elevated white blood cell count, unspecified; Z87.11 Personal history of peptic ulcer disease
CPT/HCPCS: 96365; 96361; 93005; 85025; 81001; 80048; 36415; 83735 ×2; 84100; 83605; 84484; 83690; 80053; 74177; 96375; 99285; Q9967; J2543; C9113 ×3; J1650; J1170 ×2; J2405; J7030 ×4; G0378 ×3

== ENCOUNTER 2023-04-01 12:39 | Emergency (ER) | payer BC ==
--- OUTSIDE RECORDS SUMMARY | 2023-04-01 12:42 | XMS REPORT | Continuity of Care Document ---
:1965 Author Organization [facility] t Address [address] [place] [address] Care Team Providers Name Role Phone BERNARDINO RODRIGUEZ Attending Clinician Unavailable MD ARIANNA Attending Clinician Unavailable LAB90 Attending Clinician Unavailable WILLIAM GARCIA Attending Clinician Unavailable NNAMDI MANCERA Attending Clinician Unavailable ES, TECH [address], TECH 1 Attending Clinician Unavailable ZAINAB GONZALEZ Attending Clinician Unavailable Payers Payer Name Policy Type Policy Number Effective Date Expiration Date [place] [address] [id number] 2022 00:00:00 [employer] [place] [id number] 2018 00:00:00 Problems Condition Condition Condition Status [...] Active [employer] Class ity of S [facility] Social History Social Habit Start Date Stop [...] 6 l hours as needed Escitalopra Yes [id number] 10mg Take 1 [place] m Oxalate 3-10 tablet (10 Seyb old 10 MG oral 00:00: mg total) - Tablet 00 by mouth Externa daily l Propranolol Yes [id number] 10mg Q.5D Take 1 Edna HCl 10 MG 3-10 tablet (10 Seyb old oral Tablet 00:00: mg total) - 00 by mouth 2 Externa times l daily as needed (anxiety/p anic attack) Escitalopra 2022- No [id number] 10mg Take 1 [place]na m Oxalate 3-10 04-13 tablet (10 Sey bold 10 MG oral 00:00: 00:00 mg total) - Tablet 00 :00 by mouth Externa daily l Propranolol 2022- No [id number] 10mg Q.5D Take 1 Edna HCl 10 [...] Department ID 2023-03-23 2023-03-23 Outpatient EDNA RODRIGUEZ [id number] [place] 00:00:00 00:00:00 BERNARDINO Seybol d 2022-11-12 2022-11-12 Outpatient JCARLOS CASILLAS [id number] [place] 00:00:00 00:00:00 MD SUZETTE Seybol antwon 2022-10-10 2022-10-10 Outpatient EDNA RODRIGUEZ [id number] [place] 00:00:00 00:00:00 BERNARDINO Seybol d 2022-10-10 2022-10-10 Outpatient EDNA RODRIGUEZ [id number] [place] 00:00:00 00:00:00 BERNARDINO Seybol d 2022-10-04 2022-10-04 Outpatient LAB90 EDNA CASILLAS [id number] [place] 08:20:00 08:20:00 Seybol d 2022-09-26 2022-09-26 Outpatient JCARLOS CASILLAS [id number] [place] 00:00:00 00:00:00 MD SUZETTE Seybol antwon 2022-09-25 2022-09-25 Outpatient EDNA RODRIGUEZ [id number] [place] 16:15:00 16:15:00 BERNARDINO Seybol d 2022-09-11 2022-09-11 Outpatient WILLIAM GARCIA EDNA CASILLAS [id number] [facility] 00:00:00 00:00:00 Seybol d 2022-09-05 2022-09-05 Outpatient NATO GARCIADIAMOND CASILLAS [id number] [place] 15:30:00 15:30:00 Seybol d 2022-08-21 2022-08-21 Outpatient MANCERAEDNA MCALLISTER [id number] [facility] 00:00:00 00:00:00 NNAMDI Seybol d 2022-08-20 2022-08-20 Outpatient PREZASEDNA [id number] [place] 11:45:00 11:45:00 BERNARDINO Seybol d 2022-08-19 2022-08-19 Outpatient PREZASEDNA [id number] [place] 00:00:00 00:00:00 BERNARDINO Seybol d 2022-08-19 2022-08-19 Outpatient ES, TECH EDNA CASILLAS [id number] [facility] 00:00:00 00:00:00 Seybol d 2022-08-16 2022-08-[address], TECH EDNA CASILLAS [id number] [place] 14:30:00 14:30:00 Seybol d 2022-08-13 2022-08-13 Outpatient LAB90 EDNA CASILLAS [id number] [place] 08:30:00 08:30:00 Seybol d 2022-08-12 2022-08-12 Outpatient PREZASEDNA [id number] [place] 00:00:00 00:00:00 BERNARDINO Seybol d 2022-08-07 2022-08-07 Outpatient PREZASEDNA [id number] [facility] 00:00:00 00:00:00 BERNARDINO Seybol d 2022-08-02 2022-08-02 Outpatient PREZASEDNA [id number] [facility] 16:00:00 16:00:00 BERNARDINO Seybol d 2020-06-16 2020-06-16 Outpatient Rani [facility]ALE[facility] [id number] Univers 08:50:00 08:50:00 [facility] [id number] 2020-06-16 2020-06-16 [facility] [id number] Univers 08:50:00 08:50:00 ZAIN[facility] 2020-05-25 2020-05-25 Outpatient Rani [facility]ONZALEZ [facility] [id number] [facility] 11:40:00 11:40:00 [facility]AIN[facility] Results This patient has no known results.
[2023-04-01 13:34] LABS: Hematocrit 43.7 % (39.6-49.0); Lymphocytes % 10.1 % (15.3-44.8); MCV 89.9 fL (80-100); MPV 7.7 fL (7.6-11.3); Platelets 249 thou/uL (152-406); RBC Red Blood Cell Count 4.86 M/uL (4.33-5.43)
[2023-04-01] MEDS ORDERED: FAMOTIDINE 20 MG/2 ML VIAL IV ONE (13:35)
[2023-04-01] MEDS ORDERED: DICYCLOMINE HCL 20 MG/2 ML AMP IM ONE (13:35)
[2023-04-01] MEDS ORDERED: NA CHLORIDE 0.9% 1,000 ML ONE (13:35)
[2023-04-01] MEDS ORDERED: ONDANSETRON 4 MG/2 ML VIAL ONE ×2 (13:35→14:38)
[2023-04-01 14:24] LABS: Albumin 3.2 g/dL (3.4-5.0); Bilirubin Total 0.6 mg/dL (0.2-1.0); Potassium 3.6 mEq/L (3.5-5.1); Protein, Total 6.6 g/dL (6.4-8.2)
[2023-04-01 14:33] LABS: Specific Gravity 1.009 (1.005-1.030); Urine Bilirubin NEGATIVE (Negative); Urine Blood Negative (Negative); Urine Clarity Clear (Clear); Urine Color Light-Yellow (Yellow); Urine Glucose NEGATIVE (Negative); Urine Protein NEGATIVE (Negative); Urine Urobilinogen Normal (Normal); Urine pH 5.5 (5.0-7.0)
--- NOTE | 2023-04-01 14:36 | ER ---
Nurse's Notes [facility] Name: Darrell Wiseman Age: 57 yrs Sex: Male : 1965 Arrival Date: 04/01/2023 Time: 12:39 Bed 13 Private MD: Diagnosis: Abdominal pain, gastritis Presentation: 04/01 12:59 Chief complaint: Patient states: abdominal pain and nausea onset today. pt states that cm10 he was seen here last week for the same thing. Coronavirus screen: Vaccine status: Patient reports being unvaccinated. Client denies travel out of the [place] in the last 14 days. Ebola Screen: Patient denies travel to an Ebola-affected area in the 21 days before illness onset. No symptoms or risks identified at this time. Initial Sepsis Screen: Does the patient meet any 2 criteria? No. Patient's initial sepsis screen is negative. Does the patient have a suspected source of infection? No. Patient's initial sepsis screen is negative. Risk Assessment: Do you want to hurt yourself or someone else? Patient reports no desire to harm self or others. Onset of symptoms was April 01, 2023. 12:59 Method Of Arrival: Ambulatory cm10 12:59 Acuity: ANGLE 3 cm10 Historical: - Allergies: 13:00 No Known Allergies; cm10 - PMHx: 13:00 Chronic Pancreatitis; gastritis; duodenitis; Esophagitis; hiatal hernia; PUD; cm10 - PSHx: 13:00 Cholecystectomy; cm10 - Immunization history:: Adult Immunizations up to date. - Social history:: Smoking status: Patient/guardian denies using tobacco. Screenin:36 [facility] ED Fall Risk Assessment (Adult) Score/Fall Risk Level 0 - 2 = Low Risk nj1 Oriented to surroundings, Maintained a safe environment, Hourly rounding (assess needs \\T\\ fall precautionary measures) done. Abuse screen: Denies threats or abuse. Denies injuries from another. Nutritional screening: No deficits noted. Tuberculosis screening: No symptoms or risk factors identified. Assessment: 13:20 General: Appears in no apparent distress. uncomfortable, Behavior is calm, cooperative, nj1 appropriate for age. Pain: Complains of pain in abdomen Pain currently is 9 out of 10 on a pain scale. Pain began "TODAY". Neuro: Level of Consciousness is awake, alert, obeys commands, Oriented to person, place, time, situation. Cardiovascular: Patient's skin is warm and dry. Respiratory: Airway is patent Respiratory effort is even, unlabored. GI: Abdomen is round obese, Reports lower abdominal pain, upper abdominal pain, nausea, Patient currently denies diarrhea, vomiting. Vital Signs: 12:59 BP 122 / 91; Pulse 103; Resp 18; Temp 98.1; Pulse Ox 94% on R/A; Weight 117.93 kg; cm10 Height 5 ft. 9 in. ; Pain 9/10; 14:00 BP 142 / 84; Pulse 95; Resp 18; Pulse Ox 100% on R/A; cm10 14:30 BP 125 / 83; Pulse 93; Resp 18; Pulse Ox 95% on R/A; cm10 12:59 Body Mass Index 38.39 (117.93 kg, 175.26 cm) cm10 12:59 Pain Scale: Adult cm10 ED Course: 12:41 Patient arrived in ED. im 12:43 Daily Woodard MD is Attending Physician. sp3 13:00 Triage completed. cm10 13:00 Arm band placed on Patient placed in an exam room, on a stretcher. cm10 13:13 Joanna Hinson, RN is Primary Nurse. nj1 13:20 Inserted saline lock: 20 gauge in left hand, using aseptic technique. ,using aseptic nj1 technique. Inserted by Scott TRACK GREASER. Blood collected. 13:35 pt ...........[phone]. bd 13:36 Patient has correct armband on for positive identification. Bed in low position. Call nj1 light in reach. Provided Education on: call light, fall precautions. 13:50 Report given to Inna PATRICK. nj1 14:20 Urinalysis w/ reflexes Sent. cm10 14:55 No provider procedures requiring assistance completed. IV discontinued, intact, cm10 bleeding controlled, No redness/swelling at site. Pressure dressing applied. Administered Medications: 13:25 Drug: Ondansetron IVP 4 mg IVP once; over 2 minutes Route: IVP; Site: left hand; nj1 14:20 Follow up: Response: No adverse reaction cm10 13:25 Drug: Dicyclomine IM 20 mg IM once Route: IM; Site: right vastus lateralis; nj1 14:20 Follow up: Response: No adverse reaction; Pain is unchanged, physician notified cm10 13:25 Drug: NS 0.9% IV 1000 ml IV at 1 bolus Per protocol; 1000 mL bolus Route: IV; Rate: 1 nj1 bolus; Site: left hand; 14:38 Follow up: IV Status: Completed infusion; IV Intake: 1000ml cm10 13:27 Drug: Famotidine IVP 20 mg IVP once; dilute with 10 mL 0.9% NaCl; give over 2 minutes nj1 Route: IVP; Site: left hand; 14:20 Follow up: Response: No adverse reaction cm10 14:28 Drug: HYDROmorphone IVP 1 mg IVP once Route: IVP; Site: left hand; cm10 14:56 Follow up: Response: No adverse reaction cm10 14:28 Drug: Ondansetron IVP 4 mg IVP once; over 2 minutes Route: IVP; Site: left hand; cm10 14:55 Follow up: Response: No adverse reaction cm10 Medication: 14:56 VIS not applicable for this client. cm10 Intake: 14:38 IV: 1000ml; Total: 1000ml. cm10 Outcome: 14:35 Discharge ordered by . sp3 14:56 Discharged to home ambulatory, cm10 14:56 Condition: good 14:56 Discharge instructions given to patient, Instructed on discharge instructions, follow up and referral plans. medication usage, Demonstrated understanding of instructions, follow-up care, medications, Prescriptions given X 1, 14:56 Patient left the ED. cm10 Signatures: Kaity Bellamy Setul, MD MD sp3 Joanna Hinson RN RN nj1 Agnes Mireles Clarissa, RN RN cm10
--- NOTE | 2023-04-01 14:36 | EDPHYS ---
Physician Documentation [facility] Name: Darrell Wiseman Age: 57 yrs Sex: Male : 1965 Arrival Date: 04/01/2023 Time: 12:39 Bed 13 Private MD: ED Physician Daily Woodard HPI: 04/01 13:13 This 57 yrs old Male presents to ER via Ambulatory with complaints of sp3 Abdominal Pain, Nausea/Vomiting. 13:13 57-year-old male with history of chronic pancreatitis, gastritis, duodenitis, sp3 esophagitis now presents to the ED with recurrent epigastric abdominal pain. Patient was seen 8 days ago here and had a negative CT scan of the abdomen pelvis as well as negative laboratory work-up. Patient returns for similar symptoms. He denies fever, vomiting, diarrhea, back pain, syncope, chest pain, shortness of breath, or any other signs or symptoms on ROS at this time.. Historical: - Allergies: 13:00 No Known Allergies; cm10 - PMHx: 13:00 Chronic Pancreatitis; gastritis; duodenitis; Esophagitis; hiatal hernia; PUD; cm10 - PSHx: 13:00 Cholecystectomy; cm10 - Immunization history:: Adult Immunizations up to date. - Social history:: Smoking status: Patient/guardian denies using tobacco. ROS: 13:14 Constitutional: Negative for fever, chills, and weight loss, Eyes: Negative for injury, sp3 pain, redness, and discharge, ENT: Negative for injury, pain, and discharge, Neck: Negative for injury, pain, and swelling, Cardiovascular: Negative for chest pain, palpitations, and edema, Respiratory: Negative for shortness of breath, cough, wheezing, and pleuritic chest pain, Back: Negative for injury and pain, MS/Extremity: Negative for injury and deformity, Skin: Negative for injury, rash, and discoloration, Neuro: Negative for headache, weakness, numbness, tingling, and seizure, Psych: Negative for depression, anxiety, suicide ideation, homicidal ideation, and hallucinations, Allergy/Immunology: Negative for hives, rash, and allergies, Endocrine: Negative for neck swelling, polydipsia, polyuria, polyphagia, and marked weight changes, 13:14 All other systems are negative, Exam: 13:14 Constitutional: This is a well developed, well nourished patient who is awake, alert, sp3 and in no acute distress. Head/Face: Normocephalic, atraumatic. Eyes: Pupils equal round and reactive to light, extra-ocular motions intact. Lids and lashes normal. Conjunctiva and sclera are non-icteric and not injected. Cornea within normal limits. Periorbital areas with no swelling, redness, or edema. Neck: Trachea midline, no thyromegaly or masses palpated, and no cervical lymphadenopathy. Supple, full range of motion without nuchal rigidity, or vertebral point tenderness. No Meningismus. Chest/axilla: Normal chest wall appearance and motion. Nontender with no deformity. No lesions are appreciated. Cardiovascular: Regular rate and rhythm with a normal S1 and S2. No gallops, murmurs, or rubs. Normal PMI, no JVD. No pulse deficits. Respiratory: Lungs have equal breath sounds bilaterally, clear to auscultation and percussion. No rales, rhonchi or wheezes noted. No increased work of breathing, no retractions or nasal flaring. Back: No spinal tenderness. No costovertebral tenderness. Full range of motion. Skin: Warm, dry with normal turgor. Normal color with no rashes, no lesions, and no evidence of cellulitis. MS/ Extremity: Pulses equal, no cyanosis. Neurovascular intact. Full, normal range of motion. Neuro: Awake and alert, GCS 15, oriented to person, place, time, and situation. Cranial nerves II-XII grossly intact. Motor strength 5/5 in all extremities. Sensory grossly intact. Cerebellar exam normal. Normal gait. Psych: Awake, alert, with orientation to person, place and time. Behavior, mood, and affect are within normal limits. 13:14 Abdomen/GI: Mild epigastric pain to palpation without peritoneal signs, rebound or sp3 guarding. Nonsurgical abdomen noted., 13:14 Back: Vital Signs: 12:59 BP 122 / 91; Pulse 103; Resp 18; Temp 98.1; Pulse Ox 94% on R/A; Weight 117.93 kg; cm10 Height 5 ft. 9 in. ; Pain 9/10; 14:00 BP 142 / 84; Pulse 95; Resp 18; Pulse Ox 100% on R/A; cm10 14:30 BP 125 / 83; Pulse 93; Resp 18; Pulse Ox 95% on R/A; cm10 12:59 Body Mass Index 38.39 (117.93 kg, 175.26 cm) cm10 12:59 Pain Scale: Adult cm10 MDM: 12:45 Patient medically screened. sp3 13:15 Data reviewed: vital signs, nurses notes, old medical records, lab test result(s). ED sp3 course: 57-year-old male with chronic abdominal pain and past medical history as described above. Differential diagnosis includes continued pancreatitis, gastritis, dehydration, viral syndrome, among others. I am not highly suspicious for acute coronary syndrome, surgical abdomen, vascular pathology, sepsis, shock or any other critical pathology at this time. Work-up will include laboratory values, normal saline IV, Pepcid, Zofran and Bentyl as needed. We will hold narcotics at this time. Disposition likely discharge home if work-up negative and patient is improved.. 14:34 ED course: Laboratory values demonstrate no significant abnormality. Vital signs remain sp3 normal. We will safely discharge patient home at this time.. 04/01 13:10 Order name: CBC with Diff; Complete Time: 14:14 sp3 04/01 13:10 Order name: CMP; Complete Time: 14:34 sp3 04/01 13:10 Order name: Lipase; Complete Time: 14:34 sp3 04/01 13:10 Order name: Urinalysis w/ reflexes; Complete Time: 14:34 sp3 04/01 13:10 Order name: IV Saline Lock; Complete Time: 13:30 sp3 04/01 13:10 Order name: Labs collected and sent; Complete Time: 13:30 sp3 04/01 13:45 Order name: Labs - recollect needed: recollect light green top; Complete Time: 13:58 bd Administered Medications: 13:25 Drug: Ondansetron IVP 4 mg IVP once; over 2 minutes Route: IVP; Site: left hand; nj1 14:20 Follow up: Response: No adverse reaction cm10 13:25 Drug: Dicyclomine IM 20 mg IM once Route: IM; Site: right vastus lateralis; nj1 14:20 Follow up: Response: No adverse reaction; Pain is unchanged, physician notified cm10 13:25 Drug: NS 0.9% IV 1000 ml IV at 1 bolus Per protocol; 1000 mL bolus Route: IV; Rate: 1 nj1 bolus; Site: left hand; 14:38 Follow up: IV Status: Completed infusion; IV Intake: 1000ml cm10 13:27 Drug: Famotidine IVP 20 mg IVP once; dilute with 10 mL 0.9% NaCl; give over 2 minutes nj1 Route: IVP; Site: left hand; 14:20 Follow up: Response: No adverse reaction cm10 14:28 Drug: HYDROmorphone IVP 1 mg IVP once Route: IVP; Site: left hand; cm10 14:56 Follow up: Response: No adverse reaction cm10 14:28 Drug: Ondansetron IVP 4 mg IVP once; over 2 minutes Route: IVP; Site: left hand; cm10 14:55 Follow up: Response: No adverse reaction cm10 Disposition Summary: 04/01/23 14:35 Discharge Ordered Notes: Location: Home sp3 Condition: Stable sp3 Diagnosis - Abdominal pain, gastritis sp3 Followup: sp3 - With: Private Physician - When: Upon discharge from the Emergency Department - Reason: Continuance of care Discharge Instructions: - Discharge Summary Sheet sp3 - Abdominal Pain, Adult sp3 - Gastritis, Adult sp3 Forms: - Medication Reconciliation Form sp3 - Thank You Letter sp3 - Antibiotic Education sp3 - Prescription Opioid Use sp3 - Patient Portal Instructions sp3 - Leadership Thank You Letter sp3 - Work release form cm10 Prescriptions: - ondansetron 8 mg Oral Tablet,disintegrating - take 1 tablet ORAL route every 12 hours; 15 tablet; Refills: 0, Product sp3 Selection Permitted Signatures: Dispatcher [employer] Kaity Hoffman Setul, MD MD sp3 Joanna Hinson RN RN nj1 Inna Augustine RN RN cm10
[2023-04-01] MEDS ORDERED: HYDROMORPHONE HCL 1 MG/ML INJ ONE (14:38)
[2023-04-01 15:01] VITALS: TEMP 98.1
[2023-04-01 15:04] VITALS: BP 125/83; O2SAT 95
== END 2023-04-01 14:56 | disposition home or self-care (01) ==
LOC: ER 12:39
DX: K29.70 Gastritis, unspecified, without bleeding (principal)
CPT/HCPCS: 96361; 85025; 36415; 81003; 83690; 80053; 96375; 96372; 96374; 99284; J0500; J1170; J2405 ×2; J7030

== ENCOUNTER → 2023-06-16 | Emergency (ER) | payer BC ==
[~2023-06-16] MED LIST: DIAZEPAM 5 MG TABLET ONE; FAMOTIDINE 20 MG/2 ML VIAL IV ONE; HYDROCODONE/APAP 5/325 MG TAB ONE; LORazepam 2 MG/ML VIAL ONE; MAGNES/ALUMIN/SIMET 30ML UCUP ONE; MORPHINE 4 MG/ML SYR ONE; NA CHLORIDE 0.9% 1,000 ML ONE; ONDANSETRON 4 MG/2 ML VIAL ONE; PANTOPRAZOLE 40MG TABLET PO ONE
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
[2023-06-16 14:50] LABS: Absolute Lymphocytes (CBC) 1.2 K/uL (0.7-4.9); Hematocrit 47.9 % (39.6-49.0); Lymphocytes % 12.5 % (15.3-44.8); MCV 90.3 fL (80-100); MPV 7.5 fL (7.6-11.3); Platelets 245 thou/uL (152-406); RBC Red Blood Cell Count 5.31 M/uL (4.33-5.43)
[2023-06-16 14:55] LABS: Specific Gravity 1.016 (1.005-1.030); Urine Bacteria None Seen /HPF (<20); Urine Bilirubin NEGATIVE (Negative); Urine Blood Trace (Negative); Urine Clarity Turbid (Clear); Urine Color Light-Yellow (Yellow); Urine Glucose NEGATIVE (Negative); Urine Mucus 2+ /HPF (None Seen); Urine Protein NEGATIVE (Negative); Urine RBC <5 /HPF (None Seen); Urine Urobilinogen Normal (Normal); Urine pH 5.5 (5.0-7.0)
[2023-06-16 15:07] LABS: Albumin 3.9 g/dL (3.4-5.0); Bilirubin Total 0.6 mg/dL (0.2-1.0); Potassium 3.5 mEq/L (3.5-5.1)
--- NOTE | 2023-06-16 16:17 | RAD REPORT ---
EXAM DESCRIPTION: CT - Abdomen Angio - 06/16/2023 3:30 pm CLINICAL HISTORY: ABD PAIN COMPARISON: Abdomen Pelvis W Contrast dated 03/25/2023; Abdomen Pelvis W Contrast dated 07/24/2022 ; Abdomen Pelvis W Contrast dated 11/23/2019; Abdomen Pelvis W Contrast dated 06/17/2019; Pelvis An will dated 06/16/2023 TECHNIQUE: Thin axial CT images of the abdomen and pelvis were obtained during administration of 100 mL Isovue 370 IV contrast. Sagittal and coronal reconstructions as well as maximal intensity projecti on reconstruction were generated and reviewed per an aortic angiography protocol. All CT scans are performed using dose optimization technique as appropriate and may include automated exposure control or mA/KV adjustment according to patient size. FINDINGS: Breathing motion artifact somewhat limits evaluation in the upper abdomen. Aorta is normal in diameter with no dissection or other acute aortic findings. Reconstruction images show no significant findings. Lung bases are unremarkable. Celiac, SMA and renal arteries show no suspicious findings. Colonic diverticulosis. Status post dodie cystectomy. Solid abdominal viscera and bowel show no other significant findings. No mass or abnormal lymphadenopathy. No suspicious osseous abnormality. IMPRESSION: No acute abnormalities on CT angiogram of the aorta. No other acute findings in the abdomen and pelvis. Colonic diverticulosis.
--- NOTE | 2023-06-16 16:32 | RAD REPORT ---
EXAM DESCRIPTION: CT - Pelvis Angio - 06/16/2023 3:30 pm CLINICAL HISTORY: ABD PAIN COMPARISON: Abdomen Angio dated 06/16/2023; Abdomen Pelvis W Contrast dated 03/25/2023; Abdomen P tyler W Contrast dated 07/24/2022 TECHNIQUE: Thin axial CT images of the abdomen and pelvis were obtained during administration of 100 mL Isovue 370 IV contrast. Sagittal and coronal reconstructions as well as maximal intensity projecti on reconstruction were generated and reviewed per an aortic angiography protocol. All CT scans are performed using dose optimization technique as appropriate and may include automated exposure control or mA/KV adjustment according to patient size. FINDINGS: Breathing motion artifact somewhat limits evaluation in the upper abdomen. Aorta is normal in diameter with no dissection or other acute aortic findings. Reconstruction images show no significant findings. Lung bases are unremarkable. Celiac, SMA and renal arteries show no suspicious findings. Colonic diverticulosis. Status post dodie cystectomy. Solid abdominal viscera and bowel show no other significant findings. No mass or abnormal lymphadenopathy. No suspicious osseous abnormality. IMPRESSION: No acute abnormalities on CT angiogram of the aorta. No other acute findings in the abdomen and pelvis. Colonic diverticulosis.
--- NOTE | 2023-06-16 17:10 | EDPHYS ---
Physician Documentation [facility] Name: Darrell Wiseman Age: 57 yrs Sex: Male : 1965 Arrival Date: 06/16/2023 Time: 14:00 Bed 13 Private MD: Hussein Perez Physician Roberto Garner HPI: 06/16 15:04 This 57 yrs old Male presents to ER via Wheelchair with complaints of sb4 Abdominal Pain, Vomiting. 15:04 The patient presents with abdominal pain in the epigastric area. Onset: The sb4 symptoms/episode began/occurred this morning. The symptoms do not radiate. Associated signs and symptoms: Pertinent positives: nausea and vomiting. The patient has experienced similar episodes in the past, chronically, today's symptoms are similar, to previous gastritis. Historical: - Allergies: 14: No Known Allergies; ld1 - PMHx: 14: Chronic Pancreatitis; duodenitis; gastritis; hiatal hernia; Esophagitis; PUD; ld1 - PSHx: 14: Cholecystectomy; ld1 - Immunization history:: Adult Immunizations up to date. - Social history:: Smoking status: Patient denies any tobacco usage or history of. Patient/guardian denies using alcohol. ROS: 15:04 Constitutional: Negative for fever, chills, and weight loss, sb4 15:04 Abdomen/GI: Positive for abdominal pain, nausea and vomiting, 15:04 All other systems are negative, Exam: 15:04 Head/Face: Normocephalic, atraumatic. Eyes: Extra-ocular motions intact. Periorbital sb4 areas with no swelling, redness, or edema. ENT: Mucous membranes moist. Cardiovascular: Regular rate and rhythm with a normal S1 and S2. Respiratory: Lungs have equal breath sounds bilaterally, clear to auscultation and percussion. No rales, rhonchi or wheezes noted. No increased work of breathing, no retractions or nasal flaring. Skin: Warm, dry with normal turgor. Normal color with no rashes, no lesions, and no evidence of cellulitis. MS/ Extremity: Pulses equal, no cyanosis. Neurovascular intact. Full, normal range of motion. Neuro: Awake and alert, GCS 15, oriented to person, place, time, and situation. Motor strength 5/5 in all extremities. Sensory grossly intact. 15:04 Constitutional: The patient appears alert, awake, in obvious distress, moderately distressed, in obvious pain, uncomfortable, 15:04 Abdomen/GI: Inspection: obese Bowel sounds: normal, Palpation: soft, moderate abdominal tenderness, in the epigastric area and right upper quadrant, Vital Signs: 14:23 BP 159 / 81; Pulse 109; Resp 18; Temp 98.1(TE); Pulse Ox 99% on R/A; Weight 112.04 kg; ld1 Height 5 ft. 8 in. ; Pain 10/10; 14:55 BP 156 / 108; Pulse 103; Resp 20; Pulse Ox 99% ; cp4 17:30 BP 144 / 94; Pulse 94; Resp 18; Pulse Ox 100% ; cp4 14:23 Body Mass Index 37.56 (112.04 kg, 172.72 cm) ld1 14:23 Pain Scale: Adult ld1 MDM: 14:17 Patient medically screened. sb4 15:04 Differential diagnosis: gastritis, gastroesophageal reflux disease, non-specific abd sb4 pain, pancreatitis, Peptic Ulcer Disease, Perf. Duodenal Ulcer, Perf. Gastric Ulcer, Peritonitis. 16:31 Data reviewed: vital signs, nurses notes, lab test result(s), radiologic studies, and sb4 as a result, I will discharge patient. Management of patient was discussed with the following: Ticket Counter: dr cabrales, gen surgery, recommended CT abd angio to rule out SMA syndrome. 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 06/16 14:10 Order name: CBC with Diff; Complete Time: 14:51 sb4 06/16 14:10 Order name: CMP; Complete Time: 15:11 sb4 06/16 14:10 Order name: Lipase; Complete Time: 15:11 sb4 06/16 14:10 Order name: Urinalysis w/ reflexes; Complete Time: 14:55 sb4 06/16 15:15 Order name: CT Abdomen - Angio: abdomen and pelvis; Complete Time: 16:18 sb4 06/16 15:19 Order name: Pelvis Angio; Complete Time: 16:33 EDMS 06/16 14:10 Order name: IV Saline Lock; Complete Time: 14:52 sb4 06/16 14:10 Order name: Labs collected and sent; Complete Time: 14:52 sb4 Administered Medications: 05:30 Drug: Ativan IVP 1 mg IVP once Route: IVP; Site: right antecubital; cp4 17:27 Follow up: Response: No adverse reaction cp4 14:51 Drug: Famotidine IVP 20 mg IVP once; dilute with 10 mL 0.9% NaCl; give over 2 minutes cp4 Route: IVP; Site: right antecubital; 17:23 Follow up: Response: No adverse reaction cp4 14:52 Drug: NS 0.9% IV 1000 ml IV at 1 bolus Per protocol; 1000 mL bolus Route: IV; Rate: 1 cp4 bolus; Site: right antecubital; 17:22 Follow up: Response: No adverse reaction; IV Status: Completed infusion cp4 14:52 Drug: Ondansetron IVP 4 mg IVP once; over 2 minutes Route: IVP; Site: right antecubital;cp4 17:23 Follow up: Response: No adverse reaction cp4 14:52 Drug: morphine IVP or IV 4 mg IVP once over 4 mins Route: IVP; Infused Over: 4 mins; cp4 Site: right antecubital; 17:23 Follow up: Response: No adverse reaction cp4 17:22 Drug: Alum-Mag Hydroxide-Simeth PO Suspension (200 mg-200 mg-20 mg/5 mL) 30 ml PO once cp4 Route: PO; 17:27 Follow up: Response: No adverse reaction cp4 17:22 Drug: Diazepam PO 5 mg PO once Route: PO; cp4 17:27 Follow up: Response: No adverse reaction cp4 17:22 Drug: HYDROcodone-acetaminophen PO 5 mg-325 mg 1 tabs PO once Route: PO; cp4 17:27 Follow up: Response: No adverse reaction cp4 17:22 Drug: Pantoprazole PO 40 mg PO once Route: PO; cp4 17:27 Follow up: Response: No adverse reaction cp4 Disposition: 19:51 Co-signature as Attending Physician, Roberto Garner MD I reviewed the patient's care rt provided by the Advanced Practice Provider and agree with the diagnosis and treatment plan. Disposition Summary: 06/16/23 17:09 Discharge Ordered Notes: Location: Home sb4 Problem: new sb4 Symptoms: have improved sb4 Condition: Stable sb4 Diagnosis - Acute peptic ulcer, site unspecified, without hemorrhage or perforation sb4 Followup: sb4 - With: Tommy Cabrales MD - When: 2 - 3 days - Reason: Recheck today's complaints, Re-evaluation by your physician Discharge Instructions: - Discharge Summary Sheet sb4 - Peptic Ulcer, [id number] sb4 - Peptic Ulcer Eating Plan sb4 Forms: - Work release form sb4 - Medication Reconciliation Form sb4 - Thank You Letter sb4 - Antibiotic Education sb4 - Prescription Opioid Use sb4 - Patient Portal Instructions sb4 - Leadership Thank You Letter sb4 Prescriptions: - pantoprazole 40 mg Oral tablet, delayed release (enteric coated) - take 1 tablet ORAL route every day at bedtime; 30 tablet; Refills: 0, Product sb4 Selection Permitted - dicyclomine 20 mg Oral tablet - take 2 tablets ORAL route 3 times per day; 30 tablet; Refills: 0, Product sb4 Selection Permitted Signatures: Dispatcher [employer] EDMS Cordelia Brownlee RN RN ld1 Nicki Benitez PA-C PAVadim sb4 Roberto Garner MD MD rt Brooke Wright cp4 Corrections: (The following items were deleted from the chart) 14:23 14:22 PMHx: "pin point hole in stomach"; ld1 ld1 15:19 14:11 Abdomen Pelvis W Con+CT.RAD.BRZ ordered. EDMS EDMS
--- NOTE | 2023-06-16 17:10 | ER ---
Nurse's Notes [facility] Name: Darrell Wiseman Age: 57 yrs Sex: Male : 1965 Arrival Date: 06/16/2023 Time: 14:00 Bed 13 Private MD: Hussein Perez Diagnosis: Acute peptic ulcer, site unspecified, without hemorrhage or perforation Presentation: 06/16 14:23 Chief complaint: Patient states: Abdominal pain epigastric, N/V since this morning. ld1 Coronavirus screen: At this time, the client does not indicate any symptoms associated with coronavirus-19. Ebola Screen: No symptoms or risks identified at this time. Initial Sepsis Screen: Does the patient meet any 2 criteria? No. Patient's initial sepsis screen is negative. Does the patient have a suspected source of infection? No. Patient's initial sepsis screen is negative. Risk Assessment: Do you want to hurt yourself or someone else? Patient reports no desire to harm self or others. Onset of symptoms was June 16, 2023. 14:23 Method Of Arrival: Wheelchair ld1 14:23 Acuity: ANGLE 3 ld1 Triage Assessment: 14:23 General: Appears uncomfortable, Behavior is anxious, crying, fussy. Pain: Complains of ld1 pain in epigastric area Pain does not radiate. Pain currently is 10 out of 10 on a pain scale. Quality of pain is described as throbbing, Pain began 4 hours ago. Is continuous. EENT: No signs and/or symptoms were reported regarding the EENT system. Neuro: Level of Consciousness is awake, alert, obeys commands, Oriented to person, place, time, situation. Cardiovascular: Capillary refill < 3 seconds Patient's skin is warm and dry. Respiratory: Airway is patent Respiratory effort is even, unlabored. GI: Abdomen is round non-distended, Reports nausea, vomiting. : No signs and/or symptoms were reported regarding the genitourinary system. Derm: No signs and/or symptoms reported regarding the dermatologic system. Musculoskeletal: No signs and/or symptoms reported regarding the musculoskeletal system. Historical: - Allergies: 14:22 No Known Allergies; ld1 - PMHx: 14:22 Chronic Pancreatitis; duodenitis; gastritis; hiatal hernia; Esophagitis; PUD; ld1 - PSHx: 14:22 Cholecystectomy; ld1 - Immunization history:: Adult Immunizations up to date. - Social history:: Smoking status: Patient denies any tobacco usage or history of. Patient/guardian denies using alcohol. Screenin:27 [facility] ED Fall Risk Assessment (Adult) History of falling in the last 3 months, cp4 including since admission No falls in past 3 months (0 pts) Confusion or Disorientation No (0 pts) Intoxicated or Sedated No (0 pts) Impaired Gait No (0 pts) Mobility Assist Device Used No (0 pt) Altered Elimination No (0 pt) Score/Fall Risk Level 0 - 2 = Low Risk Oriented to surroundings, Maintained a safe environment, Educated pt \\T\\ family on fall prevention, incl call for assistance when getting out of bed, Assessed \\T\\ reinforced patient's understanding of fall precautions, Provided non-skid footwear, Hourly rounding (assess needs \\T\\ fall precautionary measures) done. Abuse screen: Denies threats or abuse. Nutritional screening: No deficits noted. Tuberculosis screening: No symptoms or risk factors identified. Assessment: 17:27 Reassessment: Patient pulled out IV. Provider notified. General: Appears in no apparent cp4 distress. Behavior is calm, cooperative, appropriate for age. Pain: Complains of pain in abdomen. 17:29 GI: Bowel sounds present X 4 quads. Abd is soft and non tender X 4 quads. cp4 Vital Signs: 14:23 BP 159 / 81; Pulse 109; Resp 18; Temp 98.1(TE); Pulse Ox 99% on R/A; Weight 112.04 kg; ld1 Height 5 ft. 8 in. ; Pain 10/10; 14:55 BP 156 / 108; Pulse 103; Resp 20; Pulse Ox 99% ; cp4 17:30 BP 144 / 94; Pulse 94; Resp 18; Pulse Ox 100% ; cp4 14:23 Body Mass Index 37.56 (112.04 kg, 172.72 cm) ld1 14:23 Pain Scale: Adult ld1 ED Course: 14:03 Patient arrived in ED. mr 14:04 Hussein Perez is Private Physician. mr 14:10 Nicki Benitez PA-C is PHCP. sb4 14:10 Roberto Garner MD is Attending Physician. sb4 14:21 Brooke Wright is Primary Nurse. cp4 14:23 Arm band placed on right wrist. ld1 14:24 Triage completed. ld1 15:31 CT Abdomen - Angio: abdomen and pelvis In Process Unspecified. EDMS 15:31 Pelvis Angio In Process Unspecified. EDMS 17:09 Tommy Bueno MD is Referral Physician. sb4 17:27 Bed in low position. Call light in reach. Side rails up X2. Provided Education on: cp4 abdominal pain. 17:27 No provider procedures requiring assistance completed. intact, bleeding controlled, No cp4 redness/swelling at site. Pressure dressing applied. Administered Medications: 05:30 Drug: Ativan IVP 1 mg IVP once Route: IVP; Site: right antecubital; cp4 17:27 Follow up: Response: No adverse reaction cp4 14:51 Drug: Famotidine IVP 20 mg IVP once; dilute with 10 mL 0.9% NaCl; give over 2 minutes cp4 Route: IVP; Site: right antecubital; 17:23 Follow up: Response: No adverse reaction cp4 14:52 Drug: NS 0.9% IV 1000 ml IV at 1 bolus Per protocol; 1000 mL bolus Route: IV; Rate: 1 cp4 bolus; Site: right antecubital; 17:22 Follow up: Response: No adverse reaction; IV Status: Completed infusion cp4 14:52 Drug: Ondansetron IVP 4 mg IVP once; over 2 minutes Route: IVP; Site: right antecubital;cp4 17:23 Follow up: Response: No adverse reaction cp4 14:52 Drug: morphine IVP or IV 4 mg IVP once over 4 mins Route: IVP; Infused Over: 4 mins; cp4 Site: right antecubital; 17:23 Follow up: Response: No adverse reaction cp4 17:22 Drug: Alum-Mag Hydroxide-Simeth PO Suspension (200 mg-200 mg-20 mg/5 mL) 30 ml PO once cp4 Route: PO; 17:27 Follow up: Response: No adverse reaction cp4 17:22 Drug: Diazepam PO 5 mg PO once Route: PO; cp4 17:27 Follow up: Response: No adverse reaction cp4 17:22 Drug: HYDROcodone-acetaminophen PO 5 mg-325 mg 1 tabs PO once Route: PO; cp4 17:27 Follow up: Response: No adverse reaction cp4 17:22 Drug: Pantoprazole PO 40 mg PO once Route: PO; cp4 17:27 Follow up: Response: No adverse reaction cp4 Medication: 17:27 VIS not applicable for this client. cp4 Outcome: 17:09 Discharge ordered by . sb4 17:27 Discharged to home via wheelchair, cp4 17:27 Condition: stable 17:27 Discharge instructions given to patient, Instructed on discharge instructions, follow up and referral plans. medication usage, Demonstrated understanding of instructions, follow-up care, medications, Prescriptions given X 2, 17:31 Patient left the ED. iw Signatures: Dispatcher [employer] EDMS Juli Romero, Reg Reg mr Nikki Hernandez RN RN iw Cordelia Brownlee RN RN ld1 Nicki Benitez PA-C PAVadim sb4 Brooke Wright cp4 Corrections: (The following items were deleted from the chart) 14:23 14:22 PMHx: "pin point hole in stomach"; ld1 ld1
[2023-06-16 21:32] VITALS: BP 144/94; TEMP 98.1; O2SAT 100
== END ==
LOC: ER 14:00
DX: K27.3 Acute peptic ulcer, site unspecified, without hemorrhage or perforation (principal)
CPT/HCPCS: 96361; 85025; 81001; 36415; 83690; 80053; 72191; 74175; 96375; 96374; 99284; Q9967; J2405; J7030

== ENCOUNTER 2024-01-27 13:12 | Inpatient (IN) | payer BC ==
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
[2024-01-27] MEDS ORDERED: ONDANSETRON 4 MG/2 ML VIAL ONE (14:05)
[2024-01-27] MEDS ORDERED: MORPHINE 4 MG/ML SYR ONE (14:05)
[2024-01-27] MEDS ORDERED: FAMOTIDINE 20 MG/2 ML VIAL IV ONE (14:06)
[2024-01-27] MEDS ORDERED: NA CHLORIDE 0.9% 1,000 ML ONE ×2 (14:06→17:56)
[2024-01-27 14:12] LABS: Absolute Basophils 0.1 K/uL (0-0.5); Absolute Lymphocytes (CBC) 1.2 K/uL (0.7-4.9); Absolute Monocytes 0.4 K/uL (0.1-1.3); Absolute Neutrophil 13.4 K/uL (1.8-8.0); Basophils % 0.6 % (0-1.3); Eosinophils % 0.1 % (0-4.4); Hematocrit 51.2 % (39.6-49.0); Hemoglobin 16.6 g/dL (13.6-17.9); Lymphocytes % 7.7 % (15.3-44.8); MCH 29.5 pg (27.0-35.0); MCHC 32.4 g/dL (32.0-36.0); MCV 90.9 fL (80-100); MPV 7.7 fL (7.6-11.3); Monocytes % 2.9 % (3.3-12.3); Neutrophils % 88.7 % (41.7-73.7); Platelets 311 thou/uL (152-406); RBC Red Blood Cell Count 5.64 M/uL (4.33-5.43); Red Cell Distribution Width 14.8 % (12.1-15.2)
[2024-01-27 14:36] LABS: Albumin 4.6 g/dL (3.4-5.0); Albumin/Globulin Ratio 1.1 (1.1-1.8); Bilirubin Total 0.8 mg/dL (0.2-1.0); Globulin 4.2 g/dL (2.3-3.5); Protein, Total 8.8 g/dL (6.4-8.2)
[2024-01-27] MEDS ORDERED: FENTANYL CITR 100 MCG/2 ML ONE (14:50)
--- NOTE | 2024-01-27 15:13 | RAD REPORT ---
EXAM DESCRIPTION: CTAbdomen Pelvis W Contrast - 01/27/2024 3:00 pm CLINICAL HISTORY: Abdominal pain. ABD PAIN COMPARISON: <Comparisons> TECHNIQUE: Biphasic CT imaging of the abdomen and pelvis was performed with 100 ml non-ionic IV cont rast. All CT scans are performed using dose optimization technique as appropriate and may include automated exposure control or mA/KV adjustment according to patient size. FINDINGS: The lung bases are clear.Small hiatal hernia. Cholecystectomy clips. The liver demonstrates diffuse fatty infiltration. Spleen, pancreas, adrenal glands and kidneys are w ithin normal limits. No bowel obstruction, free air, free fluid or abscess. Sigmoid diverticulosis is seen without diverti culitis. The appendix is normal. No evidence of significant lymphadenopathy. Mild lower lumbar spondylosis with dextroscoliosis. IMPRESSION: No acute intra-abdominal or pelvic finding. Diffuse fatty liver. Sigmoid diverticulosis coli is seen without evidence of diverticulitis. The colon is largely decompre ssed and cannot fully evaluated by CT.
[2024-01-27] MEDS ORDERED: MAGNES/ALUMIN/SIMET 30ML UCUP ONE (15:24)
[2024-01-27] MEDS ORDERED: LIDOCAINE VISCOUS 2% 10ML ORAL SOLN ONE (15:25)
[2024-01-27] MEDS ORDERED: DICYCLOMINE HCL 10 MG CAP ONE (15:25)
[2024-01-27] MEDS ORDERED: PROMETHAZINE INJ 25 MG/ML AMP ONE (15:49)
[2024-01-27 16:54] LABS: Blood Morphology Comment NOT SEEN (NOT SEEN); Platelet Estimate ADEQ; White Blood Cell Scan OK (OK)
--- NOTE | 2024-01-27 17:17 | EDPHYS ---
Physician Documentation [facility] Name: Darrell Wiseman Age: 58 yrs Sex: Male : 1965 Arrival Date: 01/27/2024 Time: 13:12 Bed 18 Private MD: ED Physician Roberto Garner HPI: 01/26 13:25 This 58 yrs old Male presents to ER via Wheelchair with complaints of kb Abdominal Pain, Vomiting. 13:25 Pt is a 58 year old male with a history of gastritis, GERD and ulcers who presents for kb upper abd pain, nausea and vomiting that started this morning. States he has had this exact same pain in the past when he has eaten things he is not supposed to due to his GI history. States he ate bad yesterday so he took omeprazole and maalox afterwards to prevent these symptoms, but it didn't work. . Historical: - Allergies: 13:20 No Known Allergies; db - PMHx: 13:20 Chronic Pancreatitis; duodenitis; Esophagitis; gastritis; hiatal hernia; PUD; db - PSHx: 13:20 Cholecystectomy; db - Immunization history:: Adult Immunizations unknown. - Infectious Disease History:: Denies. - Social history:: Smoking status: Patient reports the use of cigarette tobacco products, smokes one-half pack cigarettes per day. ROS: 13:24 Constitutional: As per HPI kb Exam: 13:24 Head/Face: Normocephalic, atraumatic. ENT: Moist Mucous membranes Cardiovascular: kb Regular rate Respiratory: Respirations even and unlabored. No increased work of breathing. Talking in full sentences Skin: Warm, dry with normal turgor. Normal color. MS/ Extremity: Pulses equal, no cyanosis. Neurovascular intact. Full, normal range of motion. Neuro: Awake and alert, GCS 15, oriented to person, place, time, and situation. Moves all extremities. Normal gait. 13:24 Constitutional: The patient appears alert, awake, in obvious pain, 13:24 Abdomen/GI: Inspection: abdomen appears normal, Bowel sounds: normal, Palpation: soft, in all quadrants, mild abdominal tenderness, in the right lower quadrant and left lower quadrant, moderate abdominal tenderness, in the right upper quadrant and left upper quadrant, Vital Signs: 13:18 BP 161 / 101; Pulse 113; Resp 20; Temp 98.5(O); Pulse Ox 97% ; Weight 104.33 kg; Height db 5 ft. 9 in. ; Pain 10/10; 14:52 BP 183 / 82; Pulse 60; Pulse Ox 96% on R/A; Pain 10/10; tm6 17:36 BP 164 / 90; Pulse 66; Pulse Ox 98% on R/A; Pain 10/10; tm6 13:18 Body Mass Index 33.96 (104.33 kg, 175.26 cm) db 13:18 Pain Scale: Adult db 14:52 Pain Scale: Adult tm6 17:36 Pain Scale: Adult tm6 MDM: 13:20 Patient medically screened. kb 13:25 Data reviewed: vital signs, nurses notes. kb 17:01 ED course: post op dressing removed due to saturation. Pt had knee wrapped in plastic kb HEB grocery bag which caused area to sweat and saturate gauze covering incision. 17:13 Differential diagnosis: gastritis, gastroesophageal reflux disease, non-specific abd kb pain, pancreatitis, Peptic Ulcer Disease. Consideration of Admission/Observation Patient was admitted/placed on observation. Escalation of care including admission/observation considered. Management of patient was discussed with the following: Nurse Supervisor: Dr Earl accepts pt for consult, will do EGD tomorrow. Historians other than the Patient: Spouse/Significant Other: spouse. Counseling: I had a detailed discussion with the patient and/or guardian regarding the historical points, exam findings, and any diagnostic results supporting the discharge/admit diagnosis, lab results, radiology results, the need for further work-up and treatment in the hospital. 17:15 Management of patient was discussed with the following: Hospitalist: hospitalist team, pt accepted under Dr Barron. 01/26 13:24 Order name: CBC with Diff; Complete Time: 16:59 kb 01/26 13:24 Order name: CMP; Complete Time: 14:37 kb 01/26 13:24 Order name: Lipase; Complete Time: 14:37 kb 01/26 13:24 Order name: Urinalysis w/ reflexes 01/26 16:54 Order name: CBC Smear Scan; Complete Time: 16:59 EDAZ 01/26 17:22 Order name: Alcohol Serum/Plasma EDAZ 01/26 17:22 Order name: Urine Drug Screen EDAZ 09/03 17:22 Order name: CBC with Automated Diff EDMS / 17:22 Order name: CBC with Automated Diff EDMS 01/26 17:22 Order name: CBC with Automated Diff EDMS 01/26 17:22 Order name: CBC with Automated Diff EDMS 01/26 17:22 Order name: CBC with Automated Diff EDMS / 17:22 Order name: CBC with Automated Diff EDMS / 17:22 Order name: Comprehensive Metabolic Panel EDMS 01/26 17:22 Order name: Comprehensive Metabolic Panel EDMS 01/26 17:22 Order name: Comprehensive Metabolic Panel EDMS 01/26 17:22 Order name: Comprehensive Metabolic Panel EDMS 01/26 17:22 Order name: Comprehensive Metabolic Panel EDMS 01/26 17:22 Order name: Comprehensive Metabolic Panel EDMS 01/26 17:22 Order name: Lipid Profile EDMS 01/26 17:22 Order name: Lipid Profile EDMS 01/26 17:22 Order name: Magnesium EDMS 01/26 17:22 Order name: Magnesium EDMS 01/26 17:22 Order name: Magnesium EDMS 01/26 17:22 Order name: Magnesium EDMS 01/26 17:22 Order name: Magnesium EDMS 01/26 17:22 Order name: Magnesium EDMS 01/26 17:22 Order name: Phosphorus EDMS 01/26 17:22 Order name: Phosphorus EDMS 01/26 17:22 Order name: Phosphorus EDMS 01/26 17:22 Order name: Phosphorus EDMS 01/26 17:22 Order name: Phosphorus EDMS 01/26 17:22 Order name: Phosphorus EDMS 01/26 13:24 Order name: CT Abd/Pelvis - IV Contrast Only; Complete Time: 15:17 kb 01/26 17:22 Order name: CONS Physician Consult EDMS 01/26 13:24 Order name: IV Saline Lock; Complete Time: 14:13 kb 01/26 13:24 Order name: Labs collected and sent; Complete Time: 14:13 kb Administered Medications: 14:12 Drug: NS 0.9% IV 1000 ml IV at 1 bolus Per protocol; 1000 mL bolus Route: IV; Rate: 1 tm6 bolus; Site: left antecubital; 19:12 Follow up: Response: No adverse reaction; IV Status: Completed infusion; IV Intake: tm6 1000ml 14:12 Drug: Famotidine IVP 20 mg IVP once; dilute with 10 mL 0.9% NaCl; give over 2 minutes tm6 Route: IVP; Site: left antecubital; 14:52 Follow up: Response: No adverse reaction tm6 14:12 Drug: Ondansetron IVP 4 mg IVP once; over 2 minutes Route: IVP; Site: left antecubital; tm6 14:52 Follow up: Response: No adverse reaction tm6 14:13 Drug: morphine IVP or IV 4 mg IVP once over 4 mins Route: IVP; Infused Over: 4 mins; tm6 Site: left antecubital; 14:52 Follow up: Response: No adverse reaction; Pain is unchanged, physician notified tm6 14:52 Drug: fentaNYL (PF) IVP 50 mcg IVP once Route: IVP; Site: left antecubital; tm6 15:28 Follow up: Response: No adverse reaction; Pain is decreased tm6 15:28 Drug: GI Cocktail without - (Maalox PO 30 ml, Lidocaine Mucous Membrane 2 % 15 tm6 ml) PO once Route: PO; 16:10 Follow up: Response: No adverse reaction tm6 15:28 Drug: Dicyclomine PO 20 mg PO once Route: PO; tm6 16:10 Follow up: Response: No adverse reaction tm6 15:45 Drug: Promethazine IVP 12.5 mg IVP once Route: IVP; Site: left antecubital; tm6 16:10 Follow up: Response: No adverse reaction; Nausea is decreased tm6 Disposition: 20:03 Co-signature as Attending Physician, Roberto Garner MD I reviewed the patient's care rt provided by the Advanced Practice Provider and agree with the diagnosis and treatment plan. Disposition Summary: 01/27/24 17:16 Hospitalization Ordered Notes: Hospitalization Status: Observation kb Provider: Williams Barron Location: Telemetry/MedSurg (observation) kb Condition: Stable kb Problem: new kb Symptoms: are unchanged kb Bed/Room Type: Standard Room Assignment: 419(01/27/24 17:39) bc6 Diagnosis - Upper abdominal pain, unspecified kb - Nausea with vomiting, unspecified kb Forms: - Medication Reconciliation Form kb - SBAR form kb - Leadership Thank You Letter kb Signatures: Dispatcher [employer] Arlen Duran FNP-C FNP-Ckb Mamta Burks, RN RN db Roberto Garner MD MD rt Teri Kennedy bc6 Kirk Israel RN RN tm6 Corrections: (The following items were deleted from the chart) 17:39 17:16 kb 6
--- NOTE | 2024-01-27 17:17 | ER ---
Nurse's Notes [facility] Name: Darrell Wiseman Age: 58 yrs Sex: Male : 1965 Arrival Date: 01/27/2024 Time: 13:12 Bed 18 Private MD: Diagnosis: Upper abdominal pain, unspecified;Nausea with vomiting, unspecified Presentation: 01/26 13:18 Chief complaint: Patient states: ABD PAIN N/V STATES STARTED THIS AM 1000. STATES HX OF db STOMACH ULCERS. TOOK [employer]ME[employer]AZ[employer] AND [employer]. Coronavirus screen: Client denies travel out of the [place] in the last 14 days. At this time, the client does not indicate any symptoms associated with coronavirus-19. Ebola Screen: Patient negative for fever greater than or equal to 101.5 degrees Fahrenheit, and additional compatible Ebola Virus Disease symptoms Patient denies exposure to infectious person. Patient denies travel to an Ebola-affected area in the 21 days before illness onset. No symptoms or risks identified at this time. Initial Sepsis Screen: Does the patient meet any 2 criteria? HR > 90 bpm. No. Patient's initial sepsis screen is negative. Does the patient have a suspected source of infection? No. Patient's initial sepsis screen is negative. Risk Assessment: Do you want to hurt yourself or someone else? Patient reports no desire to harm self or others. Onset of symptoms was January 27, 2024. 13:18 Method Of Arrival: Wheelchair db 13:18 Acuity: ANGLE 3 db Triage Assessment: 13:20 General: Appears distressed, uncomfortable, Behavior is anxious. Pain: Complains of db pain in abdomen. Neuro: Level of Consciousness is awake, alert, obeys commands, Oriented to person, place, time, situation. Respiratory: Airway is patent Respiratory effort is even, unlabored, Respiratory pattern is regular, symmetrical. GI: Abdomen is non-distended, Pt is actively vomiting Reports lower abdominal pain, upper abdominal pain, nausea, vomiting. Historical: - Allergies: 13:20 No Known Allergies; db - PMHx: 13:20 Chronic Pancreatitis; duodenitis; Esophagitis; gastritis; hiatal hernia; PUD; db - PSHx: 13:20 Cholecystectomy; db - Immunization history:: Adult Immunizations unknown. - Infectious Disease History:: Denies. - Social history:: Smoking status: Patient reports the use of cigarette tobacco products, smokes one-half pack cigarettes per day. Screenin:13 [facility] ED Fall Risk Assessment (Adult) History of falling in the last 3 months, tm6 including since admission No falls in past 3 months (0 pts) Confusion or Disorientation No (0 pts) Intoxicated or Sedated No (0 pts) Impaired Gait No (0 pts) Mobility Assist Device Used No (0 pt) Altered Elimination No (0 pt) Score/Fall Risk Level 0 - 2 = Low Risk Oriented to surroundings, Maintained a safe environment, Educated pt \T\ family on fall prevention, incl call for assistance when getting out of bed. Abuse screen: Denies threats or abuse. Denies injuries from another. Nutritional screening: No deficits noted. Tuberculosis screening: No symptoms or risk factors identified. Assessment: 14:13 General: Appears distressed, ill, Behavior is cooperative. Pain: Complains of pain in tm6 abdomen Pain does not radiate. Pain currently is 10 out of 10 on a pain scale. Neuro: Level of Consciousness is awake, alert, obeys commands, Oriented to person, place, time, situation. Cardiovascular: Patient's skin is warm and dry. Respiratory: Airway is patent Respiratory effort is even, unlabored, Respiratory pattern is regular, symmetrical. GI: Abdomen is round Bowel sounds present X 4 quads. Abd is non tender. GI: Reports lower abdominal pain, upper abdominal pain, nausea, vomiting. : No signs and/or symptoms were reported regarding the genitourinary system. EENT: No signs and/or symptoms were reported regarding the EENT system. Derm: No signs and/or symptoms reported regarding the dermatologic system. Musculoskeletal: No signs and/or symptoms reported regarding the musculoskeletal system. 14:53 Reassessment: No changes from previously documented assessment. Patient and/or family tm6 updated on plan of care and expected duration. Pain level reassessed. Patient is alert, oriented x 3, equal unlabored respirations, skin warm/dry/pink. 17:36 Reassessment: Patient and/or family updated on plan of care and expected duration. Pain tm6 level reassessed. Patient is alert, oriented x 3, equal unlabored respirations, skin warm/dry/pink. 18:30 Reassessment: report faxed and confirmed. tm6 Vital Signs: 13:18 BP 161 / 101; Pulse 113; Resp 20; Temp 98.5(O); Pulse Ox 97% ; Weight 104.33 kg; Height db 5 ft. 9 in. ; Pain 10/10; 14:52 BP 183 / 82; Pulse 60; Pulse Ox 96% on R/A; Pain 10/10; tm6 17:36 BP 164 / 90; Pulse 66; Pulse Ox 98% on R/A; Pain 10/10; tm6 13:18 Body Mass Index 33.96 (104.33 kg, 175.26 cm) db 13:18 Pain Scale: Adult db 14:52 Pain Scale: Adult tm6 17:36 Pain Scale: Adult tm6 ED Course: 13:14 Patient arrived in ED. im 13:20 Triage completed. db 13:20 Arlen Pang F[facility]-C is [facility]. kb 13:20 Roberto Garner MD is Attending Physician. kb 13:20 Arm band placed on Patient placed. db 13:57 Cici Hazel, CELINA is Primary Nurse. me1 14:07 Inserted saline lock: 22 gauge in left upper arm, using aseptic technique. Blood me1 collected. Flushed with 10 mL NS. 14:07 Initial lab(s) drawn, by me, sent to lab. me1 14:13 Patient has correct armband on for positive identification. Bed in low position. Call tm6 light in reach. Side rails up X 1. Provided Education on: use of call osuna. Client placed on continuous cardiac and pulse oximetry monitoring. NIBP monitoring applied. Pulse ox on. NIBP on. Door closed. Noise minimized. Lights dimmed. 15:02 CT Abd/Pelvis - IV Contrast Only In Process Unspecified. EDMS 17:16 Williams Barron is Hospitalizing Provider. kb 19:12 No provider procedures requiring assistance completed. Patient admitted, IV remains in tm6 place. Administered Medications: 14:12 Drug: NS 0.9% IV 1000 ml IV at 1 bolus Per protocol; 1000 mL bolus Route: IV; Rate: 1 tm6 bolus; Site: left antecubital; 19:12 Follow up: Response: No adverse reaction; IV Status: Completed infusion; IV Intake: tm6 1000ml 14:12 Drug: Famotidine IVP 20 mg IVP once; dilute with 10 mL 0.9% NaCl; give over 2 minutes tm6 Route: IVP; Site: left antecubital; 14:52 Follow up: Response: No adverse reaction tm6 14:12 Drug: Ondansetron IVP 4 mg IVP once; over 2 minutes Route: IVP; Site: left antecubital; tm6 14:52 Follow up: Response: No adverse reaction tm6 14:13 Drug: morphine IVP or IV 4 mg IVP once over 4 mins Route: IVP; Infused Over: 4 mins; tm6 Site: left antecubital; 14:52 Follow up: Response: No adverse reaction; Pain is unchanged, physician notified tm6 14:52 Drug: fentaNYL (PF) IVP 50 mcg IVP once Route: IVP; Site: left antecubital; tm6 15:28 Follow up: Response: No adverse reaction; Pain is decreased tm6 15:28 Drug: GI Cocktail without - (Maalox PO 30 ml, Lidocaine Mucous Membrane 2 % 15 tm6 ml) PO once Route: PO; 16:10 Follow up: Response: No adverse reaction tm6 15:28 Drug: Dicyclomine PO 20 mg PO once Route: PO; tm6 16:10 Follow up: Response: No adverse reaction tm6 15:45 Drug: Promethazine IVP 12.5 mg IVP once Route: IVP; Site: left antecubital; tm6 16:10 Follow up: Response: No adverse reaction; Nausea is decreased tm6 Medication: 14:13 VIS not applicable for this client. tm6 Intake: 19:12 IV: 1000ml; Total: 1000ml. tm6 Outcome: 17:16 Decision to Hospitalize by Provider. kb 19:12 Admitted to Med/surg tm6 19:12 Condition: stable 19:12 Instructed on the need for admit, 19:39 Patient left the ED. tm6 Signatures: Dispatcher [employer] Arlen Duran, WEDGER-C WEDGER-Mamta Arriaga, RN RN Agnes Gill Michelle, RN RN dc1 Kirk Israel RN RN tm6
[2024-01-27] MEDS: SUCRALFATE 1GM/10ML UCUP FT SCH (17:30)
--- NOTE | 2024-01-27 17:38 | P.HP ---
Certification for Inpatient Patient admitted to: Inpatient With expected LOS: <2 Midnights Patient will require the following post-hospital care: None Practitioner: I am a practitioner with admitting privileges, knowledge of patient current condition, hospital course, and medical plan of care. Services: Services provided to patient in accordance with Admission requirements found in Title 42 Section 412.3 of the Code of Federal Regulations Patient History Date of Service: 01/27/24 Reason for admission: Tractable nausea vomiting and abdominal pain History of Present Illness: Darrell Wiseman is a 58 year old male with pmhx gastroenteritis, pancreatitis, peptic ulcer disease, hiatal hernia, eroded lining of esophagus, skin graft to BLE who presents to the ED with chief complaint of abdominal pain and vomiting that started this morning. He reports having the same symptoms in the past and sees Dr. Cabrera. Last night he took omeprazole and Maalox to help prevent the symptoms from becoming worse. On evaluation he is unable to lie still, arching his back, and moaning. While in the ED he was given Maalox, Bentyl, Pepcid, fentanyl, morphine, Zofran, Phenergan, and viscous oral Xylocaine. Blood pressure 161/101, pulse 113, afebrile, pain to upper abdomen 10 out of 10. WBC 15, lipase 24, alk phos 158, glucose 150, BUN/creatinine 12/1.32, GFR 63, Dr. Earl was consulted and plans for an EGD in the morning. CT abd/pelvis Sigmoid diverticulosis coli is seen without evidence of diverticulitis. The colon is largely decompressed and cannot fully evaluated by CT. Darrell will be admitted to hospitalist service for further treatment of intractable N/V and abdominal pain. Allergies No Known Allergies Allergy (Verified 11/18/19 17:15) Home Medications: Amoxicillin 500 mg PO Q12H #28 tab 03/26/23 Pantoprazole Sodium [Protonix] 40 mg PO Q12H #60 tab 03/26/23 Pantoprazole [Protonix Tab] 40 mg PO BID #60 tab 03/26/23 Sucralfate [Carafate*] 1 gm PO ACHS #120 tab 03/26/23 metroNIDAZOLE [Metronidazole] 500 mg PO Q12H #28 tab 03/26/23 - Past Medical/Surgical History Diabetic: No -: gastro enteritis -: Pancreatitis -: Eroded lining of esophagus -: Peptic Ulcer -: Hiatal Hernia -: Peptic Ulcer -: Gar le -: dental implant -: skin graft on BLE -: Cholecystectomy - Family History Father -: Hypertension, Diabetes Brother -: Hypertension Mother Notes: no known medical condition - Social History Smoking Status: Current every day smoker (1/2 pack daily) Alcohol use: No CD- Drugs: Yes Caffeine use: Yes Review of Systems is unable to be obtained Gastrointestinal: Nausea, Vomiting, Abdominal Pain Physical Examination - Physical Exam General: Alert, Oriented x3, Moderate distress, Other (severe pain) HEENT: Atraumatic, Normocephalic Neck: Supple, 2+ carotid pulse no bruit Respiratory: Clear to auscultation bilaterally, Normal air movement Cardiovascular: No edema, Normal pulses, Normal S1 S2, Irregular heart rate/rhythm (tachycardic) Capillary refill: <2 Seconds Gastrointestinal: Distended, Tenderness Musculoskeletal: No clubbing Integumentary: No rashes Neurological: Normal speech, Normal tone - Studies Laboratory Data (last 24 hrs) 01/27/24 01/27/24 13:30 13:30 WBC 15.10 H Hgb 16.6 Hct 51.2 H Plt Count 311 Sodium 137 Potassium 4.0 BUN 12 Creatinine 1.32 H Glucose 150 H Total Bilirubin 0.8 AST 30 ALT 36 Alkaline Phosphatase 158 H Lipase 24 Assessment and Plan - Plan Assessment and plan Intractable nausea/vomiting/abdominal pain Leukocytosis History of Peptic ulcer disease History of hiatal hernia History of pancreatitis -White blood cells 15 -Protonix drip and Carafate scheduled -pain control, antiemetic -Dr. Earl consulted, EGD in the AM -NPO except medications -empirical Zosyn NEW -BUN/creatinine 04/25.32, GFR 63 -IV fluids Hyperglycemia -Serum glucose 150 -Monitoring a.m. labs Sigmoid diverticulosis coli -Incidental finding on CT abd/pelvis "Sigmoid diverticulosis coli is seen without evidence of diverticulitis. The colon is largely decompressed and cannot fully evaluated by CT." -Follow up outpatient DVT ppx SCD Full code LOS 2 days Discharge Plan: Home Plan to discharge in: 48 Hours - Advance Directives Does patient have a Living Will: No Does patient have a Durable POA for Healthcare: No
[2024-01-27] MEDS ORDERED: PANTOPRAZOLE 40 MG INJ ONE (17:56)
[2024-01-27] MEDS ORDERED: NA CHLORIDE 0.9% 250 ML ONE (17:56)
[2024-01-27] MEDS ORDERED: SUCRALFATE 1GM/10ML UCUP ONE (17:57)
[2024-01-27] MEDS ORDERED: ONDANSETRON 4 MG/2 ML VIAL IV PRN ×2 (17:58→18:22)
[2024-01-27] MEDS: NA CHLORIDE 0.9% 1,000 ML IV SCH (18:00)
[2024-01-27] MEDS: PANTOPRAZOLE INJ 80 MG in NA CHLORIDE 0.9% 250 ML IV SCH (18:00)
[2024-01-27] MEDS: MORPHINE 2 MG/ML SYR IV ONE (18:17)
[2024-01-27] MEDS: HYDROMORPHONE HCL 1 MG/ML INJ IV PRN (20:15)
[2024-01-28] MEDS: PIPER TAZO 3.375 GM in NA CHLORIDE 0.9% 100 ML IV SCH (00:26)
[2024-01-28 06:48] LABS: Absolute Basophils 0.1 K/uL (0-0.5); Absolute Lymphocytes (CBC) 1.5 K/uL (0.7-4.9); Absolute Monocytes 0.8 K/uL (0.1-1.3); Absolute Neutrophil 8.4 K/uL (1.8-8.0); Basophils % 0.6 % (0-1.3); Eosinophils % 0.2 % (0-4.4); Hematocrit 43.5 % (39.6-49.0); Hemoglobin 14.3 g/dL (13.6-17.9); Lymphocytes % 14.1 % (15.3-44.8); MCH 29.8 pg (27.0-35.0); MCHC 32.9 g/dL (32.0-36.0); MCV 90.5 fL (80-100); MPV 7.7 fL (7.6-11.3); Monocytes % 7.3 % (3.3-12.3); Neutrophils % 77.8 % (41.7-73.7); Platelets 243 thou/uL (152-406); Red Cell Distribution Width 14.6 % (12.1-15.2)
[2024-01-28 07:07] LABS: Albumin 3.6 g/dL (3.4-5.0); Albumin/Globulin Ratio 1.1 (1.1-1.8); Anion Gap 8.8 mEq/L (5.0-15.0); Bilirubin Total 1.1 mg/dL (0.2-1.0); Globulin 3.4 g/dL (2.3-3.5); Magnesium 2.2 mg/dL (1.6-2.4); Phosphorus 3.1 mg/dL (2.5-4.9); Potassium 3.8 mEq/L (3.5-5.1)
[2024-01-28] MEDS ORDERED: propofoL 200 MG/20 ML VIAL IV ONE (10:18)
[2024-01-28] MEDS ORDERED: LIDOCAINE 1% MPF 5 ML VIAL ONE (10:18)
[2024-01-28] MEDS ORDERED: EPINEPHRINE 1 MG/ML VIAL ONE (10:26)
[2024-01-28 16:08] LABS: Sqamous Epithelial <5 /HPF (None Seen); Urine Bacteria None Seen /HPF (<20); Urine Bilirubin NEGATIVE (Negative); Urine Blood Trace (Negative); Urine Clarity Extremely Turbid (Clear); Urine Color Light-Yellow (Yellow); Urine Culture Reflex Order NOT NEEDED; Urine Glucose NEGATIVE (Negative); Urine Ketones NEGATIVE (Negative); Urine Microscopic Reflex YN ORDER UMIC; Urine Mucus Slight /HPF (None Seen); Urine Nitrite NEGATIVE (Negative); Urine Protein NEGATIVE (Negative); Urine RBC <5 /HPF (None Seen); Urine Urobilinogen Normal (Normal); Urine WBC <5 /HPF (<5); Urine pH 5.5 (5.0-7.0)
[2024-01-28 16:10] LABS: Barbiturates NEGATIVE (NEGATIVE); Benzodiazepines NEGATIVE (NEGATIVE); Cocaine NEGATIVE (NEGATIVE); METHAMPHETAM NEGATIVE (NEGATIVE); Methadone NEGATIVE (NEGATIVE); Opiates POSITIVE (NEGATIVE); Phencyclidine NEGATIVE (NEGATIVE); THC Cannibis POSITIVE (NEGATIVE)
--- NOTE | 2024-01-28 18:12 | CON ---
Date of Consultation: 01/28/2024 Reason For Consultation: Right upper quadrant pain with nausea and vomiting. History Of Present Illness: The patient is a 58-year-old male with history of chronic recur rent pancreatitis with possible alcohol abuse in the past, gastroenteritis, peptic ulcer disease, eso phagitis, who presented to hospital with right upper quadrant pain and nausea and vomiting. The kevin ent states that the right upper quadrant pain is 11/10, now down to 8/10, with pain medications in ho spital. The patient states that this pain has been bothering him over the past few days prior to adm ission. Finally came in for further evaluation and care. He took some omeprazole and Maalox to prev ent symptoms from getting worse before the admission, but this did not work, according to the patient . He is unable to lie still on his back and is moaning on admission in the emergency room. He feels somewhat better now on pain medicines, though he still says it is significantly painful. CT scan of abdomen and pelvis reveals diverticulosis in sigmoid colon without diverticulitis. Otherwise, negat viri, it appears. Past Medical History: Significant for recurrent chronic pancreatitis, possible alcohol abuse history in the past, peptic ulcer disease, hiatal hernia, eroded esophagus, esophagitis, hiatal hernia, janelle ritis, duodenitis, gastroenteritis, segundo in lower extremity, dental implants, skin grafts on BLE. Brenda merino also has history of colon polyps on last colonoscopy 5 years ago, told to have repeat colonoscopy a t approximately at this time or earlier and cholecystectomy he had in the past as well. Social History: He is , 1 son, and positive for tobacco. Positive for alcohol use, he says t hat only a little bit now, but a history of alcohol abuse in the past, it appears. Family History: Father of COVID with pneumonia, looks like, on June 2020. Mother still ali ve. Medications: At home include amoxicillin, Protonix, Carafate, and metronidazole. Allergies: NKDA. Physical Examination: General: The patient is obese, 5 feet 9 inch, 130 pounds, BMI of 34 kg/sq m. Well-nourished, well-d eveloped male, in mild distress stating that his right upper quadrant hurts still at 8/10 level, the maximum of 11/10, prior to admission. Vital Signs: Temperature 97.2, pulse 55, respirations 17, blood pressure 103/60, O2 saturation 96% t o 98% on room air. HEENT: Normocephalic, atraumatic. Anicteric. Pupils equal, round, and reactive to light. Extraocu lar movements intact. Oropharynx is clear. Neck: Supple. No masses. Respirations: Clear to auscultation bilaterally. Cardiac: Regular rate and rhythm. Gastrointestinal: Positive bowel sounds. Soft, nondistended. Pain in the right upper quadrant area with guarding. No peritoneal or Gutierrez sign. Extremities: No clubbing, cyanosis, or edema. 2+ pulses. Neuro: Alert and oriented x3. Grossly nonfocal. 5/5 motor strength. Sensation is light to touch. Laboratory Data: The patient has a white count of 15.1 yesterday, now down to 10.9, today on antibio tics. Hemoglobin of 16.6, down to 14.3, hematocrit 43.5, MCV of 98.5, platelet count 243, polys of 7 8%, on admission it was 89%, but both are high elevated indicative of infection, lymphocytes of 14%, monocytes 7%, eosinophils 0.2%. Sodium 140, potassium 3.8, chloride 111, bicarb 24, BUN of 16, creat inine of 1.13, glucose 106, calcium 9.2, phosphorus of 3.2, magnesium 3.2, total bilirubin 1.1, AST 2 0, ALT 29, alkaline phosphatase 115, down from a high of 158 yesterday. Total protein 7.0, albumin 3 .6, globulin 3.4, triglycerides 72, cholesterol 158, LDL of 104, HDL 40, indicative of poor exercise and cholesterol HDL ratio 3.95. Lipase normal at 24. UA is pending. Tox screen is pending. Serum alcohol is less than 10. Impression: 1.Right upper quadrant pain with nausea, vomiting, maximum level at 10/10, it could be due to peptic ulcer disease. He has a history of peptic ulcer disease in the past. He is status post laparoscopi c cholecystectomy. I would advise EGD evaluation. 2.History of peptic ulcer disease, hiatal hernia, gastritis, duodenitis, recurrent pancreatitis, moose or history of alcohol abuse, colon polyps, and others per above. Recommendations: 1.To keep patient NPO. 2.EGD urgently. 3.Continue IV fluids. 4.Continue on p.r.n. pain medicines and antiemetics. 5.Consider colonoscopy as an outpatient with history of colon polyps, last procedure done 5 years ag o for the colonoscopy. SALVATORE/DENIS Voice ID: [id number] Report ID: [id number]
--- NOTE | 2024-01-28 20:06 | P.PN ---
Date of Service: 01/28/24 Subjective Awake and feeling better, appears more relaxed still with some abdominal pain Plan for EGD today ROS 10 point ROS as noted above, otherwise negative Physical Exam General: Alert and Oriented x3, NAD HEENT: Atraumatic, Normocephalic Neck: Supple, 2+ carotid pulse no bruit Respiratory: Clear to auscultation bilaterally, Normal air movement, on RA Cardiovascular: No edema, Normal pulses, Normal S1 S2, RRR Capillary refill: <2 Seconds Gastrointestinal: bowel sounds present, soft on palpation, Distended, Tenderness Musculoskeletal: No clubbing Integumentary: No rashes Neurological: Normal speech, Normal tone Vitals Reviewed Problem list Intractable nausea/vomiting/abdominal pain Leukocytosis History of Peptic ulcer disease History of hiatal hernia History of pancreatitis NEW Hyperglycemia Sigmoid diverticulosis coli Assessment and Plan Intractable nausea/vomiting/abdominal pain Leukocytosis History of Peptic ulcer disease History of hiatal hernia History of pancreatitis -White blood cells 10.9 -continue Protonix drip and Carafate scheduled -pain control, antiemetic -Dr. Earl consulted -CLD per Dr. Earl -empirical Zosyn NEW -BUN/creatinine 16/1.13, GFR 76 -IV fluids Hyperglycemia -Serum glucose 106 -Monitoring a.m. labs Sigmoid diverticulosis coli -Incidental finding on CT abd/pelvis "Sigmoid diverticulosis coli is seen without evidence of diverticulitis. The colon is largely decompressed and cannot fully evaluated by CT." -Follow up outpatient Substance abuse -Toxicology positive for marijuana -Cessation education DVT ppx SCD Full code LOS 2 days Discharge Plan: Home Plan to discharge in: 48 Hours
--- NOTE | 2024-01-29 06:51 | P.PN ---
Subjective Date of Service: 01/29/24 Chief Complaint: Tractable nausea vomiting and RUQ pain Subjective: Improving (Much less RUQ pain and no N/V on PPI therapy) Review of Systems 10-point ROS is otherwise unremarkable Gastrointestinal: Abdominal Pain (Mild) Physical Examination - Vital Signs Temperature: 97.0 F Blood Pressure: 140/82 Pulse: 57 Respirations: 17 Pulse Ox (%): 98 - Physical Exam General: Alert, In no apparent distress, Oriented x3 HEENT: Atraumatic, Normocephalic, PERRLA, EOMI Neck: Supple Respiratory: Normal air movement Cardiovascular: Normal pulses Gastrointestinal: No rebound, No guarding, Tenderness (Mild ) Neurological: Normal speech, Normal strength at 5/5 x4 extr Assessment And Plan - Current Problems (Diagnosis) (1) RUQ abdominal pain Current Visit: Yes Status: Acute (2) Nausea & vomiting Current Visit: Yes Status: Acute (3) Esophagitis Current Visit: Yes Status: Acute (4) Gastritis Current Visit: Yes Status: Acute - Plan REC: 1) continue PPI therapy 2) advance diet CL to FL to cardiac healthy
[2024-01-29 06:53] LABS: Absolute Lymphocytes (CBC) 1.4 K/uL (0.7-4.9); Absolute Monocytes 0.4 K/uL (0.1-1.3); Absolute Neutrophil 5.1 K/uL (1.8-8.0); Basophils % 0.6 % (0-1.3); Eosinophils % 0.6 % (0-4.4); Hematocrit 41.9 % (39.6-49.0); Hemoglobin 14.3 g/dL (13.6-17.9); Lymphocytes % 19.8 % (15.3-44.8); MCH 30.8 pg (27.0-35.0); MCHC 34.1 g/dL (32.0-36.0); MCV 90.2 fL (80-100); MPV 7.4 fL (7.6-11.3); Monocytes % 6.2 % (3.3-12.3); Neutrophils % 72.8 % (41.7-73.7); Nucleated Red Blood Cells % 0.2 % (0-0); Platelets 216 thou/uL (152-406); RBC Red Blood Cell Count 4.64 M/uL (4.33-5.43); Red Cell Distribution Width 14.6 % (12.1-15.2)
[2024-01-29 07:09] LABS: Albumin 3.2 g/dL (3.4-5.0); Anion Gap 9.6 mEq/L (5.0-15.0); Bilirubin Total 1.3 mg/dL (0.2-1.0); Globulin 3.2 g/dL (2.3-3.5); Magnesium 2.2 mg/dL (1.6-2.4); Phosphorus 2.3 mg/dL (2.5-4.9); Potassium 3.6 mEq/L (3.5-5.1); Protein, Total 6.4 g/dL (6.4-8.2)
[2024-01-29] MEDS: PANTOPRAZOLE 40MG TABLET PO SCH (08:19)
[2024-01-29 10:31] VITALS: O2SAT 96
[2024-01-29 17:29] VITALS: BMI 34.2
--- NOTE | 2024-01-29 18:42 | P.PN ---
Date of Service: 01/29/24 Subjective c/o stomach pain not tolerating PO diet remains uncomfortable ROS 10 point ROS as noted above, otherwise negative Physical Exam General: AAO x3, NAD HEENT: Atraumatic, Normocephalic Neck: Supple, 2+ carotid pulse no bruit Respiratory: Clear to auscultation bilaterally, Symmetrical chest wall movement, on RA Cardiovascular: No edema, Normal pulses, Normal S1 S2 present, NSR Capillary refill: <2 Seconds Gastrointestinal: bowel sounds present, soft and benign on palpation, Distended/Tenderness Musculoskeletal: No clubbing Integumentary: No rashes Neurological: Normal speech, Normal tone Vitals Reviewed Problem list Intractable nausea/vomiting/abdominal pain Leukocytosis History of Peptic ulcer disease History of hiatal hernia History of pancreatitis NEW Hyperglycemia Sigmoid diverticulosis coli Assessment and Plan Intractable nausea/vomiting/abdominal pain Leukocytosis History of Peptic ulcer disease History of hiatal hernia History of pancreatitis -White blood cells 7.0 -continue Protonix PO and Carafate scheduled -pain control, antiemetic -Dr. Earl Following -FLD then advance to cardiac diet NEW -BUN/creatinine 14/1.10, GFR 79 -IV fluids Hyperglycemia-resolved -Serum glucose 97 -Monitoring a.m. labs Sigmoid diverticulosis coli -Incidental finding on CT abd/pelvis "Sigmoid diverticulosis coli is seen without evidence of diverticulitis. The colon is largely decompressed and cannot fully evaluated by CT." -Follow up outpatient Substance abuse -Toxicology positive for marijuana -Cessation education DVT ppx SCD Full code LOS 2 days Discharge Plan: Home Plan to discharge in: 48 Hours
[2024-01-30 06:50] LABS: Absolute Eosinophils 0.1 K/uL (0-0.5); Absolute Lymphocytes (CBC) 1.4 K/uL (0.7-4.9); Absolute Monocytes 0.5 K/uL (0.1-1.3); Absolute Neutrophil 4.2 K/uL (1.8-8.0); Basophils % 0.8 % (0-1.3); Hematocrit 43.2 % (39.6-49.0); Hemoglobin 14.5 g/dL (13.6-17.9); Lymphocytes % 22.9 % (15.3-44.8); MCH 30.3 pg (27.0-35.0); MCHC 33.6 g/dL (32.0-36.0); MCV 90.3 fL (80-100); MPV 7.4 fL (7.6-11.3); Monocytes % 7.8 % (3.3-12.3); Neutrophils % 67.5 % (41.7-73.7); Platelets 229 thou/uL (152-406); RBC Red Blood Cell Count 4.79 M/uL (4.33-5.43)
[2024-01-30 07:08] LABS: Albumin 3.2 g/dL (3.4-5.0); Albumin/Globulin Ratio 0.9 (1.1-1.8); Anion Gap 8.7 mEq/L (5.0-15.0); Bilirubin Total 0.9 mg/dL (0.2-1.0); Globulin 3.5 g/dL (2.3-3.5); Magnesium 2.1 mg/dL (1.6-2.4); Phosphorus 2.7 mg/dL (2.5-4.9); Potassium 3.7 mEq/L (3.5-5.1); Protein, Total 6.7 g/dL (6.4-8.2)
[2024-01-30 12:40] VITALS: BP 149/89; TEMP 97.3
--- NOTE | 2024-01-31 06:33 | P.DS ---
Admission Date: 01/27/24 Discharge Date: 01/30/24 Disposition: ROUTINE DISCHARGE Discharge Condition: FAIR Reason for Admission: Tractable nausea vomiting and RUQ pain Brief History of Present Illness: Diagnosis Intractable nausea/vomiting/abdominal pain Esophagitis Gastritis Leukocytosis History of Peptic ulcer disease History of hiatal hernia History of pancreatitis NEW Hyperglycemia Sigmoid diverticulosis coli Substance abuse-marijuana HPI 01/27/2024 Darrell Wiseman is a 58 year old male with pmhx gastroenteritis, pancreatitis, peptic ulcer disease, hiatal hernia, eroded lining of esophagus, skin graft to BLE who presents to the ED with chief complaint of abdominal pain and vomiting that started this morning. He reports having the same symptoms in the past and sees Dr. Cabrera. Last night he took omeprazole and Maalox to help prevent the symptoms from becoming worse. On evaluation he is unable to lie still, arching his back, and moaning. While in the ED he was given Maalox, Bentyl, Pepcid, fentanyl, morphine, Zofran, Phenergan, and viscous oral Xylocaine. Blood pressure 161/101, pulse 113, afebrile, pain to upper abdomen 10 out of 10. WBC 15, lipase 24, alk phos 158, glucose 150, BUN/creatinine 12/1.32, GFR 63, Dr. Earl was consulted and plans for an EGD in the morning. CT abd/pelvis Sigmoid diverticulosis coli is seen without evidence of diverticulitis. The colon is largely decompressed and cannot fully evaluated by CT. Darrell will be admitted to hospitalist service for further treatment of intractable N/V and abdominal pain. Hospital Course: Darrell Wiseman is a pleasant 58 year old male with a past medical history significant for gastroenteritis, pancreatitis, peptic ulcer disease, hiatal hernia, eroded lining of esophagus, skin graft to BLE who was admitted to the [facility] on 01/27/24 for intractable nausea vomiting and abdominal pain. Darrell presented to the ED with chief complaint nausea vomiting and abdominal p ain. Ct Abd/pelvis showed sigmoid diverticulosis coli without evidence of diverticulitis. He is a patient of Dr. Earl who was consulted and EGD was performed on 01/28/2024 finding esophagitis and gastritis. Darrell reports having gastric issues since he was a teenager. Toxicology screen showed marijuana use. Education was provided that marijuana also causes intractable nausea, vomiting, and abdominal pain. He has tolerated Protonix drip, Carafate, and slow advancement of diet. Plans to follow-up with Dr. Cabrera for continued management. On 01/30/24, Darrell Wiseman was seen on morning rounds and deemed medically stable for discharge. Darrell was discharged with instructions to schedule follow-up appointments with PCP and Dr. Earl. Darrell was provided prescriptions for Protonix, Protonix, and Carafate. Physical Exam General: Awake, alert, oriented x3, NAD HEENT: Atraumatic, Normocephalic Neck: Supple, 2+ carotid pulse no bruit Respiratory: Clear to auscultation bilaterally, normal chest wall movement, on room air Cardiovascular: No edema, Normal pulses, Normal S1 S2 present, RRR Capillary refill: <2 Seconds Gastrointestinal: bowel sounds present, soft and benign on palpation, Distended/mild tenderness Musculoskeletal: No clubbing Integumentary: No rashes Neurological: Normal speech, Normal tone Vital Signs/Physical Exam: Temp Pulse Resp BP Pulse Ox 97.3 F 57 16 149/89 H 97 01/30/24 12:00 01/30/24 12:00 01/30/24 12:00 01/30/24 12:00 01/30/24 12:00 Laboratory Data at Discharge: WBC 6.20 thou/uL (4.3-10.9) 01/30/24 06:40 Hgb 14.5 g/dL (13.6-17.9) 01/30/24 06:40 Hct 43.2 % (39.6-49.0) 01/30/24 06:40 Plt Count 229 thou/uL (152-406) 01/30/24 06:40 Sodium 140 mEq/L (136-145) 01/30/24 06:40 Potassium 3.7 mEq/L (3.5-5.1) 01/30/24 06:40 BUN 8 mg/dL (7-18) 01/30/24 06:40 Creatinine 0.95 mg/dL (0.70-1.30) 01/30/24 06:40 Glucose 91 mg/dL (74-106) 01/30/24 06:40 Phosphorus 2.7 mg/dL (2.5-4.9) 01/30/24 06:40 Magnesium 2.1 mg/dL (1.6-2.4) 01/30/24 06:40 Total Bilirubin 0.9 mg/dL (0.2-1.0) 01/30/24 06:40 AST 40 U/L (15-37) H 01/30/24 06:40 ALT 35 U/L (16-61) 01/30/24 06:40 Alkaline Phosphatase 104 U/L (45-117) 01/30/24 06:40 Triglycerides 72 mg/dL (<150) 01/28/24 06:34 Cholesterol 158 mg/dL (<200) 01/28/24 06:34 HDL Cholesterol 40 mg/dL (40-60) 01/28/24 06:34 Cholesterol/HDL Ratio 3.95 01/28/24 06:34 Lipase 24 U/L (13-75) 01/27/24 13:30 Home Medications: Pantoprazole [Protonix Tab*] 40 mg PO BID #60 tab 03/26/23 Sucralfate [Carafate*] 1 gm PO BID 01/28/24 L.acidoph,Paracasei, B.lactis [Probiotic] 1 cap PO DAILY 30 Days #30 cap 01/30/24 Pantoprazole [Protonix Tab*] 40 mg PO BIDAC 30 Days #60 tab 01/30/24 Sucralfate [Carafate*] 10 ml FT QID 14 Days #560 ml 01/30/24 traMADol HCL [Ultram*] 50 mg PO Q6H PRN 4 Days #15 tab 01/30/24 New Medications: Sucralfate [Carafate*] 10 ml FT QID 14 Days #560 ml L.acidoph,Paracasei, B.lactis [Probiotic] 1 cap PO DAILY 30 Days #30 cap Pantoprazole [Protonix Tab*] 40 mg PO BIDAC 30 Days #60 tab traMADol HCL [Ultram*] 50 mg PO Q6H PRN 4 Days #15 tab PRN Reason: Pain Physician Discharge Instructions: 1. Please call and schedule a follow-up appointment with your PCP in 3-5 days - Please follow-up with your PCP for medication refills/adjustments 2. Please call and schedule a follow-up appointment with Dr. Earl in 3-5 days 3. Continue full liquid diet or soft GI diet 4. activity restrictions, return to work on Friday 5. Return to the ED if symptoms worsen New medications Carafate 10 ml four times daily with meals and at bedtime x 14 days Protonix 40 mg p.o. twice daily Tramadol 50 mg p.o. every 6 hours x 4 days probiotics 1 capsule daily x 30 days Diet: FLD or sof Activity: Work excuse Followup: Wing Earl MD [ASSOCIATE-ACTIVE - CAN ADMIT] - 1 Week Hussein Perez PAC [Primary Care Provider] - 1 Week
== END 2024-01-30 13:00 | disposition home or self-care (01) | DRG 392 ==
LOC: ER 13:12 → ERHOLD 17:14 → 4TH 18:28
PROVIDERS: ADMIT Internal Medicine; ATTEND Internal Medicine
PROC: 0DB78ZX Excision of Stomach, Pylorus, Via Natural or Artificial Opening Endoscopic, Diagnostic (ICD-10-PCS; 2024-01-28)
PROC: 0DB68ZX Excision of Stomach, Via Natural or Artificial Opening Endoscopic, Diagnostic (ICD-10-PCS; principal; 2024-01-28 10:30)
DX: K29.00 Acute gastritis without bleeding (principal); N17.9 Acute kidney failure, unspecified; K21.00 Gastro-esophageal reflux disease with esophagitis, without bleeding; K44.9 Diaphragmatic hernia without obstruction or gangrene; K29.80 Duodenitis without bleeding; K57.30 Diverticulosis of large intestine without perforation or abscess without bleeding; F12.10 Cannabis abuse, uncomplicated; F17.210 Nicotine dependence, cigarettes, uncomplicated; R73.9 Hyperglycemia, unspecified; Z90.49 Acquired absence of other specified parts of digestive tract
CPT/HCPCS: 36415; 74177; 80053; 80061; 80307; 81001; 82077; 83690; 83735; 84100; 85025; 88305; 88312; 96361; 96374; 96375; 99285; J0171; J1170; J2001; J2270; J2405; J2470; J2543; J2550; J2704; J3010; J7030; J7050; Q9967

== ENCOUNTER 2024-04-27 10:45 | Emergency (ER) | payer BC ==
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
[2024-04-27] MEDS ORDERED: HALOPERIDOL LACT 5 MG/ML INJ ONE ×3 (13:37→14:12)
[2024-04-27] MEDS ORDERED: ONDANSETRON 4 MG/2 ML VIAL ONE (13:37)
[2024-04-27] MEDS ORDERED: FAMOTIDINE 20 MG/2 ML VIAL IV ONE (13:38)
[2024-04-27 14:00] LABS: Absolute Basophils 0.1 K/uL (0-0.5); Absolute Lymphocytes (CBC) 0.7 K/uL (0.7-4.9); Absolute Monocytes 0.4 K/uL (0.1-1.3); Absolute Neutrophil 12.4 K/uL (1.8-8.0); Basophils % 0.6 % (0-1.3); Hematocrit 45.8 % (39.6-49.0); Hemoglobin 15.5 g/dL (13.6-17.9); Lymphocytes % 5.1 % (15.3-44.8); MCH 30.2 pg (27.0-35.0); MCHC 33.8 g/dL (32.0-36.0); MCV 89.6 fL (80-100); Monocytes % 2.7 % (3.3-12.3); Neutrophils % 91.6 % (41.7-73.7); Platelets 226 thou/uL (152-406); RBC Red Blood Cell Count 5.11 M/uL (4.33-5.43); Red Cell Distribution Width 14.5 % (12.1-15.2)
[2024-04-27 14:17] LABS: Albumin 3.8 g/dL (3.4-5.0); Anion Gap 10.2 mEq/L (5.0-15.0); Bilirubin Total 0.4 mg/dL (0.2-1.0); Globulin 3.7 g/dL (2.3-3.5); Potassium 4.2 mEq/L (3.5-5.1); Protein, Total 7.5 g/dL (6.4-8.2)
--- NOTE | 2024-04-27 14:33 | ER ---
Nurse's Notes [facility] Name: Darrell Wiseman Age: 58 yrs Sex: Male : 1965 Arrival Date: 04/27/2024 Time: 10:45 Bed 10 Private MD: Diagnosis: Presentation: 04/27 11:56 Chief complaint: Spouse and/or significant other states: N/V/Abdominal pain after jl7 eating fried fish last night. Coronavirus screen: At this time, the client does not indicate any symptoms associated with coronavirus-19. Ebola Screen: No symptoms or risks identified at this time. Initial Sepsis Screen: Does the patient meet any 2 criteria? No. Patient's initial sepsis screen is negative. Does the patient have a suspected source of infection? No. Patient's initial sepsis screen is negative. Risk Assessment: Do you want to hurt yourself or someone else? Patient reports no desire to harm self or others. Onset of symptoms was April 26, 2024. 11:56 Method Of Arrival: Ambulatory [facility] 11:56 Acuity: ANGLE 3 jl7 Triage Assessment: 11:57 General: Appears distressed, uncomfortable, ill, Behavior is cooperative. Pain: jl7 Complains of pain in abdomen Pain currently is 10 out of 10 on a pain scale. GI: Reports nausea, vomiting. Historical: - Allergies: 11:57 No Known Allergies; jl7 - PMHx: 11:57 Chronic Pancreatitis; duodenitis; Esophagitis; gastritis; hiatal hernia; PUD; jl7 - PSHx: 11:57 Cholecystectomy; jl7 - Immunization history:: Adult Immunizations unknown. - Infectious Disease History:: Denies. - Social history:: Smoking status: Patient reports the use of cigarette tobacco products, smokes one-half pack cigarettes per day. Screenin:00 [facility] ED Fall Risk Assessment (Adult) History of falling in the last 3 months, jl7 including since admission No falls in past 3 months (0 pts) Confusion or Disorientation No (0 pts) Intoxicated or Sedated No (0 pts) Impaired Gait No (0 pts) Mobility Assist Device Used No (0 pt) Altered Elimination No (0 pt) Score/Fall Risk Level 0 - 2 = Low Risk Oriented to surroundings, Maintained a safe environment. Abuse screen: Denies threats or abuse. Denies injuries from another. Nutritional screening: No deficits noted. Tuberculosis screening: No symptoms or risk factors identified. Assessment: 13:53 Reassessment: Pt refused Haldol, reports "I want what I know works." Pt and reort jl7 morphine or Dilaudid work for this pain. Dr. Campbell notified, no new orders at this time. Pain: Complains of pain in abdomen diffusely Pain currently is 10 out of 10 on a pain scale. GI: Abdomen is non-distended. 14:04 Reassessment: Informed pt that Dr. Campbell will not be ordering morphine or Dilaudid and pt jl7 states "just give me the other stuff but y'all are going to have to admit me. I can't go home this sick." Pt medicated as ordered. 14:10 Reassessment: Pt yelling out, ERD ordered repeat dose, pt refused and reports abdominal jl7 cramping post Haldol administration. ERD notified. 14:29 Reassessment: states pt pulled out IV and is leaving ER, noticed pt walking out of aa5 ER. . Vital Signs: 11:56 BP 145 / 103; Pulse 90; Resp 15; Temp 98.2; Pulse Ox 99% ; Weight 104.33 kg; Height 5 jl7 ft. 9 in. ; Pain 10/10; 14:00 BP 157 / 87; Pulse 89; Resp 15; Pulse Ox 99% ; Pain 10/10; jl7 11:56 Body Mass Index 33.96 (104.33 kg, 175.26 cm) jl7 11:56 Pain Scale: Adult jl7 14:00 Pain Scale: Adult jl7 ED Course: 10:49 Patient arrived in ED. mg5 11:57 Triage completed. jl7 11:57 Arm band placed on right wrist. Patient placed in waiting room, Patient notified of jl7 wait time. 12:33 Servando Campbell MD is Attending Physician. bo1 13:33 Leonora Aguilera RN is Primary Nurse. jl7 13:52 Initial lab(s) drawn, by me, sent to lab. Inserted saline lock: 20 gauge in right jl7 forearm, using aseptic technique. Blood collected. Flushed with 10 mL NS. 14:00 Patient has correct armband on for positive identification. Bed in low position. Call jl7 light in reach. Side rails up X 1. Provided Education on: use of call osuna. 14:30 see nursing notes, pt pulled out IV. aa5 Administered Medications: 13:45 Drug: Famotidine IVP 20 mg IVP once; dilute with 10 mL 0.9% NaCl; give over 2 minutes jl7 Route: IVP; Site: right forearm; 14:51 Follow up: Response: No adverse reaction jl7 13:50 Drug: Ondansetron IVP 4 mg IVP once; over 2 minutes Route: IVP; Site: right forearm; jl7 14:51 Follow up: Response: No adverse reaction jl7 14:04 Drug: Haloperidol IVP 2.5 mg/50 mL 2.5 mg IVP once; Place patient on a harness mender jl7 Route: IVP; Site: right forearm; 14:51 Follow up: Response: Pain is unchanged, physician notified jl7 14:07 CANCELLED (unavailable): droperidol1.25 mg IVP once jl7 14:31 Not Given (Patient Refused): haloperidol2.5 mg/50 ml 2.5 mg IVP once; Place patient on jl7 a harness mender Medication: 14:00 VIS not applicable for this client. jl7 Outcome: 14:29 AMA Left before signing form, kb3 14:29 Condition: stable, ambulatory with steady gait. 14:32 Patient left the ED. ej5 Signatures: Isabel Soto RN RN aa5 Leonora Aguilera RN RN jl7 Elad Harris RN RN kb3 Melissa Marroquin mg5 Servando Campbell MD MD bo1 Corrections: (The following items were deleted from the chart) 04/28 10:42 12 14:29 Eloped after seeing physician hillary kb3
--- NOTE | 2024-04-27 14:33 | EDPHYS ---
Physician Documentation [facility] Name: Darrell Wiseman Age: 58 yrs Sex: Male : 1965 Arrival Date: 04/27/2024 Time: 10:45 Bed 10 Private MD: ED Physician Servando Campbell HPI: 04/27 14:20 This 58 yrs old Male presents to ER via Ambulatory with complaints of bo1 Nausea/Vomiting, Abdominal Pain. 14:20 The patient presents to the emergency department with nausea, vomiting, abdominal pain. bo1 Onset: The symptoms/episode began/occurred suddenly, today, after eating fried fish yesterday. Possible causes: flare up of bowel problem, Hx of diet intolerance. Severity of symptoms: At their worst the symptoms were severe incapacitating in the emergency department the symptoms are unchanged. The patient has experienced similar episodes in the past, multiple times, chronically. Hx of prior visits for the same. 14:44 Pt is stating "I know what works and I want morphine or dilaudid.". bo1 Historical: - Allergies: 11:57 No Known Allergies; jl7 - PMHx: 11:57 Chronic Pancreatitis; duodenitis; Esophagitis; gastritis; hiatal hernia; PUD; jl7 - PSHx: 11:57 Cholecystectomy; jl7 - Immunization history:: Adult Immunizations unknown. - Infectious Disease History:: Denies. - Social history:: Smoking status: Patient reports the use of cigarette tobacco products, smokes one-half pack cigarettes per day. ROS: 14:42 Constitutional: Negative for fever, chills, and weight loss bo1 14:42 Abdomen/GI: Positive for abdominal pain, nausea and vomiting, Negative for diarrhea, 14:42 Back: Negative for pain at rest, 14:42 MS/extremity: Negative for pain, swelling, 14:42 All other systems are negative, Exam: 14:39 Constitutional: This is a well developed, well nourished patient who is awake, alert, bo1 and in acute distress. 14:39 Constitutional: The patient appears alert, awake, obese, in obvious distress, moderately distressed, "writhing on the stretcher". 14:39 Head/face: Exam is negative for acute changes, rash, swelling, 14:39 Eyes: Sclera: no acute changes, icterus, is not appreciated, 14:39 Neck: External neck: is normal, Short necked, 14:39 Cardiovascular: Rate: normal, Rhythm: regular, Pulses: no pulse deficits are appreciated, 14:39 Respiratory: the patient does not display signs of respiratory distress, Respirations: normal, no acute changes, Breath sounds: are clear throughout, Respiratory rate: Normal rate 14:39 Abdomen/GI: Inspection: abdomen appears normal, distension, is not seen, obese Palpation: mild abdominal tenderness, in all quadrants, No bruising or lesions noted, 14:39 Back: CVA tenderness, is absent, 14:39 Musculoskeletal/extremity: DVT Exam: no pain, no swelling, no tenderness, Vital Signs: 11:56 BP 145 / 103; Pulse 90; Resp 15; Temp 98.2; Pulse Ox 99% ; Weight 104.33 kg; Height 5 jl7 ft. 9 in. ; Pain 10/10; 14:00 BP 157 / 87; Pulse 89; Resp 15; Pulse Ox 99% ; Pain 10/10; jl7 11:56 Body Mass Index 33.96 (104.33 kg, 175.26 cm) jl7 11:56 Pain Scale: Adult jl7 14:00 Pain Scale: Adult jl7 MDM: 12:33 Medical Screening Exam initiated bo1 14:27 Differential diagnosis: Nonspecific abd pain, pancreatitis, diverticulitis, bo1 gastroenteritis, Chronic pain from other causes. Data reviewed: vital signs, old medical records, lab test result(s), CBC. Management of patient was discussed with the following: The pt and pt's sig other wish to leave for another facility to get the morphine or dilaudid as demanded. Refusal of service: The patient/guardian displays adequate decision making capability and despite a detailed discussion of alternatives, benefits, risks, and consequences refuses: CT Scan, Continued care and disposition. Refused further ER. 14:38 Refusal of service: The patient/guardian displays adequate decision making capability bo1 and despite a detailed discussion of alternatives, benefits, risks, and consequences refuses: Further ER care and evaluation with imaging etc. ED course: Pt has d/c'ed his IV against medical advice and his family's wishes and pt is walking out on his own power and decision. 04/27 13:28 Order name: CBC with Diff bo1 04/27 13:28 Order name: CMP; Complete Time: 14:22 bo1 04/27 13:28 Order name: Lipase; Complete Time: 14:22 bo1 04/27 13:28 Order name: IV Saline Lock; Complete Time: 14:08 bo1 04/27 13:28 Order name: Labs collected and sent; Complete Time: 14:08 bo1 Administered Medications: 13:45 Drug: Famotidine IVP 20 mg IVP once; dilute with 10 mL 0.9% NaCl; give over 2 minutes jl7 Route: IVP; Site: right forearm; 14:51 Follow up: Response: No adverse reaction jl7 13:50 Drug: Ondansetron IVP 4 mg IVP once; over 2 minutes Route: IVP; Site: right forearm; jl7 14:51 Follow up: Response: No adverse reaction jl7 14:04 Drug: Haloperidol IVP 2.5 mg/50 mL 2.5 mg IVP once; Place patient on a naturopathic doctor jl7 Route: IVP; Site: right forearm; 14:51 Follow up: Response: Pain is unchanged, physician notified jl7 14:07 CANCELLED (unavailable): droperidol1.25 mg IVP once jl7 14:31 Not Given (Patient Refused): haloperidol2.5 mg/50 ml 2.5 mg IVP once; Place patient on jl7 a naturopathic doctor Disposition Summary: 04/27/24 14:32 Eloped Notes: Disposition: after being seen by provider aa5 Reason: other aa5 Signatures: Dispatcher [employer] Isabel Oconnell RN RN aa5 Leonora Aguilera RN RN jl7 Servando Campbell MD MD bo1 Corrections: (The following items were deleted from the chart) 13:28 13:28 CBC+H.LAB.BRZ ordered. EDMS EDMS 13:28 13:28 COMPREHENSIVE METABOLIC PANEL+C.LAB.BRZ ordered. EDMS EDMS 13:28 13:28 LIPASE+C.LAB.BRZ ordered. EDMS EDMS 13:28 13:28 Urinalysis+U.LAB.BRZ ordered. EDMS EDMS 14:07 13:30 Droperidol IVP 1.25 mg IVP once ordered. bo1 jl7 14:07 14:07 URINE DRUG SCREEN+UC.LAB.BRZ ordered. EDMS EDMS 14:07 14:07 Droperidol IVP 1.25 mg IVP once ordered. jl7 jl7
[2024-04-27 16:22] LABS: Blood Morphology Comment NOT SEEN (NOT SEEN); Platelet Estimate ADEQ; White Blood Cell Scan OK (OK)
[2024-04-27 16:48] VITALS: TEMP 98.2; O2SAT 99
[2024-04-27 16:54] VITALS: BP 157/87
== END 2024-04-27 14:32 | disposition left against medical advice (07) ==
LOC: ER 10:45
DX: R11.2 Nausea with vomiting, unspecified (principal); R10.9 Unspecified abdominal pain; F17.210 Nicotine dependence, cigarettes, uncomplicated
CPT/HCPCS: 85025; 36415; 83690; 80053; 96375; 96374; 99284; J1630 ×2; J2405